=== PATIENT | male | born 1970 | race Two or more races ===

== ENCOUNTER 2020-09-12 21:21 | Inpatient (IN) | payer MEDICAID, SELFPAY ==
[2020-09-12 21:34] VITALS: BP 151/80; PULSE 82; RESP 16; TEMP 37.2; O2SAT 99; BMI 27.4
[2020-09-12 23:37] VITALS: BP 153/93; PULSE 81; RESP 15; O2SAT 98
[2020-09-12 23:39] LABS: MANUAL DIFF FLAG NO
[2020-09-12 23:40] LABS: Basophils Percent Auto 0.2 % (0-2); Eosinophils Absolute Auto 0.1 X10*3/uL (0.0-0.4); Eosinophils Percent Auto 0.6 % (0-4); Hematocrit 37.8 % (42-52); Hemoglobin 11.7 g/dl (14.0-18.0); Imm Gran Abs Auto 0.03 X10*3/uL (0.00-0.03); Imm Gran Pct Auto 0.3 % (0.0-0.4); Lymphocytes Absolute Auto 1.7 X10*3/uL (1.2-4.9); Mean Corpuscular Hemoglobin 23.6 pg (27.0-33.0); Mean Corpuscular Volume 76.4 fL (80-98); Mean Platelet Volume 9.2 fL (9.4-12.4); Monocytes Percent Auto 8.3 % (2-11); Neutrophils Absolute Auto 9.1 X10*3/uL (2.0-8.3); Neutrophils Percent Auto 76.6 % (45-73); Platelet Count 415 X10*3/uL (160-400); Red Blood Count 4.95 X10*6/uL (4.60-5.80); Red Cell Distribution Width 16.3 % (11.0-16.0); White Blood Count 11.8 X10*3/uL (4.8-10.8)
--- NOTE | 2020-09-12 23:48 | ED_ITS ---
HPI - Abdominal Pain General Chief Complaint: Abdominal Pain Stated Complaint: Abdominal Pain Time Seen by Provider: 09/12/20 23:08 Source: patient Mode of arrival: ambulatory Limitations: no limitations History of Present Illness HPI narrative: 50-year-old male presented with abdominal pain that progressively worsening over the past week, patient prescribed abdominal pain and distension which is constant for the past week with worsening over the week, patient fell of the ladder (more than 12 ft height) 3 weeks ago, seen by PCP no radiographic study was ordered, patient declined any aggravating factors, no relieving factors, pain is constant, described as severe 07/05, no other associated symptoms. Related Data Allergies Allergy/AdvReac Type Severity Reaction Status Date / Time No Known Allergies Allergy Verified 09/12/20 22:04 Review of Systems Review of Systems All other systems are reviewed and are negative Constitutional: Reports as per HPI and Reports no additional constitutional complaints Eyes: Reports as per HPI and Reports no additional eye complaints Reports system reviewed and no additional complaints, except as documented Cardiovascular: Reports as per HPI and Reports no additional cardiovascular complaints Respiratory: Reports as per HPI and Reports no additional respiratory complaints Gastrointestinal: Reports as per HPI and Reports no additional gastrointestinal complaints Genitourinary: Reports no additional female genitourinary complaints Musculoskeletal: Reports no additional musculoskeletal complaints Skin/Breast: Reports system reviewed and no additional complaints, except as docu Psychiatric: Reports no additional psychiatric complaints Endocrine: Reports no additional endocrine complaints Hematologic/Lymphatic: Reports no additional hematologic/lymphatic complaints Allergic/Immunologic: Reports no additional allergic/immunologic complaints Reports system reviewed and no additional complaints, except as documented and Reports Abnormal speech present Physical Exam Vital Signs: Vital Signs: Last Vital Signs Temp 99 F 09/12/20 21:34 Pulse 81 09/12/20 23:37 Resp 15 09/12/20 23:37 BP 153/93 H 09/12/20 23:37 Pulse Ox 98 09/12/20 23:37 Body Mass Index 27.4 Vital signs have been reviewed as normal and appeared to be correct. Blood pressure in the high range, Heart rate normal. Respiration rate normal. Temperature normal. Oxygen saturation normal. Appearance: Alert. Oriented X3. No acute distress. Head: Normal external exam. Normocephalic. Atraumatic. No Syed signs noted. No raccoon eyes noted Eyes: PERRLA. EOMI. Conjunctiva and sclera normal. Eyelids normal. ENT: EAC normal. TM's Normal. Pharynx normal. Uvula midline. Moist mucous membranes. No trismus noted. No drooling noted. No muffled voice noted. Neck: Normal inspection. Neck supple. FROM. No adenopathy. Thyroid Normal. No meningeal signs. No neck mass noted. CVS: Normal heart rate and rhythm. Heart sound normal. No murmurs noted. Pulses normal throughout. Respiratory: No respiratory distress. Painless inspiration. Breath sounds normal. No wheezes/rales/rhonchi noted. No accessory muscle usage noted or decreased air movement noted. Abdomen: Diffuse abdominal tenderness, no rebound, no guarding, positive abdominal distension. Bowel sounds normal in all 4 quadrants. No organomegaly noted. No visible injury noted. Back: No CVA tenderness. Full range of motion noted. Skin: Skin warm and dry. Normal skin color. Normal skin turgor. No ra shes/lesions/lacerations noted. Extremities: No lower extremity edema. Extremities exhibit normal range of motion. Extremities nontender. Neuro: Oriented X 3. No motor deficit. No sensory deficit. Reflexes normal. MDM - Abdominal Pain MDM Narrative Medical decision making narrative: Assessment and plan. 50-year-old male status post trauma 3 weeks ago falling from ladder greater than 12 ft height, patient sustained abdominal injury, patient has been worsening of abdominal pain for the past week CT of the abdomen pelvis is concerning of small-bowel obstruction versus cecal mass, the case discussed with Dr. Curiel who recommended admitting the patient to Surgical Service, insert NG tube, and further inpatient serial exam and evaluation. Lab Data Result diagrams: 09/12/20 23:32 09/12/20 23:32 Labs: Lab Results 09/12/20 09/12/20 09/12/20 Range/Units 23:32 23:32 23:32 WBC 11.8 H (4.8-10.8) X10*3/uL RBC 4.95 (4.60-5.80) X10*6/uL Hgb 11.7 L (14.0-18.0) g/dl Hct 37.8 L (42-52) % MCV 76.4 L (80-98) fL MCH 23.6 L (27.0-33.0) pg MCHC 31.0 (31.0-36.0) g/dl RDW 16.3 H (11.0-16.0) % Plt Count 415 H (160-400) X10*3/uL MPV 9.2 L (9.4-12.4) fL Immature Gran % (Auto) 0.3 (0.0-0.4) % Neut % (Auto) 76.6 H (45-73) % Lymph % (Auto) 14.0 L (20-40) % [place] % (Auto) 8.3 (2-11) % Eos % (Auto) 0.6 (0-4) % Baso % (Auto) 0.2 (0-2) % Lymph # (Auto) 1.7 (1.2-4.9) X10*3/uL [place] # (Auto) 1.0 (0.1-1.2) X10*3/uL Eos # (Auto) 0.1 (0.0-0.4) X10*3/uL Baso # (Auto) 0.0 (0.0-0.2) X10*3/uL Abs Immat Gran (auto) 0.03 (0.00-0.03) X10*3/uL Absolute Neuts (auto) 9.1 H (2.0-8.3) X10*3/uL Absolute Nucleated RBC 0.000 (0.0-0.012) X10*3/uL Nucleated RBC % (auto) 0.0 (0.0-0.2) /100WBC Hold Blue Top SEE NOTE Sodium 135 (135-145) mmol/L Potassium 4.2 (3.3-5.1) mmol/l Chloride 99 (96-108) mmol/L Carbon Dioxide 27 (22-29) mmol/L Anion Gap 13 (12-20) BUN 20 H (9-16) mg/dL Creatinine 0.92 (0.5-1.4) mg/dL Estim Creat Clear Calc 89.8 Estimated GFR > 60 Random Glucose 141 H (60-115) mg/dL Calcium 8.9 (8.4-10.2) mg/dL Total Bilirubin 0.5 (0.0-1.0) mg/dL AST 15 (5-37) U/L ALT 10 (0-40) U/L Alkaline Phosphatase 114 (39-117) U/L Total Protein 7.4 (6.5-8.0) g/dL Albumin 4.4 (3.5-5.0) g/dL Lipase (8-78) U/L Urine Color Urine Appearance Urine pH (5.0-8.0) Ur Specific [place] (1.005-1.025) Urine Protein (NEG-TRACE) MG/DL Urine Glucose (UA) (NEG) MG/DL Urine Ketones (NEG) MG/DL Urine Blood (NEG) Urine Nitrite (NEG) Ur Leukocyte Esterase (NEG) 09/12/20 09/12/20 Range/Units 23:32 23:39 WBC (4.8-10.8) X10*3/uL RBC (4.60-5.80) X10*6/uL Hgb (14.0-18.0) g/dl Hct (42-52) % MCV (80-98) fL MCH (27.0-33.0) pg MCHC (31.0-36.0) g/dl RDW (11.0-16.0) % Plt Count (160-400) X10*3/uL MPV (9.4-12.4) fL Immature Gran % (Auto) (0.0-0.4) % Neut % (Auto) (45-73) % Lymph % (Auto) (20-40) % [place] % (Auto) (2-11) % Eos % (Auto) (0-4) % Baso % (Auto) (0-2) % Lymph # (Auto) (1.2-4.9) X10*3/uL [place] # (Auto) (0.1-1.2) X10*3/uL Eos # (Auto) (0.0-0.4) X10*3/uL Baso # (Auto) (0.0-0.2) X10*3/uL Abs Immat Gran (auto) (0.00-0.03) X10*3/uL Absolute Neuts (auto) (2.0-8.3) X10*3/uL Absolute Nucleated RBC (0.0-0.012) X10*3/uL Nucleated RBC % (auto) (0.0-0.2) /100WBC Hold Blue Top Sodium (135-145) mmol/L Potassium (3.3-5.1) mmol/l Chloride (96-108) mmol/L Carbon Dioxide (22-29) mmol/L Anion Gap (12-20) BUN (9-16) mg/dL Creatinine (0.5-1.4) mg/dL Estim Creat Clear Calc Estimated GFR Random Glucose (60-115) mg/dL Calcium (8.4-10.2) mg/dL Total Bilirubin (0.0-1.0) mg/dL AST (5-37) U/L ALT (0-40) U/L Alkaline Phosphatase (39-117) U/L Total Protein (6.5-8.0) g/dL Albumin (3.5-5.0) g/dL Lipase 12 (8-78) U/L Urine Color YELLOW Urine Appearance CLEAR Urine pH 6.5 (5.0-8.0) Ur Specific [place] >= 1.030 H (1.005-1.025) Urine Protein NEG (NEG-TRACE) MG/DL Urine Glucose (UA) NEG (NEG) MG/DL Urine Ketones 5 (NEG) MG/DL Urine Blood NEG (NEG) Urine Nitrite NEG (NEG) Ur Leukocyte Esterase NEG (NEG) Imaging Data CT scan - abdomen: Radiologist's impression: This exam is abnormal. There is dilatation of small bowel to level of the ileocecal valve and at the level of the cecum there is felt to be abnormality with soft tissue in the mesentery around the cecum and likely soft tissue occupying the cecum itself with some adjacent mesenteric nodes. There is a differential here. Tumor needs to be suspected. Inflammatory process also cannot be excluded. Recommendation is direct visualization and/or repeat CT with oral and intravenous contrast Given history of trauma there is a possibility this could be trauma related and therefore differential would include aging hematoma related to mesenteric/bowel injury. No free air. Small amount of free fluid in the deep pelvis Discharge Plan Discharge Clinical Impression: Partial small bowel obstruction Abdominal pain Qualifiers: Abdominal location: generalized Qualified Code(s): R10.84 - Generalized abdominal pain Abdominal trauma Qualifiers: Encounter type: initial encounter Qualified Code(s): S39.91XA - Unspecified injury of abdomen, initial encounter Patient Disposition: Admitted As Inpatient [facility] Social History Social History Alcohol intake: never Smoking Status: Never smoker Use of substances other than those prescribed or required for medical reasons: No Advance Directives: No Advance Directives Information Provided: No Advance Directives on File: No
[2020-09-12 23:52] LABS: Glucose Urine UA NEG (NEG); Leukocyte Esterase Urine NEG (NEG); Nitrite Urine NEG (NEG); PH 6.5 (5.0-8.0); Specific Gravity - Urine >= 1.030 (1.005-1.025); Urine Blood NEG (NEG); Urine Ketones 5 MG/DL (NEG); Urine Protein NEG (NEG-TRACE)
[2020-09-12 23:58] LABS: Appearance Urine CLEAR; Color Urine YELLOW
--- NOTE | 2020-09-13 | CT_ITS ---
EXAMINATION: CT ABDOMEN AND PELVIS WITHOUT CONTRAST CLINICAL INFORMATION: Abdominal distention, status post fall COMPARISON: None TECHNIQUE: Multidetector volumetric imaging was performed from the superior aspect of the liver through the pubic symphysis. Sagittal and coronal reformatted images were obtained on the technologist's workstation. This CT examination was performed using dose optimization techniques as appropriate, variously including the following: *Automated exposure control *Adjustment of mA and/or kV according to patient size (this includes techniques or standardized protocols for targeted exams where dose is matched to indication/reason for exam; i.e. extremities or head) *Use of iterative reconstruction technique DLP: 583 mGy-cm FINDINGS: LUNG BASES: The visualized lung bases are unremarkable. LIVER, GALLBLADDER, AND BILIARY TREE: The liver is normal in size, shape, and attenuation. No focal hepatic lesion or biliary ductal dilatation is present. The gallbladder is unremarkable with no evidence of radiopaque gallstones, gallbladder wall thickening, or obvious pericholecystic inflammatory changes. PANCREAS: Unremarkable. SPLEEN: Unremarkable. ADRENAL GLANDS: Unremarkable. KIDNEYS AND URETERS: The kidneys are normal in size, shape, and attenuation. No hydronephrosis, hydroureter, or calculi seen. No perinephric stranding. BLADDER: Unremarkable. GASTROINTESTINAL TRACT: There is small bowel dilatation. This leads up to the region of the cecum. The region of the cecum is abnormal. I suspect a lesion here. There is also abnormal soft tissue in the mesentery adjacent to the cecum. This could be tumor extension. There is a history of trauma so this area could be related to trauma however no Hounsfield units measuring acute blood or detected. There is some adenopathy in the mesentery medial to the cecal region. Appendicoliths within the appendix. The appendix is mildly prominent at 8 mm. No surrounding soft tissue stranding. Small amount of free fluid is seen in the deep pelvis. ABDOMINAL WALL: No significant hernia is appreciated. LYMPH NODES: As described some mesenteric nodes in the right mesentery. VASCULAR: Unremarkable. PELVIC VISCERA: Unremarkable. OSSEOUS STRUCTURES: Grade 1 anterolisthesis with spondylolysis at L5-S1. No evidence for bony lesion. No acute compression injury is seen here. CT/CT abdomen pelvis wo con IMPRESSION: This exam is abnormal. There is dilatation of small bowel to level of the ileocecal valve and at the level of the cecum there is felt to be abnormality with soft tissue in the mesentery around the cecum and likely soft tissue occupying the cecum itself with some adjacent mesenteric nodes. There is a differential here. Tumor needs to be suspected. Inflammatory process also cannot be excluded. Recommendation is direct visualization and/or repeat CT with oral and intravenous contrast Given history of trauma there is a possibility this could be trauma related and therefore differential would include aging hematoma related to mesenteric/bowel injury. No free air. Small amount of free fluid in the deep pelvis
[2020-09-13 00:04] LABS: Alanine Aminotransferase 10 U/L (0-40); Albumin Level 4.4 g/dL (3.5-5.0); Alkaline Phosphatase 114 U/L (39-117); Anion Gap 13 (12-20); Aspartate Amino Transferase 15 U/L (5-37); Bilirubin Total 0.5 mg/dL (0.0-1.0); Blood Urea Nitrogen 20 mg/dL (9-16); Calcium 8.9 mg/dL (8.4-10.2); Carbon Dioxide 27 mmol/L (22-29); Chloride 99 mmol/L (96-108); Creatinine Clr Calc Pharmacy 89.8; Estimated Glomerular Filt Rate > 60; Glucose Random 141 mg/dL (60-115); Potassium 4.2 mmol/l (3.3-5.1); Sodium 135 mmol/L (135-145); Total Protein 7.4 g/dL (6.5-8.0)
[2020-09-13 00:06] LABS: Lipase 12 U/L (8-78)
--- NOTE | 2020-09-13 02:05 | XR_ITS ---
EXAMINATION: XR CHEST CLINICAL INFORMATION: NG tube insertion COMPARISON: None TECHNIQUE: Frontal view of the chest was obtained. FINDINGS: Enteric tube courses into the stomach with tip outside the [id number]. Lung volumes are symmetric. No focal consolidation is seen. No evidence of pneumothorax, pleural effusion, or pulmonary edema. The cardiomediastinal contour is unremarkable. No acute osseous findings are seen. XR/XR chest 1V IMPRESSION: Enteric tube courses into the stomach.
[2020-09-13 02:44] LABS: COVID-19 Test Negative (Negative)
[2020-09-13 04:00] VITALS: BP 136/84; PULSE 81; RESP 15; TEMP 37; O2SAT 98
[2020-09-13] MEDS: Morphine Sulfate 4 MG/ML CARTRIDGE IVPUSH (08:06)
[2020-09-13] MEDS: Dextrose 5 % and Lactated Ring 1,000 ML 100 ML IVCONT ×2 (08:06→18:48)
--- NOTE | 2020-09-13 09:22 | PM.HPGS ---
History of Present Illness History of Present Illness Chief complaint: Abdominal Pain Narrative: Jp Mcdonough is a 50 year old male who presented to the emergency department last night for evaluation of worsening abdominal pain. He reports that he has been healthy but states that he fell from a ladder about 3 weeks ago. He was working at roof height. He struck his abdomen on the edge of the gutter and then a landed face down. He developed central abdominal ecchymoses. He felt okay and did not initially go in for evaluation. After the injury, he developed symptoms of stabbing abdominal pain that waxed and waned. He had change in bowel habit. Stools were loose. He had an episode of rectal bleeding and went in to see his primary physician at the [facility]. By report, he had blood work done and stools were checked for blood. He has not undergone colonoscopy in the past. Consultation for this was pending. He does not report fever, chills, nausea or vomiting. He does feel somewhat bloated. He reports that his abdominal pain has been diffuse. He also has some tenderness on his right side. In the emergency department, laboratory studies revealed a slightly low hemoglobin level of 11.7. White blood count was mildly elevated at 11.8. CT scan of the abdomen and pelvis was obtained with findings as noted below: GASTROINTESTINAL TRACT: There is small bowel dilatation. This leads up to the region of the cecum. The region of the cecum is abnormal. I suspect a lesion here. There is also abnormal soft tissue in the mesentery adjacent to the cecum. This could be tumor extension. There is a history of trauma so this area could be related to trauma however no Hounsfield units measuring acute blood or detected. There is some adenopathy in the mesentery medial to the cecal region. Appendicoliths within the appendix. The appendix is mildly prominent at 8 mm. No surrounding soft tissue stranding. Small amount of free fluid is seen in the deep pelvis. ABDOMINAL WALL: No significant hernia is appreciated. LYMPH NODES: As described some mesenteric nodes in the right mesentery. VASCULAR: Unremarkable. PELVIC VISCERA: Unremarkable. OSSEOUS STRUCTURES: Grade 1 anterolisthesis with spondylolysis at L5-S1. No evidence for bony lesion. No acute compression injury is seen here. CT/CT abdomen pelvis wo con IMPRESSION: This exam is abnormal. There is dilatation of small bowel to level of the ileocecal valve and at the level of the cecum there is felt to be abnormality with soft tissue in the mesentery around the cecum and likely soft tissue occupying the cecum itself with some adjacent mesenteric nodes. There is a differential here. Tumor needs to be suspected. Inflammatory process also cannot be excluded. Recommendation is direct visualization and/or repeat CT with oral and intravenous contrast Given history of trauma there is a possibility this could be trauma related and therefore differential would include aging hematoma related to mesenteric/bowel injury. No free air. Small amount of free fluid in the deep pelvis Dictated By:DANIEL ROGERS MD Signed By:<Electronically signed by DANIEL ROGERS MD in OV>09/13/[address] images with the radiologist. Because of the evidence of partial small-bowel obstruction, an NG tube was placed. The patient reports decreased symptoms of bloating following placement of the NG tube. Output has been fairly low, about 300 cc. Review of Systems Constitutional: Constitutional: Reports no additional constitutional complaints and Denies headache(s) ENT: Denies headache(s) Cardiovascular: Cardiovascular: Denies chest pain, Denies irregular heart rhythm, Denies palpitations and Denies dyspnea on exertion Respiratory: Respiratory: Denies cough, Denies dyspnea on exertion and Denies wheezing Musculoskeletal: Musculoskeletal: Reports no additional musculoskeletal complaints Neurologic: Denies Abnormal speech present, Denies headache(s) and Denies memory loss Psychiatric: Psychiatric: Denies memory loss Endocrine: Endocrine: Denies palpitations Allergic/Immunologic: Allergic/Immunologic: Denies wheezing [facility] Social History Social History Alcohol intake: never Smoking Status: Never smoker Use of substances other than those prescribed or required for medical reasons: No Advance Directives: No Advance Directives Information Provided: No Advance Directives on File: No Meds Allergies Allergy/AdvReac Type Severity Reaction Status Date / Time No Known Allergies Allergy Verified 09/12/20 22:04 Home Medications Medication Instructions Recorded Confirmed Type No Known Home Meds 09/13/20 09/13/20 History Physical Exam Vital Signs: Vital Signs: Last Vital Signs Temp 98.6 F 09/13/20 04:00 Pulse 81 09/13/20 04:00 Resp 15 09/13/20 04:00 BP 136/84 09/13/20 04:00 Pulse Ox 98 09/13/20 04:00 Body Mass Index 27.4 Const: General: healthy appearing, no acute distress and alert Orientation/consciousness: oriented to person and oriented to place HENMT: Head: Yes normal to inspection Ears: hearing grossly normal bilaterally Face and sinus: Yes normal facial exam Eyes: Conjunctivae: conjunctivae normal Sclerae: sclerae normal EOM: EOMs intact bilaterally Neck: Neck: Yes normal visual inspection and Yes trachea midline Resp: Effort & Inspection: normal respiratory effort Auscultation: clear to auscultation bilaterally Cardio: Rate: regular rate Rhythm: regular rhythm Heart sounds: no murmurs GI: Other: Mildly distended, tender laterally on the right, right lower quadrant greater than right upper quadrant, no palpable masses, normal bowel sounds, no organomegaly Skin: Other: normal color, warm and dry Neuro: General: oriented to person and oriented to place Cognition (Neuro): normal cognition Speech: No Abnormal speech present Extrem: General: Yes normal to inspection Psych: Appearance: grossly normal Mental Status: mental status grossly normal Affect: normal affect Thought process: Normal thought process present Insight: Good insight present (Psych) Results Results Labs: Short CBC 09/12/20 Range/Units 23:32 WBC 11.8 H (4.8-10.8) X10*3/uL Hgb 11.7 L (14.0-18.0) g/dl Hct 37.8 L (42-52) % Plt Count 415 H (160-400) X10*3/uL BMP 09/12/20 23:32 Sodium 135 Potassium 4.2 Chloride 99 Carbon Dioxide 27 BUN 20 H Creatinine 0.92 Calcium 8.9 Liver Function 09/12/20 Range/Units 23:32 Total Bilirubin 0.5 (0.0-1.0) mg/dL AST 15 (5-37) U/L ALT 10 (0-40) U/L Alkaline Phosphatase 114 (39-117) U/L Albumin 4.4 (3.5-5.0) g/dL Urine 09/12/20 Range/Units 23:39 Urine Color YELLOW Urine Appearance CLEAR Urine pH 6.5 (5.0-8.0) Ur Specific [place] >= 1.030 H (1.005-1.025) Urine Protein NEG (NEG-TRACE) MG/DL Urine Glucose (UA) NEG (NEG) MG/DL Assessment and Plan (1) Partial small bowel obstruction: Status: Acute Secondary to mass of cecum, NG tube has been placed, but drainage amounts have been low so far. He reports symptoms consistent with partial small-bowel obstruction. (2) Mass of cecum: Status: Acute Workup reveals a cecal mass with evidence of partial small-bowel obstruction. The character of his abdominal pain is consistent with the partial small-bowel obstruction, but there is tenderness that appears to be related to the cecal mass. Overall findings are most consistent with a neoplastic process though the possibility of an inflammatory or traumatic etiology cannot be ruled out. It appears unlikely that he would tolerate the prep required for colonoscopy, and based upon the findings of partial obstruction, it appears unlikely that colonoscopy would alter the recommended treatment plan, surgical resection of the partially obstructing lesion. I have discussed this with him. I reviewed the technique of surgery, likely hand assisted laparoscopic right colectomy with potential need to convert to open. He remains somewhat distended which increases the likelihood that open surgery may be required and depending upon his preoperative progress, open approach may be preferable. We discussed risks including but not limited to infection, bleeding, DVT and PE, incisional hernia, anastomotic leak, injuries to adjacent structures, and potential need for blood transfusion with associated risks of transfusion reaction and infection. He agrees to proceed with surgery. This will be scheduled for tomorrow. (3) Abdominal trauma: Qualifiers: Encounter type: initial encounter Qualified Code(s): S39.91XA - Unspecified injury of abdomen, initial encounter Status: Acute (4) Abdominal pain: Qualifiers: Abdominal location: generalized Qualified Code(s): R10.84 - Generalized abdominal pain Status: Acute Procedures Abscess I/D Date of Service: 09/13/20
--- NOTE | 2020-09-13 13:16 | PC.NURSE ---
REPORT GIVEN TO GAYLA ON S3. PT TO BE TRANSFERRED TO FLOOR
[2020-09-13 14:46] VITALS: BP 133/85; PULSE 67; RESP 16; TEMP 36.9; O2SAT 98
--- NOTE | 2020-09-13 15:36 | MHC.CM.PN ---
nurse body care manager note electronic medical record reviewed along with case discussed with staff nurse . met with patient , he was awake ,alert but in some pain ,patient lives with his girlfriend he is active independent in all adls and mobility , he fell off a ladder at work about 12 ft , saw his pcp no imaging studies were done, he atarted to have abdominal pain which has progressed to a pain scae of 07/05 imaging studies showed small bowel obstruction ,cecal mass patient admitted as inpatient , npo, ng tube placed and patient started with iv fluids and iv pain medication. patient has no vna /no dme services in the home discharge plan to be further determine as time goes on body care manager to continue to follow for any changes in discharge needs. 1.home n services vs 2 home with vna (no selection chosen as yet) transportation family pcp at the [facility] case managemnt office to check for which jacquie
[2020-09-13 15:37] LABS: Hematocrit 36.5 % (42-52); Hemoglobin 11.2 g/dl (14.0-18.0); Mean Corpuscular HGB Conc 30.7 g/dl (31.0-36.0); Mean Corpuscular Hemoglobin 23.7 pg (27.0-33.0); Mean Corpuscular Volume 77.2 fL (80-98); Mean Platelet Volume 9.3 fL (9.4-12.4); Platelet Count 391 X10*3/uL (160-400); Red Blood Count 4.73 X10*6/uL (4.60-5.80); Red Cell Distribution Width 16.5 % (11.0-16.0); White Blood Count 8.9 X10*3/uL (4.8-10.8)
[2020-09-13 15:53] VITALS: BP 139/86; PULSE 69; RESP 18; TEMP 36.5; O2SAT 99
[2020-09-13] MEDS: Acetaminophen 325 MG TABLET 650 MG PO (18:43)
[2020-09-13 19:59] VITALS: BP 121/68; PULSE 72; RESP 18; TEMP 36.6; O2SAT 98
[2020-09-13 23:38] VITALS: BP 126/67; PULSE 64; RESP 14; TEMP 36.9; O2SAT 98
[2020-09-14] VITALS (12 sets, daily range): BP systolic 113–134; BP diastolic 59–79; PULSE 65–90; RESP 14–20; TEMP 36.2–37.2; O2SAT 94–100; BMI 27.4
[2020-09-14] MEDS: Dextrose 5 % and Lactated Ring 1,000 ML 100 ML IVCONT (04:34)
--- NOTE | 2020-09-14 08:31 | P.PNGS_ITS ---
Subjective Subjective Interval history: He feels better this morning. No nausea or vomiting. Still has some mild right lower quadrant discomfort. Passed a couple of loose stools. No rectal bleeding. He says that he has been having some pain in the right lower abdomen for for at least several months prior to the onset of the more diffuse stabbing pain and abdominal distension. The symptoms are right lower quadrant pain pre date the time of his injury. Physical Exam Vital Signs: Vital Signs: Last Vital Signs Temp 98.0 F 09/14/20 08:00 Pulse 74 09/14/20 08:00 Resp 20 09/14/20 08:00 BP 113/71 09/14/20 08:00 Pulse Ox 100 09/14/20 08:00 Body Mass Index 27.4 Const: Other: Alert, appears comfortable and in no distress GI: Other: Nondistended Progress Note: A&P Assessment and plan (1) Mass of cecum: Status: Acute Assessment and Plan: He is symptomatically improved, but has been NPO. We reviewed plans for right colectomy, hand assisted laparoscopic with potential need to convert to open. We discussed risks of procedure yesterday, including but not limited to infection, bleeding, DVT and PE, anastomotic leak, incisional hernia, and injuries to adjacent structures. We also had discussed the option of deferring surgery and attempting colonoscopy. We discussed that again today. He does not feel that he would be able to tolerate the prep because recently, taking anything by mouth has caused abdominal distension and pain. He agrees with the recommendation to proceed with surgery, which is scheduled for early this afternoon. We reviewed the anticipated course of recovery. Fall Risk Details Current Medications: Current Medications Generic Name Dose Route Start Last Admin Trade Name Freq PRN Reason Stop Dose Admin Acetaminophen 650 mg 09/13/20 13:34 Acetaminophen Supp 650 Mg Supp.Rect UT Q6H PRN Pain, Mild (Pain Scale 1-3) Acetaminophen 650 mg 09/13/20 15:30 09/13/20 18:43 Acetaminophen 325 Mg Tablet PO 650 mg Q6H PRN Administration Pain and Fever Dextrose/Lactated Ringer's 1,000 mls @ 100 mls/hr 09/13/20 07:27 09/14/20 04:34 D5lr IVCONT 100 mls/hr .Q10H NAHOMY Administration Morphine Sulfate 4 mg 09/13/20 07:27 Morphine Sulfate 4 Mg/Ml Cartridge IVPUSH Q3H PRN Pain, Severe (Pain Scale 7-10) Ondansetron HCl 4 mg 09/13/20 07:27 Ondansetron Hcl 4 Mg/2 Ml Vial IVPUSH Q8H PRN Nausea and Vomiting Pharmacy Consult 1 each 09/13/20 02:05 Consult Rx Perform Med Rec MISCELLANE ONCE PRN Consult order Sodium Chloride 3 ml 09/13/20 13:34 09/14/20 07:04 0.9 % Sodium Chloride Flush 3 Ml Syringe IVFLUSH Not Given QSHIFT NAHOMY Time Spent With Patient Time: Total time spent is greater than 50% in coordination of care (as d ocumented) at patient's floor/unit and/or counseling patient: Time with patient: 15 - 24 minutes Procedures Abscess I/D Date of Service: 09/14/20
--- NOTE | 2020-09-14 09:44 | MHC.CM.PN ---
nurse care coordination manager note electronic medical record reviewed , plan is for laproscopuic hand assist vs open colectomy. patient reamins with ng-tube,npo and iv fluids and iv pain medications case management to continue to follow for p[ossible changes in discharge needs transportation ninoska pcp at the [facility] patient instructed to call for follow up post hospitla discharge
--- NOTE | 2020-09-14 12:34 | PC.NURSE ---
lungs clear throughout
--- NOTE | 2020-09-14 13:21 | P.CONAN_ITS ---
[facility] Social History Social History Household Members: Significant Other Housing: Apartment Do you presently have visiting nurse or other home services: Yes Alcohol intake: never Smoking Status: Never smoker Use of substances other than those prescribed or required for medical reasons: No Currently Displaying Signs/Symptoms of Drug Intoxication Withdrawal: No Have you been hit, kicked, punched, or otherwise hurt by someone within the past year? If so, by whom?: No Do you feel safe in your current relationship?: Yes Is there a partner from a previous relationship who is making you feel unsafe now?: No Are you made to feel afraid or neglected: No Advance Directives: No Advance Directives Information Provided: No Advance Directives on File: No Do you have thoughts of harming others: None Do you have a plan to hurt others: No Plan service: No Current occupational status: employed Meds Allergies Allergy/AdvReac Type Severity Reaction Status Date / Time No Known Allergies Allergy Verified 09/12/20 22:04 Home Medications Medication Instructions Recorded Confirmed Type No Known Home Meds 09/13/20 09/13/20 History Exam Exam Date and Time: September 14, 2020 1321 Height,Weight and Vital Signs: Height 5 ft 5 in Weight 74.843 kg Last Vital Signs Temp 98.4 F 09/14/20 11:52 Pulse 73 09/14/20 11:52 Resp 16 09/14/20 11:52 BP 118/73 09/14/20 11:52 Pulse Ox 98 09/14/20 11:52 Pertinent Lab Results Pertinent Lab Results: Laboratory Tests 09/12/20 09/12/20 09/12/20 23:32 23:32 23:32 WBC 11.8 H RBC 4.95 Hgb 11.7 L Hct 37.8 L MCV 76.4 L MCH 23.6 L MCHC 31.0 RDW 16.3 H Plt Count 415 H MPV 9.2 L Immature Gran % (Auto) 0.3 Neut % (Auto) 76.6 H Lymph % (Auto) 14.0 L [place] % (Auto) 8.3 Eos % (Auto) 0.6 Baso % (Auto) 0.2 Lymph # (Auto) 1.7 [place] # (Auto) 1.0 Eos # (Auto) 0.1 Baso # (Auto) 0.0 Abs Immat Gran (auto) 0.03 Absolute Neuts (auto) 9.1 H Absolute Nucleated RBC 0.000 Nucleated RBC % (auto) 0.0 Hold Blue Top SEE NOTE Sodium 135 Potassium 4.2 Chloride 99 Carbon Dioxide 27 Anion Gap 13 BUN 20 H Creatinine 0.92 Estim Creat Clear Calc 89.8 Estimated GFR > 60 Random Glucose 141 H Calcium 8.9 Total Bilirubin 0.5 AST 15 ALT 10 Alkaline Phosphatase 114 Total Protein 7.4 Albumin 4.4 Lipase Carcinoembryonic Ag Urine Color Urine Appearance Urine pH Ur Specific [place] Urine Protein Urine Glucose (UA) Urine Ketones Urine Blood Urine Nitrite Ur Leukocyte Esterase COVID-19 ([facility]OFFI) [employer] Com Blood Type Antibody Screen 09/12/20 09/12/20 09/13/20 23:32 23:39 02:22 WBC RBC Hgb Hct MCV MCH MCHC RDW Plt Count MPV Immature Gran % (Auto) Neut % (Auto) Lymph % (Auto) [place] % (Auto) Eos % (Auto) Baso % (Auto) Lymph # (Auto) [place] # (Auto) Eos # (Auto) Baso # (Auto) Abs Immat Gran (auto) Absolute Neuts (auto) Absolute Nucleated RBC Nucleated RBC % (auto) Hold Blue Top Sodium Potassium Chloride Carbon Dioxide Anion Gap BUN Creatinine Estim Creat Clear Calc Estimated GFR Random Glucose Calcium Total Bilirubin AST ALT Alkaline Phosphatase Total Protein Albumin Lipase 12 Carcinoembryonic Ag Urine Color YELLOW Urine Appearance CLEAR Urine pH 6.5 Ur Specific [place] >= 1.030 H Urine Protein NEG Urine Glucose (UA) NEG Urine Ketones 5 Urine Blood NEG Urine Nitrite NEG Ur Leukocyte Esterase NEG COVID-19 ([facility]OFFI) Negative [employer] Com See Note Blood Type Antibody Screen 09/13/20 09/13/20 09/13/20 15:24 15:24 15:24 WBC 8.9 RBC 4.73 Hgb 11.2 L Hct 36.5 L MCV 77.2 L MCH 23.7 L MCHC 30.7 L RDW 16.5 H Plt Count 391 MPV 9.3 L Immature Gran % (Auto) Neut % (Auto) Lymph % (Auto) [place] % (Auto) Eos % (Auto) Baso % (Auto) Lymph # (Auto) [place] # (Auto) Eos # (Auto) Baso # (Auto) Abs Immat Gran (auto) Absolute Neuts (auto) Absolute Nucleated RBC 0.000 Nucleated RBC % (auto) 0.0 Hold Blue Top Sodium Potassium Chloride Carbon Dioxide Anion Gap BUN Creatinine Estim Creat Clear Calc Estimated GFR Random Glucose Calcium Total Bilirubin AST ALT Alkaline Phosphatase Total Protein Albumin Lipase Carcinoembryonic Ag 0.80 Urine Color Urine Appearance Urine pH Ur Specific [place] Urine Protein Urine Glucose (UA) Urine Ketones Urine Blood Urine Nitrite Ur Leukocyte Esterase COVID-19 ([facility]OFFI) COVID-19 Clin Com Blood Type O Positive Antibody Screen NEGATIVE Narrative Narrative: snores, negative IRIS Airway Mallampati Class: I TM Dist: >3cm Neck ROM: Full Loose/Missing/Broken Teeth: No Heart: rrr Lungs: ctab Assessment and Plan Assessment Anesthesia Assessment: Anesthesia Plan Discussed and Chart Reviewed Final Anesthetic Review NPO: Yes ASA Class: II Final Preanesthetic Review: No Changes in Pt Med Stat, Meds/Allgs Chart Reviewed, Consent Obtained/Reviewed and Anes Risks/Benef Reviewed Patient Risk: Low Procedure Risk: Low Anesthetic Plan Anesthetic Plan: GA Disposition: Standard PACU
--- NOTE | 2020-09-14 13:23 | MHC.SHP ---
Pre-Procedural Eval Section A The patient is an INPATIENT: Yes Section B Chief Complaint: Cecal lesion, small bowel obstruction Allergies: Allergies Allergy/AdvReac Type Severity Reaction Status Date / Time No Known Allergies Allergy Verified 09/12/20 22:04 Plan Diagnosis/Plan: Unchanged Patient has been examined and remains a candidate for the planned procedure
--- NOTE | 2020-09-14 13:29 | P.CONAN_ITS ---
HPI - Anesthesia Eval Consult details Narrative: 50yo male patient here for hand-assisted laparoscopic colectomy PMFSH Family History Family history of problems with anesthesia: No Surgical History History of Problems with Anesthesia: No ( Never had anesthesia) Social History Social History Household Members: Significant Other Housing: Apartment Do you presently have visiting nurse or other home services: Yes Alcohol intake: never Smoking Status: Never smoker Use of substances other than those prescribed or required for medical reasons: No Currently Displaying Signs/Symptoms of Drug Intoxication Withdrawal: No Have you been hit, kicked, punched, or otherwise hurt by someone within the past year? If so, by whom?: No Do you feel safe in your current relationship?: Yes Is there a partner from a previous relationship who is making you feel unsafe now?: No Are you made to feel afraid or neglected: No Advance Directives: No Advance Directives Information Provided: No Advance Directives on File: No Do you have thoughts of harming others: None Do you have a plan to hurt others: No Plan service: No Current occupational status: employed Meds Allergies Allergy/AdvReac Type Severity Reaction Status Date / Time No Known Allergies Allergy Verified 09/12/20 22:04 Home Medications Medication Instructions Recorded Confirmed Type No Known Home Meds 09/13/20 09/13/20 History Exam Exam Date and Time: September 14, 2020 1329 Height,Weight and Vital Signs: Height 5 ft 5 in Weight 74.843 kg Last Vital Signs Temp 98.4 F 09/14/20 11:52 Pulse 73 09/14/20 11:52 Resp 16 09/14/20 11:52 BP 118/73 09/14/20 11:52 Pulse Ox 98 09/14/20 11:52 Pertinent Lab Results Pertinent Lab Results: Laboratory Tests 09/12/20 09/12/20 09/12/20 23:32 23:32 23:32 WBC 11.8 H RBC 4.95 Hgb 11.7 L Hct 37.8 L MCV 76.4 L MCH 23.6 L MCHC 31.0 RDW 16.3 H Plt Count 415 H MPV 9.2 L Immature Gran % (Auto) 0.3 Neut % (Auto) 76.6 H Lymph % (Auto) 14.0 L [place] % (Auto) 8.3 Eos % (Auto) 0.6 Baso % (Auto) 0.2 Lymph # (Auto) 1.7 [place] # (Auto) 1.0 Eos # (Auto) 0.1 Baso # (Auto) 0.0 Abs Immat Gran (auto) 0.03 Absolute Neuts (auto) 9.1 H Absolute Nucleated RBC 0.000 Nucleated RBC % (auto) 0.0 Hold Blue Top SEE NOTE Sodium 135 Potassium 4.2 Chloride 99 Carbon Dioxide 27 Anion Gap 13 BUN 20 H Creatinine 0.92 Estim Creat Clear Calc 89.8 Estimated GFR > 60 Random Glucose 141 H Calcium 8.9 Total Bilirubin 0.5 AST 15 ALT 10 Alkaline Phosphatase 114 Total Protein 7.4 Albumin 4.4 Lipase Carcinoembryonic Ag Urine Color Urine Appearance Urine pH Ur Specific [place] Urine Protein Urine Glucose (UA) Urine Ketones Urine Blood Urine Nitrite Ur Leukocyte Esterase COVID-19 ([facility]I) COVID-[employer] Blood Type Antibody Screen 09/12/20 09/12/20 09/13/20 23:32 23:39 02:22 WBC RBC Hgb Hct MCV MCH MCHC RDW Plt Count MPV Immature Gran % (Auto) Neut % (Auto) Lymph % (Auto) [place] % (Auto) Eos % (Auto) Baso % (Auto) Lymph # (Auto) [place] # (Auto) Eos # (Auto) Baso # (Auto) Abs Immat Gran (auto) Absolute Neuts (auto) Absolute Nucleated RBC Nucleated RBC % (auto) Hold Blue Top Sodium Potassium Chloride Carbon Dioxide Anion Gap BUN Creatinine Estim Creat Clear Calc Estimated GFR Random Glucose Calcium Total Bilirubin AST ALT Alkaline Phosphatase Total Protein Albumin Lipase 12 Carcinoembryonic Ag Urine Color YELLOW Urine Appearance CLEAR Urine pH 6.5 Ur Specific [place] >= 1.030 H Urine Protein NEG Urine Glucose (UA) NEG Urine Ketones 5 Urine Blood NEG Urine Nitrite NEG Ur Leukocyte Esterase NEG COVID-19 ([facility]OFFI) Negative COVID-[employer] See Note Blood Type Antibody Screen 09/13/20 09/13/20 09/13/20 15:24 15:24 15:24 WBC 8.9 RBC 4.73 Hgb 11.2 L Hct 36.5 L MCV 77.2 L MCH 23.7 L MCHC 30.7 L RDW 16.5 H Plt Count 391 MPV 9.3 L Immature Gran % (Auto) Neut % (Auto) Lymph % (Auto) [place] % (Auto) Eos % (Auto) Baso % (Auto) Lymph # (Auto) [place] # (Auto) Eos # (Auto) Baso # (Auto) Abs Immat Gran (auto) Absolute Neuts (auto) Absolute Nucleated RBC 0.000 Nucleated RBC % (auto) 0.0 Hold Blue Top Sodium Potassium Chloride Carbon Dioxide Anion Gap BUN Creatinine Estim Creat Clear Calc Estimated GFR Random Glucose Calcium Total Bilirubin AST ALT Alkaline Phosphatase Total Protein Albumin Lipase Carcinoembryonic Ag 0.80 Urine Color Urine Appearance Urine pH Ur Specific [place] Urine Protein Urine Glucose (UA) Urine Ketones Urine Blood Urine Nitrite Ur Leukocyte Esterase COVID-19 ([facility]I) COVID-19 Clin Com Blood Type O Positive Antibody Screen NEGATIVE Airway Mallampati Class: II TM Dist: >3cm Neck ROM: Full Heart: RRR Lungs: CTAB Assessment and Plan Assessment Anesthesia Assessment: Anesthesia Plan Discussed and Chart Reviewed Final Anesthetic Review NPO: Yes ASA Class: I Final Preanesthetic Review: No Changes in Pt Med Stat, Meds/Allgs Chart Reviewed, Consent Obtained/Reviewed and Anes Risks/Benef Reviewed Patient Risk: Low Procedure Risk: Intermediate Anesthetic Plan Anesthetic Plan: GA Disposition: Standard PACU
--- NOTE | 2020-09-14 17:21 | P.OP_ITS ---
Operative Note Operative Note Date of Service: 09/14/20 Narrative: Preoperative diagnosis: Cecal lesion with partial small-bowel obstruction Postoperative diagnosis: Same Procedure: Hand assisted laparoscopic right hemicolectomy converted to open Assistants: Leonid Garcia MD, [facility] Anesthesia: General endotracheal Specimen: Right colon and tissue from frozen section radial margin at level of cecum Estimated blood loss: 200 cc Immediate complications: none Findings: There was an indurated mass within the cecum that was adherent to the right lateral that retroperitoneal area. Mesenteric lymphadenopathy was noted. Indications: This is a 50-year-old with a several month history of right lower quadrant discomfort and a 3 week history of sharp diffuse intermittent abdominal pain and bloating. CT scan demonstrates a lesion of the cecum with evidence of partial small-bowel obstruction. Procedure detail: With the patient in the supine position following induction of adequate general anesthesia, time-out procedure was performed. The abdomen was prepped with ChloraPrep and was draped sterilely. Initially, skin and subcutaneous tissues in the upper midline just above the umbilicus were infiltrated with local anesthetic and and approximately 7.5 cm incision was made in the midline and was carried down to the level of fascia. The fascia was infiltrated with local anesthetic and was incised. The peritoneal cavity was entered. Small bowel was noted to be somewhat dilated. The cecal mass was identified. The cecum was positioned at and just above the level of the umbilicus. The hand port sleeve was inserted and the GelPort was attached. A 5 mm trocar was placed through it. The abdomen was insufflated with carbon dioxide to pressure 15 mm of mercury and the 30 degree 5 mm laparoscopic was inserted. The peritoneal cavity was visualized. The cecal lesion was identified. 5 mm trocars were placed in the right upper quadrant, left upper quadrant and left mid abdomen. The laparoscopic was placed through the left upper quadrant port and the laparoscopic 5 mm LigaSure was introduced through the left lateral port. The gastrocolic omentum was taken down beginning along the proximal transverse colon and moving toward the hepatic flexure. The right colon was noted to be short. It was reflected medially. The area of the mass lesion the cecum was inspected and the adjacent retroperitoneal tissues were palpated. There was a large indurated area. It appeared that on block resection would likely be needed. Decision was made to convert to open to facilitate this. Trocars and the GelPort were removed. The abdominal incision was extended caudad to just below the umbilicus and cephalad for an additional approximately 4 cm. The Bookwalter retractor was positioned. The small bowel was reflected toward the left. The right colon was further mobilized along the right lateral gutter. The duodenum was identified and was swept posteriorly. Next, point for division of the transverse colon was chosen including the right branch of the middle colic artery. A window was created in the mesentery at the margin of the colon. The greater omentum was dissected free from the yet anti mesenteric margin of the colon and the ALBA 60, 3.8 stapler was employed to divide the colon at that point. The mesocolon was then divided moving distal to proximal using a combination of electrosurgical pencil and LigaSure dissection. Once the level of the induration associated with the cecal mass was reached, the peritoneum overlying the soft tissues of the lateral abdominal wall and retroperitoneum in the area of the indurated tissues was incised with electrosurgical pencil and mobilization was initiated. The indurated tissue extended cephalad to the area of the C-loop of the duodenum. It did not appear likely that full resection would be possible. A portion of the tissue was excised at the level of the cecum and was sent for frozen section. Frozen section did not demonstrate any atypia or obvious malignant cells. The distal ileum was divided about 8 cm from the ileocecal valve using the ALBA 60, 3.8 stapler. A window was created in the mesentery at the bowel margin to facilitate this. The small bowel mesentery was then divided moving distally to the level of the cecum. Dissection was continued to excise it the indurated retroperitoneal tissue associated with the cecal process to the extent possible. The right colon was removed and was sent for immediate gross examination. This revealed a mass lesion at the level of the cecum and ileocecal valve suspicious for malignancy. The distal ileum was tethered in the pelvis. Peritoneum was incised moving from distal to proximal to provide additional length and a short portion of the mesentery was divided with the electrosurgical pencil and to when improve mobility as well. Following this, a functional end-to-end anastomosis was created between the distal ileum and the transverse colon using a ALBA 60, 3.8 stapler and a TA 60, 3.5 stapler. No significant bleeding was noted from staple lines. The opening in the mesentery was reapproximated using a running suture of 2 0 Polysorb. Following this, gloves and instruments were changed. The abdomen was copiously irrigated with saline solution and was inspected for bleeding. None was seen. The omentum was placed over the bowel beneath the midline incision. The incision was closed in a running fashion using 2 sutures of 1. Maxon. Subcutaneous tissues were irrigated with saline solution and were inspected for bleeding. None was seen. Skin was approximated at the midline incision and the trocar sites using kavya. Wound ryan of quarter-inch plain packing were placed between every 2nd to 3rd staple along the midline incision. Dry sterile dressings were applied. Sponge instrument counts were correct x2. He tolerated the procedure well and was transported to the recovery room in stable condition. There were no immediate complications. Colon Resection Tumor location: Right colon (Cecum), Hepatic flexure and Transverse colon (to right branch middle colic) Extent of lymphovascular resection Right colon (cecum and ascending colon): yes Hepatic flexure: yes Transverse colon: to right branch middle colic General Surg. - Synoptic Notes Colon Resection Tumor location: Right colon (Cecum), Hepatic flexure and Transverse colon (to right branch middle colic) Extent of Lymphovascular Resection: Right colon (cecum and ascending colon): yes Hepatic flexure: yes Transverse colon: to right branch middle colic
[2020-09-14] MEDS: Morphine Sulfate 4 MG/ML CARTRIDGE IVPUSH (19:52)
[2020-09-14] MEDS: Dextrose 5 % and Lactated Ring 1,000 ML 80 ML IVCONT (19:54)
[2020-09-15] VITALS (7 sets, daily range): BP systolic 116–142; BP diastolic 65–77; PULSE 58–70; RESP 15–18; TEMP 36.2–37; O2SAT 94–99
[2020-09-15] MEDS: Dextrose 5 % and Lactated Ring 1,000 ML 80 ML IVCONT ×2 (06:19→20:13)
[2020-09-15] MEDS: Morphine Sulfate 4 MG/ML CARTRIDGE IVPUSH ×3 (06:22→20:15)
[2020-09-15 08:58] LABS: Hematocrit 32.9 % (42-52); Hemoglobin 10.3 g/dl (14.0-18.0); Mean Corpuscular HGB Conc 31.3 g/dl (31.0-36.0); Mean Corpuscular Volume 76.5 fL (80-98); Mean Platelet Volume 9.9 fL (9.4-12.4); Platelet Count 416 X10*3/uL (160-400); Red Cell Distribution Width 16.7 % (11.0-16.0)
[2020-09-15 09:34] LABS: Anion Gap 10 (12-20); Blood Urea Nitrogen 11 mg/dL (9-16); Carbon Dioxide 28 mmol/L (22-29); Chloride 101 mmol/L (96-108); Creatinine Clr Calc Pharmacy 111.6; Estimated Glomerular Filt Rate > 60; Glucose Fasting 118 mg/dL (60-99); Potassium 4.2 mmol/l (3.3-5.1); Sodium 135 mmol/L (135-145)
--- NOTE | 2020-09-15 13:23 | PM.PNGS ---
Subjective Subjective Interval history: Alert, he reports good pain control. Tolerating clear fluids. No nausea. No flatus yet. Physical Exam Vital Signs: Vital Signs: Last Vital Signs Temp 98.6 F 09/15/20 12:52 Pulse 70 09/15/20 12:52 Resp 16 09/15/20 12:52 BP 132/77 09/15/20 12:52 Pulse Ox 98 09/15/20 12:52 Body Mass Index 27.4 Const: Other: Alert, appears comfortable Resp: Effort & Inspection: normal respiratory effort Auscultation: clear to auscultation bilaterally Cardio: Rate: regular rate Rhythm: regular rhythm GI: Other: Mildly distended, appropriately tender over incisions, bowel sounds active, dressings dry and intact Skin: Other: Normal color, warm and dry Progress Note: A&P Assessment and plan (1) Mass of cecum: Status: Acute (2) S/P right hemicolectomy: Status: Acute Assessment and Plan: He is doing well postoperative day 1 following attempted hand assisted laparoscopic right hemicolectomy converted to open. Booker catheter to be removed. Continue clear liquid diet. Ambulate as tolerated. Fall Risk Details Current Medications: Current Medications Generic Name Dose Route Start Last Admin Trade Name Freq PRN Reason Stop Dose Admin Dextrose/Lactated Ringer's 1,000 mls @ 80 mls/hr 09/14/20 18:46 09/15/20 06:37 D5lr IVCONT 80 mls/hr .[id number] NAHOMY Infusion Acetaminophen 1,000 mg in 100 mls @ 400 mls/hr 09/14/20 19:00 09/15/20 13:12 Ofirmev IV Infused Q6H NAHOMY Infusion Morphine Sulfate 4 mg 09/14/20 18:46 09/15/20 06:22 Morphine Sulfate 4 Mg/Ml Cartridge IVPUSH 4 mg Q3H PRN Administration Pain, Severe (Pain Scale 7-10) Ondansetron HCl 4 mg 09/14/20 18:46 Ondansetron Hcl 4 Mg/2 Ml Vial IVPUSH Q8H PRN Nausea and Vomiting Time Spent With Patient Time: Total time spent is greater than 50% in coordination of care (as documented) at patient's floor/unit and/or counseling patient: Time with patient: 15 - 24 minutes Procedures Abscess I/D Date of Service: 09/15/20
--- NOTE | 2020-09-15 15:12 | PC.NURSE ---
Pt rogers catheter discontinued per physician order @ 1150. Pt tolerated removal well.
--- NOTE | 2020-09-15 16:29 | HO.POSTANES ---
Post Anesthesia Evaluation Post Anesthesia Evaluation Vital Signs: Vital Signs Temp Pulse Resp BP Pulse Ox 09/15/20 15:51 98.4 F 61 16 135/74 99 09/15/20 12:52 98.6 F 70 16 132/77 98 09/15/20 07:40 97.3 F 58 16 116/65 98 Anesthesia: General Mental Status: Awake Pain Control: Satisfactory Nausea/Vomiting: None Hydration: Adequate Anesthesia-Related Issues: No Anes. Related Issues
--- NOTE | 2020-09-15 19:16 | PC.NURSE ---
Following rogers removal, pt completed 3 due to voids. Pt voided 175mL @ 1330, 250 @ 1620, and 200@ 1830.
[2020-09-16] VITALS (8 sets, daily range): BP systolic 140–169; BP diastolic 71–94; PULSE 68–79; RESP 16–20; TEMP 36.4–36.8; O2SAT 96–98
[2020-09-16] MEDS: Dextrose 5 % and Lactated Ring 1,000 ML 80 ML IVCONT ×2 (09:37→22:40)
[2020-09-16] MEDS: HYDROmorphone HCl 0.5 MG/0.5 ML SYRINGE IVPUSH ×3 (09:40→23:42)
--- NOTE | 2020-09-16 09:51 | PM.PNGS ---
Subjective Subjective Interval history: Feels more uncomfortable this morning, primarily due to incisional pain. Feels ready to advance diet. No bowel movement or flatus yet. He reports mild nausea associated with administration of IV morphine but no other nausea or vomiting. Physical Exam Vital Signs: Vital Signs: Last Vital Signs Temp 97.7 F 09/16/20 08:00 Pulse 68 09/16/20 08:00 Resp 16 09/16/20 09:40 BP 146/72 H 09/16/20 08:00 Pulse Ox 96 09/16/20 08:00 Body Mass Index 27.4 Const: Other: Alert, appears somewhat uncomfortable, but is in no acute distress Resp: Other: Clear to auscultation bilaterally Cardio: Other: Regular rate and rhythm, no audible murmurs GI: Other: Slightly round, soft, incisions are clean. Bowel sounds present, somewhat hypoactive Skin: Other: Normal color, warm and dry Progress Note: A&P Assessment and plan (1) S/P right hemicolectomy: Problem details: He is now day 2 post right hemicolectomy. He is experiencing the expected incisional pain. Morphine is helping with his pain but also is causing some nausea. Will try hydromorphone. Advance diet to low residue as tolerated. Continue out of bed, ambulation. Status: Acute (2) Mass of cecum: Status: Acute Fall Risk Details Current Medications: Current Medications Generic Name Dose Route Start Last Admin Trade Name Freq PRN Reason Stop Dose Admin Hydromorphone HCl 0.5 mg 09/16/20 08:50 09/16/20 09:40 Hydromorphone Hcl 0.5 Mg/0.5 Ml Syringe IVPUSH 0.5 mg Q3H PRN Administration Pain, Severe (Pain Scale 7-10) Dextrose/Lactated Ringer's 1,000 mls @ 80 mls/hr 09/14/20 18:46 09/16/20 09:37 D5lr IVCONT 80 mls/hr .[id number] NAHOMY Administration Acetaminophen 1,000 mg in 100 mls @ 400 mls/hr 09/14/20 19:00 09/16/20 08:48 Ofirmev IV Infused Q6H NAHOMY Infusion Ondansetron HCl 4 mg 09/14/20 18:46 Ondansetron Hcl 4 Mg/2 Ml Vial IVPUSH Q8H PRN Nausea and Vomiting Time Spent With Patient Time: Total time spent is greater than 50% in coordination of care (as documented) at patient's floor/unit and/or counseling patient: Time with patient: 15 - 24 minutes Procedures Abscess I/D Date of Service: 09/16/20
[2020-09-16] MEDS: ondansetron HCL 4 MG/2 ML VIAL IVPUSH (21:42)
--- NOTE | 2020-09-17 | XR_ITS ---
EXAMINATION: XR CHEST CLINICAL INFORMATION: Check NG tube placement. COMPARISON: Previous chest x-ray 09/13/2020 TECHNIQUE: Frontal view of the chest was obtained. FINDINGS: There is a nasogastric tube that projects over the stomach. The stomach appears distended. There are distended loops of bowel. There are new abdominal skin kavya. The cardiac and mediastinal contours are stable. There is subsegmental atelectasis at the right lung base. The lungs are otherwise clear. There is no pleural effusion or pneumothorax. Bony structures are unremarkable. XR/XR chest 1V IMPRESSION: Nasogastric tube projects over the stomach.
[2020-09-17 03:35] VITALS: BP 140/91; PULSE 71; RESP 20; TEMP 36.4; O2SAT 97
[2020-09-17] MEDS: HYDROmorphone HCl 0.5 MG/0.5 ML SYRINGE IVPUSH ×5 (03:40→22:04)
[2020-09-17 06:53] LABS: Hematocrit 34.3 % (42-52); Hemoglobin 10.8 g/dl (14.0-18.0); Mean Corpuscular HGB Conc 31.5 g/dl (31.0-36.0); Mean Corpuscular Hemoglobin 23.9 pg (27.0-33.0); Mean Corpuscular Volume 75.9 fL (80-98); Mean Platelet Volume 11.1 fL (9.4-12.4); Platelet Count 384 X10*3/uL (160-400); Red Blood Count 4.52 X10*6/uL (4.60-5.80); Red Cell Distribution Width 16.3 % (11.0-16.0)
[2020-09-17 07:18] LABS: Anion Gap 15 (12-20); Blood Urea Nitrogen 11 mg/dL (9-16); Calcium 8.7 mg/dL (8.4-10.2); Carbon Dioxide 27 mmol/L (22-29); Chloride 98 mmol/L (96-108); Creatinine Clr Calc Pharmacy 123.3; Estimated Glomerular Filt Rate > 60; Glucose Fasting 126 mg/dL (60-99); Potassium 5.3 mmol/l (3.3-5.1); Sodium 135 mmol/L (135-145)
[2020-09-17 07:50] VITALS: BP 140/91; PULSE 96; RESP 18; TEMP 36.1; O2SAT 98
[2020-09-17] MEDS: Dextrose 5 % and Lactated Ring 1,000 ML 80 ML IVCONT ×2 (09:30→22:01)
--- NOTE | 2020-09-17 09:41 | MHC.CM.PN ---
NURSE MAINFRAME SYSTEMS ADMINISTRATOR NOTE ELECTRONIC MEEICAL RECORD REVIEWED . PAYIENT IS NOW POST P DAY 3 ATTEMPTERD LAPAROSCOPIC -CONVERTED TO OPEN HEMICOLECTOMY , IV FLUIDS, IV ANALGEICS , (MEDICATION CHANGE SECONDARY TO NAUSEA ) INCREASE AMBULATION, ADVANCE DIET SLOWLY, NO FLATUS , NO JESSICA MOVEMENT ,. MAINFRAME SYSTEMS ADMINISTRATOR TO CONTINUE TO FOLOW FOR DISCHARGE NEEDS. DISCHARGE PLAN - HOME WITH ANTICIPATED NO SERVICES PCP PATIENT TO CALL FOR POST HOSPITAL DISCHARGE FOLLOW UP SURGICAL FOLLOW UP PER DISCHARGE INSTRUCTIONS. TRANSPORTATION FAMILY
[2020-09-17 11:29] VITALS: BP 140/93; PULSE 83; RESP 18; TEMP 36.6; O2SAT 97
--- NOTE | 2020-09-17 11:54 | PC.NURSE ---
NGT INSERTED TO RIGHT NARE. IMMEDIATELY DRAINED FOR 1400ML GREEN/BROWN SECRETIONS. CONNECTED TO LOW INTERMITTENT SUCTION.
--- NOTE | 2020-09-17 14:24 | PM.PNGS ---
Subjective Subjective Interval history: Was very distended and uncomfortable through the night. Had an episode of emesis. Reported heartburn. Physical Exam Vital Signs: Vital Signs: Last Vital Signs Temp 97.8 F 09/17/20 11:29 Pulse 83 09/17/20 11:29 Resp 18 09/17/20 11:29 BP 140/93 H 09/17/20 11:29 Pulse Ox 97 09/17/20 11:29 Body Mass Index 27.4 Const: Other: Alert, appears uncomfortable Resp: Other: Clear to auscultation bilaterally Cardio: Rate: regular rate Rhythm: regular rhythm Skin: Other: Normal color, warm and dry Progress Note: A&P Assessment and plan (1) S/P right hemicolectomy: Status: Acute Assessment and Plan: Postoperative day 3. He has developed abdominal distension and vomiting, findings consistent with postoperative ileus. NG tube will be inserted. I discussed events with him and explained that it is difficult to predict timing of resolution. I do not think that the current symptoms are due to small-bowel obstruction, but treatment at this point would be the same. NPO, IV fluids, NG decompression. (2) Mass of cecum: Status: Acute Assessment and Plan: Awaiting pathology results. Fall Risk Details Current Medications: Current Medications Generic Name Dose Route Start Last Admin Trade Name Freq PRN Reason Stop Dose Admin Hydromorphone HCl 0.5 mg 09/16/20 08:50 09/17/20 11:48 Hydromorphone Hcl 0.5 Mg/0.5 Ml Syringe IVPUSH 0.5 mg Q3H PRN Administration Pain, Severe (Pain Scale 7-10) Dextrose/Lactated Ringer's 1,000 mls @ 80 mls/hr 09/14/20 18:46 09/17/20 09:30 D5lr IVCONT 80 mls/hr .[id number] NAHOMY Administration Acetaminophen 1,000 mg in 100 mls @ 400 mls/hr 09/14/20 19:00 09/17/20 14:10 Ofirmev IV Infused Q6H NAHOMY Infusion Lorazepam 1 mg 09/17/20 07:20 Lorazepam 2 Mg/Ml Vial IVPUSH ONCE PRN anxiety with NGT insertion Multi-Ingred Medicated Throat [place] 1 spray 09/17/20 13:14 Throat [place], Medicated 20 Ml Bottle MUCOUS MEM Q2H PRN Sore Throat Ondansetron HCl 4 mg 09/14/20 18:46 09/16/20 21:42 Ondansetron Hcl 4 Mg/2 Ml Vial IVPUSH 4 mg Q8H PRN Administration Nausea and Vomiting Time Spent With Patient Time: Total time spent is greater than 50% in coordination of care (as documented) at patient's floor/unit and/or counseling patient: Time with patient: 15 - 24 minutes Procedures Abscess I/D Date of Service: 09/17/20
[2020-09-17 15:45] VITALS: BP 138/78; PULSE 62; RESP 18; TEMP 36.5; O2SAT 97
[2020-09-17 20:00] VITALS: BP 159/86; PULSE 74; RESP 18; TEMP 36.2; O2SAT 95
[2020-09-17 23:01] VITALS: BP 127/75; PULSE 78; RESP 19; TEMP 36.5; O2SAT 96
[2020-09-18] VITALS (10 sets, daily range): BP systolic 138–150; BP diastolic 80–97; PULSE 66–70; RESP 15–20; TEMP 36.3–36.6; O2SAT 97–98
--- NOTE | 2020-09-18 | XR_ITS ---
EXAMINATION: XR ABDOMEN WITH DECUBITUS VIEWS CLINICAL INDICATION: Postoperative ileus versus small bowel obstruction COMPARISON: Previous CT of the abdomen and pelvis 09/13/2020 TECHNIQUE: Supine and decubitus views of the abdomen and pelvis FINDINGS: There is a nasogastric tube in the stomach. There are postsurgical changes with surgical clips in the right abdomen and midline skin kavya. There are distended loops of small and large bowel with air-fluid levels. No free air is seen. There are no calcifications. Bony structures are unremarkable. XR/XR abdomen w decubitus IMPRESSION: Nasogastric tube in the stomach. Distended loops of small and large bowel with air-fluid levels. Appearance is more suggestive of a postoperative ileus than obstruction.
[2020-09-18] MEDS: HYDROmorphone HCl 0.5 MG/0.5 ML SYRINGE IVPUSH ×5 (03:20→20:26)
[2020-09-18 07:44] LABS: Anion Gap 12 (12-20); Blood Urea Nitrogen 10 mg/dL (9-16); Calcium 8.6 mg/dL (8.4-10.2); Carbon Dioxide 30 mmol/L (22-29); Chloride 101 mmol/L (96-108); Creatinine Clr Calc Pharmacy 121.4; Estimated Glomerular Filt Rate > 60; Glucose Fasting 100 mg/dL (60-99); Potassium 4.2 mmol/l (3.3-5.1); Sodium 139 mmol/L (135-145)
--- NOTE | 2020-09-18 07:56 | PM.PNGS ---
Subjective Subjective Interval history: NGT placed yesterday. Feels better in regards to nausea, bloating and abdominal pain. C/o pain and discomfort from NGT. Denies flatus. Has been getting OOB once per day. Physical Exam Vital Signs: Vital Signs: Last Vital Signs Temp 97.7 F 09/18/20 03:18 Pulse 68 09/18/20 03:18 Resp 20 09/18/20 03:18 BP 146/84 H 09/18/20 03:18 Pulse Ox 97 09/18/20 03:18 Body Mass Index 27.4 Const: General: alert and other (uncomfortable appearing) Orientation/consciousness: patient oriented x3 Eyes: Sclerae: sclerae normal Resp: Effort & Inspection: normal respiratory effort Cardio: Rate: regular rate GI: Inspection: Yes distended (softly) and Yes other (incisions clean) Palpation (GI): Soft to palpation, Tenderness to palpation present (GI) (mild incisional, right flank) and No Rebound tenderness present Percussion: Yes normal to percussion Auscultation: Hypoactive bowel sounds present Skin: General skin exam: no rashes or lesions noted Neuro: General: patient oriented x3 Extrem: General: Yes no clubbing, cyanosis or edema Progress Note: A&P Assessment and plan (1) S/P right hemicolectomy: Status: Acute Assessment and Plan: POD #4. NGT placed yesterday for likely ileus with large amount of output. Overall feels better since placement. VSS. Abd exam- softly distended, appropriate post op tenderness, incisions clean. Will keep NGT in place for decompression, monitor output. Strongly encouraged OOB and ambulation of halls today. Cont NPO, IVF. Await return of GI fxn. (2) Mass of cecum: Status: Acute Assessment and Plan: Pathology pending. (3) Partial small bowel obstruction: Status: Acute (4) Abdominal trauma: Status: Acute Fall Risk Details Current Medications: Current Medications Generic Name Dose Route Start Last Admin Trade Name Freq PRN Reason Stop Dose Admin Hydromorphone HCl 0.5 mg 09/16/20 08:50 09/18/20 03:20 Hydromorphone Hcl 0.5 Mg/0.5 Ml Syringe IVPUSH 0.5 mg Q3H PRN Administration Pain, Severe (Pain Scale 7-10) Dextrose/Lactated Ringer's 1,000 mls @ 80 mls/hr 09/14/20 18:46 09/17/20 22:01 D5lr IVCONT 80 mls/hr .[id number] NAHOMY Administration Acetaminophen 1,000 mg in 100 mls @ 400 mls/hr 09/14/20 19:00 09/18/20 02:10 Ofirmev IV Infused Q6H NAHOMY Infusion Lorazepam 1 mg 09/17/20 07:20 Lorazepam 2 Mg/Ml Vial IVPUSH ONCE PRN anxiety with NGT insertion Multi-Ingred Medicated Throat [place] 1 spray 09/17/20 13:14 09/18/20 03:23 Throat [place], Medicated 20 Ml Bottle MUCOUS MEM 1 spray Q2H PRN Administration Sore Throat Ondansetron HCl 4 mg 09/14/20 18:46 09/16/20 21:42 Ondansetron Hcl 4 Mg/2 Ml Vial IVPUSH 4 mg Q8H PRN Administration Nausea and Vomiting Time Spent With Patient Time: Total time spent is greater than 50% in coordination of care (as documented) at patient's floor/unit and/or counseling patient: Time with patient: 15 - 24 minutes Procedures Abscess I/D Date of Service: 09/18/20
--- NOTE | 2020-09-18 07:58 | PM.PNGS ---
Subjective Subjective Interval history: Reports significant discomfort associated with the NG tube. No complaints of abdominal pain. Physical Exam Vital Signs: Vital Signs: Last Vital Signs Temp 97.5 F 09/18/20 07:54 Pulse 66 09/18/20 07:54 Resp 18 09/18/20 07:54 BP 138/90 H 09/18/20 07:54 Pulse Ox 97 09/18/20 07:54 Body Mass Index 27.4 Const: Other: Alert, appears uncomfortable but not in acute distress Resp: Other: Clear to auscultation Cardio: Other: Regular rate and rhythm GI: Other: Distended but not firm, no significant tenderness, midline abdominal dressing dry and intact, hypoactive bowel sounds Progress Note: A&P Assessment and plan (1) S/P right hemicolectomy: Status: Acute Assessment and Plan: Exam and imaging findings are consistent with postoperative ileus. Continue NG decompression, ambulation, IV fluids. (2) Mass of cecum: Status: Acute Assessment and Plan: Awaiting pathology results. Fall Risk Details Current Medications: Current Medications Generic Name Dose Route Start Last Admin Trade Name Freq PRN Reason Stop Dose Admin Hydromorphone HCl 0.5 mg 09/16/20 08:50 09/18/20 03:20 Hydromorphone Hcl 0.5 Mg/0.5 Ml Syringe IVPUSH 0.5 mg Q3H PRN Administration Pain, Severe (Pain Scale 7-10) Dextrose/Lactated Ringer's 1,000 mls @ 80 mls/hr 09/14/20 18:46 09/17/20 22:01 D5lr IVCONT 80 mls/hr .[id number] NAHOMY Administration Acetaminophen 1,000 mg in 100 mls @ 400 mls/hr 09/14/20 19:00 09/18/20 02:10 Ofirmev IV Infused Q6H NAHOMY Infusion Lorazepam 1 mg 09/17/20 07:20 Lorazepam 2 Mg/Ml Vial IVPUSH ONCE PRN anxiety with NGT insertion Multi-Ingred Medicated Throat [place] 1 spray 09/17/20 13:14 09/18/20 03:23 Throat [place], Medicated 20 Ml Bottle MUCOUS MEM 1 spray Q2H PRN Administration Sore Throat Ondansetron HCl 4 mg 09/14/20 18:46 09/16/20 21:42 Ondansetron Hcl 4 Mg/2 Ml Vial IVPUSH 4 mg Q8H PRN Administration Nausea and Vomiting Time Spent With Patient Time: Total time spent is greater than 50% in coordination of care (as documented) at patient's floor/unit and/or counseling patient: Time with patient: 15 - 24 minutes Procedures Abscess I/D Date of Service: 09/18/20
[2020-09-18] MEDS: Dextrose 5 % and Lactated Ring 1,000 ML 80 ML IVCONT ×2 (10:39→23:08)
--- NOTE | 2020-09-18 14:45 | MHC.CM.PN ---
NURSE DIRECTOR OF INSTRUCTION NOTE EECTRONIC MEDICAL RECORD REVIEWED ALNG WITH CASE DISCUSED WITH STAFF NURSE AND MEETING WITH PATIENT HE STILL HAS THE NASO GASTRIC TUBE DRAING CNTINUE CURRENT PLAN WITH MONITORING LABS , PAIN ASSESSMENT , DIRECTOR OF INSTRUCTION TO CONTINUE TO FOLLOW
[2020-09-18] MEDS: LORazepam 2 MG/ML VIAL 1 MG IVPUSH (23:15)
--- NOTE | 2020-09-18 23:22 | MHC.PIE ---
p; nursing notificaton to remove ngt if residual less than 100 ml after clamping for 4hrs with no n/v was cncelled in computer? i; dr santos notified; please remove ngt if residual less than 100 ml with no n/v e; residual less than 20 m;. pt denies n/v. ngt removed, pt tolerated well, will cont to monitor
[2020-09-19] VITALS (7 sets, daily range): BP systolic 120–145; BP diastolic 76–88; PULSE 70–89; RESP 18–20; TEMP 36.4–37; O2SAT 97–99
--- NOTE | 2020-09-19 08:14 | PM.PNGS ---
Subjective Subjective Date of Service: 09/19/20 Interval history: NGT clamped and removed following low residual last night. Pathology discussed with patient this morning by Dr. Curiel. He is teary. Feels a little better without NGT in place. Denies nausea and flatus. Physical Exam Vital Signs: Vital Signs: Last Vital Signs Temp 97.7 F 09/19/20 07:42 Pulse 78 09/19/20 07:42 Resp 19 09/19/20 07:42 BP 145/81 H 09/19/20 07:42 Pulse Ox 98 09/19/20 07:42 Body Mass Index 27.4 Const: General: no acute distress and alert Orientation/consciousness: patient oriented x3 Eyes: Sclerae: sclerae normal Resp: Effort & Inspection: normal respiratory effort GI: Other: incision clean Inspection: Yes distended (mild ) Palpation (GI): Soft to palpation and Tenderness to palpation present (GI) (mild ) with no rebound tenderness Skin: General skin exam: no rashes or lesions noted Neuro: General: patient oriented x3 Extrem: General: Yes no clubbing, cyanosis or edema Progress Note: A&P Assessment and plan (1) S/P right hemicolectomy: Status: Acute Assessment and Plan: POD #5. NGT placed for post op ileus and removed yesterday after low residuals. VSS. Abd exam- softly distended, appropriate post op tenderness, incisions clean. Strongly encouraged OOB and ambulation of halls today. Cont NPO, IVF. Await return of GI fxn. (2) Adenocarcinoma of cecum: Problem details: Invasive adenoCA Status: Acute Assessment and Plan: Pathology discussed with patient by Dr. Curiel. (3) Mass of cecum: Status: Acute (4) Partial small bowel obstruction: Status: Acute Fall Risk Details Current Medications: Current Medications Generic Name Dose Route Start Last Admin Trade Name Freq PRN Reason Stop Dose Admin Hydromorphone HCl 0.5 mg 09/16/20 08:50 09/18/20 20:26 Hydromorphone Hcl 0.5 Mg/0.5 Ml Syringe IVPUSH 0.5 mg Q3H PRN Administration Pain, Severe (Pain Scale 7-10) Dextrose/Lactated Ringer's 1,000 mls @ 80 mls/hr 09/14/20 18:46 09/18/20 23:08 D5lr IVCONT 80 mls/hr .[id number] NAHOMY Administration Acetaminophen 1,000 mg in 100 mls @ 400 mls/hr 09/14/20 19:00 09/19/20 01:53 Ofirmev IV Infused Q6H NAHOMY Infusion Lorazepam 1 mg 09/17/20 07:20 Lorazepam 2 Mg/Ml Vial IVPUSH ONCE PRN anxiety with NGT insertion Lorazepam 1 mg 09/18/20 19:02 09/18/20 23:15 Lorazepam 2 Mg/Ml Vial IVPUSH 1 mg BEDTIME PRN Administration Sleep Multi-Ingred Medicated Throat [place] 1 spray 09/17/20 13:14 09/18/20 14:04 Throat [place], Medicated 20 Ml Bottle MUCOUS MEM 1 spray Q2H PRN Administration Sore Throat Ondansetron HCl 4 mg 09/14/20 18:46 09/16/20 21:42 Ondansetron Hcl 4 Mg/2 Ml Vial IVPUSH 4 mg Q8H PRN Administration Nausea and Vomiting Time Spent With Patient Time: Total time spent is greater than 50% in coordination of care (as documented) at patient's floor/unit and/or counseling patient: Time with patient: 15 - 24 minutes
[2020-09-19] MEDS: HYDROmorphone HCl 0.5 MG/0.5 ML SYRINGE IVPUSH ×3 (09:21→21:21)
[2020-09-19] MEDS: Dextrose 5 % and Lactated Ring 1,000 ML 80 ML IVCONT (12:32)
[2020-09-20] VITALS (7 sets, daily range): BP systolic 116–146; BP diastolic 72–86; PULSE 60–77; RESP 16–20; TEMP 35.9–36.7; O2SAT 96–100
[2020-09-20] MEDS: Dextrose 5 % and Lactated Ring 1,000 ML 80 ML IVCONT ×2 (00:31→13:42)
[2020-09-20] MEDS: HYDROmorphone HCl 0.5 MG/0.5 ML SYRINGE IVPUSH ×2 (05:08→17:51)
--- NOTE | 2020-09-20 09:56 | P.PNGS_ITS ---
Subjective Subjective Date of Service: 09/20/20 Interval history: had good BM, flatus this morning pain level ok feels well has been ambulating Physical Exam Vital Signs: Vital Signs: Last Vital Signs Temp 96.7 F L 09/20/20 07:46 Pulse 61 09/20/20 07:46 Resp 16 09/20/20 07:46 BP 125/80 09/20/20 07:46 Pulse Ox 98 09/20/20 07:46 Body Mass Index 27.4 Const: General: comfortable, no acute distress and alert Cardio: Rhythm: regular rhythm GI: Other: abd soft, incision clean, kavya intact, no wound infection Progress Note: A&P Assessment and plan (1) S/P right hemicolectomy: Status: Acute Assessment and Plan: S/P right colon resection pt aware of path - adenoca started to have BM, flatus this morning pt says he has been NPO -will start on clears, advance as tolerated ambulating looks well Fall Risk Details Current Medications: Current Medications Generic Name Dose Route Start Last Admin Trade Name Freq PRN Reason Stop Dose Admin Hydromorphone HCl 0.5 mg 09/16/20 08:50 09/20/20 05:08 Hydromorphone Hcl 0.5 Mg/0.5 Ml Syringe IVPUSH 0.5 mg Q3H PRN Administration Pain, Severe (Pain Scale 7-10) Dextrose/Lactated Ringer's 1,000 mls @ 80 mls/hr 09/14/20 18:46 09/20/20 00:31 D5lr IVCONT 80 mls/hr .[id number] NAHOMY Administration Acetaminophen 1,000 mg in 100 mls @ 400 mls/hr 09/14/20 19:00 09/20/20 06:43 Ofirmev IV Infused Q6H NAHOMY Infusion Lorazepam 1 mg 09/17/20 07:20 Lorazepam 2 Mg/Ml Vial IVPUSH ONCE PRN anxiety with NGT insertion Lorazepam 1 mg 09/18/20 19:02 09/18/20 23:15 Lorazepam 2 Mg/Ml Vial IVPUSH 1 mg BEDTIME PRN Administration Sleep Multi-Ingred Medicated Throat [place] 1 spray 09/17/20 13:14 09/18/20 14:04 Throat [place], Medicated 20 Ml Bottle MUCOUS MEM 1 spray Q2H PRN Administration Sore Throat Ondansetron HCl 4 mg 09/14/20 18:46 09/16/20 21:42 Ondansetron Hcl 4 Mg/2 Ml Vial IVPUSH 4 mg Q8H PRN Administration Nausea and Vomiting Oxycodone HCl 5 mg 09/19/20 19:03 Oxycodone Hcl Immed Release 5 Mg Tablet PO Q4H PRN Pain, Moderate (Pain Scale 4-6 Time Spent With Patient Time: Total time spent is greater than 50% in coordination of care (as documented) at patient's floor/unit and/or counseling patient: Time with patient: 15 - 24 minutes
[2020-09-20 10:50] LABS: Hematocrit 33.9 % (42-52); Hemoglobin 10.5 g/dl (14.0-18.0); Mean Corpuscular Hemoglobin 23.8 pg (27.0-33.0); Mean Corpuscular Volume 76.7 fL (80-98); Mean Platelet Volume 8.8 fL (9.4-12.4); Platelet Count 574 X10*3/uL (160-400); Red Blood Count 4.42 X10*6/uL (4.60-5.80); Red Cell Distribution Width 16.3 % (11.0-16.0); White Blood Count 7.5 X10*3/uL (4.8-10.8)
[2020-09-20 11:19] LABS: Alanine Aminotransferase 52 U/L (0-40); Albumin Level 3.5 g/dL (3.5-5.0); Alkaline Phosphatase 120 U/L (39-117); Anion Gap 10 (12-20); Aspartate Amino Transferase 51 U/L (5-37); Bilirubin Direct 0.2 mg/dL (0.0-0.5); Bilirubin Total 0.3 mg/dL (0.0-1.0); Blood Urea Nitrogen 13 mg/dL (9-16); Calcium 8.7 mg/dL (8.4-10.2); Carbon Dioxide 30 mmol/L (22-29); Chloride 101 mmol/L (96-108); Creatinine Clr Calc Pharmacy 110.1; Estimated Glomerular Filt Rate > 60; Glucose Fasting 107 mg/dL (60-99); Potassium 4.4 mmol/l (3.3-5.1); Sodium 137 mmol/L (135-145); Total Protein 6.3 g/dL (6.5-8.0)
[2020-09-20] MEDS: oxyCODONE HCl Immed Release 5 MG TABLET PO (20:07)
[2020-09-21] MEDS: Dextrose 5 % and Lactated Ring 1,000 ML 80 ML IVCONT ×2 (02:26→05:08)
[2020-09-21 04:00] VITALS: BP 154/78; PULSE 68; RESP 18; TEMP 36.3; O2SAT 98
[2020-09-21] MEDS: oxyCODONE HCl Immed Release 5 MG TABLET PO (05:07)
--- NOTE | 2020-09-21 07:55 | PM.PNGS ---
Subjective Subjective Date of Service: 09/21/20 Interval history: continues to feel well says he is looking forward to going home tolerating liquids has BMs. flatus Physical Exam Vital Signs: Vital Signs: Last Vital Signs Temp 97.4 F 09/21/20 04:00 Pulse 68 09/21/20 04:00 Resp 18 09/21/20 04:00 BP 154/78 H 09/21/20 04:00 Pulse Ox 98 09/21/20 04:00 Body Mass Index 27.4 Const: General: comfortable and no acute distress Cardio: Rate: regular rate Rhythm: regular rhythm GI: Other: incisions clean and dry, kavya intact Inspection: No distended Palpation (GI): Soft to palpation and no guarding Progress Note: A&P Assessment and plan (1) Adenocarcinoma of cecum: Problem details: Invasive adenoCA Status: Acute Assessment and Plan: s/p right colectomy continues to do well good GI function advance diet looks well once tolerating diet, ok to dc home - likely in AM dc instructions explained to pt Fall Risk Details Current Medications: Current Medications Generic Name Dose Route Start Last Admin Trade Name Freq PRN Reason Stop Dose Admin Hydromorphone HCl 0.5 mg 09/16/20 08:50 09/20/20 17:51 Hydromorphone Hcl 0.5 Mg/0.5 Ml Syringe IVPUSH 0.5 mg Q3H PRN Administration Pain, Severe (Pain Scale 7-10) Dextrose/Lactated Ringer's 1,000 mls @ 80 mls/hr 09/14/20 18:46 09/21/20 05:08 D5lr IVCONT 80 mls/hr .[id number] NAHOMY Administration Acetaminophen 1,000 mg in 100 mls @ 400 mls/hr 09/14/20 19:00 09/21/20 07:46 Ofirmev IV Infused Q6H NAHOMY Infusion Lorazepam 1 mg 09/17/20 07:20 Lorazepam 2 Mg/Ml Vial IVPUSH ONCE PRN anxiety with NGT insertion Lorazepam 1 mg 09/18/20 19:02 09/18/20 23:15 Lorazepam 2 Mg/Ml Vial IVPUSH 1 mg BEDTIME PRN Administration Sleep Multi-Ingred Medicated Throat [place] 1 spray 09/17/20 13:14 09/18/20 14:04 Throat [place], Medicated 20 Ml Bottle MUCOUS MEM 1 spray Q2H PRN Administration Sore Throat Ondansetron HCl 4 mg 09/14/20 18:46 09/16/20 21:42 Ondansetron Hcl 4 Mg/2 Ml Vial IVPUSH 4 mg Q8H PRN Administration Nausea and Vomiting Oxycodone HCl 5 mg 09/19/20 19:03 09/21/20 05:07 Oxycodone Hcl Immed Release 5 Mg Tablet PO 5 mg Q4H PRN Administration Pain, Moderate (Pain Scale 4-6 Time Spent With Patient Time: Total time spent is greater than 50% in coordination of care (as documented) at patient's floor/unit and/or counseling patient: Time with patient: 15 - 24 minutes
[2020-09-21 08:00] VITALS: BP 135/81; PULSE 63; RESP 18; TEMP 36.4; O2SAT 99
--- NOTE | 2020-09-21 11:00 | MHC.CM.PN ---
nurse care,jonah note electrnic medical record reviewed along with case discussed with staff nurse IF TOLERATING DIET WEEL AND PAIN IS MANAGEABLE HE MAY BE DISCHARGED HOME TODAY DISCHARGE PLAN HOME NO SERVICES PCP FOLLOW UP FOR POST HOSPITLA DISCHARGE TRANSPORTYATION PATIENT TO SELF ARRANGE
[2020-09-21 12:07] VITALS: BP 119/78; PULSE 63; RESP 18; TEMP 36.2; O2SAT 98
[2020-09-21 16:00] VITALS: BP 128/80; PULSE 65; RESP 18; TEMP 36.5; O2SAT 99
--- NOTE | 2020-11-16 19:34 | PM.DS ---
DS: Providers Provider Date of Service: 11/16/20 Date of admission: 09/13/20 02:04 Primary care physician: Unknown Physician DS: Diagnosis Discharge Diagnosis (1) Adenocarcinoma of cecum: Status: Acute DS: Medications Discharge Medications Home Medications: Previous Rx's Medication Instructions Recorded ferrous sulfate [iron] 325 mg PO BID #60 tab 10/12/20 dexamethasone 4 mg PO BID #30 tab 11/13/20 ondansetron HCl [Zofran] 4 mg PO Q6H PRN #30 tab 11/13/20 amoxicillin 500 mg PO Q12H #14 cap 11/14/20 DS: Summary Hospital Course Hospital Course: This is a 50 year old male who presented to the ED with complaints of worsening abdominal distention and pain. He reported that he had fallen from a ladder about three weeks previously. The symptoms seemed to start around that time, but he did not have any significant pain initially and did not seek medical attention at first. He then developed waxing and waning abdominal pain and his stools became loose.He had an episode of rectal bleeding and went in to see his primary physician at the [facility]. By report, he had blood work done and stools were checked for blood. He has not undergone colonoscopy in the past. Consultation for this was pending. He does not report fever, chills, nausea or vomiting. He does feel somewhat bloated. He reports that his abdominal pain has been diffuse. He also has some tenderness on his right side. He had an episode of rectal bleeding and went in to see his primary physician at the [facility]. He had blood work done and stools were checked for blood. He had not undergone colonoscopy in the past. Consultation for this was pending. He did not report fever, chills, nausea or vomiting. He felt somewhat bloated. He reported that his abdominal pain has been diffuse. He also had some tenderness on his right side. CT scan of the abdomen and pelvis done in the ED revealed evidence of small bowel obstruction at the level of the ileocecal valve with a question of a mass lesion within the cecum. Laboratory studies revealed a slightly low hemoglobin level of 11.7. White blood count was mildly elevated at 11.8. Physical Exam Vital Signs: Vital Signs: Last Vital Signs Temp 98.6 F 09/13/20 04:00 Pulse 81 09/13/20 04:00 Resp 15 09/13/20 04:00 BP 136/84 09/13/20 04:00 Pulse Ox 98 09/13/20 04:00 Body Mass Index 27.4 Const: General: healthy appearing, no acute distress and alert Orientation/consciousness: oriented to person and oriented to place HENMT: Head: Yes normal to inspection Ears: hearing grossly normal bilaterally Face and sinus: Yes normal facial exam Eyes: Conjunctivae: conjunctivae normal Sclerae: sclerae normal EOM: EOMs intact bilaterally Neck: Neck: Yes normal visual inspection and Yes trachea midline Resp: Effort & Inspection: normal respiratory effort Auscultation: clear to auscultation bilaterally Cardio: Rate: regular rate Rhythm: regular rhythm Heart sounds: no murmurs GI: Other: Mildly distended, tender laterally on the right, right lower quadrant greater than right upper quadrant, no palpable masses, normal bowel sounds, no organomegaly Skin: Other: normal color, warm and dry Neuro: General: oriented to person and oriented to place Cognition (Neuro): normal cognition Speech: No Abnormal speech present Extrem: General: Yes normal to inspection Psych: Appearance: grossly normal Mental Status: mental status grossly normal Affect: normal affect Thought process: Normal thought process present Insight: Good insight present (Psych) He was admitted and was kept NPO and on IV fluids. An NG tube was inserted. Treatment options were discussed and surgical exploration with probably right colectomy was recommended. He agreed and was taken to the OR on 09/14/20. Hand assisted laparoscopic right hemicolectomy converted to open was performed. Findings were consistent with carcinoma of the cecum with involvement of the soft tissues of the right paracolic gutter. Pathology: Diagnosis A. Soft tissue, retroperitoneal, excision: -Fibroconnective/fibroadipose tissue with acute and chronic inflammation, necrosis, fibrosis, and granulation tissue formation; negative for malignancy. B. Colon, right, hemicolectomy: -Invasive adenocarcinoma, moderately differentiated, (5.5 cm in greatest dimension), with mucinous features. -Adenocarcinoma penetrates through the visceral peritoneum/serosa and is contiguous with the serosal surface through areas of inflammation/granulation tissue. -Lymphovascular invasion is present. -Perineural invasion is present. -Metastatic adenocarcinoma is present in two out of fifteen (2/15) lymph nodes. -One (1) tumor deposit is present (less than 0.1 cm to the radial margin). -The proximal and distal margins are negative for dysplasia and adenocarcinoma. -Appendix with acute serositis, but otherwise unremarkable -AJCC (8th edition): [id number] He did well initially postoperatively, and was advanced to a solid diet over the first two postoperative days, but then developed worsening distention and heartburn. Findings were consistent with postoperative ileus. NG tube was reinserted and he was kept NPO and on IV fluids. NG tube was removed on postoperative day 5 and clear liquid diet was the following day. He readily advanced to a solid diet and was ready for discharge on postoperative day 7. Time Spent with Patient Time attestation: Total time spent providing and/or coordinating discharge services: Discharge coordination time: Less than 30 minutes Physical Exam Vital Signs: Vital Signs: Last Vital Signs Temp 97.7 F 09/21/20 16:00 Pulse 65 09/21/20 16:00 Resp 18 09/21/20 16:00 BP 128/80 09/21/20 16:00 Pulse Ox 99 09/21/20 16:00 Body Mass Index 27.4 Const: Other: Const: General: comfortable and no acute distress Cardio: Rate: regular rate Rhythm: regular rhythm GI: Other: incisions clean and dry, kavya intact Inspection: No distended Palpation (GI): Soft to palpation and no guarding DS: Data Data Completed and Pending Completed studies during hospitalization [Text1]: Pending at discharge 09/14/20 15:24 Surgical [PTH] Stat Procedures Resection of Right Large Intestine, Open Approach (09/13/20) Labs on day of discharge: Laboratory Tests 09/12/20 09/12/20 09/12/20 23:32 23:32 23:32 WBC 11.8 H RBC 4.95 Hgb 11.7 L Hct 37.8 L MCV 76.4 L MCH 23.6 L MCHC 31.0 RDW 16.3 H Plt Count 415 H MPV 9.2 L Immature Gran % (Auto) 0.3 Neut % (Auto) 76.6 H Lymph % (Auto) 14.0 L [place] % (Auto) 8.3 Eos % (Auto) 0.6 Baso % (Auto) 0.2 Lymph # (Auto) 1.7 [place] # (Auto) 1.0 Eos # (Auto) 0.1 Baso # (Auto) 0.0 Abs Immat Gran (auto) 0.03 Absolute Neuts (auto) 9.1 H Absolute Nucleated RBC 0.000 Nucleated RBC % (auto) 0.0 Hold Blue Top SEE NOTE Sodium 135 Potassium 4.2 Chloride 99 Carbon Dioxide 27 Anion Gap 13 BUN 20 H Creatinine 0.92 Estim Creat Clear Calc 89.8 Estimated GFR > 60 Random Glucose 141 H Fasting Glucose Calcium 8.9 Total Bilirubin 0.5 Direct Bilirubin AST 15 ALT 10 Alkaline Phosphatase 114 Total Protein 7.4 Albumin 4.4 Lipase Carcinoembryonic Ag Urine Color Urine Appearance Urine pH Ur Specific [place] Urine Protein Urine Glucose (UA) Urine Ketones Urine Blood Urine Nitrite Ur Leukocyte Esterase COVID-19 ([facility]I) COVID-19 [employer] Blood Type Antibody Screen 09/12/20 09/12/20 09/13/20 23:32 23:39 02:22 WBC RBC Hgb Hct MCV MCH MCHC RDW Plt Count MPV Immature Gran % (Auto) Neut % (Auto) Lymph % (Auto) [place] % (Auto) Eos % (Auto) Baso % (Auto) Lymph # (Auto) [place] # (Auto) Eos # (Auto) Baso # (Auto) Abs Immat Gran (auto) Absolute Neuts (auto) Absolute Nucleated RBC Nucleated RBC % (auto) Hold Blue Top Sodium Potassium Chloride Carbon Dioxide Anion Gap BUN Creatinine Estim Creat Clear Calc Estimated GFR Random Glucose Fasting Glucose Calcium Total Bilirubin Direct Bilirubin AST ALT Alkaline Phosphatase Total Protein Albumin Lipase 12 Carcinoembryonic Ag Urine Color YELLOW Urine Appearance CLEAR Urine pH 6.5 Ur Specific [place] >= 1.030 H Urine Protein NEG Urine Glucose (UA) NEG Urine Ketones 5 Urine Blood NEG Urine Nitrite NEG Ur Leukocyte Esterase NEG COVID-19 ([facility]) Negative COVID-19 [employer] See Note Blood Type Antibody Screen 09/13/20 09/13/20 09/13/20 15:24 15:24 15:24 WBC 8.9 RBC 4.73 Hgb 11.2 L Hct 36.5 L MCV 77.2 L MCH 23.7 L MCHC 30.7 L RDW 16.5 H Plt Count 391 MPV 9.3 L Immature Gran % (Auto) Neut % (Auto) Lymph % (Auto) [place] % (Auto) Eos % (Auto) Baso % (Auto) Lymph # (Auto) [place] # (Auto) Eos # (Auto) Baso # (Auto) Abs Immat Gran (auto) Absolute Neuts (auto) Absolute Nucleated RBC 0.000 Nucleated RBC % (auto) 0.0 Hold Blue Top Sodium Potassium Chloride Carbon Dioxide Anion Gap BUN Creatinine Estim Creat Clear Calc Estimated GFR Random Glucose Fasting Glucose Calcium Total Bilirubin Direct Bilirubin AST ALT Alkaline Phosphatase Total Protein Albumin Lipase Carcinoembryonic Ag 0.80 Urine Color Urine Appearance Urine pH Ur Specific [place] Urine Protein Urine Glucose (UA) Urine Ketones Urine Blood Urine Nitrite Ur Leukocyte Esterase COVID-19 ([facility]) COVID-19 [facility] Blood Type O Positive Antibody Screen NEGATIVE 09/15/20 09/15/20 09/17/20 07:45 07:45 06:06 WBC 9.0 9.0 RBC 4.30 L 4.52 L Hgb 10.3 L 10.8 L Hct 32.9 L 34.3 L MCV 76.5 L 75.9 L MCH 24.0 L 23.9 L MCHC 31.3 31.5 RDW 16.7 H 16.3 H Plt Count 416 H 384 MPV 9.9 11.1 Immature Gran % (Auto) Neut % (Auto) Lymph % (Auto) [place] % (Auto) Eos % (Auto) Baso % (Auto) Lymph # (Auto) [place] # (Auto) Eos # (Auto) Baso # (Auto) Abs Immat Gran (auto) Absolute Neuts (auto) Absolute Nucleated RBC 0.000 0.000 Nucleated RBC % (auto) 0.0 0.0 Hold Blue Top Sodium 135 Potassium 4.2 Chloride 101 Carbon Dioxide 28 Anion Gap 10 L BUN 11 Creatinine 0.74 Estim Creat Clear Calc 111.6 Estimated GFR > 60 Random Glucose Fasting Glucose 118 H Calcium 8.0 L D Total Bilirubin Direct Bilirubin AST ALT Alkaline Phosphatase Total Protein Albumin Lipase Carcinoembryonic Ag Urine Color Urine Appearance Urine pH Ur Specific [place] Urine Protein Urine Glucose (UA) Urine Ketones Urine Blood Urine Nitrite Ur Leukocyte Esterase COVID-19 ([facility]) COVID-19 [facility] Blood Type Antibody Screen 09/17/20 09/18/20 09/20/20 06:06 06:45 10:05 WBC 7.5 RBC 4.42 L Hgb 10.5 L Hct 33.9 L MCV 76.7 L MCH 23.8 L MCHC 31.0 RDW 16.3 H Plt Count 574 H D MPV 8.8 L Immature Gran % (Auto) Neut % (Auto) Lymph % (Auto) [place] % (Auto) Eos % (Auto) Baso % (Auto) Lymph # (Auto) [place] # (Auto) Eos # (Auto) Baso # (Auto) Abs Immat Gran (auto) Absolute Neuts (auto) Absolute Nucleated RBC 0.000 Nucleated RBC % (auto) 0.0 Hold Blue Top Sodium 135 139 Potassium 5.3 H D 4.2 D Chloride 98 101 Carbon Dioxide 27 30 H Anion Gap 15 12 BUN 11 10 Creatinine 0.67 0.68 Estim Creat Clear Calc 123.3 121.4 Estimated GFR > 60 > 60 Random Glucose Fasting Glucose 126 H 100 H Calcium 8.7 D 8.6 Total Bilirubin Direct Bilirubin AST ALT Alkaline Phosphatase Total Protein Albumin Lipase Carcinoembryonic Ag Urine Color Urine Appearance Urine pH Ur Specific [place] Urine Protein Urine Glucose (UA) Urine Ketones Urine Blood Urine Nitrite Ur Leukocyte Esterase COVID-19 ([facility]OFFI) [facility] Blood Type Antibody Screen 09/20/20 10:05 WBC RBC Hgb Hct MCV MCH MCHC RDW Plt Count MPV Immature Gran % (Auto) Neut % (Auto) Lymph % (Auto) [place] % (Auto) Eos % (Auto) Baso % (Auto) Lymph # (Auto) [place] # (Auto) Eos # (Auto) Baso # (Auto) Abs Immat Gran (auto) Absolute Neuts (auto) Absolute Nucleated RBC Nucleated RBC % (auto) Hold Blue Top Sodium 137 Potassium 4.4 Chloride 101 Carbon Dioxide 30 H Anion Gap 10 L BUN 13 Creatinine 0.75 Estim Creat Clear Calc 110.1 Estimated GFR > 60 Random Glucose Fasting Glucose 107 H Calcium 8.7 Total Bilirubin 0.3 Direct Bilirubin 0.2 AST 51 H ALT 52 H Alkaline Phosphatase 120 H Total Protein 6.3 L Albumin 3.5 D Lipase Carcinoembryonic Ag Urine Color Urine Appearance Urine pH Ur Specific [place] Urine Protein Urine Glucose (UA) Urine Ketones Urine Blood Urine Nitrite Ur Leukocyte Esterase COVID-19 ([facility]OFFI) COVID-19 [facility] Blood Type Antibody Screen Discharge Plan Discharge Patient Disposition: Home, Self-Care Referrals: Darryl Maxwell MD [Physician] - (ffup with Dr. Curiel for postop check in 1 weekk) Physician,Unknown [Primary Care Provider] - Discharge Medications: No Action ferrous sulfate [iron] 325 mg (65 mg iron) Tablet 325 mg PO BID Qty: 60 RF: 3 ondansetron HCl [Zofran] 4 mg Tablet 4 mg PO Q6H PRN (Reason: Nausea) Qty: 30 RF: 3 dexamethasone 4 mg Tablet 4 mg PO BID Qty: 30 RF: 3 amoxicillin 500 mg Capsule 500 mg PO Q12H Qty: 14 RF: 0 Discharge Orders: Discharge Order (Routine); Ordered 09/21/20 Ordered By: Leonid Garcia Diet: regular diet Activity on Discharge: No heavy lifting Discharge Date/Time: 09/21/20 17:06 Activity Restrictions/Additional Instructions: no lifting more than 20 lbs ok to shower ffup with Dr. Curiel in 1 week [id number] Visit Report Forms: Patient Portal Discharge page Care Plan Goals: pain management Health Concerns: treatment of colon cancer Plan of Treatment: will need Oncology ffup ffup with Dr. Curiel for removal of kavya
== END 2020-09-21 17:06 | disposition home or self-care (01) | DRG 231 ==
LOC: HO.ED 09-13 11:57 → HO.S3 09-13 13:31
PROVIDERS: Student in an Organized Health Care Education/Training Program; Admitting Provider Surgery; Emergency Provider Emergency Medicine; Visit Provider Surgery
PROC: (CPT 44140; principal; 2020-09-14 13:40)
DX: C18.0 Malignant neoplasm of cecum (principal); K56.7 Ileus, unspecified; Z20.828 Contact with and (suspected) exposure to other viral communicable diseases
CPT/HCPCS: 36415; 71045; 74021; 74176; 80048; 80053; 80076; 81003; 82378; 83690; 85025; 85027; 86850; 86900; 86901; 87635; 88305; 88307; 88309; 88331; 88333; 88341; 88342; 99024; 99285; C1758; J0131; J1100; J1170; J2060; J2250; J2270; J2405; J3010

== ENCOUNTER → 2020-09-25 11:11 | Outpatient (BNVA) | payer MEDICAID, SELFPAY | PROVIDERS: PCP Internal Medicine; Visit Provider Surgery | DX: C18.0 Malignant neoplasm of cecum (principal); Z90.49 Acquired absence of other specified parts of digestive tract | CPT/HCPCS: 99212 ==

== ENCOUNTER → 2020-10-10 15:40 | Outpatient (BNVA) | payer MEDICAID, SELFPAY | PROVIDERS: PCP Internal Medicine; Referring Provider Internal Medicine; Visit Provider Surgery | DX: C18.0 Malignant neoplasm of cecum (principal); Z90.49 Acquired absence of other specified parts of digestive tract | CPT/HCPCS: 99212 ==

== ENCOUNTER → 2020-10-12 09:58 | Outpatient (BNV) | payer MEDICAID, SELFPAY | PROVIDERS: PCP Internal Medicine; Referring Provider Surgery; Visit Provider Internal Medicine | DX: C18.0 Malignant neoplasm of cecum (principal); Z90.49 Acquired absence of other specified parts of digestive tract; Z92.21 Personal history of antineoplastic chemotherapy | CPT/HCPCS: 99203; 99212; 99213; 99214; 99215; G2211 ==

== ENCOUNTER 2020-10-16 07:02 | Day surgery (SDC) | payer MEDICAID, SELFPAY ==
--- NOTE | 2020-10-16 | IR_ITS ---
PROCEDURE: IR INSERTION OF TUNNEL CATHETER CLINICAL INFORMATION: Colon cancer. Chemotherapy. COMPARISON: None TECHNIQUE: Procedure and risks and benefits including bleeding, infection and pneumothorax were discussed with the patient and informed consent was obtained. All elements of maximal sterile barrier technique followed including use of cap, mask, sterile gown, sterile gloves, a sterile full body drape and hand hygiene. Also followed skin preparation with 2% chlorhexidine for cutaneous antisepsis, and sterile ultrasound preparation with sterile gel and probe cover when applicable. The right neck and chest were prepped and draped in usual sterile fashion. The skin and soft tissues of the right lower neck were anesthetized with 1% lidocaine with epinephrine. Using ultrasound guidance and a 5 [place] micropuncture system, right internal jugular vein access was obtained. Over an 018 wire, a 5 [place] dilator was positioned in the SVC. The skin and soft tissues at the upper interior chest were anesthetized with 1% lidocaine with epinephrine. A small incision was made. Using blunt dissection, a subcutaneous pocket was created. A subcutaneous tunnel from the chest to the neck incision was anesthetized with 1% lidocaine with epinephrine. Using a tunneler, a 6.6 [place] single-lumen catheter was tunneled from the chest to the neck incision. Catheter was attached to the port. The port and catheter were flushed. The port was positioned in the subcutaneous pocket and secured using two 3-0 nonabsorbable sutures. An 035 guidewire was advanced through the 5 [place] dilator into the IVC. A 5 [place] dilator was exchanged for a 7 [place] peel-away sheath. Using bent wire technique, catheter length was estimated and the catheter was cut. Catheter length is 20.0 cm. The catheter was fed through the peel-away sheath. The neck incision was closed using a 4-0 absorbable subcuticular suture. The chest incision was closed using three 3-0 interrupted sutures followed by a running subcuticular 4-0 absorbable suture. The port was accessed. The port had good blood return, flushed easily and was instilled with heparin 5 mL of 100 unit per mL solution. Real-time ultrasound guidance was used to document vein patency and for needle entry. A formal ultrasound picture was recorded. Patient received Versed 1.5 mg, fentanyl 75 mcg and Kefzol 2 g IV during the procedure. Total sedation time was 40 minutes. Fluoroscopy time 0.6 minutes. Total dose: 2 mGy. DAP: 38 cGy-cm2. FINDINGS: There is a right internal jugular port with tip projecting over the cavoatrial junction. IR/IR cvc insert tunnel w prt/explosive expert IMPRESSION: Right internal jugular 6.6 [place] single-lumen dignity Port-A-Cath placement.
--- NOTE | 2020-10-16 | IR_ITS ---
PROCEDURE: IR INSERTION OF TUNNEL CATHETER CLINICAL INFORMATION: Colon cancer. Chemotherapy. COMPARISON: None TECHNIQUE: Procedure and risks and benefits including bleeding, infection and pneumothorax were discussed with the patient and informed consent was obtained. All elements of maximal sterile barrier technique followed including use of cap, mask, sterile gown, sterile gloves, a sterile full body drape and hand hygiene. Also followed skin preparation with 2% chlorhexidine for cutaneous antisepsis, and sterile ultrasound preparation with sterile gel and probe cover when applicable. The right neck and chest were prepped and draped in usual sterile fashion. The skin and soft tissues of the right lower neck were anesthetized with 1% lidocaine with epinephrine. Using ultrasound guidance and a 5 [place] micropuncture system, right internal jugular vein access was obtained. Over an 018 wire, a 5 [place] dilator was positioned in the SVC. The skin and soft tissues at the upper interior chest were anesthetized with 1% lidocaine with epinephrine. A small incision was made. Using blunt dissection, a subcutaneous pocket was created. A subcutaneous tunnel from the chest to the neck incision was anesthetized with 1% lidocaine with epinephrine. Using a tunneler, a 6.6 [place] single-lumen catheter was tunneled from the chest to the neck incision. Catheter was attached to the port. The port and catheter were flushed. The port was positioned in the subcutaneous pocket and secured using two 3-0 nonabsorbable sutures. An 035 guidewire was advanced through the 5 [place] dilator into the IVC. A 5 [place] dilator was exchanged for a 7 [place] peel-away sheath. Using bent wire technique, catheter length was estimated and the catheter was cut. Catheter length is 20.0 cm. The catheter was fed through the peel-away sheath. The neck incision was closed using a 4-0 absorbable subcuticular suture. The chest incision was closed using three 3-0 interrupted sutures followed by a running subcuticular 4-0 absorbable suture. The port was accessed. The port had good blood return, flushed easily and was instilled with heparin 5 mL of 100 unit per mL solution. Real-time ultrasound guidance was used to document vein patency and for needle entry. A formal ultrasound picture was recorded. Patient received Versed 1.5 mg, fentanyl 75 mcg and Kefzol 2 g IV during the procedure. Total sedation time was 40 minutes. Fluoroscopy time 0.6 minutes. Total dose: 2 mGy. DAP: 38 cGy-cm2. FINDINGS: There is a right internal jugular port with tip projecting over the cavoatrial junction. IR/IR us guide venous access IMPRESSION: Right internal jugular 6.6 [place] single-lumen dignity Port-A-Cath placement.
[2020-10-16 07:20] VITALS: BMI 26.6
--- NOTE | 2020-10-16 10:17 | HO.RADPN ---
RADIOLOGY Narrative Narrative: Right IJ 6.6 fr Dignity portacath placed. Tip in SVC.
[2020-10-16 10:30] VITALS: BP 113/73; PULSE 63; RESP 16; TEMP 36.9; O2SAT 99
[2020-10-16 10:45] VITALS: BP 116/72; PULSE 70; RESP 16; O2SAT 100
[2020-10-16 11:00] VITALS: BP 115/70; PULSE 65; RESP 16; O2SAT 100
[2020-10-16 11:15] VITALS: BP 114/70; PULSE 62; RESP 16; O2SAT 100
[2020-10-16 11:29] VITALS: BP 114/67; PULSE 63; RESP 16; TEMP 36.7; O2SAT 100
--- NOTE | 2020-10-17 10:57 | MHC.HEMONCSW ---
PET SCAN AT [facility] 10/30/19...THEY WILL CALL PATIENT WITH EXACT TIME. [facility] DOESN'T REVIEW FOR [facility], C# [id number] REFERRAL # [id number].
== END 2020-10-16 11:47 | disposition home or self-care (01) ==
PROVIDERS: PCP Internal Medicine; Visit Provider Radiology Diagnostic Radiology
DX: C18.0 Malignant neoplasm of cecum (principal); C77.2 Secondary and unspecified malignant neoplasm of intra-abdominal lymph nodes; Z90.49 Acquired absence of other specified parts of digestive tract
CPT/HCPCS: 36561; 76937; 99152; 99153; C1769; C1788; J0690; J1642; J2250; J3010

== ENCOUNTER 2020-11-06 10:00 | Outpatient (REF) | payer MEDICAID, SELFPAY ==
--- NOTE | 2020-11-06 07:49 | PE_ITS ---
EXAMINATION: Fluorine-18 FDG PET/CT Scan CLINICAL INDICATION: Initial treatment management. Cecal cancer, status post colon surgery, staging. PROCEDURE: 73 minutes following the intravenous administration of 16.2 mCi of fluorine 18 FDG, images from the base of the skull to the mid thighs were obtained using a combined PET/CT scanner with CT scan based attenuation correction. No intravenous contrast was administered. No oral contrast was administered. Transverse, coronal, sagittal, and volume reconstruction projections were obtained. The patient's blood glucose as determined by a finger stick, was 84 mg/dl immediately prior to injection. Total CT exam dose-length product 435.98 mGy-cm * These CT images were obtained using dose optimization techniques as appropriate, variously including the following: Automated exposure control * Adjustment of mA and/or kV according to patient size (this includes techniques or standardized protocols for targeted exams where dose is matched to indication/reason for exam; i.e. extremities or head) * Use of iterative reconstruction technique COMPARISON: No previous PET/CT scan is available for comparison. The diagnostic CT scan of the abdomen and pelvis, dated 09/13/2020, is available for comparison. FINDINGS: (Slice numbers described in this report are numbered superiorly to inferiorly with slice #1 in the head) NECK AND VISUALIZED HEAD: No foci of abnormal FDG activity are noted. The distribution of FDG activity is physiological. There is no cervical lymphadenopathy. THORAX: There are no foci of abnormal FDG activity. No pulmonary nodules are visualized. There is no pleural or pericardial fluid or pneumothorax. There is no mediastinal, supraclavicular, or axillary lymphadenopathy. A right-sided chest port with internal jugular catheter terminating in the superior vena cava is noted. There is mildly increased FDG activity immediately adjacent to the port, likely due to some mild inflammatory changes at this site. ABDOMEN AND PELVIS: No foci of abnormal FDG activity are present in the abdomen or pelvis. The liver, gallbladder, spleen, kidneys, adrenal glands and pancreas appear unremarkable. There is mild FDG activity throughout the gastrointestinal tract without a suspicious focal component. There is diverticulosis without evidence of diverticulitis. There there is an anastomotic suture line in the hepatic flexure region of the large bowel, presumably from a right colectomy. There is no abnormal FDG activity associated with the sutures. The pelvic organs are unremarkable. There is no retroperitoneal, mesenteric, pelvic or inguinal lymphadenopathy. MUSCULOSKELETAL: There is mildly increased FDG activity in the acromioclavicular joints bilaterally, likely arthritic. No other foci of abnormal FDG activity are present in the osseous structures. There is a grade 1 anterolisthesis of L5 on S1 and mild degenerative changes in the spine but no suspicious sclerotic or lytic lesions are visualized. VASCULAR: Scattered vascular calcifications are present. PET/PET CT fusion skull to thigh IMPRESSION: No foci of abnormal FDG activity are present. There are no abnormalities suspicious for metastatic or other malignant lesions. Postoperative changes from a right hemicolectomy are noted.
== END 2020-11-06 10:01 | disposition home or self-care (01) ==
LOC: HO.PET 10:00
PROVIDERS: Visit Provider Internal Medicine
DX: Z13.89 Encounter for screening for other disorder (principal)

== ENCOUNTER → 2021-01-07 12:49 | Outpatient (BNVA) | payer MEDICAID, SELFPAY | PROVIDERS: PCP Internal Medicine; Visit Provider Surgery | DX: C18.0 Malignant neoplasm of cecum (principal) | CPT/HCPCS: 99212 ==

== ENCOUNTER → 2021-04-01 14:57 | Outpatient (BNVA) | payer MEDICAID, SELFPAY | PROVIDERS: PCP Internal Medicine; Referring Provider Internal Medicine; Visit Provider Surgery | DX: C18.0 Malignant neoplasm of cecum (principal) | CPT/HCPCS: 99212 ==

== ENCOUNTER 2021-04-26 07:03 | Day surgery (SDC) | payer MEDICAID, SELFPAY ==
[2021-04-22 11:41] VITALS: BMI 28.3
--- NOTE | 2021-04-25 09:42 | HO.ANESPROP2 ---
Documented by User: Jovita Corcoran 04/25/21 09:43 HPI - Anesthesia Eval Consult details Narrative: 50yo M for Colonoscopy, Poss Polypectomy Colon CA s/p open colectomy 08/2020, tx with chemo ? port a cath in situ PMFSH Active Problems Active Problems: All Active Problems (Updated 04/22/21 @ 11:25 by Adriana Valle) Adenocarcinoma of cecum (Chronic) Past Medical History Medical History Abdominal trauma Adenocarcinoma of cecum History of chemotherapy Family History Family History Father AIDS Brother Accidental heroin overdose Family history of problems with anesthesia: No Surgical History Surgical History H/O right hemicolectomy History of surgery History of Problems with Anesthesia: No ( Never had anesthesia) Social History Social History Household Members: Significant Other Housing: Apartment Are you a primary neurocritical care physician to a significant other at home: No Do you presently have visiting nurse or other home services: Yes Alcohol intake: former Patient Tobacco Use Status: Former Tobacco user Quit Date: 2004 Tobacco use type: Cigarette Use of substances other than those prescribed or required for medical reasons: No Have you been hit, kicked, punched, or otherwise hurt by someone within the past year? If so, by whom?: No Are you DNR?: No Advance Directives: No Advance Directives Information Provided: No Advance Directives on File: No service: No Current occupational status: employed Meds Allergies Allergy/AdvReac Type Severity Reaction Status Date / Time No Known Allergies Allergy Verified 04/26/21 07:47 Exam Exam Date and Time: April 25, 2021 0942 Height,Weight and Vital Signs: Height 5 ft 5 in Weight 77.111 kg Pertinent Lab Results Pertinent Lab Results: Laboratory Tests 04/16/21 04/16/21 16:15 16:15 WBC 4.0 L Hgb 12.2 L Hct 38.8 L Plt Count 111 L Sodium 140 Potassium 4.2 Chloride 106 Carbon Dioxide 28 BUN 11 Creatinine 0.86 Assessment and Plan Assessment Anesthesia Assessment: Chart Reviewed Documented by User: Liliana Augustin 04/26/21 08:01 PMFSH Past Medical History Medical History Abdominal trauma Adenocarcinoma of cecum History of chemotherapy Family History Family History Father AIDS Brother Accidental heroin overdose Surgical History Surgical History H/O right hemicolectomy History of surgery Social History Social History Household Members: Significant Other Housing: Apartment Are you a primary neurocritical care physician to a significant other at home: No Do you presently have visiting nurse or other home services: Yes Alcohol intake: former Patient Tobacco Use Status: Former Tobacco user Quit Date: 2004 Tobacco use type: Cigarette Use of substances other than those prescribed or required for medical reasons: No Have you been hit, kicked, punched, or otherwise hurt by someone within the past year? If so, by whom?: No Are you DNR?: No Advance Directives: No Advance Directives Information Provided: No Advance Directives on File: No service: No Current occupational status: employed Meds Allergies Allergy/AdvReac Type Severity Reaction Status Date / Time No Known Allergies Allergy Verified 04/26/21 07:47 Exam Airway Mallampati Class: I TM Dist: >3cm Neck ROM: Full Loose/Missing/Broken Teeth: No Heart: RRR Lungs: CTA Assessment and Plan Assessment Anesthesia Assessment: Anesthesia Plan Discussed and Chart Reviewed Final Anesthetic Review NPO: Yes ASA Class: II Final Preanesthetic Review: Meds/Allgs Chart Reviewed, Consent Obtained/Reviewed and Anes Risks/Benef Reviewed Patient Risk: Low Procedure Risk: Low Anesthetic Plan Anesthetic Plan: MAC: Disposition: Standard PACU
[2021-04-26 07:41] VITALS: BP 123/79; PULSE 75; RESP 18; TEMP 36.4; O2SAT 98
--- NOTE | 2021-04-26 07:58 | MHC.SHP ---
Pre-Procedural Eval Section A Date of Service: 04/26/21 Section B Chief Complaint: Adenocarcinoma of cecum Allergies: Allergies Allergy/AdvReac Type Severity Reaction Status Date / Time No Known Allergies Allergy Verified 04/26/21 07:47 Plan I have reviewed the history and physical and performed a pertinent physical examination on my patient. No changes have occurred unless specified.
[2021-04-26] MEDS: Lactated Ringers 1,000 ML 100 ML IVCONT (07:59)
--- NOTE | 2021-04-26 08:36 | W.PM.OPN ---
Operative Note Operative Note Date of Service: 04/26/21 Narrative: Preop diagnosis: History of right colon cancer Postop diagnosis: 1.History of right colon cancer 2. 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 I had recommended to him to undergo colonoscopy in view of his history. He understood the technique of this procedure. He was aware of the risks, benefits, and alternatives . He was brought to the operating room and placed in left lateral decubitus position under monitored anesthesia care. A surgical time-out was done.A full digital rectal exam was done And there were no palpable anal lesions. The tip of the Olympus colonoscope was gently introduced through the anal orifice and advanced with insufflation all the way ileocolic anastomosis. The staple lines were identified. Small bowel mucosa was seen and I proceeded to gently withdraw the scope with careful examination of the entire remaining colonic mucosa being done with scope withdrawal. The patient had adequate bowel prep although we did have to do periodic irrigation because of residual thin water stools and small stool particles. It was unlikely that any lesion may have been missed. The rectum was reached. There were no lesions seen. There was note of prominent internal hemorrhoids in the anal canal. The scope was then withdrawn completely with desufflation. The patient tolerated procedure well. There were no complications noted. I would recommend another colonoscopy within 5 years because of his history of colon cancer.
[2021-04-26 08:37] VITALS: BP 108/67; PULSE 72; RESP 18; TEMP 36.7; O2SAT 99
--- NOTE | 2021-04-26 08:41 | P.BOP_ITS ---
Brief Operative Note Date of Service: 04/26/21 Pre-op diagnosis: History of colon cancer Post-op diagnosis: same ( with hemorrhoids) Procedure: colonoscopy Surgeon: Darryl Maxwell MD Anesthesia: MAC Was an Police Shift [employer] used for this Procedure?: No Estimated blood loss (mL): 0 Pathology: none sent Condition: stable Disposition: PACU
[2021-04-26 08:52] VITALS: BP 108/67; PULSE 58; RESP 17; O2SAT 97
== END 2021-04-26 09:13 | disposition home or self-care (01) ==
PROVIDERS: PCP Internal Medicine; Visit Provider Surgery
PROC: 0DJD8ZZ Inspection of Lower Intestinal Tract, Via Natural or Artificial Opening Endoscopic (ICD-10-PCS; CPT 45378; principal; 2021-04-26 08:20)
DX: Z12.11 Encounter for screening for malignant neoplasm of colon (principal); Z85.038 Personal history of other malignant neoplasm of large intestine; K64.8 Other hemorrhoids; Z92.21 Personal history of antineoplastic chemotherapy; Z90.49 Acquired absence of other specified parts of digestive tract; Z87.891 Personal history of nicotine dependence
CPT/HCPCS: 45378

== ENCOUNTER → 2021-05-08 11:25 | Outpatient (BNVA) | payer MEDICAID, SELFPAY | PROVIDERS: PCP Internal Medicine; Visit Provider Surgery ==

== ENCOUNTER 2021-08-19 15:59 | Outpatient (REF) | payer MEDICAID, SELFPAY ==
[2021-08-19 16:39] LABS: Blood Urea Nitrogen 15 mg/dL (9-16); Estimated Glomerular Filt Rate > 60
== END 2021-08-19 16:00 | disposition home or self-care (01) ==
LOC: HO.LAB 15:59
PROVIDERS: PCP Internal Medicine; Visit Provider Internal Medicine
DX: C18.0 Malignant neoplasm of cecum (principal)
CPT/HCPCS: 36415; 82565; 84520

== ENCOUNTER 2021-08-21 15:03 | Outpatient (REF) | payer MEDICAID, SELFPAY ==
--- NOTE | ~2021-08-21 | CT_ITS ---
EXAMINATION: CT ABDOMEN AND PELVIS WITH CONTRAST CLINICAL INFORMATION: Surveillance COMPARISON: 09/13/2020 TECHNIQUE: Multidetector volumetric images were obtained from the superior aspect of the liver through the pubic symphysis following administration 85 mL of Omnipaque 350 intravenous contrast. Sagittal and coronal reformatted images were obtained on the technologist's workstation. Oral contrast: Yes This CT examination was performed using dose optimization techniques as appropriate, variously including the following: *Automated exposure control *Adjustment of mA and/or kV according to patient size (this includes techniques or standardized protocols for targeted exams where dose is matched to indication/reason for exam; i.e. extremities or head) *Use of iterative reconstruction technique DLP: 402 mGy-cm FINDINGS: LUNG BASES: The visualized lung bases are unremarkable. LIVER, GALLBLADDER, AND BILIARY TREE: The liver is normal in size, shape, and attenuation. No focal hepatic lesion or biliary ductal dilatation is present. The gallbladder is unremarkable with no evidence of radiopaque gallstones, gallbladder wall thickening, or obvious pericholecystic inflammatory changes. PANCREAS: Unremarkable. SPLEEN: Unremarkable. ADRENAL GLANDS: Unremarkable. KIDNEYS AND URETERS: The kidneys are normal in size, shape, and attenuation. No hydronephrosis, hydroureter, or calculi seen. No perinephric stranding. BLADDER: Unremarkable. GASTROINTESTINAL TRACT: The stomach is unremarkable. Normal caliber small bowel. No obstruction. No colonic wall thickening or inflammatory change. No free air or free fluid. ABDOMINAL WALL: No significant hernia is appreciated. LYMPH NODES: Normal. VASCULAR: Normal caliber aorta with minimal atherosclerotic calcification. PELVIC VISCERA: The prostate and seminal vesicles are unremarkable. OSSEOUS STRUCTURES: No acute or suspicious osseous abnormality. Bilateral L5 pars defects. Grade 2 anterolisthesis of L5 on S1. Narrowing at this level with vacuum disc phenomenon. Endplate sclerosis. CT/CT abdomen pelvis w con IMPRESSION: No acute findings in the abdomen or pelvis. Normal appearance of the bowel.
[2021-08-21] MEDS: iohexoL 350 MG/ML 100 ML INFUS..BTL IV (18:02)
== END 2021-08-21 15:04 | disposition home or self-care (01) ==
LOC: HO.CT 15:03
PROVIDERS: Visit Provider Internal Medicine
DX: C18.0 Malignant neoplasm of cecum (principal)
CPT/HCPCS: 74177; Q9967

== ENCOUNTER 2022-02-04 08:55 | Outpatient (REF) | payer MEDICAID, SELFPAY ==
--- NOTE | ~2022-02-04 | CT_ITS ---
EXAMINATION: CT ABDOMEN AND PELVIS WITHOUT CONTRAST CLINICAL INFORMATION: Malignant neoplasm of cecum, surveillance. COMPARISON: CT abdomen pelvis 08/21/2021. TECHNIQUE: Multidetector volumetric imaging was performed from the superior aspect of the liver through the pubic symphysis with oral contrast. Sagittal and coronal reformatted images were obtained on the technologist's workstation. This CT examination was performed using dose optimization techniques as appropriate, variously including the following: *Automated exposure control *Adjustment of mA and/or kV according to patient size (this includes techniques or standardized protocols for targeted exams where dose is matched to indication/reason for exam; i.e. extremities or head) *Use of iterative reconstruction technique DLP: 455 mGy-cm. FINDINGS: LUNG BASES: The lung bases are clear. The heart size is normal. LIVER, GALLBLADDER, AND BILIARY TREE: The liver is normal in size, shape, and attenuation. No focal hepatic lesion or biliary ductal dilatation is present. The gallbladder is unremarkable with no evidence of radiopaque gallstones, gallbladder wall thickening, or obvious pericholecystic inflammatory changes. PANCREAS: Unremarkable. SPLEEN: Unremarkable. ADRENAL GLANDS: Unremarkable. KIDNEYS AND URETERS: The kidneys are normal in size, shape, and attenuation. No hydronephrosis, hydroureter, or calculi seen. No perinephric stranding. BLADDER: Unremarkable. GASTROINTESTINAL TRACT: Oral contrast opacified small bowel loops and colon appears unremarkable. Postsurgical changes following removal of cecum is noted. Appendix is not visualized and may be removed. There is a 7 mm lymph node, stable adjacent to the ileal loops on axial image 39/3. There is a second nodule or lymph node slightly inferiorly in the right lower quadrant measuring 1.4 x 1.2 cm on axial image 15 1/3. Previously measured 0.6 x 0.7 cm. There is a soft tissue density measuring 2.4 x 1.6 cm with central staple in the right lower quadrant adjacent to the site of surgery on axial image 43/3. Previously, there was staple without any surrounding soft tissue. Whether this represents a scar or recurrence is questioned. ABDOMINAL WALL: No significant hernia is appreciated. LYMPH NODES: Normal. VASCULAR: Unremarkable. PELVIC VISCERA: The prostate gland is normal. No free fluid. No abnormal pelvic or inguinal lymph nodes. No evidence of inguinal hernia. OSSEOUS STRUCTURES: There is grade 2 anterolisthesis L5 over S1 with bilateral L5 pars defect. Moderate endplate sclerosis seen at the L5-S1 disc level. No change from the last exam. No aggressive lytic lesion seen. CT/CT abdomen pelvis wo con IMPRESSION: Postsurgical changes following resection of cecum. There is a soft tissue density with central staple new since 08/21/2021. There is may represent a recurrent lesion or a large scar. There is a small lymph node in the ileocecal mesentery and a second slightly larger lymph node or nodule in the right lower quadrant. These above findings are suspicious for recurrence. Staple . Clinical correlation is recommended. A follow-up PET/CT scan can be performed. Fleischner guidelines were followed.
[2022-02-04] MEDS: Barium Sulfate Oral (Berry) 450 ML ORAL.SUSP 900 ML PO (11:17)
== END 2022-02-04 08:56 | disposition home or self-care (01) ==
LOC: HO.CT 08:55
PROVIDERS: Visit Provider Internal Medicine
DX: C18.0 Malignant neoplasm of cecum (principal)
CPT/HCPCS: 74176

== ENCOUNTER 2022-02-18 10:08 | Outpatient (REF) | payer MEDICAID, SELFPAY ==
--- NOTE | ~2022-02-18 | PE_ITS ---
EXAMINATION: PET CT fusion skull to thigh Subsequent treatment management - PS CLINICAL INFORMATION: Adenocarcinoma of the cecum. Restaging evaluation. COMPARISON: CT abdomen pelvis 02/04/2022. Prior PET CT 11/06/2020. TECHNIQUE: Fingerstick blood sugar prior to exam was 84 mg/dL. 16.3 mCi fluorine-18 FDG administered IV. Following approximately 45 minutes of uptake, multibed PET acquisition was performed preceded by a non-contrast CT scan for the purposes of localization and attenuation correction. Total exam dose-length product 477 mGy-cm FINDINGS: Head and neck: Physiologic FDG distribution. Mass effect or midline shift of the visualized brain. No acute sinusitis. No cervical lymphadenopathy or mass. Chest: Physiologic FDG distribution. Right-sided chest port. Atelectasis. No focal consolidation or mass. No enlarged or hypermetabolic hilar or mediastinal lymphadenopathy. Mild cardiomegaly. Abdomen/pelvis: There is abnormal FDG uptake there is abnormal FDG uptake associated with the 2 previous bleed described soft tissue masses in the right lower quadrant of the abdomen. The 3.0 x 2.3 cm soft tissue mass surrounding the surgical clips in the right lower quadrant in image 101/267 of series 2 has abnormal FDG uptake to maximum SUV 6.6. The abnormal FDG uptake extends laterally to be inseparable with the right abdominal wall musculature suggesting possible abdominal wall involvement. Notably, on the CT at presentation 09/13/2020, there was fluid and soft tissue nodularity extending to abut the abdominal wall in a similar location. Slightly more inferiorly in image 90/267 of series 2, the 1.6 cm low density soft tissue nodule has abnormal FDG uptake to maximum SUV 5.7. There is a 1.5 cm soft tissue nodule inferior to the liver, adjacent the duodenum and pancreatic head in image 134/267 but there is no associated abnormal FDG uptake. There is focal FDG uptake along the posterior margin of the bowel mucosa in the region of the surgical anastomosis, for example image 123/267. This area did not distend with contrast on the prior CT scan, for example image 34/92 and could represent an additional site of disease involvement. There is patchy heterogeneous FDG uptake within the liver. It is difficult to exclude subtle hepatic metastatic disease given the degree of heterogeneity. The most recent prior CT scan was performed without IV contrast. No adrenal mass. Spleen, pancreas, bilateral kidneys and adrenal glands are normal. Stomach and small bowel are nondilated. As described above there are postoperative changes in the right abdomen consistent with prior right partial colectomy and an ileocolic anastomosis. Extremities: Physiologic FDG distribution. PET/PET CT fusion skull to thigh IMPRESSION: The focal soft tissue abnormalities in the right lower quadrant seen on recent CT scan are both hypermetabolic consistent with residual/recurrent disease, as described above. In addition, there is a suspected third site of disease along the right lateral abdomen along the posterior margin of the bowel mucosa in the region of the right surgical anastomosis. This is actually best seen on the prior CT abdomen pelvis images 22/01 and 23/02/1992 as it remains soft tissue density and does not distend with contrast.
== END 2022-02-18 10:09 | disposition home or self-care (01) ==
LOC: HO.PET 10:08
PROVIDERS: Visit Provider Internal Medicine
DX: Z13.89 Encounter for screening for other disorder (principal)

== ENCOUNTER 2022-02-25 12:33 | Outpatient (REF) | payer MEDICAID, SELFPAY ==
--- NOTE | ~2022-02-25 | US_ITS ---
EXAMINATION: US ABDOMEN LIMITED CLINICAL INFORMATION: Question liver metastasis. COMPARISON: CT abdomen and pelvis 02/04/2022. X-ray abdomen 09/18/2020. PET CT January 2022 TECHNIQUE: Real-time imaging of the right upper quadrant abdominal viscera. FINDINGS: PANCREAS: The head and body the pancreas are normal. The tail is not well visualized due to bowel gas. LIVER: Normal. The liver is normal in size. The liver contour is normal. Parenchymal echogenicity is normal. No focal hepatic lesion. There is no intrahepatic biliary duct dilatation seen. GALLBLADDER: Normal. The gallbladder is physiologically distended without evidence of stones, sludge, polyps, wall thickening or pericholecystic fluid. COMMON BILE DUCT: Normal in caliber measuring 0.3 cm in diameter. RIGHT KIDNEY: Normal. No hydronephrosis. No renal calculi or focal parenchymal lesions. The kidney measures 10.0 cm in maximum dimension. FREE FLUID: None. US/US abdomen limited IMPRESSION: No liver lesion is seen.
== END 2022-02-25 12:34 | disposition home or self-care (01) ==
LOC: HO.US 12:33
PROVIDERS: Visit Provider Internal Medicine
DX: C18.0 Malignant neoplasm of cecum (principal)
CPT/HCPCS: 76705

== ENCOUNTER 2022-03-04 11:38 | Day surgery (SDC) | payer MEDICAID, SELFPAY ==
--- NOTE | ~2022-03-04 | CT_ITS ---
PROCEDURE: CT GUIDED BIOPSY, ABDOMINAL MASS CLINICAL INFORMATION: Malignant neoplasm cecum. Recurrent soft tissue mass versus large scar right lower quadrant adjacent to the surgical site in the cecal region. This was visualized and questioned on a recent PET/CT exam 02/18/2022. COMPARISON: PET/CT exam 02/18/[address] abdomen and pelvis 02/04/2022. TECHNIQUE: Following explaining CT fluoroscopy-guided biopsy procedure, benefits and risks, a written consent was obtained. Patient was placed supine on CT table and preliminary CT imaging was obtained. An optimal site was selected along the right anterior abdominal wall and marked. The marked site was cleaned and draped in usual sterile manner. 1% lidocaine was injected at puncture site. Through a small skin incision a 20-gauge guide needle was advanced from the right anterior skin incision to the right lower quadrant scar with centrally located staple. Coaxially a 20-gauge gun was advanced and a 5 pass core biopsy was performed through the lesion. Conscious sedation was utilized during the exam and patient monitored by the IR nurse and the radiologist. This CT examination was performed using dose optimization techniques as appropriate, variously including the following: *Automated exposure control *Adjustment of mA and/or kV according to patient size (this includes techniques or standardized protocols for targeted exams where dose is matched to indication/reason for exam; i.e. extremities or head) *Use of iterative reconstruction technique DLP: 194 mGy-cm FINDINGS: There is a soft tissue mass in the right lower quadrant adjacent to the surgical site or the previous cecal area. Coaxial 20-gauge core biopsy was performed x5. No immediate complication seen. Patient tolerated procedure extremely well. CT/CT biopsy abdomen percutaneous IMPRESSION: Successful ultrasound-guided right lower quadrant mass biopsy performed without immediate complications.
[2022-03-04 12:10] VITALS: BMI 29.7
[2022-03-04 12:34] LABS: MANUAL DIFF FLAG NO
[2022-03-04 12:38] LABS: Basophils Percent Auto 0.5 % (0-2); Eosinophils Absolute Auto 0.1 X10*3/uL (0.0-0.4); Eosinophils Percent Auto 1.3 % (0-4); Hematocrit 42.6 % (42.0-52.0); Hemoglobin 13.9 g/dl (14.0-18.0); Imm Gran Abs Auto 0.01 X10*3/uL (0.00-0.03); Imm Gran Pct Auto 0.2 % (0.0-0.4); Lymphocytes Percent Auto 31.5 % (20-40); Mean Corpuscular HGB Conc 32.6 g/dl (31.0-36.0); Mean Corpuscular Hemoglobin 26.3 pg (27.0-33.0); Mean Corpuscular Volume 80.5 fL (80.0-98.0); Mean Platelet Volume 10.2 fL (9.4-12.4); Monocytes Absolute Auto 0.5 X10*3/uL (0.1-1.2); Monocytes Percent Auto 8.6 % (2-11); Neutrophils Absolute Auto 3.6 x10*3/uL (2.0-8.3); Neutrophils Percent Auto 57.9 % (45-73); Platelet Count 224 X10*3/uL (160-400); Red Blood Count 5.29 X10*6/uL (4.60-5.80); White Blood Count 6.3 X10*3/uL (4.8-10.8)
[2022-03-04 12:45] LABS: Prothrombin Time 11.9 SEC (9.9-13.0)
[2022-03-04 12:47] LABS: Partial Thromboplastin Time 36.8 SEC (24.1-38.0)
[2022-03-04] MEDS: Lidocaine HCl 1 % MPF 5 ML VIAL SUBCUT (14:47)
[2022-03-04 14:48] VITALS: BP 136/81; PULSE 58; RESP 15; TEMP 36.6; O2SAT 99
[2022-03-04 15:03] VITALS: BP 120/86; PULSE 57; RESP 16; O2SAT 97
[2022-03-04 15:34] VITALS: BP 125/87; PULSE 68; RESP 16; O2SAT 97
[2022-03-04 16:00] VITALS: BP 119/73; PULSE 85; RESP 16; O2SAT 97
[2022-03-04 16:13] LABS: Alanine Aminotransferase 16 U/L (0-40); Albumin Level 4.4 g/dL (3.5-5.0); Alkaline Phosphatase 105 U/L (39-117); Anion Gap 11 (12-20); Aspartate Amino Transferase 20 U/L (5-37); Bilirubin Total 0.6 mg/dL (0.0-1.0); Blood Urea Nitrogen 12 mg/dL (9-16); Calcium 9.8 mg/dL (8.4-10.2); Carbon Dioxide 26 mmol/L (22-29); Chloride 105 mmol/L (96-108); Creatinine Clr Calc Pharmacy 100.9; Estimated Glomerular Filt Rate > 60; Glucose Random 116 mg/dL (60-115); Magnesium 1.9 mg/dL (1.6-2.6); Potassium 4.1 mmol/L (3.3-5.1); Sodium 138 mmol/L (135-145); Total Protein 7.4 g/dL (6.5-8.0)
== END 2022-03-04 16:24 | disposition home or self-care (01) ==
PROVIDERS: PCP Internal Medicine; Visit Provider Radiology Diagnostic Radiology
DX: C18.0 Malignant neoplasm of cecum (principal); Z85.038 Personal history of other malignant neoplasm of large intestine; Z92.21 Personal history of antineoplastic chemotherapy; Z87.891 Personal history of nicotine dependence; Z90.49 Acquired absence of other specified parts of digestive tract
CPT/HCPCS: 36415; 49180; 77012; 80053; 83735; 85025; 85610; 85730; 88305; 88341; 88342; 99152; J2250; J3010

== ENCOUNTER 2022-03-22 21:49 | Emergency (ER) | payer MEDICAID, SELFPAY ==
--- NOTE | 2022-03-22 22:17 | ED_ITS ---
HPI - Weakness General Chief complaint: Weakness Stated complaint: dr called ahead of time to give an IV of fluid Time Seen by Provider: 03/22/22 22:15 Source: patient Mode of arrival: ambulatory Limitations: no limitations History of Present Illness HPI Narrative: This is a 51-year-old female past medical history significant for metastatic adenocarcinoma of the cecum presents to the emergency department with weakness, decreased p.o. intake, fatigue and diarrhea x3 days progressively worsening. Patient tells me that he is recently diagnosed with cancer, he has received 2 rounds of chemotherapy, last time he received was a few days ago and ever since then he has had diarrhea. Patient has tried Imodium at home with little to no relief. He tells me that the diarrhea is completely liquid, non foul smelling, ?normal color ?. He denies fevers, chills, chest pain, shortness of breath, nausea, vomiting, abdominal pain, headache, dizziness. MD Complaint: generalized weakness Onset (ago): day(s) (3) Duration: constant Location: generalized Migration: none Severity: severe Relieving factors: none Exacerbating factors: none Context: other (Chemotherapy) Associated symptoms: denies other symptoms Related Data Previous Rx's Medication Instructions Recorded vitamin B complex 1 tab PO DAILY #90 tab 09/25/21 oxycodone 5 mg capsule 5 mg PO Q8H PRN #60 cap 02/25/22 dexamethasone 4 mg tablet 4 mg PO BID #30 tab 02/28/22 ondansetron 8 mg disintegrating 8 mg PO Q8H PRN #60 tab 02/28/22 tablet diphenoxylate-atropine 2.5 2 tab PO TID PRN #8 tab 03/23/22 mg-0.025 mg tablet (Lomotil) Allergies Allergy/AdvReac Type Severity Reaction Status Date / Time Iodinated Contrast Media Allergy Swelling Verified 03/04/22 12:10 [Contrast Dye] Review of Systems Review of Systems: Constitutional : No Weight loss, No Fever, No Chills, + Fatigue, + Malaise ENT/Mouth : No sore throat, No Rhinorrhea Eyes: No Eye Pain, No Swelling, No Redness Cardiovascular : No Chest Pain, No SOB, No Dyspnea on Exertion, No Orthopnea, No Edema, No Palpitations Respiratory : No Cough, No Sputum, No Wheezing Gastrointestinal : No Nausea, No Vomiting, + Diarrhea, No Constipation, No abdo nasima Pain, No Hematochezia, No Melena Genitourinary : No Dysuria, No Urinary Frequency, No Hematuria, Musculoskeletal : No joint pain, No Myalgias, No Joint Swelling Skin : No Skin Lesions, No rash Neuro : + Weakness, No Numbness, No Dizziness, No Headache Psych : No Anxiety/Panic, No Depression All other systems reviewed and are negative Yes all other systems are reviewed and are negative [facility] Past Medical History Attestation statement: The following information was validated with the patient. Source: old records reviewed and nursing notes reviewed Medical History Abdominal trauma Adenocarcinoma of cecum History of chemotherapy Surgical History H/O right hemicolectomy History of colonoscopy History of surgery Family History Family History Father AIDS Brother Accidental heroin overdose Social History Social History Household Members: Spouse Housing: House Are you a primary child care supervisor to a significant other at home: No Do you presently have visiting nurse or other home services: No Alcohol intake: former Patient Tobacco Use Status: Former Tobacco user Quit Date: 2004 Tobacco use type: Cigarette Advance Directives: No Advance Directives Information Provided: No service: No Current occupational status: employed Physical Exam Vital Signs: Vital Signs: Last Vital Signs Temp 98.1 F 03/23/22 03:03 Pulse 60 03/23/22 03:03 Resp 16 03/23/22 03:03 BP 126/84 03/23/22 03:03 Pulse Ox 97 03/23/22 03:03 BMI result Body Mass Index 26.4 Vital signs stable Appearance: Alert.? Oriented X3.? No acute distress.? Head: Normocephalic, atraumatic, no step-offs or deformities Eyes: Pupils equal, round and reactive to light.? ENT: Pharynx normal.? Neck: Normal inspection.? Neck supple.? CVS: Normal heart rate and rhythm.? Pulses normal.? Respiratory: No respiratory distress.? Breath sounds normal.? Abdomen: Soft and nontender.? Skin: Skin warm and dry.? Normal skin color.? Normal skin turgor.? Extremities: No lower extremity edema.? No calf ttp. 5/5 strength to bilateral upper and lower extremities Back: No midline tenderness, no C-spine tenderness, full range of motion, no CVA tenderness bilaterally Neuro: Oriented X 3.? No motor deficit.? No sensory deficit. CN 2-12 intact Course Reevaluation(s) Reevaluation #1: Patient's CBC and CMP initially concerning for dehydration. Repeat CBC with improvement. Chemistry now showing a hypocalcemia however he is asymptomatic, will obtain ekg however low suspicion for EKG changes no cp, palpitations, ríos, dizziness, involuntary muscle spasms, patient continues to have multiple episodes of diarrhea while in the emergency department, however, he tells me he is feeling better and he is going less often than he was before. He was given was given loperamide/Imodium here. He will be given Tums for the hypocalcemia. I will advise him to follow-up as soon as possible with his PCP to repeat this lab value, educated him on worrisome signs and symptoms of hypocalcemia and to return if any of these arise. Time: 03:10 Reevaluation #2: EKG with no acute findings. Patient remains asymptomatic. He was given Tums. CMP recheck. Time: 04:17 Reevaluation #3: Patient's calcium still remains low however calcium correction for hypoalbuminemia 8.1 discussed this with my attending who tells me to encourage patient to take tums at home. Patient feels well, no tetany, no QT prolongation, no changes in EKG, no new symptoms, negative trousseaus sign and chvostek sign, patient denies muscle spasms, palpitations. He tells me he is feeling much better. Has been having less diarrhea than he was at home. I will advise him to take p.o.Tums at home. In get his calcium level recheck to in 1 day. Will be sent home with medication for diarrhea and tums. Advised him to return with new or worsening symptoms and to follow up with Hematology-Oncology. At this time I feel comfortable with discharge home with PCP and Hematology On cology follow-up. Comfortable discharge home Time: 05:20 MDM - Weakness MDM Narrative Medical decision making narrative: 2219 51-year-old male with metastatic adenocarcinoma of the cecum currently receiving chemotherapy presenting to the emergency department with poor p.o. intake, fatigue, weakness, diarrhea x4 days worsening. I did receive a call from Dr. Nazario who tells me that patient has had 2 rounds of chemo in reports diarrhea over the past 2-3 days he has been taking Imodium without relief. She suggest IV fluids and laboratory studies. She would also like the patient discharged home on Lomotil PE benign Based off patient history and physical examination likely diarrhea secondary to chemotherapy, unlikely that this is Clostridium difficile, will obtain stool studies however. Plan- labs, urine, fluids Medical Records Attestation: I reviewed the patient's medical records. Lab Data Attestation: I reviewed the patient's lab results. Result diagrams: 03/23/22 03:00 03/23/22 04:17 Labs: Lab Results 03/22/22 03/22/22 03/22/22 Range/Units 22:20 22:20 22:20 WBC 7.2 (4.8-10.8) X10*3/uL RBC 6.58 H (4.60-5.80) X10*6/uL Hgb 16.9 (14.0-18.0) g/dl Hct 54.1 H D (42.0-52.0) % MCV 82.2 (80.0-98.0) fL MCH 25.7 L (27.0-33.0) pg MCHC 31.2 (31.0-36.0) g/dl RDW 16.5 H (11.0-16.0) % Plt Count 245 (160-400) X10*3/uL MPV 9.0 L (9.4-12.4) fL Immature Gran % (Auto) 0.3 (0.0-0.4) % Neut % (Auto) 47.0 (45-73) % Lymph % (Auto) 48.5 H (20-40) % [place] % (Auto) 3.5 (2-11) % Eos % (Auto) 0.7 (0-4) % Baso % (Auto) 0.0 (0-2) % Lymph # (Auto) 3.5 (1.2-4.9) X10*3/uL [place] # (Auto) 0.3 (0.1-1.2) X10*3/uL Eos # (Auto) 0.1 (0.0-0.4) X10*3/uL Baso # (Auto) 0.0 (0.0-0.2) X10*3/uL Abs Immat Gran (auto) 0.02 (0.00-0.03) X10*3/uL Absolute Neuts (auto) 3.4 (2.0-8.3) x10*3/uL Absolute Nucleated RBC 0.000 (0.0-0.012) X10*3/uL Nucleated RBC % (auto) 0.0 (0.0-0.2) /100WBC Sodium 136 (135-145) mmol/L Potassium 4.2 (3.3-5.1) mmol/L Chloride 110 H (96-108) mmol/L Carbon Dioxide 19 L (22-29) mmol/L Anion Gap 11 L (12-20) BUN 29 H D (9-16) mg/dL Creatinine 1.23 (0.5-1.4) mg/dL Estim Creat Clear Calc 61.1 Estimated GFR > 60 Random Glucose 117 H (60-115) mg/dL Calcium 9.4 (8.4-10.2) mg/dL Magnesium 2.4 (1.6-2.6) mg/dL Total Bilirubin 0.9 (0.0-1.0) mg/dL AST 22 (5-37) U/L ALT 38 (0-40) U/L Alkaline Phosphatase 121 H (39-117) U/L Total Protein 7.8 (6.5-8.0) g/dL Albumin 4.5 (3.5-5.0) g/dL Urine Color Urine Appearance Urine pH (5.0-8.0) Ur Specific [place] (1.005-1.025) Urine Protein (NEG-TRACE) MG/DL Urine Glucose (UA) (NEG) MG/DL Urine Ketones (NEG) MG/DL Urine Blood (NEG) Urine Nitrite (NEG) Ur Leukocyte Esterase (NEG) Urine RBC (0) /HPF Urine WBC (0-4) /HPF Ur Squamous Epith Cells /LPF Calcium Oxalate Crystal /LPF Urine Bacteria /LPF Epithelial Casts /LPF Hyaline Casts /LPF Granular Casts /LPF Urine Mucus /LPF C. difficile Tox B Gene (Negative) COVID-19 ([facility]) Negative (Negative) COVID-19 Clin Com See Note 03/22/22 03/22/22 03/23/22 Range/Units 23:03 23:03 03:00 WBC (4.8-10.8) X10*3/uL RBC (4.60-5.80) X10*6/uL Hgb (14.0-18.0) g/dl Hct (42.0-52.0) % MCV (80.0-98.0) fL MCH (27.0-33.0) pg MCHC (31.0-36.0) g/dl RDW (11.0-16.0) % Plt Count (160-400) X10*3/uL MPV (9.4-12.4) fL Immature Gran % (Auto) (0.0-0.4) % Neut % (Auto) (45-73) % Lymph % (Auto) (20-40) % [place] % (Auto) (2-11) % Eos % (Auto) (0-4) % Baso % (Auto) (0-2) % Lymph # (Auto) (1.2-4.9) X10*3/uL [place] # (Auto) (0.1-1.2) X10*3/uL Eos # (Auto) (0.0-0.4) X10*3/uL Baso # (Auto) (0.0-0.2) X10*3/uL Abs Immat Gran (auto) (0.00-0.03) X10*3/uL Absolute Neuts (auto) (2.0-8.3) x10*3/uL Absolute Nucleated RBC (0.0-0.012) X10*3/uL Nucleated RBC % (auto) (0.0-0.2) /100WBC Sodium 138 (135-145) mmol/L Potassium 4.6 (3.3-5.1) mmol/L Chloride 116 H (96-108) mmol/L Carbon Dioxide 19 L (22-29) mmol/L Anion Gap 8 L (12-20) BUN 23 H (9-16) mg/dL Creatinine 0.90 (0.5-1.4) mg/dL Estim Creat Clear Calc 83.5 Estimated GFR > 60 Random Glucose 93 (60-115) mg/dL Calcium 7.7 L D (8.4-10.2) mg/dL Magnesium (1.6-2.6) mg/dL Total Bilirubin (0.0-1.0) mg/dL AST (5-37) U/L ALT (0-40) U/L Alkaline Phosphatase (39-117) U/L Total Protein (6.5-8.0) g/dL Albumin 3.6 (3.5-5.0) g/dL Urine Color DK YELLOW Urine Appearance HAZY Urine pH 5.5 (5.0-8.0) Ur Specific [place] >= 1.030 H (1.005-1.025) Urine Protein 1+ H (NEG-TRACE) MG/DL Urine Glucose (UA) NEG (NEG) MG/DL Urine Ketones 5 (NEG) MG/DL Urine Blood NEG (NEG) Urine Nitrite NEG (NEG) Ur Leukocyte Esterase NEG (NEG) Urine RBC 0-2 (0) /HPF Urine WBC 1-4 (0-4) /HPF Ur Squamous Epith Cells TRACE /LPF Calcium Oxalate Crystal 1+ /LPF Urine Bacteria TRACE /LPF Epithelial Casts 0-2 /LPF Hyaline Casts 1-4 /LPF Granular Casts 0-2 /LPF Urine Mucus 2+ /LPF C. difficile Tox B Gene NEGATIVE (Negative) COVID-19 ([facility]) (Negative) COVID-19 Clin Com 03/23/22 03/23/22 Range/Units 03:00 04:17 WBC 4.9 (4.8-10.8) X10*3/uL RBC 5.67 (4.60-5.80) X10*6/uL Hgb 14.7 (14.0-18.0) g/dl Hct 47.0 (42.0-52.0) % MCV 82.9 (80.0-98.0) fL MCH 25.9 L (27.0-33.0) pg MCHC 31.3 (31.0-36.0) g/dl RDW 15.5 (11.0-16.0) % Plt Count 193 (160-400) X10*3/uL MPV 9.3 L (9.4-12.4) fL Immature Gran % (Auto) 0.2 (0.0-0.4) % Neut % (Auto) 49.3 (45-73) % Lymph % (Auto) 45.6 H (20-40) % [place] % (Auto) 3.5 (2-11) % Eos % (Auto) 1.4 (0-4) % Baso % (Auto) 0.0 (0-2) % Lymph # (Auto) 2.2 (1.2-4.9) X10*3/uL [place] # (Auto) 0.2 (0.1-1.2) X10*3/uL Eos # (Auto) 0.1 (0.0-0.4) X10*3/uL Baso # (Auto) 0.0 (0.0-0.2) X10*3/uL Abs Immat Gran (auto) 0.01 (0.00-0.03) X10*3/uL Absolute Neuts (auto) 2.4 (2.0-8.3) x10*3/uL Absolute Nucleated RBC 0.000 (0.0-0.012) X10*3/uL Nucleated RBC % (auto) 0.0 (0.0-0.2) /100WBC Sodium 137 (135-145) mmol/L Potassium 3.8 (3.3-5.1) mmol/L Chloride 116 H (96-108) mmol/L Carbon Dioxide 17 L (22-29) mmol/L Anion Gap 8 L (12-20) BUN 21 H (9-16) mg/dL Creatinine 0.86 (0.5-1.4) mg/dL Estim Creat Clear Calc 87.4 Estimated GFR > 60 Random Glucose 91 (60-115) mg/dL Calcium 7.5 L (8.4-10.2) mg/dL Magnesium 1.8 (1.6-2.6) mg/dL Total Bilirubin 0.5 (0.0-1.0) mg/dL AST 17 (5-37) U/L ALT 29 (0-40) U/L Alkaline Phosphatase 91 D (39-117) U/L Total Protein 5.4 L D (6.5-8.0) g/dL Albumin 3.3 L (3.5-5.0) g/dL Urine Color Urine Appearance Urine pH (5.0-8.0) Ur Specific [place] (1.005-1.025) Urine Protein (NEG-TRACE) MG/DL Urine Glucose (UA) (NEG) MG/DL Urine Ketones (NEG) MG/DL Urine Blood (NEG) Urine Nitrite (NEG) Ur Leukocyte Esterase (NEG) Urine RBC (0) /HPF Urine WBC (0-4) /HPF Ur Squamous Epith Cells /LPF Calcium Oxalate Crystal /LPF Urine Bacteria /LPF Epithelial Casts /LPF Hyaline Casts /LPF Granular Casts /LPF Urine Mucus /LPF C. difficile Tox B Gene (Negative) COVID-19 ([facility]) (Negative) COVID-19 Clin Com Critical Care Time Critical Care Time Critical Care Time: No Discharge Plan Discharge Clinical Impression: Weakness, Dehydration, Diarrhea, Hypocalcemia Patient Disposition: Home, Self-Care Instructions: Dehydration (ED) Additional Instructions: Take your medications as prescribed. If you were prescribed antibiotics today, it is important that you take your medication to their entirety, do not skip any doses, do not finish them early. Follow-up with your primary care provider this week. Follow-up with hematology/oncology. Return to the emergency department with new or worsening symptoms. Such as fevers, chills, chest pain, shortness of breath, nausea, vomiting, dizziness, headache, vision changes, lethargy, involuntary muscle spasms, facial twitching, palpitations. In case of emergency call 911 Your labs initially were concerning for dehydration however after hydration they improved. Medication for diarrhea has been sent to her pharmacy, please take this only as needed. Your noted to have low calcium level after hydration, it is important that you follow-up with your primary care provider or Hematology-Oncology within the next few days (1-3days) to get repeat labs. Please drink plenty of fluids and try to eat!. Please take TUMS over the counter, take as indicated on the bottle. Prescriptions: New diphenoxylate-atropine [Lomotil] 2.5-0.025 mg tablet 2 tab PO TID PRN (Reason: diarrhea) Qty: 8 0RF Rx Instructions: Patient can partially filled prescription upon request No Action vitamin B complex Tablet 1 tab PO DAILY Qty: 90 3RF oxycodone 5 mg Capsule 5 mg PO Q8H PRN (Reason: Pain) Qty: 60 0RF ondansetron 8 mg Tablet,Disintegrating 8 mg PO Q8H PRN (Reason: Nausea) Qty: 60 3RF dexamethasone 4 mg Tablet 4 mg PO BID Qty: 30 3RF Rx Instructions: For 2 days after chemotherapy Referrals: Elli Nazario MD [Physician] - 2 days [place],[facility] [Primary Care Provider] - 2 days Stand Alone Forms: Work/School Release
[2022-03-22 22:25] VITALS: BP 118/89; PULSE 58; RESP 16; TEMP 36.5; O2SAT 99; BMI 26.4
[2022-03-22 22:25] LABS: MANUAL DIFF FLAG NO
[2022-03-22 22:29] LABS: Eosinophils Absolute Auto 0.1 X10*3/uL (0.0-0.4); Eosinophils Percent Auto 0.7 % (0-4); Hematocrit 54.1 % (42.0-52.0); Hemoglobin 16.9 g/dl (14.0-18.0); Imm Gran Abs Auto 0.02 X10*3/uL (0.00-0.03); Imm Gran Pct Auto 0.3 % (0.0-0.4); Lymphocytes Absolute Auto 3.5 X10*3/uL (1.2-4.9); Lymphocytes Percent Auto 48.5 % (20-40); Mean Corpuscular HGB Conc 31.2 g/dl (31.0-36.0); Mean Corpuscular Hemoglobin 25.7 pg (27.0-33.0); Mean Corpuscular Volume 82.2 fL (80.0-98.0); Monocytes Absolute Auto 0.3 X10*3/uL (0.1-1.2); Monocytes Percent Auto 3.5 % (2-11); Neutrophils Absolute Auto 3.4 x10*3/uL (2.0-8.3); Platelet Count 245 X10*3/uL (160-400); Red Blood Count 6.58 X10*6/uL (4.60-5.80); Red Cell Distribution Width 16.5 % (11.0-16.0); White Blood Count 7.2 X10*3/uL (4.8-10.8)
[2022-03-22 22:42] LABS: COVID-19 Test Negative (Negative)
[2022-03-22 22:45] LABS: Alanine Aminotransferase 38 U/L (0-40); Albumin Level 4.5 g/dL (3.5-5.0); Alkaline Phosphatase 121 U/L (39-117); Anion Gap 11 (12-20); Aspartate Amino Transferase 22 U/L (5-37); Bilirubin Total 0.9 mg/dL (0.0-1.0); Blood Urea Nitrogen 29 mg/dL (9-16); Calcium 9.4 mg/dL (8.4-10.2); Carbon Dioxide 19 mmol/L (22-29); Chloride 110 mmol/L (96-108); Creatinine Clr Calc Pharmacy 61.1; Estimated Glomerular Filt Rate > 60; Glucose Random 117 mg/dL (60-115); Magnesium 2.4 mg/dL (1.6-2.6); Potassium 4.2 mmol/L (3.3-5.1); Sodium 136 mmol/L (135-145); Total Protein 7.8 g/dL (6.5-8.0)
[2022-03-22] MEDS: Loperamide HCl 2 MG CAPSULE 4 MG PO (23:08)
[2022-03-22] MEDS: 0.9 % Sodium Chloride 1,000 ML 999 ML IV (23:09)
[2022-03-22 23:38] LABS: Appearance Urine HAZY; Color Urine DK YELLOW; Glucose Urine UA NEG (NEG); Leukocyte Esterase Urine NEG (NEG); Nitrite Urine NEG (NEG); PH 5.5 (5.0-8.0); Specific Gravity - Urine >= 1.030 (1.005-1.025); UACC Culture Trigger NO; Urine Blood NEG (NEG); Urine Ketones 5 MG/DL (NEG); Urine Protein 1+ MG/DL (NEG-TRACE)
[2022-03-22 23:45] LABS: Bacteria Urine TRACE /LPF; Epith (RTE) Cast 0-2 /LPF; Granular Casts Urine 0-2 /LPF; Mucus Urine 2+ /LPF; RBC Urine 0-2 /HPF (0); Squamous Epithelial Cell Urine TRACE /LPF
[2022-03-22 23:46] LABS: Calcium Oxalate Crystals Urine 1+ /LPF
[2022-03-23] MEDS: 0.9 % Sodium Chloride 1,000 ML 999 ML IV ×2 (00:04→01:30)
[2022-03-23 00:16] LABS: CDiff Gene PCR NEGATIVE (Negative)
[2022-03-23 01:19] VITALS: BP 112/74; PULSE 68; RESP 16; TEMP 36.7; O2SAT 98
[2022-03-23 03:03] VITALS: BP 126/84; PULSE 60; RESP 16; TEMP 36.7; O2SAT 97
[2022-03-23 03:04] LABS: MANUAL DIFF FLAG NO
[2022-03-23 03:07] LABS: Eosinophils Absolute Auto 0.1 X10*3/uL (0.0-0.4); Eosinophils Percent Auto 1.4 % (0-4); Hemoglobin 14.7 g/dl (14.0-18.0); Imm Gran Abs Auto 0.01 X10*3/uL (0.00-0.03); Imm Gran Pct Auto 0.2 % (0.0-0.4); Lymphocytes Absolute Auto 2.2 X10*3/uL (1.2-4.9); Lymphocytes Percent Auto 45.6 % (20-40); Mean Corpuscular HGB Conc 31.3 g/dl (31.0-36.0); Mean Corpuscular Hemoglobin 25.9 pg (27.0-33.0); Mean Corpuscular Volume 82.9 fL (80.0-98.0); Mean Platelet Volume 9.3 fL (9.4-12.4); Monocytes Absolute Auto 0.2 X10*3/uL (0.1-1.2); Monocytes Percent Auto 3.5 % (2-11); Neutrophils Absolute Auto 2.4 x10*3/uL (2.0-8.3); Neutrophils Percent Auto 49.3 % (45-73); Platelet Count 193 X10*3/uL (160-400); Red Blood Count 5.67 X10*6/uL (4.60-5.80); Red Cell Distribution Width 15.5 % (11.0-16.0); White Blood Count 4.9 X10*3/uL (4.8-10.8)
[2022-03-23 03:20] LABS: Anion Gap 8 (12-20); Blood Urea Nitrogen 23 mg/dL (9-16); Calcium 7.7 mg/dL (8.4-10.2); Carbon Dioxide 19 mmol/L (22-29); Chloride 116 mmol/L (96-108); Creatinine Clr Calc Pharmacy 83.5; Estimated Glomerular Filt Rate > 60; Glucose Random 93 mg/dL (60-115); Potassium 4.6 mmol/L (3.3-5.1); Sodium 138 mmol/L (135-145)
--- NOTE | 2022-03-23 03:34 | ECG_ITS ---
Test Reason : ABD PAIN Blood Pressure : / mmHG Vent. Rate : 061 BPM Atrial Rate : 061 BPM P-R Int : 150 ms QRS Dur : 096 ms QT Int : 420 ms P-R-T Axes : 027 019 034 degrees QTc Int : 422 ms Normal sinus rhythm Normal ECG No previous ECGs available Referred By: Adryan Novak Electronically Signed By:Peña Barnard
[2022-03-23 03:38] LABS: Albumin Level 3.6 g/dL (3.5-5.0)
[2022-03-23] MEDS: Calcium Carbonate 750 MG TAB.CHEW PO (03:49)
[2022-03-23 04:46] LABS: Alanine Aminotransferase 29 U/L (0-40); Albumin Level 3.3 g/dL (3.5-5.0); Alkaline Phosphatase 91 U/L (39-117); Anion Gap 8 (12-20); Aspartate Amino Transferase 17 U/L (5-37); Bilirubin Total 0.5 mg/dL (0.0-1.0); Blood Urea Nitrogen 21 mg/dL (9-16); Calcium 7.5 mg/dL (8.4-10.2); Carbon Dioxide 17 mmol/L (22-29); Chloride 116 mmol/L (96-108); Creatinine Clr Calc Pharmacy 87.4; Estimated Glomerular Filt Rate > 60; Glucose Random 91 mg/dL (60-115); Potassium 3.8 mmol/L (3.3-5.1); Sodium 137 mmol/L (135-145); Total Protein 5.4 g/dL (6.5-8.0)
[2022-03-23 05:33] LABS: Magnesium 1.8 mg/dL (1.6-2.6)
[2022-03-23 05:57] VITALS: BP 108/76; PULSE 66; RESP 14; O2SAT 98
== END 2022-03-23 06:03 | disposition home or self-care (01) ==
LOC: HO.ED 22:39
PROVIDERS: Physician Assistant; Emergency Provider Emergency Medicine Emergency Medical Services
DX: E86.0 Dehydration (principal); E83.51 Hypocalcemia; R19.7 Diarrhea, unspecified; Z20.822 Contact with and (suspected) exposure to COVID-19; Z79.899 Other long term (current) drug therapy
CPT/HCPCS: 36415; 80048; 80053; 81001; 82040; 83735; 85025; 87045; 87046; 87493; 87635; 93005; 99284

== ENCOUNTER 2022-06-10 11:36 | Outpatient (REF) | payer MEDICAID, SELFPAY ==
--- NOTE | ~2022-06-10 | PE_ITS ---
EXAMINATION: Fluorine-18 FDG PET/CT Scan CLINICAL INDICATION: Subsequent treatment management. Adenocarcinoma of the colon. Restaging. PROCEDURE: 62 minutes following the intravenous administration of 16.6 mCi of fluorine 18 FDG, images from the base of the skull to the mid thighs were obtained using a combined PET/CT scanner with CT scan based attenuation correction. No oral contrast was administered. No intravenous contrast was administered. Transverse, coronal, sagittal, and volume reconstruction projections were obtained. The patient's blood glucose as determined by a finger stick, was 105 mg/dl immediately prior to injection. Total CT exam dose-length product 481.52 mGy-cm * These CT images were obtained using dose optimization techniques as appropriate, variously including the following: Automated exposure control * Adjustment of mA and/or kV according to patient size (this includes techniques or standardized protocols for targeted exams where dose is matched to indication/reason for exam; i.e. extremities or head) * Use of iterative reconstruction technique COMPARISON: Prior PET/CT scans dated 02/18/2022 and 11/06/2020 are available for comparison. CT-guided biopsy dated 03/04/2022 is also available for comparison. FINDINGS: (Slice numbers described in this report are numbered superiorly to inferiorly with slice #1 in the head) NECK AND VISUALIZED HEAD: No foci of abnormal FDG activity are noted. The distribution of FDG activity is physiological. There is no cervical lymphadenopathy. THORAX: There are no foci of abnormal FDG activity. No pulmonary nodules are visualized. There is no pleural or pericardial fluid or pneumothorax. There is no mediastinal, supraclavicular, or axillary lymphadenopathy. A right-sided chest port with internal jugular catheter terminating in the superior vena cava. ABDOMEN AND PELVIS: At the site of the previously described FDG avid soft tissue densities in the right lower quadrant, there is now only very mild FDG activity present in the more superior of the 2 foci, now showing SUVmax 2.6. This activity is in the lateral aspect of the mass and may be in the adjacent muscular abdominal wall in a region penetrated by the biopsy needle visualized on the 03/04/2022 CT guided biopsy. The soft tissue mass within the peritoneum which was previously markedly FDG avid (SUVmax 6.8) now shows only weak equivocal FDG activity. The more inferior and more medial previously visualized FDG avid soft tissue density now shows only weak FDG activity, SUVmax 1.7, slice 172/267, much less intense than on 02/18/2022 when this showed SUVmax 5.7. The soft tissue density on the CT images is also slightly smaller than on 02/18/2022, now measuring 1.3 x 1.1 cm in largest transverse dimensions versus 1.6 x 1.2 cm on the 02/18/2022 study. A 1.5 cm soft tissue density adjacent to the duodenum shows no abnormal FDG activity and is unchanged from 02/18/2022, slice 129/267. There are no additional foci of abnormal FDG activity in the abdomen or pelvis. There is diffuse FDG activity throughout the gastrointestinal tract, likely physiological. The patient is status post right hemicolectomy with metallic suture line visible in the hepatic flexure of the large bowel, the latter in region showing FDG activity similar to the remainder of the large bowel and weak intensity. There is diverticulosis without evidence of diverticulitis. The hollow viscera are otherwise unremarkable. The liver in the gallbladder, and spleen are unremarkable. The kidneys, adrenal glands and pancreas are unremarkable. There is no retroperitoneal, mesenteric, pelvic or inguinal lymphadenopathy. MUSCULOSKELETAL: There are no foci of abnormal FDG activity. There are mild degenerative changes in the spine. There is a 1 anterolisthesis of L5 on S1. There are no suspicious sclerotic or lytic lesions visualized. VASCULAR: Scattered vascular calcifications are noted. PET/PET CT fusion skull to thigh IMPRESSION: 1. Mild FDG activity is associated with the more superior of two right lower quadrant soft tissue densities which were previously much more intensely FDG avid on the prior 02/18/2022 PET/CT. This visualized FDG activity appears to be lateral to this soft tissue density and may be related to postbiopsy inflammatory changes in the adjacent abdominal wall musculature. The smaller and more inferior of these soft tissue lesions now shows no abnormal FDG activity and is slightly smaller in size than previously. The findings suggest complete or near complete metabolic response to therapy of both of these lesions. 2. No additional abnormalities suspicious for other metastatic or malignant lesions are noted. 3. Postsurgical changes from a right hemicolectomy are noted.
== END 2022-06-10 11:37 | disposition home or self-care (01) ==
LOC: HO.PET 11:36
PROVIDERS: Visit Provider Internal Medicine
DX: Z13.89 Encounter for screening for other disorder (principal)

== ENCOUNTER 2022-09-09 07:58 | Outpatient (REF) | payer MEDICAID, SELFPAY ==
--- NOTE | ~2022-09-09 | PE_ITS ---
EXAMINATION: Fluorine-18 FDG PET/CT Scan CLINICAL INDICATION: Subsequent treatment management. Adenocarcinoma of cecum, restaging. PROCEDURE: 58 minutes following the intravenous administration of 16.9 mCi of fluorine 18 FDG, images from the base of the skull to the mid thighs were obtained using a combined PET/CT scanner with CT scan based attenuation correction. No oral contrast was administered. No intravenous contrast was administered. Transverse, coronal, sagittal, and volume reconstruction projections were obtained. The patient's blood glucose as determined by a finger stick, was 101 mg/dl immediately prior to injection. Total CT exam dose-length product 617.49 mGy-cm * These CT images were obtained using dose optimization techniques as appropriate, variously including the following: Automated exposure control * Adjustment of mA and/or kV according to patient size (this includes techniques or standardized protocols for targeted exams where dose is matched to indication/reason for exam; i.e. extremities or head) * Use of iterative reconstruction technique COMPARISON: Several prior PET/CT scans are available for comparison, the most recent dated 06/10/2022 and the least recent dated 11/06/2020. FINDINGS: (Slice numbers described in this report are numbered superiorly to inferiorly with slice #1 in the head) NECK AND VISUALIZED HEAD: No foci of abnormal FDG activity are noted. The distribution of FDG activity is physiological. There is no cervical lymphadenopathy. THORAX: There are no foci of abnormal FDG activity. No pulmonary nodules are visualized. There is no pleural or pericardial fluid or pneumothorax. There is no mediastinal, supraclavicular, or axillary lymphadenopathy. A right-sided chest port with internal jugular catheter terminating in the superior vena cava. ABDOMEN AND PELVIS: There continues to be mild FDG activity in the region of the more superior of 2 previously described right lower quadrant soft tissue masses and this is similar in appearance to the previous study with the activity peripheral and possibly in the adjacent muscular abdominal wall rather than the mass itself, showing SUVmax 3.0, slice 163/267. Definite abnormal FDG activity in this soft tissue density with central metallic surgical clips present measures 3.0 x 1.9 cm in largest transverse dimensions and does not appear significantly changed on the CT images compared with the prior 06/10/[address] scan. The more inferior of the 2 foci which were FDG avid on the less recent prior PET CT scan dated 02/18/2022 now also shows only weak FDG activity, SUVmax 2.2, slice 173/247. This is similar to its appearance on the more recent 06/10/[address] scan when this showed SUVmax 1.7. It is similar in size on the CT images measuring 1.4 x 1.2 cm in largest transverse dimensions. This focus abuts the lateral aspect of the right psoas muscle at the L5 level. There is now an additional focus of mildly increased FDG activity in the right upper quadrant associated with a suture line in the hepatic flexure region of the colon showing SUVmax 3.8, slice 140/267. This is slightly more intense than mild diffuse FDG activity present throughout the remainder the colon and the gastrointestinal tract in general no other foci of abnormal FDG activity are present in the gastrointestinal tract. Diverticulosis is noted but the hollow viscera are otherwise unremarkable. There are no other suspicious foci of abnormal FDG activity in the abdomen or pelvis. The liver, gallbladder, spleen, kidneys, adrenal glands and pancreas appear unremarkable. There is no retroperitoneal, mesenteric, pelvic or inguinal lymphadenopathy. MUSCULOSKELETAL: There are no foci of abnormal FDG activity in the osseous structures. There is a stable grade 1 anterolisthesis of L4-L5 on S1. There are no suspicious sclerotic or lytic lesions visualized. VASCULAR: Vascular calcifications are noted. PET/PET CT fusion skull to thigh IMPRESSION: 1. There is a new focus of mild FDG activity associated with a suture line in the hepatic flexure region of the colon. This is suspicious for recurrent malignancy. 2. Weak FDG activity associated with 2 previously intensely FDG avid soft tissue foci in the right lower quadrant of the abdomen appears stable compared to the most recent 06/10/[address] scan, and some of this activity adjacent to the more superior soft tissue focus may be in the adjacent muscular abdominal wall bilaterally. The mild intensity at these sites is not strongly suspicious for recurrent malignancy but continued monitoring is recommended. 3. No additional abnormalities suspicious for other metastatic or malignant lesions are noted.
== END 2022-09-09 07:59 | disposition home or self-care (01) ==
LOC: HO.PET 07:58
PROVIDERS: PCP Internal Medicine; Visit Provider Internal Medicine
DX: Z13.89 Encounter for screening for other disorder (principal)

== ENCOUNTER 2023-01-13 12:44 | Outpatient (REF) | payer MEDICAID, SELFPAY ==
--- NOTE | ~2023-01-13 | PE_ITS ---
EXAMINATION: Fluorine-18 FDG PET/CT Scan CLINICAL INDICATION: Subsequent treatment management. History of adenocarcinoma of the cecum. Restaging. PROCEDURE: 68 minutes following the intravenous administration of 17.5 mCi of fluorine 18 FDG, images from the base of the skull to the mid thighs were obtained using a combined PET/CT scanner with CT scan based attenuation correction. No intravenous contrast was administered. Transverse, coronal, sagittal, and volume reconstruction projections were obtained. The patient's blood glucose as determined by a finger stick, was 83 mg/dl immediately prior to injection. The radiotracer was injected intravenously through left antecubital superficial vein, without any complications. Total CT exam dose-length product 473.41 mGy-cm * These CT images were obtained using dose optimization techniques as appropriate, variously including the following: Automated exposure control * Adjustment of mA and/or kV according to patient size (this includes techniques or standardized protocols for targeted exams where dose is matched to indication/reason for exam; i.e. extremities or head) * Use of iterative reconstruction technique COMPARISON: Most recent prior PET CT study done on 09/09/2022 and the baseline study done on 11/06/2020. FINDINGS: NECK AND VISUALIZED HEAD: No FDG avid focal disease, unchanged. THORAX: Right-sided Port-A-Cath is present with its tip seen at the cavoatrial junction. No FDG avid focal disease, unchanged. ABDOMEN AND PELVIS: No FDG avid liver or adrenal or splenic disease. The gallbladder, pancreas appear unremarkable. Minimal FDG avidity is noted at the surgical anastomotic site at the level of the hepatic flexure touching the tip of the liver with SUV max of 2.4 (133/267), previously 3.3, likely represent postsurgical change and less likely to be disease recurrence. Previously documented bilobed circumscribed peritoneal-based hypodense non-FDG avid mass associated with with surgical clips/sutures at right mid abdomen, abutting the serosal surface of the adjacent bowel loops, inseparable from the peritoneal surface/adjacent internal oblique is muscle without any FDG avidity currently measures approximately 4.8 x 3.2 cm, previously measured 4.2 x 2.6 cm on the study dated 02/04/2022 (first detected study). Continued follow-up surveillance is recommended to ensure stability. There are no FDG avid mesenteric or retroperitoneal or pelvic or inguinal lymphadenopathy. The bowel loops are relatively decompressed. MUSCULOSKELETAL: No suspicious FDG avid disease. Grade 1 anterolisthesis of L5 over S1 and severe degenerative spondylosis at L5-S1 appear stable. VASCULAR: Mild calcific atherosclerotic disease of the infrarenal abdominal aorta, otherwise unremarkable, unchanged. SUV max OF MEDIASTINAL BLOOD POOL: 2.4 SUV max OF LIVER: 3.1 PET/PET CT fusion skull to thigh IMPRESSION: 1. The site of the surgical anastomosis in the region of the hepatic flexure of the large bowel shows minimal FDG avidity with SUV max of 2.4, previously 3.3, likely represent postsurgical changes and less likely to be disease recurrence. 2. The site of the previously documented peritoneal based hypodense lobulated circumscribed non-FDG avid mass associated with surgical clips/sutures at the right mid abdomen abutting the serosal surface of the adjacent bowel loops currently measures 4.8 x 3.2 cm, previously 4.2 x 2.6 cm (on the CT of the abdomen and pelvis-first detected study-dated 02/04/2022) remain indeterminate. Image guided biopsy may be considered if local disease recurrence is clinically suspected. 3. No evidence of new abnormality.
== END 2023-01-13 12:45 | disposition home or self-care (01) ==
LOC: HO.PET 12:44
PROVIDERS: PCP Internal Medicine; Visit Provider Internal Medicine
DX: Z13.89 Encounter for screening for other disorder (principal)

== ENCOUNTER 2023-04-14 08:15 | Outpatient (REF) | payer MEDICAID, SELFPAY ==
--- NOTE | ~2023-04-14 | CT_ITS ---
EXAMINATION: CT ABDOMEN AND PELVIS WITHOUT CONTRAST CLINICAL INFORMATION: Colon cancer. Patient on chemotherapy. Surveillance. COMPARISON: Previous CT of the abdomen and pelvis January 2022 CT scan most recent December 2022 TECHNIQUE: Multidetector volumetric imaging was performed from the superior aspect of the liver through the pubic symphysis. Sagittal and coronal reformatted images were obtained on the technologist's workstation. This CT examination was performed using dose optimization techniques as appropriate, variously including the following: *Automated exposure control *Adjustment of mA and/or kV according to patient size (this includes techniques or standardized protocols for targeted exams where dose is matched to indication/reason for exam; i.e. extremities or head) *Use of iterative reconstruction technique DLP: 466 mGy-cm FINDINGS: LUNG BASES: The visualized lung bases are unremarkable. LIVER, GALLBLADDER, AND BILIARY TREE: The liver is normal in size, shape, and attenuation. No focal hepatic lesion or biliary ductal dilatation is present. The gallbladder is unremarkable with no evidence of radiopaque gallstones, gallbladder wall thickening, or obvious pericholecystic inflammatory changes. PANCREAS: Unremarkable. SPLEEN: Unremarkable. ADRENAL GLANDS: Unremarkable. KIDNEYS AND URETERS: The kidneys are normal in size, shape, and attenuation. No hydronephrosis, hydroureter, or calculi seen. No perinephric stranding. BLADDER: Unremarkable. GASTROINTESTINAL TRACT: There is a soft tissue mass in the right lower quadrant adjacent to surgical clips area this measures 2.7 x 3.2 cm axial image. This is slightly increased in size from previous PET/CT scan when this measured 2 x 3 cm. There is question of more inferior abnormal soft tissue in the right lower quadrant adjacent to the psoas muscle measuring 1.4 cm axial series 3. This measured 1.1 cm on previous PET/CT scan. There are postsurgical changes following partial right colectomy. Small and large bowel is otherwise normal. ABDOMINAL WALL: No significant hernia is appreciated. There are postsurgical changes to the anterior abdominal wall. There is abnormal soft tissue seen behind deep to the abdominal wall slightly to the right of midline measuring 1 x 1.8 cm axial image 43 series 3 worrisome for metastatic disease. This measured 0.9 x 1.5 cm on previous PET/CT and may be increased as well. LYMPH NODES: Normal. VASCULAR: Unremarkable. PELVIC VISCERA: Unremarkable. OSSEOUS STRUCTURES: Spondylolysis spondylolisthesis and degenerative disc disease at L5-S1. CT/CT abdomen pelvis wo IV con IMPRESSION: Slight interval increase in abnormal soft tissue in the right lower quadrant adjacent to the surgical clips site previously biopsied. There are also more inferior soft tissue nodule adjacent to the right psoas muscle and just deep to the abdominal wall worrisome for metastatic disease. There are slightly increased from previous PET/CT scan as well. Fleischner guidelines were followed.
== END 2023-04-14 08:16 | disposition home or self-care (01) ==
LOC: HO.CT 08:15
PROVIDERS: PCP Internal Medicine; Visit Provider Internal Medicine
DX: C18.0 Malignant neoplasm of cecum (principal)
CPT/HCPCS: 74176

== ENCOUNTER 2023-06-24 13:29 | Outpatient (REF) | payer MEDICAID, SELFPAY ==
--- NOTE | ~2023-06-24 | PE_ITS ---
EXAMINATION: Fluorine-18 FDG PET/CT Scan CLINICAL INDICATION: Subsequent treatment management. History of adenocarcinoma of the cecum. Restaging. PROCEDURE: 60 minutes following the intravenous administration of 18.1 mCi of fluorine 18 FDG, images from the base of the skull to the mid thighs were obtained using a combined PET/CT scanner with CT scan based attenuation correction. No intravenous contrast was administered. Transverse, coronal, sagittal, and volume reconstruction projections were obtained. The patient's blood glucose as determined by a finger stick, was 96 mg/dl immediately prior to injection. The radiotracer was injected intravenously through the left antecubital superficial vein, without any complications. Total CT exam dose-length product 675.71 mGy-cm * These CT images were obtained using dose optimization techniques as appropriate, variously including the following: Automated exposure control * Adjustment of mA and/or kV according to patient size (this includes techniques or standardized protocols for targeted exams where dose is matched to indication/reason for exam; i.e. extremities or head) * Use of iterative reconstruction technique COMPARISON: Most recent prior PET CT study done on 01/13/2023 and available baseline PET/CT study done on 11/06/2020 and most recent prior CT of the abdomen and pelvis done on 04/14/2023. FINDINGS: NECK AND VISUALIZED HEAD: No suspicious focal abnormality, unchanged. THORAX: Right-sided Port-A-Cath is present with its tip seen at the cavoatrial junction. No FDG avid focal disease, unchanged. ABDOMEN AND PELVIS: Moderately intense tracer avidity is noted at the surgical anastomotic site of the large bowel in the subhepatic region with SUV max of 6.3 (123/267), previously measured SUV max of 2.4. Given the interval increase in FDG avidity, the finding is suspicious for local disease recurrence. The second relatively well-circumscribed hypodense mass associated with surgical clips within the peritoneal surface abutting the adjacent right lateral musculature at mid abdomen currently measures 3.2 x 2.3 cm, previously 4.8 x 3.2 cm and remain non-FDG avid. However, the interface between the lateral aspect of the hypodense mass in the internal oblique musculature of the lateral abdominal wall remain mildly tracer avid with SUV max of 3.2 (102/267), previously 2.5. Interval development of tracer avidity is seen at the splenic flexure and the sigmoid colon with SUV max of 7.0 and 5.1 respectively (147 and 65/267 respectively). Interval development of mild FDG avidity within the distal part of the body/pylorus of the stomach with SUV max of 6.4 (142/267). There are no FDG avid focal liver or splenic or adrenal or pancreatic disease. The gallbladder, biliary tree appear unremarkable. Both kidneys appear unremarkable. There are no tracer avid retroperitoneal, mesenteric, pelvic and/or groin lymphadenopathy, unchanged. The prostate is enlarged, appears heterogeneous without evidence of any focal tracer avid disease. MUSCULOSKELETAL: Persistent stable grade 1 anterolisthesis of L5 over S1 and severe degenerative spondylosis at L5-S1. No suspicious focal FDG avid osseous disease. VASCULAR: No significant calcific atherosclerotic disease of the aorta and is branches. SUV max OF MEDIASTINAL BLOOD POOL: 3.7 SUV max OF LIVER: 4.2 THE SITE(S) OF MOST INTENSE FDG AVIDITY AND SUV MAX: Multifocal tracer avidity at the splenic flexure (SUV max of 7.0), hepatic flexure (SUV max of 6.3-the site of possible disease recurrence), and the sigmoid colon with SUV max of 5.1. Pylorus of the stomach with SUV max of 6.4. PET/PET CT fusion skull to thigh IMPRESSION: 1. Abnormal study. Multifocal FDG avidity involving the large bowel including the anastomotic site in the region of the hepatic flexure with SUV max of 8.3 and the region of the splenic flexure and the sigmoid colon. The findings are suspicious for possible disease recurrence. Direct visualization/colonoscopy is recommended. 2. Relatively stable non-FDG avid hypodense circumscribed peritoneal mass at right mid abdomen, unlikely to be local disease recurrence. 3. No evidence of any focal liver disease or features of extra-abdominal metastatic disease.
== END 2023-06-24 13:30 | disposition home or self-care (01) ==
LOC: HO.PET 13:29
PROVIDERS: PCP Internal Medicine; Visit Provider Internal Medicine
DX: Z13.89 Encounter for screening for other disorder (principal)

== ENCOUNTER 2023-07-28 16:39 | Outpatient (REF) | payer MEDICAID, SELFPAY ==
[2023-07-28 16:56] LABS: MANUAL DIFF FLAG NO
[2023-07-28 17:30] LABS: Basophils Absolute Auto 0.1 X10*3/uL (0.0-0.2); Basophils Percent Auto 0.8 % (0-2); Eosinophils Absolute Auto 0.2 X10*3/uL (0.0-0.4); Eosinophils Percent Auto 2.3 % (0-4); Hematocrit 47.8 % (42.0-52.0); Imm Gran Abs Auto 0.06 X10*3/uL (0.00-0.03); Imm Gran Pct Auto 0.6 % (0.0-0.4); Lymphocytes Absolute Auto 2.3 X10*3/uL (1.2-4.9); Lymphocytes Percent Auto 21.9 % (20-40); Mean Corpuscular HGB Conc 31.4 g/dl (31.0-36.0); Mean Corpuscular Hemoglobin 27.3 pg (27.0-33.0); Mean Corpuscular Volume 87.1 fL (80.0-98.0); Mean Platelet Volume 9.6 fL (9.4-12.4); Monocytes Absolute Auto 0.9 X10*3/uL (0.1-1.2); Monocytes Percent Auto 8.7 % (2-11); Neutrophils Absolute Auto 6.8 x10*3/uL (2.0-8.3); Neutrophils Percent Auto 65.7 % (45-73); Platelet Count 295 X10*3/uL (160-400); Red Blood Count 5.49 X10*6/uL (4.60-5.80); Red Cell Distribution Width 16.4 % (11.0-16.0); White Blood Count 10.4 X10*3/uL (4.8-10.8)
[2023-07-28 18:11] LABS: Alanine Aminotransferase 47 U/L (0-40); Albumin Level 4.4 g/dL (3.5-5.0); Alkaline Phosphatase 169 U/L (39-117); Anion Gap 14 (12-20); Aspartate Amino Transferase 37 U/L (5-37); Bilirubin Total 0.5 mg/dL (0.0-1.0); Blood Urea Nitrogen 9 mg/dL (9-16); Calcium 10.4 mg/dL (8.4-10.2); Carbon Dioxide 28 mmol/L (22-29); Chloride 102 mmol/L (96-108); Estimated Glomerular Filt Rate > 60; Glucose Random 103 mg/dL (60-115); Magnesium 2.2 mg/dL (1.6-2.6); Potassium 4.4 mmol/L (3.3-5.1); Sodium 140 mmol/L (135-145); Total Protein 7.8 g/dL (6.5-8.0)
== END 2023-07-28 16:40 | disposition home or self-care (01) ==
LOC: HO.LAB 16:39
PROVIDERS: PCP Internal Medicine; Visit Provider Internal Medicine
DX: C18.0 Malignant neoplasm of cecum (principal)
CPT/HCPCS: 36415; 80053; 83735; 85025

== ENCOUNTER 2023-08-04 12:44 | Outpatient (REF) | payer MEDICAID, SELFPAY ==
[2023-08-04 14:16] LABS: Alanine Aminotransferase 30 U/L (0-40); Albumin Level 4.3 g/dL (3.5-5.0); Alkaline Phosphatase 147 U/L (39-117); Anion Gap 13 (12-20); Aspartate Amino Transferase 31 U/L (5-37); Bilirubin Total 0.5 mg/dL (0.0-1.0); Blood Urea Nitrogen 10 mg/dL (9-16); Carbon Dioxide 26 mmol/L (22-29); Chloride 104 mmol/L (96-108); Estimated Glomerular Filt Rate > 60; Glucose Random 99 mg/dL (60-115); Sodium 139 mmol/L (135-145); Total Protein 7.8 g/dL (6.5-8.0)
== END 2023-08-04 12:45 | disposition home or self-care (01) ==
LOC: HO.LAB 12:44
PROVIDERS: PCP Internal Medicine; Visit Provider Internal Medicine
DX: C18.0 Malignant neoplasm of cecum (principal)
CPT/HCPCS: 36415; 80053; 85025

== ENCOUNTER 2023-08-11 07:57 | Outpatient (REF) | payer MEDICAID, SELFPAY ==
[2023-08-11 08:10] LABS: MANUAL DIFF FLAG NO
[2023-08-11 08:41] LABS: Basophils Percent Auto 0.4 % (0-2); Eosinophils Absolute Auto 0.4 X10*3/uL (0.0-0.4); Eosinophils Percent Auto 4.6 % (0-4); Hematocrit 47.4 % (42.0-52.0); Hemoglobin 14.7 g/dl (14.0-18.0); Imm Gran Abs Auto 0.02 X10*3/uL (0.00-0.03); Imm Gran Pct Auto 0.2 % (0.0-0.4); Lymphocytes Absolute Auto 2.1 X10*3/uL (1.2-4.9); Lymphocytes Percent Auto 22.3 % (20-40); Mean Corpuscular Hemoglobin 26.7 pg (27.0-33.0); Mean Corpuscular Volume 86.2 fL (80.0-98.0); Mean Platelet Volume 9.9 fL (9.4-12.4); Monocytes Absolute Auto 0.9 X10*3/uL (0.1-1.2); Monocytes Percent Auto 9.1 % (2-11); Neutrophils Percent Auto 63.4 % (45-73); Platelet Count 263 X10*3/uL (160-400); Red Cell Distribution Width 16.1 % (11.0-16.0); White Blood Count 9.4 X10*3/uL (4.8-10.8)
[2023-08-11 08:52] LABS: Alanine Aminotransferase 22 U/L (0-40); Albumin Level 4.2 g/dL (3.5-5.0); Alkaline Phosphatase 133 U/L (39-117); Anion Gap 15 (12-20); Aspartate Amino Transferase 29 U/L (5-37); Bilirubin Total 0.8 mg/dL (0.0-1.0); Blood Urea Nitrogen 7 mg/dL (9-16); Calcium 9.7 mg/dL (8.4-10.2); Carbon Dioxide 23 mmol/L (22-29); Chloride 106 mmol/L (96-108); Estimated Glomerular Filt Rate > 60; Glucose Random 117 mg/dL (60-115); Potassium 4.4 mmol/L (3.3-5.1); Sodium 140 mmol/L (135-145); Total Protein 7.5 g/dL (6.5-8.0)
== END 2023-08-11 07:58 | disposition home or self-care (01) ==
LOC: HO.LAB 07:57
PROVIDERS: PCP Internal Medicine; Visit Provider Internal Medicine
DX: C18.0 Malignant neoplasm of cecum (principal)
CPT/HCPCS: 36415; 80053; 85025

== ENCOUNTER 2023-08-18 13:54 | Outpatient (REF) | payer MEDICAID, SELFPAY ==
[2023-08-18 14:05] LABS: MANUAL DIFF FLAG NO
[2023-08-18 14:29] LABS: Basophils Absolute Auto 0.1 X10*3/uL (0.0-0.2); Basophils Percent Auto 0.6 % (0-2); Eosinophils Absolute Auto 0.2 X10*3/uL (0.0-0.4); Eosinophils Percent Auto 2.1 % (0-4); Hematocrit 47.7 % (42.0-52.0); Imm Gran Abs Auto 0.03 X10*3/uL (0.00-0.03); Imm Gran Pct Auto 0.4 % (0.0-0.4); Lymphocytes Absolute Auto 2.3 X10*3/uL (1.2-4.9); Lymphocytes Percent Auto 28.9 % (20-40); Mean Corpuscular HGB Conc 31.4 g/dl (31.0-36.0); Mean Corpuscular Hemoglobin 26.5 pg (27.0-33.0); Mean Corpuscular Volume 84.3 fL (80.0-98.0); Monocytes Absolute Auto 1.1 X10*3/uL (0.1-1.2); Monocytes Percent Auto 13.1 % (2-11); Neutrophils Absolute Auto 4.4 x10*3/uL (2.0-8.3); Neutrophils Percent Auto 54.9 % (45-73); Platelet Count 306 X10*3/uL (160-400); Red Blood Count 5.66 X10*6/uL (4.60-5.80); Red Cell Distribution Width 15.6 % (11.0-16.0)
[2023-08-18 15:04] LABS: Alanine Aminotransferase 24 U/L (0-40); Albumin Level 4.5 g/dL (3.5-5.0); Alkaline Phosphatase 138 U/L (39-117); Anion Gap 14 (12-20); Aspartate Amino Transferase 32 U/L (5-37); Bilirubin Total 0.7 mg/dL (0.0-1.0); Blood Urea Nitrogen 11 mg/dL (9-16); Calcium 10.2 mg/dL (8.4-10.2); Carbon Dioxide 26 mmol/L (22-29); Chloride 105 mmol/L (96-108); Estimated Glomerular Filt Rate > 60; Glucose Random 77 mg/dL (60-115); Potassium 4.3 mmol/L (3.3-5.1); Sodium 141 mmol/L (135-145)
== END 2023-08-18 13:55 | disposition home or self-care (01) ==
LOC: HO.LAB 13:54
PROVIDERS: Visit Provider Internal Medicine
DX: C18.0 Malignant neoplasm of cecum (principal)
CPT/HCPCS: 36415; 80053; 85025

== ENCOUNTER 2023-08-25 15:19 | Outpatient (REF) | payer MEDICAID, SELFPAY ==
[2023-08-25 15:40] LABS: MANUAL DIFF FLAG NO
[2023-08-25 15:46] LABS: Basophils Percent Auto 0.5 % (0-2); Eosinophils Absolute Auto 0.1 X10*3/uL (0.0-0.4); Eosinophils Percent Auto 1.7 % (0-4); Hemoglobin 14.5 g/dl (14.0-18.0); Imm Gran Abs Auto 0.03 X10*3/uL (0.00-0.03); Imm Gran Pct Auto 0.4 % (0.0-0.4); Lymphocytes Percent Auto 25.6 % (20-40); Mean Corpuscular HGB Conc 31.5 g/dl (31.0-36.0); Mean Corpuscular Hemoglobin 26.6 pg (27.0-33.0); Mean Corpuscular Volume 84.4 fL (80.0-98.0); Mean Platelet Volume 10.1 fL (9.4-12.4); Monocytes Absolute Auto 0.6 X10*3/uL (0.1-1.2); Monocytes Percent Auto 7.8 % (2-11); Neutrophils Absolute Auto 4.9 x10*3/uL (2.0-8.3); Platelet Count 259 X10*3/uL (160-400); Red Blood Count 5.45 X10*6/uL (4.60-5.80); Red Cell Distribution Width 15.4 % (11.0-16.0); White Blood Count 7.7 X10*3/uL (4.8-10.8)
[2023-08-25 15:56] LABS: Alanine Aminotransferase 22 U/L (0-40); Albumin Level 4.1 g/dL (3.5-5.0); Alkaline Phosphatase 137 U/L (39-117); Anion Gap 15 (12-20); Aspartate Amino Transferase 29 U/L (5-37); Bilirubin Total 0.5 mg/dL (0.0-1.0); Blood Urea Nitrogen 11 mg/dL (9-16); Calcium 9.9 mg/dL (8.4-10.2); Carbon Dioxide 25 mmol/L (22-29); Chloride 108 mmol/L (96-108); Estimated Glomerular Filt Rate > 60; Glucose Random 109 mg/dL (60-115); Potassium 4.6 mmol/L (3.3-5.1); Sodium 143 mmol/L (135-145); Total Protein 7.4 g/dL (6.5-8.0)
== END 2023-08-25 15:20 | disposition home or self-care (01) ==
LOC: HO.LAB 15:19
PROVIDERS: PCP Internal Medicine; Visit Provider Internal Medicine
DX: C18.0 Malignant neoplasm of cecum (principal)
CPT/HCPCS: 36415; 80053; 85025

== ENCOUNTER 2023-09-01 07:58 | Outpatient (REF) | payer MEDICAID, SELFPAY ==
[2023-09-01 08:05] LABS: MANUAL DIFF FLAG NO
[2023-09-01 08:09] LABS: Basophils Absolute Auto 0.1 X10*3/uL (0.0-0.2); Basophils Percent Auto 0.8 % (0-2); Eosinophils Absolute Auto 0.2 X10*3/uL (0.0-0.4); Eosinophils Percent Auto 2.3 % (0-4); Hemoglobin 15.2 g/dl (14.0-18.0); Imm Gran Abs Auto 0.02 X10*3/uL (0.00-0.03); Imm Gran Pct Auto 0.3 % (0.0-0.4); Lymphocytes Absolute Auto 2.3 X10*3/uL (1.2-4.9); Lymphocytes Percent Auto 28.7 % (20-40); Mean Corpuscular Volume 83.9 fL (80.0-98.0); Monocytes Absolute Auto 0.9 X10*3/uL (0.1-1.2); Monocytes Percent Auto 10.7 % (2-11); Neutrophils Absolute Auto 4.6 x10*3/uL (2.0-8.3); Neutrophils Percent Auto 57.2 % (45-73); Platelet Count 250 X10*3/uL (160-400); Red Blood Count 5.84 X10*6/uL (4.60-5.80); Red Cell Distribution Width 15.6 % (11.0-16.0)
[2023-09-01 08:23] LABS: Alanine Aminotransferase 26 U/L (0-40); Albumin Level 4.2 g/dL (3.5-5.0); Alkaline Phosphatase 156 U/L (39-117); Anion Gap 12 (12-20); Aspartate Amino Transferase 33 U/L (5-37); Bilirubin Total 0.7 mg/dL (0.0-1.0); Blood Urea Nitrogen 14 mg/dL (9-16); Calcium 9.9 mg/dL (8.4-10.2); Carbon Dioxide 27 mmol/L (22-29); Chloride 107 mmol/L (96-108); Estimated Glomerular Filt Rate > 60; Glucose Random 92 mg/dL (60-115); Potassium 4.7 mmol/L (3.3-5.1); Sodium 141 mmol/L (135-145); Total Protein 7.6 g/dL (6.5-8.0)
== END 2023-09-01 07:59 | disposition home or self-care (01) ==
LOC: HO.LAB 07:58
PROVIDERS: Visit Provider Internal Medicine
DX: C18.0 Malignant neoplasm of cecum (principal)
CPT/HCPCS: 36415; 80053; 85025

== ENCOUNTER 2023-09-08 13:01 | Outpatient (REF) | payer MEDICAID, SELFPAY ==
[2023-09-08 13:14] LABS: MANUAL DIFF FLAG NO
[2023-09-08 13:37] LABS: Basophils Percent Auto 0.5 % (0-2); Eosinophils Absolute Auto 0.2 X10*3/uL (0.0-0.4); Eosinophils Percent Auto 1.8 % (0-4); Hematocrit 47.8 % (42.0-52.0); Hemoglobin 15.2 g/dl (14.0-18.0); Imm Gran Abs Auto 0.02 X10*3/uL (0.00-0.03); Imm Gran Pct Auto 0.2 % (0.0-0.4); Lymphocytes Absolute Auto 2.1 X10*3/uL (1.2-4.9); Lymphocytes Percent Auto 23.6 % (20-40); Mean Corpuscular HGB Conc 31.8 g/dl (31.0-36.0); Mean Corpuscular Hemoglobin 26.1 pg (27.0-33.0); Mean Corpuscular Volume 82.1 fL (80.0-98.0); Mean Platelet Volume 9.8 fL (9.4-12.4); Monocytes Absolute Auto 0.7 X10*3/uL (0.1-1.2); Monocytes Percent Auto 7.9 % (2-11); Neutrophils Absolute Auto 5.7 x10*3/uL (2.0-8.3); Platelet Count 256 X10*3/uL (160-400); Red Blood Count 5.82 X10*6/uL (4.60-5.80); Red Cell Distribution Width 15.5 % (11.0-16.0); White Blood Count 8.7 X10*3/uL (4.8-10.8)
[2023-09-08 14:44] LABS: Alanine Aminotransferase 20 U/L (0-40); Albumin Level 4.2 g/dL (3.5-5.0); Alkaline Phosphatase 155 U/L (39-117); Anion Gap 12 (12-20); Aspartate Amino Transferase 28 U/L (5-37); Bilirubin Total 0.6 mg/dL (0.0-1.0); Blood Urea Nitrogen 9 mg/dL (9-16); Calcium 9.6 mg/dL (8.4-10.2); Carbon Dioxide 29 mmol/L (22-29); Chloride 103 mmol/L (96-108); Estimated Glomerular Filt Rate > 60; Glucose Random 99 mg/dL (60-115); Potassium 4.5 mmol/L (3.3-5.1); Sodium 139 mmol/L (135-145); Total Protein 7.6 g/dL (6.5-8.0)
== END 2023-09-08 13:02 | disposition home or self-care (01) ==
LOC: HO.LAB 13:01
PROVIDERS: PCP Internal Medicine; Visit Provider Internal Medicine
DX: C18.0 Malignant neoplasm of cecum (principal)
CPT/HCPCS: 36415; 80053; 85025

== ENCOUNTER 2023-09-15 08:08 | Outpatient (REF) | payer MEDICAID, SELFPAY ==
[2023-09-15 08:38] LABS: MANUAL DIFF FLAG NO
[2023-09-15 08:41] LABS: Basophils Absolute Auto 0.1 X10*3/uL (0.0-0.2); Basophils Percent Auto 0.6 % (0-2); Eosinophils Absolute Auto 0.2 X10*3/uL (0.0-0.4); Hematocrit 50.1 % (42.0-52.0); Hemoglobin 15.7 g/dl (14.0-18.0); Imm Gran Abs Auto 0.02 X10*3/uL (0.00-0.03); Imm Gran Pct Auto 0.3 % (0.0-0.4); Lymphocytes Absolute Auto 2.5 X10*3/uL (1.2-4.9); Lymphocytes Percent Auto 32.8 % (20-40); Mean Corpuscular HGB Conc 31.3 g/dl (31.0-36.0); Mean Corpuscular Hemoglobin 25.6 pg (27.0-33.0); Mean Corpuscular Volume 81.7 fL (80.0-98.0); Mean Platelet Volume 9.7 fL (9.4-12.4); Monocytes Absolute Auto 0.8 X10*3/uL (0.1-1.2); Monocytes Percent Auto 10.2 % (2-11); Neutrophils Absolute Auto 4.1 x10*3/uL (2.0-8.3); Neutrophils Percent Auto 53.1 % (45-73); Platelet Count 259 X10*3/uL (160-400); Red Blood Count 6.13 X10*6/uL (4.60-5.80); Red Cell Distribution Width 15.7 % (11.0-16.0); White Blood Count 7.7 X10*3/uL (4.8-10.8)
[2023-09-15 08:57] LABS: Alanine Aminotransferase 28 U/L (0-40); Albumin Level 4.4 g/dL (3.5-5.0); Alkaline Phosphatase 169 U/L (39-117); Anion Gap 9 (12-20); Aspartate Amino Transferase 34 U/L (5-37); Bilirubin Total 0.5 mg/dL (0.0-1.0); Blood Urea Nitrogen 11 mg/dL (9-16); Calcium 9.9 mg/dL (8.4-10.2); Carbon Dioxide 28 mmol/L (22-29); Chloride 107 mmol/L (96-108); Estimated Glomerular Filt Rate > 60; Glucose Random 96 mg/dL (60-115); Magnesium 1.7 mg/dL (1.6-2.6); Potassium 4.4 mmol/L (3.3-5.1); Sodium 140 mmol/L (135-145); Total Protein 7.8 g/dL (6.5-8.0)
== END 2023-09-15 08:09 | disposition home or self-care (01) ==
LOC: HO.LAB 08:08
PROVIDERS: PCP Internal Medicine; Visit Provider Internal Medicine
DX: C18.0 Malignant neoplasm of cecum (principal)
CPT/HCPCS: 36415; 80053; 83735; 85025

== ENCOUNTER 2023-09-22 10:55 | Outpatient (REF) | payer MEDICAID, SELFPAY ==
[2023-09-22 11:17] LABS: MANUAL DIFF FLAG NO
[2023-09-22 11:33] LABS: Basophils Percent Auto 0.5 % (0-2); Eosinophils Absolute Auto 0.1 X10*3/uL (0.0-0.4); Eosinophils Percent Auto 1.5 % (0-4); Hematocrit 48.9 % (42.0-52.0); Hemoglobin 15.4 g/dl (14.0-18.0); Imm Gran Abs Auto 0.03 X10*3/uL (0.00-0.03); Imm Gran Pct Auto 0.3 % (0.0-0.4); Lymphocytes Absolute Auto 2.2 X10*3/uL (1.2-4.9); Lymphocytes Percent Auto 24.2 % (20-40); Mean Corpuscular HGB Conc 31.5 g/dl (31.0-36.0); Mean Corpuscular Hemoglobin 25.8 pg (27.0-33.0); Mean Corpuscular Volume 81.9 fL (80.0-98.0); Mean Platelet Volume 9.9 fL (9.4-12.4); Monocytes Absolute Auto 0.7 X10*3/uL (0.1-1.2); Monocytes Percent Auto 7.9 % (2-11); Neutrophils Absolute Auto 5.8 x10*3/uL (2.0-8.3); Neutrophils Percent Auto 65.6 % (45-73); Platelet Count 246 X10*3/uL (160-400); Red Blood Count 5.97 X10*6/uL (4.60-5.80); Red Cell Distribution Width 16.7 % (11.0-16.0); White Blood Count 8.9 X10*3/uL (4.8-10.8)
[2023-09-22 11:40] LABS: Alanine Aminotransferase 24 U/L (0-40); Albumin Level 4.3 g/dL (3.5-5.0); Alkaline Phosphatase 150 U/L (39-117); Anion Gap 10 (12-20); Aspartate Amino Transferase 30 U/L (5-37); Bilirubin Total 0.7 mg/dL (0.0-1.0); Blood Urea Nitrogen 12 mg/dL (9-16); Calcium 9.6 mg/dL (8.4-10.2); Carbon Dioxide 29 mmol/L (22-29); Chloride 106 mmol/L (96-108); Estimated Glomerular Filt Rate > 60; Glucose Random 78 mg/dL (60-115); Magnesium 1.8 mg/dL (1.6-2.6); Potassium 4.9 mmol/L (3.3-5.1); Sodium 140 mmol/L (135-145); Total Protein 7.5 g/dL (6.5-8.0)
== END 2023-09-22 10:56 | disposition home or self-care (01) ==
LOC: HO.LAB 10:55
PROVIDERS: PCP Internal Medicine; Visit Provider Internal Medicine
DX: C18.0 Malignant neoplasm of cecum (principal)
CPT/HCPCS: 36415; 80053; 83735; 85025

== ENCOUNTER 2023-09-29 07:37 | Outpatient (REF) | payer MEDICAID, SELFPAY ==
[2023-09-29 07:57] LABS: MANUAL DIFF FLAG NO
[2023-09-29 08:06] LABS: Basophils Percent Auto 0.4 % (0-2); Eosinophils Absolute Auto 0.2 X10*3/uL (0.0-0.4); Eosinophils Percent Auto 2.3 % (0-4); Hematocrit 49.4 % (42.0-52.0); Hemoglobin 15.9 g/dl (14.0-18.0); Imm Gran Abs Auto 0.02 X10*3/uL (0.00-0.03); Imm Gran Pct Auto 0.2 % (0.0-0.4); Lymphocytes Absolute Auto 2.7 X10*3/uL (1.2-4.9); Lymphocytes Percent Auto 28.8 % (20-40); Mean Corpuscular HGB Conc 32.2 g/dl (31.0-36.0); Mean Corpuscular Hemoglobin 26.1 pg (27.0-33.0); Mean Corpuscular Volume 81.1 fL (80.0-98.0); Mean Platelet Volume 9.9 fL (9.4-12.4); Monocytes Absolute Auto 0.9 X10*3/uL (0.1-1.2); Monocytes Percent Auto 9.2 % (2-11); Neutrophils Absolute Auto 5.5 x10*3/uL (2.0-8.3); Neutrophils Percent Auto 59.1 % (45-73); Platelet Count 250 X10*3/uL (160-400); Red Blood Count 6.09 X10*6/uL (4.60-5.80); Red Cell Distribution Width 16.7 % (11.0-16.0); White Blood Count 9.3 X10*3/uL (4.8-10.8)
[2023-09-29 08:24] LABS: Alanine Aminotransferase 26 U/L (0-40); Albumin Level 4.4 g/dL (3.5-5.0); Alkaline Phosphatase 166 U/L (39-117); Anion Gap 11 (12-20); Aspartate Amino Transferase 31 U/L (5-37); Bilirubin Total 0.7 mg/dL (0.0-1.0); Blood Urea Nitrogen 8 mg/dL (9-16); Carbon Dioxide 26 mmol/L (22-29); Chloride 108 mmol/L (96-108); Estimated Glomerular Filt Rate > 60; Glucose Random 119 mg/dL (60-115); Magnesium 1.6 mg/dL (1.6-2.6); Potassium 4.9 mmol/L (3.3-5.1); Sodium 140 mmol/L (135-145); Total Protein 7.6 g/dL (6.5-8.0)
== END 2023-09-29 07:38 | disposition home or self-care (01) ==
LOC: HO.LAB 07:37
PROVIDERS: PCP Internal Medicine; Visit Provider Internal Medicine
DX: C18.0 Malignant neoplasm of cecum (principal)
CPT/HCPCS: 36415; 80053; 83735; 85025

== ENCOUNTER 2023-10-06 15:22 | Outpatient (REF) | payer MEDICAID, SELFPAY ==
[2023-10-06 15:34] LABS: MANUAL DIFF FLAG NO
[2023-10-06 15:46] LABS: Basophils Percent Auto 0.3 % (0-2); Eosinophils Absolute Auto 0.2 X10*3/uL (0.0-0.4); Eosinophils Percent Auto 2.1 % (0-4); Hematocrit 48.9 % (42.0-52.0); Hemoglobin 15.1 g/dl (14.0-18.0); Imm Gran Abs Auto 0.03 X10*3/uL (0.00-0.03); Imm Gran Pct Auto 0.3 % (0.0-0.4); Lymphocytes Absolute Auto 2.7 X10*3/uL (1.2-4.9); Lymphocytes Percent Auto 29.4 % (20-40); Mean Corpuscular HGB Conc 30.9 g/dl (31.0-36.0); Mean Corpuscular Hemoglobin 24.9 pg (27.0-33.0); Mean Corpuscular Volume 80.6 fL (80.0-98.0); Mean Platelet Volume 9.2 fL (9.4-12.4); Monocytes Absolute Auto 0.8 X10*3/uL (0.1-1.2); Monocytes Percent Auto 8.9 % (2-11); Neutrophils Absolute Auto 5.4 x10*3/uL (2.0-8.3); Platelet Count 234 X10*3/uL (160-400); Red Blood Count 6.07 X10*6/uL (4.60-5.80); White Blood Count 9.1 X10*3/uL (4.8-10.8)
[2023-10-06 15:55] LABS: Alanine Aminotransferase 25 U/L (0-40); Albumin Level 4.2 g/dL (3.5-5.0); Alkaline Phosphatase 156 U/L (39-117); Anion Gap 9 (12-20); Aspartate Amino Transferase 29 U/L (5-37); Bilirubin Total 0.5 mg/dL (0.0-1.0); Blood Urea Nitrogen 11 mg/dL (9-16); Calcium 9.3 mg/dL (8.4-10.2); Carbon Dioxide 27 mmol/L (22-29); Chloride 109 mmol/L (96-108); Estimated Glomerular Filt Rate > 60; Glucose Random 115 mg/dL (60-115); Potassium 3.9 mmol/L (3.3-5.1); Sodium 141 mmol/L (135-145); Total Protein 7.3 g/dL (6.5-8.0)
== END 2023-10-06 15:23 | disposition home or self-care (01) ==
LOC: HO.LAB 15:22
PROVIDERS: PCP Internal Medicine; Visit Provider Internal Medicine
DX: C18.0 Malignant neoplasm of cecum (principal)
CPT/HCPCS: 36415; 80053; 85025

== ENCOUNTER 2023-10-13 14:55 | Outpatient (REF) | payer MEDICAID, SELFPAY ==
[2023-10-13 15:05] LABS: MANUAL DIFF FLAG NO
[2023-10-13 15:07] LABS: Basophils Absolute Auto 0.1 X10*3/uL (0.0-0.2); Basophils Percent Auto 0.6 % (0-2); Eosinophils Absolute Auto 0.1 X10*3/uL (0.0-0.4); Eosinophils Percent Auto 1.5 % (0-4); Hematocrit 49.6 % (42.0-52.0); Hemoglobin 15.5 g/dl (14.0-18.0); Imm Gran Abs Auto 0.02 X10*3/uL (0.00-0.03); Imm Gran Pct Auto 0.2 % (0.0-0.4); Lymphocytes Absolute Auto 2.1 X10*3/uL (1.2-4.9); Mean Corpuscular HGB Conc 31.3 g/dl (31.0-36.0); Mean Corpuscular Hemoglobin 24.9 pg (27.0-33.0); Mean Corpuscular Volume 79.7 fL (80.0-98.0); Mean Platelet Volume 9.2 fL (9.4-12.4); Monocytes Absolute Auto 0.9 X10*3/uL (0.1-1.2); Neutrophils Absolute Auto 5.5 x10*3/uL (2.0-8.3); Neutrophils Percent Auto 63.7 % (45-73); Platelet Count 249 X10*3/uL (160-400); Red Blood Count 6.22 X10*6/uL (4.60-5.80); Red Cell Distribution Width 16.9 % (11.0-16.0); White Blood Count 8.6 X10*3/uL (4.8-10.8)
[2023-10-13 15:26] LABS: Alanine Aminotransferase 28 U/L (0-40); Albumin Level 4.4 g/dL (3.5-5.0); Alkaline Phosphatase 169 U/L (39-117); Anion Gap 13 (12-20); Aspartate Amino Transferase 35 U/L (5-37); Bilirubin Total 0.5 mg/dL (0.0-1.0); Blood Urea Nitrogen 12 mg/dL (9-16); Calcium 9.9 mg/dL (8.4-10.2); Carbon Dioxide 27 mmol/L (22-29); Chloride 107 mmol/L (96-108); Estimated Glomerular Filt Rate > 60; Glucose Random 94 mg/dL (60-115); Magnesium 1.7 mg/dL (1.6-2.6); Potassium 4.8 mmol/L (3.3-5.1); Sodium 142 mmol/L (135-145); Total Protein 7.9 g/dL (6.5-8.0)
== END 2023-10-13 14:56 | disposition home or self-care (01) ==
LOC: HO.LAB 14:55
PROVIDERS: Visit Provider Internal Medicine
DX: C18.0 Malignant neoplasm of cecum (principal)
CPT/HCPCS: 36415; 80053; 83735; 85025

== ENCOUNTER 2023-10-20 11:40 | Outpatient (REF) | payer MEDICAID, SELFPAY ==
[2023-10-20 11:49] LABS: MANUAL DIFF FLAG NO
[2023-10-20 12:19] LABS: Basophils Percent Auto 0.4 % (0-2); Eosinophils Absolute Auto 0.1 X10*3/uL (0.0-0.4); Eosinophils Percent Auto 1.6 % (0-4); Hematocrit 49.9 % (42.0-52.0); Hemoglobin 15.5 g/dl (14.0-18.0); Imm Gran Abs Auto 0.02 X10*3/uL (0.00-0.03); Imm Gran Pct Auto 0.3 % (0.0-0.4); Lymphocytes Absolute Auto 2.3 X10*3/uL (1.2-4.9); Lymphocytes Percent Auto 28.7 % (20-40); Mean Corpuscular HGB Conc 31.1 g/dl (31.0-36.0); Mean Corpuscular Hemoglobin 24.7 pg (27.0-33.0); Mean Corpuscular Volume 79.5 fL (80.0-98.0); Mean Platelet Volume 9.6 fL (9.4-12.4); Monocytes Absolute Auto 0.7 X10*3/uL (0.1-1.2); Monocytes Percent Auto 8.7 % (2-11); Neutrophils Absolute Auto 4.8 x10*3/uL (2.0-8.3); Neutrophils Percent Auto 60.3 % (45-73); Platelet Count 237 X10*3/uL (160-400); Red Blood Count 6.28 X10*6/uL (4.60-5.80); Red Cell Distribution Width 17.2 % (11.0-16.0); White Blood Count 7.9 X10*3/uL (4.8-10.8)
[2023-10-20 12:34] LABS: Alanine Aminotransferase 29 U/L (0-40); Albumin Level 4.3 g/dL (3.5-5.0); Alkaline Phosphatase 154 U/L (39-117); Anion Gap 9 (12-20); Aspartate Amino Transferase 30 U/L (5-37); Bilirubin Total 0.5 mg/dL (0.0-1.0); Blood Urea Nitrogen 10 mg/dL (9-16); Calcium 9.3 mg/dL (8.4-10.2); Carbon Dioxide 29 mmol/L (22-29); Chloride 106 mmol/L (96-108); Estimated Glomerular Filt Rate > 60; Glucose Random 97 mg/dL (60-115); Magnesium 1.6 mg/dL (1.6-2.6); Potassium 3.4 mmol/L (3.3-5.1); Sodium 141 mmol/L (135-145); Total Protein 7.3 g/dL (6.5-8.0)
== END 2023-10-20 11:41 | disposition home or self-care (01) ==
LOC: HO.LAB 11:40
PROVIDERS: Visit Provider Internal Medicine
DX: C18.0 Malignant neoplasm of cecum (principal)
CPT/HCPCS: 36415; 80053; 83735; 85025

== ENCOUNTER 2023-10-27 11:43 | Outpatient (REF) | payer MEDICAID, SELFPAY ==
[2023-10-27 11:54] LABS: MANUAL DIFF FLAG NO
[2023-10-27 12:14] LABS: Basophils Percent Auto 0.4 % (0-2); Eosinophils Absolute Auto 0.1 X10*3/uL (0.0-0.4); Eosinophils Percent Auto 1.2 % (0-4); Hematocrit 50.5 % (42.0-52.0); Imm Gran Abs Auto 0.04 X10*3/uL (0.00-0.03); Imm Gran Pct Auto 0.4 % (0.0-0.4); Lymphocytes Absolute Auto 2.5 X10*3/uL (1.2-4.9); Lymphocytes Percent Auto 25.3 % (20-40); Mean Corpuscular HGB Conc 31.7 g/dl (31.0-36.0); Mean Corpuscular Hemoglobin 24.7 pg (27.0-33.0); Mean Corpuscular Volume 77.9 fL (80.0-98.0); Mean Platelet Volume 9.2 fL (9.4-12.4); Monocytes Absolute Auto 0.8 X10*3/uL (0.1-1.2); Monocytes Percent Auto 8.2 % (2-11); Neutrophils Absolute Auto 6.2 x10*3/uL (2.0-8.3); Neutrophils Percent Auto 64.5 % (45-73); Platelet Count 232 X10*3/uL (160-400); Red Blood Count 6.48 X10*6/uL (4.60-5.80); Red Cell Distribution Width 17.6 % (11.0-16.0); White Blood Count 9.7 X10*3/uL (4.8-10.8)
[2023-10-27 12:59] LABS: Alanine Aminotransferase 25 U/L (0-40); Albumin Level 4.5 g/dL (3.5-5.0); Alkaline Phosphatase 166 U/L (39-117); Anion Gap 10 (12-20); Aspartate Amino Transferase 31 U/L (5-37); Bilirubin Total 0.5 mg/dL (0.0-1.0); Blood Urea Nitrogen 12 mg/dL (9-16); Calcium 9.6 mg/dL (8.4-10.2); Carbon Dioxide 30 mmol/L (22-29); Chloride 104 mmol/L (96-108); Estimated Glomerular Filt Rate > 60; Glucose Random 97 mg/dL (60-115); Magnesium 1.6 mg/dL (1.6-2.6); Potassium 3.8 mmol/L (3.3-5.1); Sodium 140 mmol/L (135-145); Total Protein 7.8 g/dL (6.5-8.0)
== END 2023-10-27 11:44 | disposition home or self-care (01) ==
LOC: HO.LAB 11:43
PROVIDERS: Visit Provider Internal Medicine
DX: C18.0 Malignant neoplasm of cecum (principal)
CPT/HCPCS: 36415; 80053; 83735; 85025

== ENCOUNTER 2023-11-02 11:14 | Outpatient (REF) | payer MEDICAID, SELFPAY ==
[2023-11-02 11:50] LABS: Alanine Aminotransferase 27 U/L (0-40); Albumin Level 4.5 g/dL (3.5-5.0); Alkaline Phosphatase 156 U/L (39-117); Anion Gap 11 (12-20); Aspartate Amino Transferase 32 U/L (5-37); Bilirubin Total 0.8 mg/dL (0.0-1.0); Blood Urea Nitrogen 8 mg/dL (9-16); Carbon Dioxide 28 mmol/L (22-29); Chloride 105 mmol/L (96-108); Estimated Glomerular Filt Rate > 60; Glucose Random 103 mg/dL (60-115); Sodium 140 mmol/L (135-145); Total Protein 7.7 g/dL (6.5-8.0)
== END 2023-11-02 11:15 | disposition home or self-care (01) ==
LOC: HO.LAB 11:14
PROVIDERS: Visit Provider Internal Medicine
DX: C18.0 Malignant neoplasm of cecum (principal)
CPT/HCPCS: 36415; 80053; 85025

== ENCOUNTER 2023-11-10 11:45 | Outpatient (REF) | payer MEDICAID, SELFPAY ==
[2023-11-10 11:53] LABS: MANUAL DIFF FLAG NO
[2023-11-10 12:27] LABS: Basophils Percent Auto 0.5 % (0-2); Eosinophils Absolute Auto 0.1 X10*3/uL (0.0-0.4); Eosinophils Percent Auto 1.7 % (0-4); Hemoglobin 15.7 g/dl (14.0-18.0); Imm Gran Abs Auto 0.03 X10*3/uL (0.00-0.03); Imm Gran Pct Auto 0.4 % (0.0-0.4); Lymphocytes Absolute Auto 2.3 X10*3/uL (1.2-4.9); Lymphocytes Percent Auto 26.8 % (20-40); Mean Corpuscular Hemoglobin 24.8 pg (27.0-33.0); Mean Corpuscular Volume 77.4 fL (80.0-98.0); Mean Platelet Volume 10.3 fL (9.4-12.4); Monocytes Absolute Auto 0.7 X10*3/uL (0.1-1.2); Monocytes Percent Auto 8.8 % (2-11); Neutrophils Absolute Auto 5.2 x10*3/uL (2.0-8.3); Neutrophils Percent Auto 61.8 % (45-73); Platelet Count 243 X10*3/uL (160-400); Red Blood Count 6.33 X10*6/uL (4.60-5.80); Red Cell Distribution Width 17.6 % (11.0-16.0); White Blood Count 8.4 X10*3/uL (4.8-10.8)
[2023-11-10 13:04] LABS: Alanine Aminotransferase 25 U/L (0-40); Albumin Level 4.3 g/dL (3.5-5.0); Alkaline Phosphatase 159 U/L (39-117); Anion Gap 11 (12-20); Aspartate Amino Transferase 31 U/L (5-37); Bilirubin Total 0.5 mg/dL (0.0-1.0); Blood Urea Nitrogen 10 mg/dL (9-16); Calcium 9.6 mg/dL (8.4-10.2); Carbon Dioxide 29 mmol/L (22-29); Chloride 104 mmol/L (96-108); Estimated Glomerular Filt Rate > 60; Glucose Random 93 mg/dL (60-115); Magnesium 1.8 mg/dL (1.6-2.6); Potassium 3.8 mmol/L (3.3-5.1); Sodium 140 mmol/L (135-145); Total Protein 7.3 g/dL (6.5-8.0)
== END 2023-11-10 11:46 | disposition home or self-care (01) ==
LOC: HO.LAB 11:45
PROVIDERS: PCP Internal Medicine; Visit Provider Internal Medicine
DX: C18.0 Malignant neoplasm of cecum (principal); R00.2 Palpitations
CPT/HCPCS: 36415; 80053; 83735; 85025

== ENCOUNTER 2023-11-17 11:36 | Outpatient (REF) | payer MEDICAID, SELFPAY ==
[2023-11-17 12:11] LABS: MANUAL DIFF FLAG NO
[2023-11-17 12:12] LABS: Basophils Percent Auto 0.3 % (0-2); Eosinophils Absolute Auto 0.1 X10*3/uL (0.0-0.4); Eosinophils Percent Auto 1.4 % (0-4); Hematocrit 49.6 % (42.0-52.0); Hemoglobin 15.7 g/dl (14.0-18.0); Imm Gran Abs Auto 0.03 X10*3/uL (0.00-0.03); Imm Gran Pct Auto 0.3 % (0.0-0.4); Lymphocytes Absolute Auto 2.4 X10*3/uL (1.2-4.9); Lymphocytes Percent Auto 25.7 % (20-40); Mean Corpuscular HGB Conc 31.7 g/dl (31.0-36.0); Mean Corpuscular Hemoglobin 24.5 pg (27.0-33.0); Mean Corpuscular Volume 77.3 fL (80.0-98.0); Monocytes Absolute Auto 0.9 X10*3/uL (0.1-1.2); Monocytes Percent Auto 9.4 % (2-11); Neutrophils Absolute Auto 5.8 x10*3/uL (2.0-8.3); Neutrophils Percent Auto 62.9 % (45-73); Platelet Count 210 X10*3/uL (160-400); Red Blood Count 6.42 X10*6/uL (4.60-5.80); Red Cell Distribution Width 18.1 % (11.0-16.0); White Blood Count 9.2 X10*3/uL (4.8-10.8)
[2023-11-17 12:20] LABS: Appearance Urine Clear; Color Urine Yellow; Glucose Urine UA Negative (Negative); Leukocyte Esterase Urine Negative (Negative); Nitrite Urine Negative (Negative); UMIC TRIGGER UACC YES; Urine Blood Small (1+) (Negative); Urine Ketones Negative (Negative); Urine Protein Negative (Neg-Trace)
[2023-11-17 12:27] LABS: Alanine Aminotransferase 25 U/L (0-40); Albumin Level 4.3 g/dL (3.5-5.0); Alkaline Phosphatase 180 U/L (39-117); Anion Gap 13 (12-20); Aspartate Amino Transferase 31 U/L (5-37); Bilirubin Total 0.5 mg/dL (0.0-1.0); Blood Urea Nitrogen 11 mg/dL (9-16); Calcium 9.5 mg/dL (8.4-10.2); Carbon Dioxide 28 mmol/L (22-29); Chloride 104 mmol/L (96-108); Estimated Glomerular Filt Rate > 60; Glucose Random 97 mg/dL (60-115); Potassium 4.2 mmol/L (3.3-5.1); Sodium 141 mmol/L (135-145); Total Protein 7.4 g/dL (6.5-8.0)
[2023-11-17 12:28] LABS: Bacteria Urine None Seen (None Seen); Hyaline Casts Urine 0-2 /LPF (0-2); Squamous Epithelial Cell Urine 0-2 /HPF (0-2); WBC Urine 0-5 /HPF (0-5)
== END 2023-11-17 11:37 | disposition home or self-care (01) ==
LOC: HO.LAB 11:36
PROVIDERS: Visit Provider Internal Medicine
DX: C18.0 Malignant neoplasm of cecum (principal)
CPT/HCPCS: 36415; 80053; 81001; 85025

== ENCOUNTER 2023-11-24 15:37 | Outpatient (REF) | payer MEDICAID, SELFPAY ==
[2023-11-24 15:51] LABS: MANUAL DIFF FLAG NO
[2023-11-24 16:09] LABS: Basophils Absolute Auto 0.1 X10*3/uL (0.0-0.2); Basophils Percent Auto 0.5 % (0-2); Eosinophils Absolute Auto 0.1 X10*3/uL (0.0-0.4); Eosinophils Percent Auto 1.2 % (0-4); Hematocrit 51.6 % (42.0-52.0); Hemoglobin 16.1 g/dl (14.0-18.0); Imm Gran Abs Auto 0.03 X10*3/uL (0.00-0.03); Imm Gran Pct Auto 0.3 % (0.0-0.4); Lymphocytes Absolute Auto 2.6 X10*3/uL (1.2-4.9); Lymphocytes Percent Auto 26.7 % (20-40); Mean Corpuscular HGB Conc 31.2 g/dl (31.0-36.0); Mean Corpuscular Hemoglobin 24.3 pg (27.0-33.0); Mean Corpuscular Volume 77.8 fL (80.0-98.0); Mean Platelet Volume 9.4 fL (9.4-12.4); Monocytes Absolute Auto 0.8 X10*3/uL (0.1-1.2); Monocytes Percent Auto 7.8 % (2-11); Neutrophils Absolute Auto 6.1 x10*3/uL (2.0-8.3); Neutrophils Percent Auto 63.5 % (45-73); Platelet Count 239 X10*3/uL (160-400); Red Blood Count 6.63 X10*6/uL (4.60-5.80); Red Cell Distribution Width 18.6 % (11.0-16.0); White Blood Count 9.6 X10*3/uL (4.8-10.8)
[2023-11-24 16:27] LABS: Alanine Aminotransferase 29 U/L (0-40); Albumin Level 4.6 g/dL (3.5-5.0); Alkaline Phosphatase 223 U/L (39-117); Anion Gap 13 (12-20); Aspartate Amino Transferase 33 U/L (5-37); Bilirubin Total 0.7 mg/dL (0.0-1.0); Blood Urea Nitrogen 12 mg/dL (9-16); Calcium 10.6 mg/dL (8.4-10.2); Carbon Dioxide 27 mmol/L (22-29); Chloride 106 mmol/L (96-108); Estimated Glomerular Filt Rate > 60; Glucose Random 96 mg/dL (60-115); Potassium 4.8 mmol/L (3.3-5.1); Sodium 141 mmol/L (135-145); Total Protein 7.8 g/dL (6.5-8.0)
[2023-11-24 17:54] LABS: Appearance Urine Cloudy; Color Urine Dark Yellow; Glucose Urine UA Negative (Negative); Leukocyte Esterase Urine Negative (Negative); Nitrite Urine Negative (Negative); Specific Gravity - Urine 1.025 (1.005-1.025); UMIC TRIGGER UACC YES; Urine Blood Trace (Negative); Urine Ketones Negative (Negative); Urine Protein 30 (1+) mg/dL (Neg-Trace)
[2023-11-24 18:43] LABS: Bacteria Urine None Seen (None Seen); Hyaline Casts Urine 0-2 /LPF (0-2); RBC Urine >20 /HPF (0-2); Squamous Epithelial Cell Urine 0-2 /HPF (0-2); WBC Urine 0-5 /HPF (0-5)
== END 2023-11-24 15:38 | disposition home or self-care (01) ==
LOC: HO.LAB 15:37
PROVIDERS: PCP Internal Medicine; Visit Provider Internal Medicine
DX: C18.0 Malignant neoplasm of cecum (principal)
CPT/HCPCS: 36415; 80053; 81001; 85025

== ENCOUNTER 2023-11-30 11:22 | Outpatient (REF) | payer MEDICAID, SELFPAY ==
[2023-11-30 11:45] LABS: MANUAL DIFF FLAG NO
[2023-11-30 11:49] LABS: Basophils Percent Auto 0.4 % (0-2); Eosinophils Absolute Auto 0.1 X10*3/uL (0.0-0.4); Eosinophils Percent Auto 1.2 % (0-4); Hematocrit 49.6 % (42.0-52.0); Hemoglobin 15.7 g/dl (14.0-18.0); Imm Gran Abs Auto 0.02 X10*3/uL (0.00-0.03); Imm Gran Pct Auto 0.2 % (0.0-0.4); Lymphocytes Absolute Auto 2.4 X10*3/uL (1.2-4.9); Lymphocytes Percent Auto 25.5 % (20-40); Mean Corpuscular HGB Conc 31.7 g/dl (31.0-36.0); Mean Corpuscular Hemoglobin 24.5 pg (27.0-33.0); Mean Corpuscular Volume 77.3 fL (80.0-98.0); Mean Platelet Volume 9.6 fL (9.4-12.4); Monocytes Absolute Auto 0.8 X10*3/uL (0.1-1.2); Monocytes Percent Auto 9.1 % (2-11); Neutrophils Absolute Auto 5.9 x10*3/uL (2.0-8.3); Neutrophils Percent Auto 63.6 % (45-73); Platelet Count 234 X10*3/uL (160-400); Red Blood Count 6.42 X10*6/uL (4.60-5.80); Red Cell Distribution Width 18.5 % (11.0-16.0); White Blood Count 9.2 X10*3/uL (4.8-10.8)
[2023-11-30 12:02] LABS: Alanine Aminotransferase 27 U/L (0-40); Albumin Level 4.4 g/dL (3.5-5.0); Alkaline Phosphatase 218 U/L (39-117); Anion Gap 11 (12-20); Aspartate Amino Transferase 31 U/L (5-37); Bilirubin Total 0.6 mg/dL (0.0-1.0); Blood Urea Nitrogen 8 mg/dL (9-16); Calcium 9.7 mg/dL (8.4-10.2); Carbon Dioxide 28 mmol/L (22-29); Chloride 106 mmol/L (96-108); Estimated Glomerular Filt Rate > 60; Glucose Random 91 mg/dL (60-115); Potassium 4.2 mmol/L (3.3-5.1); Sodium 141 mmol/L (135-145); Total Protein 7.5 g/dL (6.5-8.0)
== END 2023-11-30 11:23 | disposition home or self-care (01) ==
LOC: HO.LAB 11:22
PROVIDERS: Visit Provider Internal Medicine
DX: C18.0 Malignant neoplasm of cecum (principal)
CPT/HCPCS: 36415; 80053; 85025

== ENCOUNTER 2023-12-07 10:08 | Outpatient (REF) | payer MEDICAID, SELFPAY ==
[2023-12-07 10:34] LABS: MANUAL DIFF FLAG NO
[2023-12-07 10:43] LABS: Basophils Absolute Auto 0.1 X10*3/uL (0.0-0.2); Basophils Percent Auto 0.6 % (0-2); Eosinophils Absolute Auto 0.1 X10*3/uL (0.0-0.4); Eosinophils Percent Auto 1.6 % (0-4); Hematocrit 48.3 % (42.0-52.0); Hemoglobin 15.4 g/dl (14.0-18.0); Imm Gran Abs Auto 0.03 X10*3/uL (0.00-0.03); Imm Gran Pct Auto 0.3 % (0.0-0.4); Lymphocytes Absolute Auto 2.3 X10*3/uL (1.2-4.9); Mean Corpuscular HGB Conc 31.9 g/dl (31.0-36.0); Mean Corpuscular Hemoglobin 24.6 pg (27.0-33.0); Mean Platelet Volume 9.4 fL (9.4-12.4); Monocytes Absolute Auto 0.8 X10*3/uL (0.1-1.2); Monocytes Percent Auto 9.4 % (2-11); Neutrophils Absolute Auto 5.4 x10*3/uL (2.0-8.3); Neutrophils Percent Auto 62.1 % (45-73); Platelet Count 206 X10*3/uL (160-400); Red Blood Count 6.27 X10*6/uL (4.60-5.80); Red Cell Distribution Width 18.5 % (11.0-16.0); White Blood Count 8.7 X10*3/uL (4.8-10.8)
[2023-12-07 10:58] LABS: Alanine Aminotransferase 29 U/L (0-40); Albumin Level 4.1 g/dL (3.5-5.0); Alkaline Phosphatase 205 U/L (39-117); Anion Gap 12 (12-20); Aspartate Amino Transferase 33 U/L (5-37); Bilirubin Total 0.6 mg/dL (0.0-1.0); Blood Urea Nitrogen 15 mg/dL (9-16); Calcium 9.3 mg/dL (8.4-10.2); Carbon Dioxide 26 mmol/L (22-29); Chloride 108 mmol/L (96-108); Estimated Glomerular Filt Rate > 60; Glucose Random 116 mg/dL (60-115); Potassium 4.3 mmol/L (3.3-5.1); Sodium 142 mmol/L (135-145); Total Protein 7.2 g/dL (6.5-8.0)
== END 2023-12-07 10:09 | disposition home or self-care (01) ==
LOC: HO.LAB 10:08
PROVIDERS: PCP Internal Medicine; Visit Provider Internal Medicine
DX: C18.0 Malignant neoplasm of cecum (principal)
CPT/HCPCS: 36415; 80053; 85025

== ENCOUNTER 2023-12-14 12:35 | Outpatient (REF) | payer MEDICAID, SELFPAY ==
[2023-12-14 12:44] LABS: MANUAL DIFF FLAG NO
[2023-12-14 12:46] LABS: Basophils Percent Auto 0.4 % (0-2); Eosinophils Absolute Auto 0.2 X10*3/uL (0.0-0.4); Eosinophils Percent Auto 1.7 % (0-4); Hematocrit 51.8 % (42.0-52.0); Hemoglobin 16.4 g/dl (14.0-18.0); Imm Gran Abs Auto 0.03 X10*3/uL (0.00-0.03); Imm Gran Pct Auto 0.3 % (0.0-0.4); Lymphocytes Absolute Auto 2.7 X10*3/uL (1.2-4.9); Lymphocytes Percent Auto 29.1 % (20-40); Mean Corpuscular HGB Conc 31.7 g/dl (31.0-36.0); Mean Corpuscular Hemoglobin 24.4 pg (27.0-33.0); Mean Corpuscular Volume 77.1 fL (80.0-98.0); Mean Platelet Volume 9.4 fL (9.4-12.4); Monocytes Absolute Auto 0.9 X10*3/uL (0.1-1.2); Monocytes Percent Auto 9.5 % (2-11); Neutrophils Absolute Auto 5.4 x10*3/uL (2.0-8.3); Platelet Count 232 X10*3/uL (160-400); Red Blood Count 6.72 X10*6/uL (4.60-5.80); Red Cell Distribution Width 19.2 % (11.0-16.0); White Blood Count 9.2 X10*3/uL (4.8-10.8)
[2023-12-14 13:01] LABS: Alanine Aminotransferase 43 U/L (0-40); Albumin Level 4.5 g/dL (3.5-5.0); Alkaline Phosphatase 206 U/L (39-117); Anion Gap 10 (12-20); Aspartate Amino Transferase 36 U/L (5-37); Bilirubin Total 0.7 mg/dL (0.0-1.0); Blood Urea Nitrogen 13 mg/dL (9-16); Calcium 9.7 mg/dL (8.4-10.2); Carbon Dioxide 25 mmol/L (22-29); Chloride 108 mmol/L (96-108); Estimated Glomerular Filt Rate > 60; Glucose Random 103 mg/dL (60-115); Potassium 3.7 mmol/L (3.3-5.1); Sodium 139 mmol/L (135-145); Total Protein 7.8 g/dL (6.5-8.0)
[2023-12-16 14:03] LABS: Magnesium 1.6 mg/dL (1.6-2.6)
== END 2023-12-14 12:36 | disposition home or self-care (01) ==
LOC: HO.LAB 12:35
PROVIDERS: Visit Provider Internal Medicine
DX: C18.0 Malignant neoplasm of cecum (principal)
CPT/HCPCS: 36415; 80053; 83735; 85025

== ENCOUNTER 2023-12-21 14:30 | Outpatient (REF) | payer MEDICAID, SELFPAY ==
[2023-12-21 14:37] LABS: MANUAL DIFF FLAG NO
[2023-12-21 15:01] LABS: Basophils Percent Auto 0.4 % (0-2); Eosinophils Absolute Auto 0.1 X10*3/uL (0.0-0.4); Hemoglobin 15.1 g/dl (14.0-18.0); Imm Gran Abs Auto 0.03 X10*3/uL (0.00-0.03); Imm Gran Pct Auto 0.3 % (0.0-0.4); Lymphocytes Absolute Auto 2.5 X10*3/uL (1.2-4.9); Lymphocytes Percent Auto 25.6 % (20-40); Mean Corpuscular HGB Conc 32.1 g/dl (31.0-36.0); Mean Corpuscular Hemoglobin 24.2 pg (27.0-33.0); Mean Corpuscular Volume 75.3 fL (80.0-98.0); Mean Platelet Volume 9.3 fL (9.4-12.4); Monocytes Absolute Auto 0.8 X10*3/uL (0.1-1.2); Monocytes Percent Auto 8.2 % (2-11); Neutrophils Absolute Auto 6.3 x10*3/uL (2.0-8.3); Neutrophils Percent Auto 64.5 % (45-73); Platelet Count 278 X10*3/uL (160-400); Red Blood Count 6.24 X10*6/uL (4.60-5.80); Red Cell Distribution Width 18.4 % (11.0-16.0); White Blood Count 9.8 X10*3/uL (4.8-10.8)
[2023-12-21 15:14] LABS: Alanine Aminotransferase 23 U/L (0-40); Albumin Level 4.2 g/dL (3.5-5.0); Alkaline Phosphatase 173 U/L (39-117); Anion Gap 10 (12-20); Aspartate Amino Transferase 29 U/L (5-37); Bilirubin Total 0.6 mg/dL (0.0-1.0); Blood Urea Nitrogen 9 mg/dL (9-16); Calcium 9.3 mg/dL (8.4-10.2); Carbon Dioxide 29 mmol/L (22-29); Chloride 104 mmol/L (96-108); Estimated Glomerular Filt Rate > 60; Glucose Random 90 mg/dL (60-115); Magnesium 1.4 mg/dL (1.6-2.6); Potassium 3.9 mmol/L (3.3-5.1); Sodium 139 mmol/L (135-145); Total Protein 7.2 g/dL (6.5-8.0)
== END 2023-12-21 14:31 | disposition home or self-care (01) ==
LOC: HO.LAB 14:30
PROVIDERS: Visit Provider Internal Medicine
DX: C18.0 Malignant neoplasm of cecum (principal)
CPT/HCPCS: 36415; 80053; 83735; 85025

== ENCOUNTER 2023-12-28 08:32 | Outpatient (REF) | payer MEDICAID, SELFPAY ==
[2023-12-28 08:46] LABS: MANUAL DIFF FLAG NO
[2023-12-28 09:21] LABS: Basophils Percent Auto 0.5 % (0-2); Eosinophils Absolute Auto 0.2 X10*3/uL (0.0-0.4); Eosinophils Percent Auto 2.1 % (0-4); Hematocrit 49.7 % (42.0-52.0); Hemoglobin 15.4 g/dl (14.0-18.0); Imm Gran Abs Auto 0.04 X10*3/uL (0.00-0.03); Imm Gran Pct Auto 0.5 % (0.0-0.4); Lymphocytes Absolute Auto 2.4 X10*3/uL (1.2-4.9); Lymphocytes Percent Auto 26.8 % (20-40); Mean Corpuscular Volume 77.3 fL (80.0-98.0); Mean Platelet Volume 9.3 fL (9.4-12.4); Monocytes Absolute Auto 0.8 X10*3/uL (0.1-1.2); Monocytes Percent Auto 9.4 % (2-11); Neutrophils Absolute Auto 5.3 x10*3/uL (2.0-8.3); Neutrophils Percent Auto 60.7 % (45-73); Platelet Count 256 X10*3/uL (160-400); Red Blood Count 6.43 X10*6/uL (4.60-5.80); Red Cell Distribution Width 18.5 % (11.0-16.0); White Blood Count 8.8 X10*3/uL (4.8-10.8)
[2023-12-28 09:38] LABS: Alanine Aminotransferase 25 U/L (0-40); Albumin Level 4.3 g/dL (3.5-5.0); Alkaline Phosphatase 179 U/L (39-117); Anion Gap 11 (12-20); Aspartate Amino Transferase 28 U/L (5-37); Bilirubin Total 0.8 mg/dL (0.0-1.0); Blood Urea Nitrogen 11 mg/dL (9-16); Calcium 9.8 mg/dL (8.4-10.2); Carbon Dioxide 28 mmol/L (22-29); Chloride 106 mmol/L (96-108); Estimated Glomerular Filt Rate > 60; Glucose Random 88 mg/dL (60-115); Potassium 4.6 mmol/L (3.3-5.1); Sodium 140 mmol/L (135-145); Total Protein 7.5 g/dL (6.5-8.0)
[2023-12-28 14:38] LABS: Magnesium 1.8 mg/dL (1.6-2.6)
== END 2023-12-28 08:33 | disposition home or self-care (01) ==
LOC: HO.LAB 08:32
PROVIDERS: PCP Internal Medicine; Visit Provider Internal Medicine
DX: C18.0 Malignant neoplasm of cecum (principal)
CPT/HCPCS: 36415; 80053; 83735; 85025

== ENCOUNTER 2024-01-04 11:55 | Outpatient (REF) | payer MEDICAID, SELFPAY ==
[2024-01-04 12:14] LABS: MANUAL DIFF FLAG NO
[2024-01-04 12:22] LABS: Basophils Percent Auto 0.3 % (0-2); Eosinophils Absolute Auto 0.1 X10*3/uL (0.0-0.4); Eosinophils Percent Auto 0.7 % (0-4); Hematocrit 49.7 % (42.0-52.0); Hemoglobin 15.7 g/dl (14.0-18.0); Imm Gran Abs Auto 0.07 X10*3/uL (0.00-0.03); Imm Gran Pct Auto 0.6 % (0.0-0.4); Lymphocytes Absolute Auto 2.2 X10*3/uL (1.2-4.9); Lymphocytes Percent Auto 19.8 % (20-40); Mean Corpuscular HGB Conc 31.6 g/dl (31.0-36.0); Mean Corpuscular Hemoglobin 24.6 pg (27.0-33.0); Mean Corpuscular Volume 77.9 fL (80.0-98.0); Mean Platelet Volume 8.9 fL (9.4-12.4); Monocytes Absolute Auto 0.9 X10*3/uL (0.1-1.2); Monocytes Percent Auto 7.7 % (2-11); Neutrophils Percent Auto 70.9 % (45-73); Platelet Count 306 X10*3/uL (160-400); Red Blood Count 6.38 X10*6/uL (4.60-5.80); Red Cell Distribution Width 18.8 % (11.0-16.0); White Blood Count 11.2 X10*3/uL (4.8-10.8)
[2024-01-04 12:34] LABS: Alanine Aminotransferase 25 U/L (0-40); Albumin Level 4.3 g/dL (3.5-5.0); Alkaline Phosphatase 189 U/L (39-117); Anion Gap 12 (12-20); Aspartate Amino Transferase 29 U/L (5-37); Bilirubin Total 0.4 mg/dL (0.0-1.0); Blood Urea Nitrogen 9 mg/dL (9-16); Calcium 9.6 mg/dL (8.4-10.2); Carbon Dioxide 28 mmol/L (22-29); Chloride 107 mmol/L (96-108); Estimated Glomerular Filt Rate > 60; Glucose Random 95 mg/dL (60-115); Potassium 4.8 mmol/L (3.3-5.1); Sodium 142 mmol/L (135-145); Total Protein 7.8 g/dL (6.5-8.0)
[2024-01-06 13:52] LABS: Magnesium 1.7 mg/dL (1.6-2.6)
== END 2024-01-04 11:56 | disposition home or self-care (01) ==
LOC: HO.LAB 11:55
PROVIDERS: Visit Provider Internal Medicine
DX: C18.0 Malignant neoplasm of cecum (principal)
CPT/HCPCS: 36415; 80053; 83735; 85025

== ENCOUNTER 2024-01-12 13:37 | Outpatient (REF) | payer MEDICAID, SELFPAY ==
[2024-01-12 13:47] LABS: MANUAL DIFF FLAG NO
[2024-01-12 13:52] LABS: Basophils Percent Auto 0.4 % (0-2); Eosinophils Absolute Auto 0.1 X10*3/uL (0.0-0.4); Eosinophils Percent Auto 1.1 % (0-4); Hematocrit 48.6 % (42.0-52.0); Hemoglobin 15.7 g/dl (14.0-18.0); Imm Gran Abs Auto 0.05 X10*3/uL (0.00-0.03); Imm Gran Pct Auto 0.5 % (0.0-0.4); Lymphocytes Absolute Auto 2.7 X10*3/uL (1.2-4.9); Lymphocytes Percent Auto 25.4 % (20-40); Mean Corpuscular HGB Conc 32.3 g/dl (31.0-36.0); Mean Corpuscular Hemoglobin 24.7 pg (27.0-33.0); Mean Corpuscular Volume 76.5 fL (80.0-98.0); Mean Platelet Volume 9.3 fL (9.4-12.4); Monocytes Absolute Auto 0.9 X10*3/uL (0.1-1.2); Neutrophils Absolute Auto 6.7 x10*3/uL (2.0-8.3); Neutrophils Percent Auto 63.6 % (45-73); Platelet Count 264 X10*3/uL (160-400); Red Blood Count 6.35 X10*6/uL (4.60-5.80); Red Cell Distribution Width 19.1 % (11.0-16.0); White Blood Count 10.5 X10*3/uL (4.8-10.8)
[2024-01-12 14:03] LABS: Alanine Aminotransferase 26 U/L (0-40); Albumin Level 4.4 g/dL (3.5-5.0); Alkaline Phosphatase 184 U/L (39-117); Anion Gap 12 (12-20); Aspartate Amino Transferase 31 U/L (5-37); Bilirubin Total 0.9 mg/dL (0.0-1.0); Blood Urea Nitrogen 9 mg/dL (9-16); Calcium 9.5 mg/dL (8.4-10.2); Carbon Dioxide 28 mmol/L (22-29); Chloride 104 mmol/L (96-108); Estimated Glomerular Filt Rate > 60; Glucose Random 91 mg/dL (60-115); Magnesium 1.6 mg/dL (1.6-2.6); Potassium 4.5 mmol/L (3.3-5.1); Sodium 139 mmol/L (135-145); Total Protein 7.7 g/dL (6.5-8.0)
== END 2024-01-12 13:38 | disposition home or self-care (01) ==
LOC: HO.LAB 13:37
PROVIDERS: Visit Provider Internal Medicine
DX: C18.0 Malignant neoplasm of cecum (principal)
CPT/HCPCS: 36415; 80053; 83735; 85025

== ENCOUNTER 2024-01-18 13:40 | Outpatient (REF) | payer MEDICAID, SELFPAY ==
[2024-01-18 13:49] LABS: MANUAL DIFF FLAG NO
[2024-01-18 13:53] LABS: Basophils Percent Auto 0.4 % (0-2); Eosinophils Absolute Auto 0.1 X10*3/uL (0.0-0.4); Eosinophils Percent Auto 0.8 % (0-4); Hematocrit 45.1 % (42.0-52.0); Hemoglobin 14.5 g/dl (14.0-18.0); Imm Gran Abs Auto 0.05 X10*3/uL (0.00-0.03); Imm Gran Pct Auto 0.5 % (0.0-0.4); Lymphocytes Absolute Auto 2.2 X10*3/uL (1.2-4.9); Lymphocytes Percent Auto 20.4 % (20-40); Mean Corpuscular HGB Conc 32.2 g/dl (31.0-36.0); Mean Corpuscular Hemoglobin 24.6 pg (27.0-33.0); Mean Corpuscular Volume 76.4 fL (80.0-98.0); Mean Platelet Volume 9.1 fL (9.4-12.4); Monocytes Absolute Auto 0.9 X10*3/uL (0.1-1.2); Monocytes Percent Auto 8.6 % (2-11); Neutrophils Absolute Auto 7.4 x10*3/uL (2.0-8.3); Neutrophils Percent Auto 69.3 % (45-73); Platelet Count 215 X10*3/uL (160-400); Red Cell Distribution Width 18.5 % (11.0-16.0); White Blood Count 10.6 X10*3/uL (4.8-10.8)
[2024-01-18 14:11] LABS: Alanine Aminotransferase 25 U/L (0-40); Albumin Level 4.2 g/dL (3.5-5.0); Alkaline Phosphatase 164 U/L (39-117); Anion Gap 12 (12-20); Aspartate Amino Transferase 32 U/L (5-37); Bilirubin Total 0.8 mg/dL (0.0-1.0); Blood Urea Nitrogen 12 mg/dL (9-16); Calcium 8.9 mg/dL (8.4-10.2); Carbon Dioxide 27 mmol/L (22-29); Chloride 105 mmol/L (96-108); Estimated Glomerular Filt Rate > 60; Glucose Random 75 mg/dL (60-115); Potassium 3.6 mmol/L (3.3-5.1); Sodium 140 mmol/L (135-145)
== END 2024-01-18 13:41 | disposition home or self-care (01) ==
LOC: HO.LABR 13:40
PROVIDERS: Visit Provider Internal Medicine
DX: C18.0 Malignant neoplasm of cecum (principal)
CPT/HCPCS: 36415; 80053; 85025

== ENCOUNTER 2024-01-22 14:29 | Outpatient (REF) | payer MEDICAID, SELFPAY ==
[2024-01-22 18:54] LABS: Urine Cytology See Pathology rpt
== END 2024-01-22 14:30 | disposition home or self-care (01) ==
LOC: HO.LAB 14:29
PROVIDERS: PCP Internal Medicine; Visit Provider Urology
DX: R31.29 Other microscopic hematuria (principal); R39.15 Urgency of urination; R35.0 Frequency of micturition; R33.9 Retention of urine, unspecified; C18.0 Malignant neoplasm of cecum; Z92.21 Personal history of antineoplastic chemotherapy
CPT/HCPCS: 81003; 88112; 99202

== ENCOUNTER 2024-01-22 14:29 | Outpatient (AMB) | payer MEDICAID, SELFPAY ==
--- NOTE | 2024-01-22 15:38 | A.OFFVIS_ITS ---
Intake Intake Visit Reasons: frequency urgency, incomplete bladder Intake Note: NEW Patient presents today to established treatment for Frequency Urgency & Incomplete Bladder: Meds- Tamsulosin Allergies to Antibiotic- No Known Allergies Blood Thinner- None Post Void Residual: 49 mL Global Creative Chairman Required: No Accompanied by: Self / Same As Patient Allergies Iodinated Contrast Media [Contrast Dye] Allergy (Verified 01/22/24 16:05) Swelling Medication List - Last Reconciled 01/22/24 by Tushar Gallagher MD adagrasib (Krazati) 600 mg (3 x 200 mg) PO BID amlodipine (Norvasc) 5 mg PO DAILY dexamethasone 4 mg PO BID diphenoxylate-atropine 2.5-0.025 mg 1 tab PO Q4-8H PRN escitalopram oxalate (Lexapro) 10 mg PO DAILY gabapentin 600 mg (2 x 300 mg) PO BEDTIME loperamide 2 mg PO Q4H PRN magnesium 500 mg PO DAILY minocycline 50 mg PO DAILY ondansetron 8 mg PO Q8H PRN potassium chloride ER 20 mEq PO DAILY sodium chloride 0.65% (Nasal [place] (sodium chloride)) 1 spray intranasal BID tamsulosin (Flomax) 0.4 mg PO BEDTIME vitamin B complex 1 tab PO DAILY HPI HPI Comments History of Present Illness Details Jp is a 53 year old male who is here as a new patient for evaluvation for Microscopic hematuria, followed by Oncology for colon cancer. Manuel krishnamurthy has complaints of slowing of urinary stream. Discussed trial of flomax. Discussed reasons for blood in the urine may include but are not limited to kidney stones, cancer in the urinary tract, BPH, kidney stone disease or inflammatory conditions of the urinary tract. I have discussed workup to include cystoscopy evaluation. Plan--Tamsulosin 0.4 mg daily. Follow-up office cystoscopy, urine cytology PFSH Medical History History of chemotherapy Adenocarcinoma of cecum Abdominal trauma Surgical History History of colonoscopy History of surgery H/O right hemicolectomy Family History Father AIDS Brother Accidental heroin overdose Social History Household Members: Spouse Housing: House Are you a primary care consultant to a significant other at home: No Do you presently have visiting nurse or other home services: No Alcohol intake: former Comment: sleeping Patient Tobacco Use Status: Former Tobacco user Quit Date: 2004 Tobacco use type: Cigarette service: No Current occupational status: employed Review of Systems Const All systems reviewed & are unremarkable except as noted in HPI and below Reports no additional complaints Eyes Reports no additional complaints ENT Reports no additional complaints Card Reports no additional complaints Resp Reports no additional complaints GI Reports no additional complaints Reports as per HPI Musc Reports no additional complaints Skin/Breast Reports system reviewed and no additional complaints, except as documented Neuro Reports no additional complaints Psych Reports no additional complaints Endo Reports no additional complaints Quentin/Lymph Reports no additional complaints Aller/Immun Reports no additional complaints Physical Exam Const General: healthy appearing, no acute distress and well developed Orientation/consciousness: patient oriented x3 HEENT Head: Yes normocephalic and Yes atraumatic Eyes Conjunctivae: conjunctivae normal Neck Neck: Yes normal visual inspection Chest Chest palpation & inspection: normal inspection of the chest Resp Effort & Inspection: normal respiratory effort Cardio Rate: regular rate GI Inspection: Yes normal to inspection Skin General skin exam: no rashes or lesions noted Neuro General: patient oriented x3 Extrem General: No pedal edema Psych Appearance: grossly normal Affect: normal affect Results AMB Urinalysis, Automated UA Leukoctes 0 Damian/uL Last Edit by KIRTI Anguiano on 01/22/24 15:51 UA Nitrite Negative Last Edit by KIRTI Anguiano on 01/22/24 15:51 UA Urobilinogen 3.5 mg/dL Last Edit by KIRTI Anguiano on 01/22/24 15:5 1 UA Protein 15 mg/dL Last Edit by KIRTI Anguiano on 01/22/24 15:51 UA pH 6.0 Last Edit by KIRTI Anguiano on 01/22/24 15:51 UA Blood 0 Kane/uL Last Edit by KIRTI Anguiano on 01/22/24 15:51 UA Specific [place] 1.020 Last Edit by KIRTI Anguiano on 01/22/24 15: 51 UA Ketone Negative Last Edit by KIRTI Anguiano on 01/22/24 15:51 UA Bilirubin 0 mg/dL Last Edit by Katia Freeman A on 01/22/24 15:51 UA Glucose 0 mg/dL Last Edit by KIRTI Anguiano on 01/22/24 15:51 Results Reviewed Results Reviewed: Laboratory Last Values Urine pH (Auto) 6.0 01/22/24 15:50 Specific [place] (Auto) 1.020 01/22/24 15:50 Urine Protein (Auto) 15 mg/dL 01/22/24 15:50 Glucose (UA)(Auto) 0 mg/dL 01/22/24 15:50 Urine Ketones (Auto) Negative 01/22/24 15:50 Urine Blood (Auto) 0 Kane/uL 01/22/24 15:50 Urine Nitrite (Auto) Negative 01/22/24 15:50 Urine Bilirubin (Auto) 0 mg/dL 01/22/24 15:50 Urine Urobilinogen (Auto) 3.5 mg/dL 01/22/24 15:50 Leukocyte Esterase (Auto) 0 Damina/uL 01/22/24 15:50 Assessment & Plan Assessment & Plan (1) Screening PSA (prostate specific antigen): Code(s): Z12.5 - Encounter for screening for malignant neoplasm of prostate (2) Hematuria: Code(s): R31.9 - Hematuria, unspecified (3) BPH loc w urin obs/LUTS: Code(s): N40.1 - Benign prostatic hyperplasia with lower urinary tract symptoms Plan tamsulosin, office cystoscopy, urine cytology PSA screening Orders: Orders AMB Urinalysis Automated 01/22/24 Z13.9 - Encounter for screening, unspecified AMB Post Void Residual by ultrasound 01/22/24 N39.8 - Other specified disorders of urinary system PSA,Total (Free>4and<10) 01/25/24 Z12.5 - Encounter for screening for malignant neoplasm of prostate Urine Cytology 01/22/24 Z13.9 - Encounter for screening, unspecified Medications: New tamsulosin (Flomax) 0.4 mg PO BEDTIME 30 caps 5RF Patient Instructions: The patient had an opportunity to ask questions regarding treatment plan. All questions were answered. The patient expressed understanding and agreement with the above treatment plan. The patient is aware they should contact our office by phone for worsening of their current condition or the appearance of new symptoms. Compliance is encouraged with any medications and followup testing that is ordered. It is a privilege to be allowed the opportunity to participate in the urologic care of your patient. If you have any questions or concerns regarding treatment for the above conditions please do not hesitate to contact me. The office telephone contact is [phone]. This note is constructed in part using voice recognition software. While every effort has been made to ensure accuracy boiler assistant operator errors may have been included. Yours sincerely, Tushar Gallagher MD Coding Level of Care Code New Pt Level 4 (22995) Diagnoses Screening PSA (prostate specific antigen) Z12.5 Hematuria R31.9 BPH loc w urin obs/LUTS N40.1
== END 2024-01-22 15:53 | disposition home or self-care (01) ==
PROVIDERS: PCP Internal Medicine; Visit Provider Urology
DX: Z12.5 Encounter for screening for malignant neoplasm of prostate (principal); R31.9 Hematuria, unspecified; N40.1 Benign prostatic hyperplasia with lower urinary tract symptoms
CPT/HCPCS: 99204

== ENCOUNTER 2024-01-25 13:34 | Outpatient (REF) | payer MEDICAID, SELFPAY ==
[2024-01-25 13:52] LABS: MANUAL DIFF FLAG NO
[2024-01-25 13:54] LABS: Basophils Percent Auto 0.3 % (0-2); Eosinophils Absolute Auto 0.2 X10*3/uL (0.0-0.4); Eosinophils Percent Auto 1.7 % (0-4); Hematocrit 46.9 % (42.0-52.0); Hemoglobin 15.2 g/dl (14.0-18.0); Imm Gran Abs Auto 0.04 X10*3/uL (0.00-0.03); Imm Gran Pct Auto 0.5 % (0.0-0.4); Lymphocytes Absolute Auto 1.8 X10*3/uL (1.2-4.9); Lymphocytes Percent Auto 20.8 % (20-40); Mean Corpuscular HGB Conc 32.4 g/dl (31.0-36.0); Mean Corpuscular Hemoglobin 24.9 pg (27.0-33.0); Mean Corpuscular Volume 76.8 fL (80.0-98.0); Mean Platelet Volume 9.1 fL (9.4-12.4); Monocytes Absolute Auto 0.8 X10*3/uL (0.1-1.2); Monocytes Percent Auto 8.8 % (2-11); Neutrophils Percent Auto 67.9 % (45-73); Platelet Count 224 X10*3/uL (160-400); Red Blood Count 6.11 X10*6/uL (4.60-5.80); Red Cell Distribution Width 18.8 % (11.0-16.0); White Blood Count 8.8 X10*3/uL (4.8-10.8)
[2024-01-25 14:09] LABS: Alanine Aminotransferase 24 U/L (0-40); Albumin Level 4.1 g/dL (3.5-5.0); Alkaline Phosphatase 179 U/L (39-117); Anion Gap 11 (12-20); Aspartate Amino Transferase 30 U/L (5-37); Bilirubin Total 0.6 mg/dL (0.0-1.0); Blood Urea Nitrogen 9 mg/dL (9-16); Calcium 9.4 mg/dL (8.4-10.2); Carbon Dioxide 26 mmol/L (22-29); Chloride 109 mmol/L (96-108); Estimated Glomerular Filt Rate > 60; Glucose Random 92 mg/dL (60-115); Potassium 3.8 mmol/L (3.3-5.1); Sodium 142 mmol/L (135-145); Total Protein 7.6 g/dL (6.5-8.0)
[2024-01-25 15:49] LABS: PSA,Total (Free>4and<10) 0.37 ng/mL (0.00-4.00)
[2024-01-26 08:38] LABS: Magnesium 1.7 mg/dL (1.6-2.6)
== END 2024-01-25 13:35 | disposition home or self-care (01) ==
LOC: HO.LAB 13:34
PROVIDERS: Urology; PCP Internal Medicine; Visit Provider Internal Medicine
DX: C18.0 Malignant neoplasm of cecum (principal); Z12.5 Encounter for screening for malignant neoplasm of prostate
CPT/HCPCS: 36415; 80053; 83735; 84153; 85025

== ENCOUNTER 2024-02-01 15:04 | Outpatient (REF) | payer MEDICAID, SELFPAY ==
[2024-02-01 15:12] LABS: MANUAL DIFF FLAG NO
[2024-02-01 15:14] LABS: Basophils Absolute Auto 0.1 X10*3/uL (0.0-0.2); Basophils Percent Auto 0.5 % (0-2); Eosinophils Absolute Auto 0.1 X10*3/uL (0.0-0.4); Eosinophils Percent Auto 1.3 % (0-4); Hematocrit 49.3 % (42.0-52.0); Hemoglobin 15.8 g/dl (14.0-18.0); Imm Gran Abs Auto 0.03 X10*3/uL (0.00-0.03); Imm Gran Pct Auto 0.3 % (0.0-0.4); Lymphocytes Absolute Auto 2.7 X10*3/uL (1.2-4.9); Lymphocytes Percent Auto 25.4 % (20-40); Mean Corpuscular Hemoglobin 24.9 pg (27.0-33.0); Mean Corpuscular Volume 77.6 fL (80.0-98.0); Mean Platelet Volume 8.9 fL (9.4-12.4); Monocytes Absolute Auto 0.8 X10*3/uL (0.1-1.2); Monocytes Percent Auto 7.6 % (2-11); Neutrophils Absolute Auto 6.9 x10*3/uL (2.0-8.3); Neutrophils Percent Auto 64.9 % (45-73); Platelet Count 265 X10*3/uL (160-400); Red Blood Count 6.35 X10*6/uL (4.60-5.80); Red Cell Distribution Width 19.2 % (11.0-16.0); White Blood Count 10.6 X10*3/uL (4.8-10.8)
[2024-02-01 15:38] LABS: Alanine Aminotransferase 23 U/L (0-40); Albumin Level 4.4 g/dL (3.5-5.0); Alkaline Phosphatase 205 U/L (39-117); Anion Gap 11 (12-20); Aspartate Amino Transferase 31 U/L (5-37); Bilirubin Total 0.6 mg/dL (0.0-1.0); Blood Urea Nitrogen 9 mg/dL (9-16); Calcium 9.8 mg/dL (8.4-10.2); Carbon Dioxide 28 mmol/L (22-29); Chloride 107 mmol/L (96-108); Estimated Glomerular Filt Rate > 60; Glucose Random 95 mg/dL (60-115); Potassium 4.5 mmol/L (3.3-5.1); Sodium 141 mmol/L (135-145); Total Protein 7.9 g/dL (6.5-8.0)
[2024-02-02 08:32] LABS: Magnesium 1.7 mg/dL (1.6-2.6)
== END 2024-02-01 15:05 | disposition home or self-care (01) ==
LOC: HO.LAB 15:04
PROVIDERS: Visit Provider Internal Medicine
DX: C18.0 Malignant neoplasm of cecum (principal)
CPT/HCPCS: 36415; 80053; 83735; 85025

== ENCOUNTER 2024-02-08 15:31 | Outpatient (REF) | payer MEDICAID, SELFPAY ==
[2024-02-08 15:39] LABS: MANUAL DIFF FLAG NO
[2024-02-08 15:42] LABS: Basophils Percent Auto 0.4 % (0-2); Eosinophils Absolute Auto 0.2 X10*3/uL (0.0-0.4); Eosinophils Percent Auto 1.6 % (0-4); Hematocrit 48.8 % (42.0-52.0); Hemoglobin 15.3 g/dl (14.0-18.0); Imm Gran Abs Auto 0.03 X10*3/uL (0.00-0.03); Imm Gran Pct Auto 0.3 % (0.0-0.4); Lymphocytes Absolute Auto 2.3 X10*3/uL (1.2-4.9); Lymphocytes Percent Auto 24.5 % (20-40); Mean Corpuscular HGB Conc 31.4 g/dl (31.0-36.0); Mean Corpuscular Hemoglobin 24.6 pg (27.0-33.0); Mean Corpuscular Volume 78.6 fL (80.0-98.0); Mean Platelet Volume 9.6 fL (9.4-12.4); Monocytes Absolute Auto 0.9 X10*3/uL (0.1-1.2); Neutrophils Absolute Auto 5.9 x10*3/uL (2.0-8.3); Neutrophils Percent Auto 63.2 % (45-73); Platelet Count 263 X10*3/uL (160-400); Red Blood Count 6.21 X10*6/uL (4.60-5.80); Red Cell Distribution Width 18.8 % (11.0-16.0); White Blood Count 9.4 X10*3/uL (4.8-10.8)
[2024-02-08 16:03] LABS: Alanine Aminotransferase 26 U/L (0-40); Albumin Level 4.3 g/dL (3.5-5.0); Alkaline Phosphatase 179 U/L (39-117); Anion Gap 11 (12-20); Aspartate Amino Transferase 34 U/L (5-37); Bilirubin Total 0.6 mg/dL (0.0-1.0); Blood Urea Nitrogen 12 mg/dL (9-16); Calcium 9.6 mg/dL (8.4-10.2); Carbon Dioxide 27 mmol/L (22-29); Chloride 108 mmol/L (96-108); Estimated Glomerular Filt Rate > 60; Glucose Random 99 mg/dL (60-115); Magnesium 1.9 mg/dL (1.6-2.6); Sodium 141 mmol/L (135-145); Total Protein 7.5 g/dL (6.5-8.0)
== END 2024-02-08 15:32 | disposition home or self-care (01) ==
LOC: HO.LAB 15:31
PROVIDERS: Visit Provider Internal Medicine
DX: C18.0 Malignant neoplasm of cecum (principal)
CPT/HCPCS: 36415; 80053; 83735; 85025

== ENCOUNTER 2024-02-15 14:51 | Outpatient (REF) | payer MEDICAID, SELFPAY ==
[2024-02-15 15:17] LABS: MANUAL DIFF FLAG NO
[2024-02-15 15:32] LABS: Basophils Percent Auto 0.4 % (0-2); Eosinophils Absolute Auto 0.1 X10*3/uL (0.0-0.4); Eosinophils Percent Auto 1.2 % (0-4); Hematocrit 48.1 % (42.0-52.0); Hemoglobin 15.3 g/dl (14.0-18.0); Imm Gran Abs Auto 0.04 X10*3/uL (0.00-0.03); Imm Gran Pct Auto 0.4 % (0.0-0.4); Lymphocytes Absolute Auto 2.2 X10*3/uL (1.2-4.9); Lymphocytes Percent Auto 19.7 % (20-40); Mean Corpuscular HGB Conc 31.8 g/dl (31.0-36.0); Mean Corpuscular Hemoglobin 24.9 pg (27.0-33.0); Mean Corpuscular Volume 78.3 fL (80.0-98.0); Mean Platelet Volume 9.5 fL (9.4-12.4); Monocytes Absolute Auto 0.9 X10*3/uL (0.1-1.2); Monocytes Percent Auto 8.1 % (2-11); Neutrophils Absolute Auto 7.9 x10*3/uL (2.0-8.3); Neutrophils Percent Auto 70.2 % (45-73); Platelet Count 250 X10*3/uL (160-400); Red Blood Count 6.14 X10*6/uL (4.60-5.80); Red Cell Distribution Width 18.8 % (11.0-16.0); White Blood Count 11.3 X10*3/uL (4.8-10.8)
[2024-02-15 15:55] LABS: Alanine Aminotransferase 24 U/L (0-40); Albumin Level 4.4 g/dL (3.5-5.0); Alkaline Phosphatase 177 U/L (39-117); Anion Gap 12 (12-20); Aspartate Amino Transferase 32 U/L (5-37); Bilirubin Total 0.6 mg/dL (0.0-1.0); Blood Urea Nitrogen 11 mg/dL (9-16); Calcium 9.7 mg/dL (8.4-10.2); Carbon Dioxide 27 mmol/L (22-29); Chloride 108 mmol/L (96-108); Estimated Glomerular Filt Rate > 60; Glucose Random 91 mg/dL (60-115); Magnesium 1.8 mg/dL (1.6-2.6); Potassium 4.8 mmol/L (3.3-5.1); Sodium 142 mmol/L (135-145); Total Protein 7.6 g/dL (6.5-8.0)
== END 2024-02-15 14:52 | disposition home or self-care (01) ==
LOC: HO.LAB 14:51
PROVIDERS: PCP Internal Medicine; Visit Provider Internal Medicine
DX: C18.0 Malignant neoplasm of cecum (principal)
CPT/HCPCS: 36415; 80053; 83735; 85025

== ENCOUNTER 2024-02-22 14:20 | Outpatient (REF) | payer MEDICAID, SELFPAY ==
[2024-02-22 14:31] LABS: MANUAL DIFF FLAG NO
[2024-02-22 14:35] LABS: Basophils Absolute Auto 0.1 X10*3/uL (0.0-0.2); Basophils Percent Auto 0.6 % (0-2); Eosinophils Absolute Auto 0.1 X10*3/uL (0.0-0.4); Eosinophils Percent Auto 1.6 % (0-4); Hematocrit 47.6 % (42.0-52.0); Hemoglobin 14.9 g/dl (14.0-18.0); Imm Gran Abs Auto 0.03 X10*3/uL (0.00-0.03); Imm Gran Pct Auto 0.3 % (0.0-0.4); Lymphocytes Absolute Auto 2.3 X10*3/uL (1.2-4.9); Lymphocytes Percent Auto 26.6 % (20-40); Mean Corpuscular HGB Conc 31.3 g/dl (31.0-36.0); Mean Corpuscular Volume 79.7 fL (80.0-98.0); Mean Platelet Volume 9.2 fL (9.4-12.4); Monocytes Absolute Auto 0.7 X10*3/uL (0.1-1.2); Monocytes Percent Auto 8.4 % (2-11); Neutrophils Absolute Auto 5.4 x10*3/uL (2.0-8.3); Neutrophils Percent Auto 62.5 % (45-73); Platelet Count 230 X10*3/uL (160-400); Red Blood Count 5.97 X10*6/uL (4.60-5.80); Red Cell Distribution Width 18.7 % (11.0-16.0); White Blood Count 8.7 X10*3/uL (4.8-10.8)
[2024-02-22 16:25] LABS: Alanine Aminotransferase 27 U/L (0-40); Albumin Level 4.4 g/dL (3.5-5.0); Alkaline Phosphatase 174 U/L (39-117); Anion Gap 13 (12-20); Aspartate Amino Transferase 34 U/L (5-37); Bilirubin Total 0.8 mg/dL (0.0-1.0); Blood Urea Nitrogen 10 mg/dL (9-16); Calcium 9.3 mg/dL (8.4-10.2); Carbon Dioxide 26 mmol/L (22-29); Chloride 106 mmol/L (96-108); Estimated Glomerular Filt Rate > 60; Glucose Random 111 mg/dL (60-115); Magnesium 1.6 mg/dL (1.6-2.6); Potassium 3.9 mmol/L (3.3-5.1); Sodium 141 mmol/L (135-145); Total Protein 7.5 g/dL (6.5-8.0)
== END 2024-02-22 14:21 | disposition home or self-care (01) ==
LOC: HO.LAB 14:20
PROVIDERS: PCP Internal Medicine; Visit Provider Internal Medicine
DX: C18.0 Malignant neoplasm of cecum (principal)
CPT/HCPCS: 36415; 80053; 83735; 85025

== ENCOUNTER 2024-02-24 06:58 | Outpatient (REF) | payer MEDICAID, SELFPAY ==
--- NOTE | ~2024-02-24 | CT_ITS ---
EXAMINATION: CT ABDOMEN AND PELVIS WITHOUT CONTRAST CLINICAL INFORMATION: Response to treatment. Colon cancer. COMPARISON: PET/CT 06/24/2023. CT abdomen and pelvis 04/24/2023, 02/04/2022. TECHNIQUE: Multidetector volumetric imaging was performed from the superior aspect of the liver through the pubic symphysis. Sagittal and coronal reformatted images were obtained on the technologist's workstation. This CT examination was performed using dose optimization techniques as appropriate, variously including the following: *Automated exposure control *Adjustment of mA and/or kV according to patient size (this includes techniques or standardized protocols for targeted exams where dose is matched to indication/reason for exam; i.e. extremities or head) *Use of iterative reconstruction technique DLP: 420 mGy-cm FINDINGS: LUNG BASES: No evidence of metastatic disease. LIVER, GALLBLADDER, AND BILIARY TREE: Noncontrast evaluation limits assessment but no visible metastatic disease is seen. No biliary ductal dilatation. The gallbladder is unremarkable with no evidence of radiopaque gallstones, gallbladder wall thickening, or obvious pericholecystic inflammatory changes. PANCREAS: No discrete pancreatic mass or pancreatic ductal dilatation. SPLEEN: The spleen appears normal. ADRENAL GLANDS: No adrenal mass. KIDNEYS AND URETERS: The kidneys are normal in size, shape, and attenuation. No hydronephrosis, hydroureter, or calculi seen. No perinephric stranding. BLADDER: Unremarkable. GASTROINTESTINAL TRACT: Cecectomy with ileocolonic anastomosis in the right midabdomen. There is no evidence for bowel obstruction. Mass around the surgical clips in the right mid abdomen measures 3.5 x 2.4 x 4.6 cm, previously 3.2 x 2.7 x 4.0 cm. There is a soft tissue tract inferomedial from this lesion to a nodule that measures 1.8 x 1.3 x 1.9 cm, previously 1.4 x 1.4 x 1.4 cm. There is a mass along the peritoneum just above and to the right of the umbilical ring that measures 1.9 x 1.6 x 2.2 cm, previously 1.8 x 1.0 x 1.9 cm. These findings are consistent with peritoneal metastatic disease. ABDOMINAL WALL: No significant hernia is appreciated. LYMPH NODES: No bulky adenopathy. VASCULAR: No aortic aneurysm. PELVIC VISCERA: Unremarkable. OSSEOUS STRUCTURES: Bilateral pars defects at L5 with grade 2 anterolisthesis of L5 on S1 measuring 1.3 cm. No osseous metastatic disease seen. CT/CT abdomen pelvis wo IV con IMPRESSION: Mild progression of peritoneal metastatic disease. Fleischner guidelines were followed.
== END 2024-02-24 06:59 | disposition home or self-care (01) ==
LOC: HO.CT 06:58
PROVIDERS: PCP Internal Medicine; Visit Provider Internal Medicine
DX: C18.0 Malignant neoplasm of cecum (principal)
CPT/HCPCS: 74176

== ENCOUNTER 2024-03-01 11:44 | Outpatient (REF) | payer MEDICAID, SELFPAY ==
[2024-03-01 12:00] LABS: MANUAL DIFF FLAG NO
[2024-03-01 12:16] LABS: Alanine Aminotransferase 25 U/L (0-40); Albumin Level 4.3 g/dL (3.5-5.0); Alkaline Phosphatase 180 U/L (39-117); Anion Gap 12 (12-20); Aspartate Amino Transferase 33 U/L (5-37); Bilirubin Total 0.7 mg/dL (0.0-1.0); Blood Urea Nitrogen 8 mg/dL (9-16); Calcium 9.9 mg/dL (8.4-10.2); Carbon Dioxide 27 mmol/L (22-29); Chloride 106 mmol/L (96-108); Estimated Glomerular Filt Rate > 60; Glucose Random 114 mg/dL (60-115); Potassium 3.9 mmol/L (3.3-5.1); Sodium 141 mmol/L (135-145); Total Protein 7.5 g/dL (6.5-8.0)
[2024-03-01 12:18] LABS: Basophils Percent Auto 0.5 % (0-2); Eosinophils Absolute Auto 0.1 X10*3/uL (0.0-0.4); Eosinophils Percent Auto 0.9 % (0-4); Hematocrit 48.3 % (42.0-52.0); Hemoglobin 15.5 g/dl (14.0-18.0); Imm Gran Abs Auto 0.02 X10*3/uL (0.00-0.03); Imm Gran Pct Auto 0.2 % (0.0-0.4); Lymphocytes Absolute Auto 2.3 X10*3/uL (1.2-4.9); Lymphocytes Percent Auto 26.5 % (20-40); Mean Corpuscular HGB Conc 32.1 g/dl (31.0-36.0); Mean Corpuscular Hemoglobin 25.1 pg (27.0-33.0); Mean Corpuscular Volume 78.3 fL (80.0-98.0); Mean Platelet Volume 9.5 fL (9.4-12.4); Monocytes Absolute Auto 0.6 X10*3/uL (0.1-1.2); Neutrophils Absolute Auto 5.7 x10*3/uL (2.0-8.3); Neutrophils Percent Auto 64.9 % (45-73); Platelet Count 254 X10*3/uL (160-400); Red Blood Count 6.17 X10*6/uL (4.60-5.80); Red Cell Distribution Width 18.6 % (11.0-16.0); White Blood Count 8.7 X10*3/uL (4.8-10.8)
== END 2024-03-01 11:45 | disposition home or self-care (01) ==
LOC: HO.LAB 11:44
PROVIDERS: PCP Internal Medicine; Visit Provider Internal Medicine
DX: C18.0 Malignant neoplasm of cecum (principal)
CPT/HCPCS: 36415; 80053; 85025

== ENCOUNTER 2024-03-07 15:44 | Outpatient (REF) | payer MEDICAID, SELFPAY ==
[2024-03-07 15:56] LABS: MANUAL DIFF FLAG NO
[2024-03-07 16:11] LABS: Alanine Aminotransferase 22 U/L (0-40); Albumin Level 4.2 g/dL (3.5-5.0); Alkaline Phosphatase 180 U/L (39-117); Anion Gap 10 (12-20); Aspartate Amino Transferase 33 U/L (5-37); Bilirubin Total 0.6 mg/dL (0.0-1.0); Blood Urea Nitrogen 9 mg/dL (9-16); Calcium 9.5 mg/dL (8.4-10.2); Carbon Dioxide 26 mmol/L (22-29); Chloride 109 mmol/L (96-108); Estimated Glomerular Filt Rate > 60; Glucose Random 91 mg/dL (60-115); Magnesium 1.7 mg/dL (1.6-2.6); Sodium 141 mmol/L (135-145); Total Protein 7.4 g/dL (6.5-8.0)
[2024-03-07 16:14] LABS: Basophils Absolute Auto 0.1 X10*3/uL (0.0-0.2); Basophils Percent Auto 0.6 % (0-2); Eosinophils Absolute Auto 0.2 X10*3/uL (0.0-0.4); Eosinophils Percent Auto 1.6 % (0-4); Hematocrit 46.6 % (42.0-52.0); Hemoglobin 14.7 g/dl (14.0-18.0); Imm Gran Abs Auto 0.04 X10*3/uL (0.00-0.03); Imm Gran Pct Auto 0.4 % (0.0-0.4); Lymphocytes Absolute Auto 2.4 X10*3/uL (1.2-4.9); Lymphocytes Percent Auto 24.5 % (20-40); Mean Corpuscular HGB Conc 31.5 g/dl (31.0-36.0); Mean Corpuscular Hemoglobin 24.8 pg (27.0-33.0); Mean Corpuscular Volume 78.7 fL (80.0-98.0); Mean Platelet Volume 9.6 fL (9.4-12.4); Monocytes Absolute Auto 0.9 X10*3/uL (0.1-1.2); Neutrophils Absolute Auto 6.2 x10*3/uL (2.0-8.3); Neutrophils Percent Auto 63.9 % (45-73); Platelet Count 258 X10*3/uL (160-400); Red Blood Count 5.92 X10*6/uL (4.60-5.80); Red Cell Distribution Width 18.1 % (11.0-16.0); White Blood Count 9.7 X10*3/uL (4.8-10.8)
== END 2024-03-07 15:45 | disposition home or self-care (01) ==
LOC: HO.LAB 15:44
PROVIDERS: Visit Provider Internal Medicine
DX: C18.0 Malignant neoplasm of cecum (principal)
CPT/HCPCS: 36415; 80053; 83735; 85025

== ENCOUNTER 2024-03-09 13:35 | Outpatient (AMB) | payer MEDICAID, SELFPAY ==
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
== END 2024-03-09 14:49 | disposition home or self-care (01) ==
PROVIDERS: PCP Internal Medicine; Visit Provider Urology
DX: N40.1 Benign prostatic hyperplasia with lower urinary tract symptoms (principal); R31.9 Hematuria, unspecified; Z13.9 Encounter for screening, unspecified
CPT/HCPCS: 52000; 99213

== ENCOUNTER → 2024-03-09 13:35 | Outpatient (BNVA) | payer MEDICAID, SELFPAY | PROVIDERS: PCP Internal Medicine; Visit Provider Urology | DX: R31.9 Hematuria, unspecified (principal); N40.1 Benign prostatic hyperplasia with lower urinary tract symptoms; N13.8 Other obstructive and reflux uropathy | CPT/HCPCS: 52000; 81003; 99212 ==

== ENCOUNTER 2024-03-15 15:12 | Outpatient (REF) | payer MEDICAID, SELFPAY ==
[2024-03-15 15:37] LABS: Appearance Urine Clear; Color Urine Yellow; Glucose Urine UA Negative (Negative); Leukocyte Esterase Urine Negative (Negative); Nitrite Urine Negative (Negative); PH 5.5 (5.0-9.0); Urine Blood Negative (Negative); Urine Ketones Negative (Negative); Urine Protein Trace mg/dL (Neg-Trace)
[2024-03-15 17:17] LABS: Alanine Aminotransferase 24 U/L (0-40); Albumin Level 4.5 g/dL (3.5-5.0); Alkaline Phosphatase 201 U/L (39-117); Anion Gap 14 (12-20); Aspartate Amino Transferase 32 U/L (5-37); Bilirubin Total 0.6 mg/dL (0.0-1.0); Blood Urea Nitrogen 10 mg/dL (9-16); Carbon Dioxide 27 mmol/L (22-29); Chloride 105 mmol/L (96-108); Estimated Glomerular Filt Rate > 60; Glucose Random 104 mg/dL (60-115); Potassium 4.4 mmol/L (3.3-5.1); Sodium 142 mmol/L (135-145); Total Protein 7.7 g/dL (6.5-8.0)
== END 2024-03-15 15:13 | disposition home or self-care (01) ==
LOC: HO.LAB 15:12
PROVIDERS: Visit Provider Internal Medicine
DX: C18.0 Malignant neoplasm of cecum (principal)
CPT/HCPCS: 36415; 80053; 81003

== ENCOUNTER 2024-03-22 14:11 | Outpatient (REF) | payer MEDICAID, SELFPAY ==
[2024-03-22 14:22] LABS: MANUAL DIFF FLAG NO
[2024-03-22 14:26] LABS: Basophils Percent Auto 0.4 % (0-2); Eosinophils Absolute Auto 0.1 X10*3/uL (0.0-0.4); Eosinophils Percent Auto 1.2 % (0-4); Hematocrit 45.8 % (42.0-52.0); Hemoglobin 14.8 g/dl (14.0-18.0); Imm Gran Abs Auto 0.03 X10*3/uL (0.00-0.03); Imm Gran Pct Auto 0.4 % (0.0-0.4); Lymphocytes Absolute Auto 2.3 X10*3/uL (1.2-4.9); Lymphocytes Percent Auto 30.5 % (20-40); Mean Corpuscular HGB Conc 32.3 g/dl (31.0-36.0); Mean Corpuscular Hemoglobin 25.6 pg (27.0-33.0); Mean Corpuscular Volume 79.1 fL (80.0-98.0); Mean Platelet Volume 9.4 fL (9.4-12.4); Monocytes Absolute Auto 0.6 X10*3/uL (0.1-1.2); Monocytes Percent Auto 7.2 % (2-11); Neutrophils Absolute Auto 4.6 x10*3/uL (2.0-8.3); Neutrophils Percent Auto 60.3 % (45-73); Platelet Count 223 X10*3/uL (160-400); Red Blood Count 5.79 X10*6/uL (4.60-5.80); Red Cell Distribution Width 17.7 % (11.0-16.0); White Blood Count 7.6 X10*3/uL (4.8-10.8)
[2024-03-22 14:32] LABS: Appearance Urine Clear; Color Urine Yellow; Glucose Urine UA Negative (Negative); Leukocyte Esterase Urine Negative (Negative); Nitrite Urine Negative (Negative); PH 6.5 (5.0-9.0); Specific Gravity - Urine 1.015 (1.005-1.025); Urine Blood Negative (Negative); Urine Ketones Negative (Negative); Urine Protein Negative (Neg-Trace)
== END 2024-03-22 14:12 | disposition home or self-care (01) ==
LOC: HO.LAB 14:11
PROVIDERS: Internal Medicine; Visit Provider Internal Medicine Medical Oncology
DX: C18.0 Malignant neoplasm of cecum (principal)
CPT/HCPCS: 36415; 81003; 85025

== ENCOUNTER 2024-03-28 13:55 | Outpatient (REF) | payer MEDICAID, SELFPAY ==
[2024-03-28 14:11] LABS: MANUAL DIFF FLAG NO
[2024-03-28 14:16] LABS: Basophils Percent Auto 0.3 % (0-2); Eosinophils Absolute Auto 0.1 X10*3/uL (0.0-0.4); Hematocrit 46.1 % (42.0-52.0); Hemoglobin 14.9 g/dl (14.0-18.0); Imm Gran Abs Auto 0.02 X10*3/uL (0.00-0.03); Imm Gran Pct Auto 0.3 % (0.0-0.4); Lymphocytes Absolute Auto 2.1 X10*3/uL (1.2-4.9); Lymphocytes Percent Auto 29.4 % (20-40); Mean Corpuscular HGB Conc 32.3 g/dl (31.0-36.0); Mean Corpuscular Hemoglobin 25.6 pg (27.0-33.0); Mean Corpuscular Volume 79.3 fL (80.0-98.0); Monocytes Absolute Auto 0.5 X10*3/uL (0.1-1.2); Monocytes Percent Auto 6.3 % (2-11); Neutrophils Absolute Auto 4.6 x10*3/uL (2.0-8.3); Neutrophils Percent Auto 62.7 % (45-73); Platelet Count 240 X10*3/uL (160-400); Red Blood Count 5.81 X10*6/uL (4.60-5.80); Red Cell Distribution Width 17.9 % (11.0-16.0); White Blood Count 7.3 X10*3/uL (4.8-10.8)
[2024-03-28 14:20] LABS: Appearance Urine Clear; Color Urine Dark Yellow; Glucose Urine UA Negative (Negative); Leukocyte Esterase Urine Negative (Negative); Nitrite Urine Negative (Negative); PH 5.5 (5.0-9.0); Specific Gravity - Urine >= 1.030 (1.005-1.025); Urine Blood Negative (Negative); Urine Ketones Trace mg/dL (Negative); Urine Protein Trace mg/dL (Neg-Trace)
[2024-03-28 14:30] LABS: Alanine Aminotransferase 18 U/L (0-40); Albumin Level 4.2 g/dL (3.5-5.0); Alkaline Phosphatase 167 U/L (39-117); Anion Gap 10 (12-20); Aspartate Amino Transferase 25 U/L (5-37); Bilirubin Total 0.6 mg/dL (0.0-1.0); Blood Urea Nitrogen 13 mg/dL (9-16); Calcium 9.3 mg/dL (8.4-10.2); Carbon Dioxide 28 mmol/L (22-29); Chloride 107 mmol/L (96-108); Estimated Glomerular Filt Rate > 60; Glucose Random 87 mg/dL (60-115); Potassium 4.1 mmol/L (3.3-5.1); Sodium 141 mmol/L (135-145); Total Protein 7.2 g/dL (6.5-8.0)
== END 2024-03-28 13:56 | disposition home or self-care (01) ==
LOC: HO.LAB 13:55
PROVIDERS: Visit Provider Internal Medicine
DX: C18.0 Malignant neoplasm of cecum (principal)
CPT/HCPCS: 36415; 80053; 81003; 85025

== ENCOUNTER 2024-04-04 08:22 | Outpatient (REF) | payer MEDICAID, SELFPAY ==
[2024-04-04 08:41] LABS: MANUAL DIFF FLAG NO
[2024-04-04 08:46] LABS: Basophils Percent Auto 0.4 % (0-2); Eosinophils Absolute Auto 0.1 X10*3/uL (0.0-0.4); Eosinophils Percent Auto 1.3 % (0-4); Hematocrit 46.7 % (42.0-52.0); Imm Gran Abs Auto 0.02 X10*3/uL (0.00-0.03); Imm Gran Pct Auto 0.4 % (0.0-0.4); Lymphocytes Percent Auto 37.1 % (20-40); Mean Corpuscular HGB Conc 32.1 g/dl (31.0-36.0); Mean Corpuscular Hemoglobin 25.9 pg (27.0-33.0); Mean Corpuscular Volume 80.7 fL (80.0-98.0); Mean Platelet Volume 8.9 fL (9.4-12.4); Monocytes Absolute Auto 0.4 X10*3/uL (0.1-1.2); Monocytes Percent Auto 6.8 % (2-11); Platelet Count 227 X10*3/uL (160-400); Red Blood Count 5.79 X10*6/uL (4.60-5.80); Red Cell Distribution Width 18.9 % (11.0-16.0); White Blood Count 5.5 X10*3/uL (4.8-10.8)
[2024-04-04 08:57] LABS: Alanine Aminotransferase 19 U/L (0-40); Albumin Level 4.3 g/dL (3.5-5.0); Alkaline Phosphatase 149 U/L (39-117); Anion Gap 16 (12-20); Aspartate Amino Transferase 27 U/L (5-37); Bilirubin Total 0.7 mg/dL (0.0-1.0); Blood Urea Nitrogen 16 mg/dL (9-16); Calcium 9.5 mg/dL (8.4-10.2); Carbon Dioxide 23 mmol/L (22-29); Chloride 112 mmol/L (96-108); Estimated Glomerular Filt Rate > 60; Glucose Random 80 mg/dL (60-115); Potassium 4.7 mmol/L (3.3-5.1); Sodium 146 mmol/L (135-145); Total Protein 7.4 g/dL (6.5-8.0)
== END 2024-04-04 08:23 | disposition home or self-care (01) ==
LOC: HO.LAB 08:22
PROVIDERS: Visit Provider Internal Medicine
DX: C18.0 Malignant neoplasm of cecum (principal)
CPT/HCPCS: 36415; 80053; 85025

== ENCOUNTER 2024-04-11 12:54 | Outpatient (REF) | payer MEDICAID, SELFPAY ==
[2024-04-11 13:05] LABS: MANUAL DIFF FLAG NO
[2024-04-11 13:44] LABS: Basophils Percent Auto 0.4 % (0-2); Eosinophils Absolute Auto 0.1 X10*3/uL (0.0-0.4); Eosinophils Percent Auto 1.1 % (0-4); Hematocrit 47.1 % (42.0-52.0); Hemoglobin 14.9 g/dl (14.0-18.0); Imm Gran Abs Auto 0.01 X10*3/uL (0.00-0.03); Imm Gran Pct Auto 0.2 % (0.0-0.4); Lymphocytes Absolute Auto 2.1 X10*3/uL (1.2-4.9); Lymphocytes Percent Auto 46.2 % (20-40); Mean Corpuscular HGB Conc 31.6 g/dl (31.0-36.0); Mean Corpuscular Volume 82.1 fL (80.0-98.0); Mean Platelet Volume 9.8 fL (9.4-12.4); Monocytes Absolute Auto 0.4 X10*3/uL (0.1-1.2); Monocytes Percent Auto 9.3 % (2-11); Neutrophils Percent Auto 42.8 % (45-73); Platelet Count 267 X10*3/uL (160-400); Red Blood Count 5.74 X10*6/uL (4.60-5.80); Red Cell Distribution Width 19.6 % (11.0-16.0); White Blood Count 4.6 X10*3/uL (4.8-10.8)
[2024-04-11 14:16] LABS: Alanine Aminotransferase 17 U/L (0-40); Albumin Level 4.4 g/dL (3.5-5.0); Alkaline Phosphatase 144 U/L (39-117); Anion Gap 10 (12-20); Aspartate Amino Transferase 24 U/L (5-37); Bilirubin Total 0.6 mg/dL (0.0-1.0); Blood Urea Nitrogen 11 mg/dL (9-16); Calcium 9.5 mg/dL (8.4-10.2); Carbon Dioxide 29 mmol/L (22-29); Chloride 110 mmol/L (96-108); Estimated Glomerular Filt Rate > 60; Glucose Random 90 mg/dL (60-115); Potassium 4.9 mmol/L (3.3-5.1); Sodium 144 mmol/L (135-145); Total Protein 7.4 g/dL (6.5-8.0)
== END 2024-04-11 12:55 | disposition home or self-care (01) ==
LOC: HO.LAB 12:54
PROVIDERS: Visit Provider Internal Medicine
DX: C18.0 Malignant neoplasm of cecum (principal)
CPT/HCPCS: 36415; 80053; 85025

== ENCOUNTER 2024-04-18 16:19 | Outpatient (REF) | payer MEDICAID, SELFPAY ==
[2024-04-18 16:32] LABS: MANUAL DIFF FLAG NO
[2024-04-18 17:48] LABS: Basophils Percent Auto 0.4 % (0-2); Eosinophils Percent Auto 0.6 % (0-4); Hematocrit 47.8 % (42.0-52.0); Hemoglobin 15.4 g/dl (14.0-18.0); Imm Gran Abs Auto 0.01 X10*3/uL (0.00-0.03); Imm Gran Pct Auto 0.2 % (0.0-0.4); Lymphocytes Absolute Auto 2.1 X10*3/uL (1.2-4.9); Lymphocytes Percent Auto 45.6 % (20-40); Mean Corpuscular HGB Conc 32.2 g/dl (31.0-36.0); Mean Corpuscular Hemoglobin 26.3 pg (27.0-33.0); Mean Corpuscular Volume 81.6 fL (80.0-98.0); Mean Platelet Volume 9.7 fL (9.4-12.4); Monocytes Absolute Auto 0.5 X10*3/uL (0.1-1.2); Monocytes Percent Auto 9.9 % (2-11); Neutrophils Percent Auto 43.3 % (45-73); Platelet Count 262 X10*3/uL (160-400); Red Blood Count 5.86 X10*6/uL (4.60-5.80); Red Cell Distribution Width 19.8 % (11.0-16.0); White Blood Count 4.6 X10*3/uL (4.8-10.8)
[2024-04-18 17:53] LABS: Appearance Urine Clear; Color Urine Yellow; Glucose Urine UA Negative (Negative); Leukocyte Esterase Urine Negative (Negative); Nitrite Urine Negative (Negative); Specific Gravity - Urine 1.025 (1.005-1.025); Urine Blood Negative (Negative); Urine Ketones Negative (Negative); Urine Protein Negative (Neg-Trace)
[2024-04-18 18:04] LABS: Alanine Aminotransferase 18 U/L (0-40); Albumin Level 4.3 g/dL (3.5-5.0); Alkaline Phosphatase 156 U/L (39-117); Anion Gap 12 (12-20); Aspartate Amino Transferase 27 U/L (5-37); Bilirubin Total 0.5 mg/dL (0.0-1.0); Blood Urea Nitrogen 12 mg/dL (9-16); Calcium 9.5 mg/dL (8.4-10.2); Carbon Dioxide 28 mmol/L (22-29); Chloride 108 mmol/L (96-108); Estimated Glomerular Filt Rate > 60; Glucose Random 110 mg/dL (60-115); Potassium 4.6 mmol/L (3.3-5.1); Sodium 143 mmol/L (135-145); Total Protein 7.5 g/dL (6.5-8.0)
== END 2024-04-18 16:20 | disposition home or self-care (01) ==
LOC: HO.LAB 16:19
PROVIDERS: PCP Internal Medicine; Visit Provider Internal Medicine
DX: C18.0 Malignant neoplasm of cecum (principal)
CPT/HCPCS: 36415; 80053; 81003; 85025

== ENCOUNTER 2024-04-25 14:54 | Outpatient (REF) | payer MEDICAID, SELFPAY ==
[2024-04-25 15:14] LABS: MANUAL DIFF FLAG NO
[2024-04-25 15:19] LABS: Basophils Percent Auto 0.4 % (0-2); Eosinophils Percent Auto 0.6 % (0-4); Hematocrit 46.7 % (42.0-52.0); Hemoglobin 14.8 g/dl (14.0-18.0); Imm Gran Abs Auto 0.02 X10*3/uL (0.00-0.03); Imm Gran Pct Auto 0.4 % (0.0-0.4); Lymphocytes Absolute Auto 2.3 X10*3/uL (1.2-4.9); Lymphocytes Percent Auto 43.6 % (20-40); Mean Corpuscular HGB Conc 31.7 g/dl (31.0-36.0); Mean Corpuscular Hemoglobin 25.6 pg (27.0-33.0); Mean Corpuscular Volume 80.9 fL (80.0-98.0); Mean Platelet Volume 9.3 fL (9.4-12.4); Monocytes Absolute Auto 0.3 X10*3/uL (0.1-1.2); Monocytes Percent Auto 6.4 % (2-11); Neutrophils Absolute Auto 2.6 x10*3/uL (2.0-8.3); Neutrophils Percent Auto 48.6 % (45-73); Platelet Count 213 X10*3/uL (160-400); Red Blood Count 5.77 X10*6/uL (4.60-5.80); Red Cell Distribution Width 19.1 % (11.0-16.0); White Blood Count 5.3 X10*3/uL (4.8-10.8)
[2024-04-25 15:34] LABS: Alanine Aminotransferase 17 U/L (0-40); Albumin Level 4.5 g/dL (3.5-5.0); Alkaline Phosphatase 140 U/L (39-117); Anion Gap 12 (12-20); Aspartate Amino Transferase 24 U/L (5-37); Bilirubin Total 0.7 mg/dL (0.0-1.0); Blood Urea Nitrogen 12 mg/dL (9-16); Calcium 9.3 mg/dL (8.4-10.2); Carbon Dioxide 25 mmol/L (22-29); Chloride 107 mmol/L (96-108); Estimated Glomerular Filt Rate > 60; Glucose Random 94 mg/dL (60-115); Potassium 4.4 mmol/L (3.3-5.1); Sodium 140 mmol/L (135-145); Total Protein 7.4 g/dL (6.5-8.0)
[2024-04-25 15:36] LABS: Appearance Urine Clear; Color Urine Yellow; Glucose Urine UA Negative (Negative); Leukocyte Esterase Urine Negative (Negative); Nitrite Urine Negative (Negative); PH 5.5 (5.0-9.0); Urine Blood Negative (Negative); Urine Ketones Negative (Negative); Urine Protein Negative (Neg-Trace)
== END 2024-04-25 14:55 | disposition home or self-care (01) ==
LOC: HO.LAB 14:54
PROVIDERS: Visit Provider Internal Medicine
DX: Z12.5 Encounter for screening for malignant neoplasm of prostate (principal); C18.0 Malignant neoplasm of cecum
CPT/HCPCS: 36415; 80053; 81003; 85025

== ENCOUNTER 2024-05-09 14:14 | Outpatient (REF) | payer MEDICAID, SELFPAY ==
[2024-05-09 14:32] LABS: MANUAL DIFF FLAG NO
[2024-05-09 14:36] LABS: Eosinophils Percent Auto 0.7 % (0-4); Hematocrit 48.1 % (42.0-52.0); Hemoglobin 15.3 g/dl (14.0-18.0); Lymphocytes Absolute Auto 2.2 X10*3/uL (1.2-4.9); Lymphocytes Percent Auto 53.4 % (20-40); Mean Corpuscular HGB Conc 31.8 g/dl (31.0-36.0); Mean Corpuscular Hemoglobin 25.9 pg (27.0-33.0); Mean Corpuscular Volume 81.5 fL (80.0-98.0); Monocytes Absolute Auto 0.5 X10*3/uL (0.1-1.2); Monocytes Percent Auto 11.3 % (2-11); Neutrophils Absolute Auto 1.4 x10*3/uL (2.0-8.3); Neutrophils Percent Auto 34.6 % (45-73); Platelet Count 258 X10*3/uL (160-400); Red Cell Distribution Width 20.3 % (11.0-16.0); White Blood Count 4.1 X10*3/uL (4.8-10.8)
[2024-05-09 14:49] LABS: Alanine Aminotransferase 20 U/L (0-40); Albumin Level 4.8 g/dL (3.5-5.0); Alkaline Phosphatase 137 U/L (39-117); Anion Gap 14 (12-20); Aspartate Amino Transferase 29 U/L (5-37); Bilirubin Total 0.9 mg/dL (0.0-1.0); Blood Urea Nitrogen 10 mg/dL (9-16); Calcium 9.8 mg/dL (8.4-10.2); Carbon Dioxide 24 mmol/L (22-29); Chloride 108 mmol/L (96-108); Estimated Glomerular Filt Rate > 60; Glucose Random 98 mg/dL (60-115); Potassium 4.8 mmol/L (3.3-5.1); Sodium 141 mmol/L (135-145); Total Protein 7.8 g/dL (6.5-8.0)
[2024-05-09 15:49] LABS: Appearance Urine Clear; Color Urine Yellow; Glucose Urine UA Negative (Negative); Leukocyte Esterase Urine Negative (Negative); Nitrite Urine Negative (Negative); PH 5.5 (5.0-9.0); Urine Blood Negative (Negative); Urine Ketones Negative (Negative); Urine Protein Negative (Neg-Trace)
== END 2024-05-09 14:15 | disposition home or self-care (01) ==
LOC: HO.LAB 14:14
PROVIDERS: Visit Provider Internal Medicine
DX: C18.0 Malignant neoplasm of cecum (principal)
CPT/HCPCS: 36415; 80053; 81003; 85025

== ENCOUNTER 2024-05-23 15:58 | Outpatient (REF) | payer MEDICAID, SELFPAY ==
[2024-05-23 16:10] LABS: MANUAL DIFF FLAG NO
[2024-05-23 16:26] LABS: Basophils Percent Auto 0.2 % (0-2); Eosinophils Percent Auto 0.2 % (0-4); Hematocrit 47.2 % (42.0-52.0); Hemoglobin 15.2 g/dl (14.0-18.0); Imm Gran Abs Auto 0.01 X10*3/uL (0.00-0.03); Imm Gran Pct Auto 0.2 % (0.0-0.4); Lymphocytes Absolute Auto 2.3 X10*3/uL (1.2-4.9); Lymphocytes Percent Auto 49.6 % (20-40); Mean Corpuscular HGB Conc 32.2 g/dl (31.0-36.0); Mean Corpuscular Hemoglobin 26.3 pg (27.0-33.0); Mean Corpuscular Volume 81.5 fL (80.0-98.0); Mean Platelet Volume 9.2 fL (9.4-12.4); Monocytes Absolute Auto 0.3 X10*3/uL (0.1-1.2); Monocytes Percent Auto 6.1 % (2-11); Neutrophils Percent Auto 43.7 % (45-73); Platelet Count 177 X10*3/uL (160-400); Red Blood Count 5.79 X10*6/uL (4.60-5.80); Red Cell Distribution Width 19.7 % (11.0-16.0); White Blood Count 4.6 X10*3/uL (4.8-10.8)
[2024-05-23 17:27] LABS: Appearance Urine Clear; Color Urine Yellow; Glucose Urine UA Negative (Negative); Leukocyte Esterase Urine Negative (Negative); Nitrite Urine Negative (Negative); PH 5.5 (5.0-9.0); Specific Gravity - Urine 1.015 (1.005-1.025); Urine Blood Negative (Negative); Urine Ketones Negative (Negative); Urine Protein Negative (Neg-Trace)
[2024-05-23 17:30] LABS: Alanine Aminotransferase 19 U/L (0-40); Albumin Level 4.8 g/dL (3.5-5.0); Alkaline Phosphatase 154 U/L (39-117); Anion Gap 11 (12-20); Aspartate Amino Transferase 21 U/L (5-37); Bilirubin Total 0.8 mg/dL (0.0-1.0); Blood Urea Nitrogen 11 mg/dL (9-16); Calcium 9.6 mg/dL (8.4-10.2); Carbon Dioxide 27 mmol/L (22-29); Chloride 107 mmol/L (96-108); Estimated Glomerular Filt Rate > 60; Glucose Random 101 mg/dL (60-115); Potassium 4.8 mmol/L (3.3-5.1); Sodium 140 mmol/L (135-145)
== END 2024-05-23 15:59 | disposition home or self-care (01) ==
LOC: HO.LAB 15:58
PROVIDERS: PCP Internal Medicine; Visit Provider Internal Medicine
DX: C18.0 Malignant neoplasm of cecum (principal)
CPT/HCPCS: 36415; 80053; 81003; 85025

== ENCOUNTER 2024-06-06 14:39 | Outpatient (REF) | payer MEDICAID, SELFPAY ==
[2024-06-06 14:54] LABS: Eosinophils Percent Auto 0.8 % (0-4); Hematocrit 41.5 % (42.0-52.0); Hemoglobin 13.6 g/dl (14.0-18.0); Lymphocytes Absolute Auto 1.9 X10*3/uL (1.2-4.9); Lymphocytes Percent Auto 74.4 % (20-40); MANUAL DIFF FLAG SCAN; Mean Corpuscular HGB Conc 32.8 g/dl (31.0-36.0); Mean Corpuscular Hemoglobin 27.3 pg (27.0-33.0); Mean Corpuscular Volume 83.2 fL (80.0-98.0); Mean Platelet Volume 9.5 fL (9.4-12.4); Monocytes Absolute Auto 0.3 X10*3/uL (0.1-1.2); Monocytes Percent Auto 10.4 % (2-11); Neutrophils Absolute Auto 0.4 x10*3/uL (2.0-8.3); Neutrophils Percent Auto 14.4 % (45-73); Platelet Count 254 X10*3/uL (160-400); Red Blood Count 4.99 X10*6/uL (4.60-5.80); Red Cell Distribution Width 20.2 % (11.0-16.0); SCAN SMEAR FLAG 1
[2024-06-06 14:55] LABS: White Blood Count 2.5 X10*3/uL (4.8-10.8)
[2024-06-06 15:09] LABS: Alanine Aminotransferase 15 U/L (0-40); Albumin Level 4.5 g/dL (3.5-5.0); Alkaline Phosphatase 134 U/L (39-117); Anion Gap 11 (12-20); Aspartate Amino Transferase 19 U/L (5-37); Bilirubin Total 0.6 mg/dL (0.0-1.0); Blood Urea Nitrogen 11 mg/dL (9-16); Carbon Dioxide 28 mmol/L (22-29); Chloride 110 mmol/L (96-108); Estimated Glomerular Filt Rate > 60; Glucose Random 91 mg/dL (60-115); Potassium 4.8 mmol/L (3.3-5.1); Sodium 144 mmol/L (135-145); Total Protein 7.5 g/dL (6.5-8.0)
[2024-06-06 15:15] LABS: SLIDE REVIEW VERIFIED
== END 2024-06-06 14:40 | disposition home or self-care (01) ==
LOC: HO.LAB 14:39
PROVIDERS: PCP Internal Medicine; Visit Provider Internal Medicine
DX: C18.0 Malignant neoplasm of cecum (principal)
CPT/HCPCS: 36415; 80053; 83735; 85025

== ENCOUNTER 2024-06-21 09:09 | Outpatient (REF) | payer MEDICAID, SELFPAY ==
[2024-06-21 09:29] LABS: MANUAL DIFF FLAG NO
[2024-06-21 09:32] LABS: Basophils Percent Auto 0.2 % (0-2); Eosinophils Percent Auto 0.2 % (0-4); Hematocrit 41.5 % (42.0-52.0); Hemoglobin 13.6 g/dl (14.0-18.0); Imm Gran Abs Auto 0.01 X10*3/uL (0.00-0.03); Imm Gran Pct Auto 0.2 % (0.0-0.4); Lymphocytes Percent Auto 46.6 % (20-40); Mean Corpuscular HGB Conc 32.8 g/dl (31.0-36.0); Mean Corpuscular Hemoglobin 27.4 pg (27.0-33.0); Mean Corpuscular Volume 83.5 fL (80.0-98.0); Mean Platelet Volume 9.2 fL (9.4-12.4); Monocytes Absolute Auto 0.4 X10*3/uL (0.1-1.2); Monocytes Percent Auto 9.3 % (2-11); Neutrophils Absolute Auto 1.9 x10*3/uL (2.0-8.3); Neutrophils Percent Auto 43.5 % (45-73); Platelet Count 219 X10*3/uL (160-400); Red Blood Count 4.97 X10*6/uL (4.60-5.80); Red Cell Distribution Width 20.2 % (11.0-16.0); White Blood Count 4.3 X10*3/uL (4.8-10.8)
[2024-06-21 10:02] LABS: Alanine Aminotransferase 15 U/L (0-40); Albumin Level 4.5 g/dL (3.5-5.0); Alkaline Phosphatase 133 U/L (39-117); Anion Gap 11 (12-20); Aspartate Amino Transferase 20 U/L (5-37); Bilirubin Total 0.5 mg/dL (0.0-1.0); Blood Urea Nitrogen 14 mg/dL (9-16); Calcium 9.3 mg/dL (8.4-10.2); Carbon Dioxide 28 mmol/L (22-29); Chloride 107 mmol/L (96-108); Estimated Glomerular Filt Rate > 60; Glucose Random 84 mg/dL (60-115); Potassium 4.6 mmol/L (3.3-5.1); Sodium 141 mmol/L (135-145); Total Protein 7.2 g/dL (6.5-8.0)
[2024-06-21 10:39] LABS: Appearance Urine Clear; Color Urine Dark Yellow; Glucose Urine UA Negative (Negative); Leukocyte Esterase Urine Negative (Negative); Nitrite Urine Negative (Negative); Specific Gravity - Urine 1.025 (1.005-1.025); Urine Blood Negative (Negative); Urine Ketones Negative (Negative); Urine Protein Negative (Neg-Trace)
== END 2024-06-21 09:10 | disposition home or self-care (01) ==
LOC: HO.LAB 09:09
PROVIDERS: PCP Internal Medicine; Visit Provider Internal Medicine
DX: C18.0 Malignant neoplasm of cecum (principal)
CPT/HCPCS: 36415; 80053; 81003; 85025

== ENCOUNTER 2024-06-24 00:02 | Emergency (ER) | payer MEDICAID, SELFPAY ==
[2024-06-24 00:15] VITALS: BP 141/98; PULSE 81; RESP 18; TEMP 36.8; O2SAT 98; BMI 28.3
--- NOTE | 2024-06-24 02:00 | PC.NURSE ---
pt from lobby, assume care of pt at this time
[2024-06-24 02:46] VITALS: BP 136/81; PULSE 60; RESP 16; TEMP 36.6; O2SAT 98
[2024-06-24] MEDS: Acetaminophen 325 MG TABLET 975 MG PO (03:27)
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
[2024-06-24] MEDS: traMADoL HCL 50 MG TABLET PO (04:09)
[2024-06-24] MEDS: Lidocaine 4 % Cream KIT 1 APPL TOPICAL (04:10)
[2024-06-24] MEDS: Diphth,Pertus(ACell),Tet Adult 0.5 ML SYRINGE IM (04:10)
--- NOTE | 2024-06-24 04:51 | PC.NURSE ---
cleaned pt's wound and dressed with bandages, pt tolerated well
[2024-06-24 04:52] VITALS: BP 144/95; PULSE 74; RESP 18; TEMP 37.1; O2SAT 98
== END 2024-06-24 04:53 | disposition home or self-care (01) ==
PROVIDERS: Emergency Provider Emergency Medicine
DX: S40.812A Abrasion of left upper arm, initial encounter (principal); S80.812A Abrasion, left lower leg, initial encounter; V28.09XA Other motorcycle driver injured in noncollision transport accident in nontraffic accident, initial encounter; Y93.89 Activity, other specified; Y92.008 Other place in unspecified non-institutional (private) residence as the place of occurrence of the external cause; Y99.9 Unspecified external cause status; Z23 Encounter for immunization
CPT/HCPCS: 90471; 90715; 99284

== ENCOUNTER 2024-07-04 16:44 | Outpatient (REF) | payer MEDICAID, SELFPAY ==
[2024-07-04 16:54] LABS: MANUAL DIFF FLAG NO
[2024-07-04 17:21] LABS: Basophils Percent Auto 0.2 % (0-2); Eosinophils Percent Auto 0.7 % (0-4); Hematocrit 41.2 % (42.0-52.0); Hemoglobin 13.4 g/dl (14.0-18.0); Imm Gran Abs Auto 0.01 X10*3/uL (0.00-0.03); Imm Gran Pct Auto 0.2 % (0.0-0.4); Lymphocytes Absolute Auto 2.1 X10*3/uL (1.2-4.9); Lymphocytes Percent Auto 47.9 % (20-40); Mean Corpuscular HGB Conc 32.5 g/dl (31.0-36.0); Mean Corpuscular Hemoglobin 27.5 pg (27.0-33.0); Mean Corpuscular Volume 84.4 fL (80.0-98.0); Mean Platelet Volume 9.3 fL (9.4-12.4); Monocytes Absolute Auto 0.6 X10*3/uL (0.1-1.2); Monocytes Percent Auto 13.7 % (2-11); Neutrophils Absolute Auto 1.6 x10*3/uL (2.0-8.3); Neutrophils Percent Auto 37.3 % (45-73); Platelet Count 357 X10*3/uL (160-400); Red Blood Count 4.88 X10*6/uL (4.60-5.80); Red Cell Distribution Width 20.3 % (11.0-16.0); White Blood Count 4.3 X10*3/uL (4.8-10.8)
[2024-07-04 17:35] LABS: Appearance Urine Clear; Color Urine Dark Yellow; Glucose Urine UA Negative (Negative); Leukocyte Esterase Urine Negative (Negative); Nitrite Urine Negative (Negative); PH 5.5 (5.0-9.0); Specific Gravity - Urine 1.025 (1.005-1.025); Urine Blood Negative (Negative); Urine Ketones Trace mg/dL (Negative); Urine Protein Negative (Neg-Trace)
[2024-07-04 18:25] LABS: Alanine Aminotransferase 15 U/L (0-40); Albumin Level 4.4 g/dL (3.5-5.0); Alkaline Phosphatase 146 U/L (39-117); Anion Gap 12 (12-20); Aspartate Amino Transferase 19 U/L (5-37); Bilirubin Total 0.5 mg/dL (0.0-1.0); Blood Urea Nitrogen 12 mg/dL (9-16); Calcium 9.5 mg/dL (8.4-10.2); Carbon Dioxide 26 mmol/L (22-29); Chloride 109 mmol/L (96-108); Estimated Glomerular Filt Rate > 60; Glucose Random 109 mg/dL (60-115); Potassium 4.4 mmol/L (3.3-5.1); Sodium 143 mmol/L (135-145); Total Protein 7.6 g/dL (6.5-8.0)
== END 2024-07-04 16:45 | disposition home or self-care (01) ==
LOC: HO.LAB 16:44
PROVIDERS: Visit Provider Internal Medicine
DX: C18.0 Malignant neoplasm of cecum (principal)
CPT/HCPCS: 36415; 80053; 81003; 85025

== ENCOUNTER 2024-07-18 12:33 | Outpatient (REF) | payer MEDICAID, SELFPAY ==
[2024-07-18 12:54] LABS: MANUAL DIFF FLAG NO
[2024-07-18 12:58] LABS: Basophils Percent Auto 0.2 % (0-2); Eosinophils Percent Auto 0.2 % (0-4); Hematocrit 39.8 % (42.0-52.0); Hemoglobin 12.9 g/dl (14.0-18.0); Imm Gran Abs Auto 0.01 X10*3/uL (0.00-0.03); Imm Gran Pct Auto 0.2 % (0.0-0.4); Lymphocytes Absolute Auto 1.8 X10*3/uL (1.2-4.9); Lymphocytes Percent Auto 39.1 % (20-40); Mean Corpuscular HGB Conc 32.4 g/dl (31.0-36.0); Mean Corpuscular Hemoglobin 27.7 pg (27.0-33.0); Mean Corpuscular Volume 85.6 fL (80.0-98.0); Mean Platelet Volume 9.2 fL (9.4-12.4); Monocytes Absolute Auto 0.3 X10*3/uL (0.1-1.2); Monocytes Percent Auto 7.3 % (2-11); Neutrophils Absolute Auto 2.5 x10*3/uL (2.0-8.3); Platelet Count 240 X10*3/uL (160-400); Red Blood Count 4.65 X10*6/uL (4.60-5.80); Red Cell Distribution Width 19.6 % (11.0-16.0); White Blood Count 4.7 X10*3/uL (4.8-10.8)
[2024-07-18 13:09] LABS: Appearance Urine Clear; Color Urine Yellow; Glucose Urine UA Negative (Negative); Leukocyte Esterase Urine Negative (Negative); Nitrite Urine Negative (Negative); PH 5.5 (5.0-9.0); Specific Gravity - Urine 1.025 (1.005-1.025); Urine Blood Negative (Negative); Urine Ketones Negative (Negative); Urine Protein Negative (Neg-Trace)
[2024-07-18 13:14] LABS: Alanine Aminotransferase 14 U/L (0-40); Albumin Level 4.2 g/dL (3.5-5.0); Alkaline Phosphatase 124 U/L (39-117); Anion Gap 13 (12-20); Aspartate Amino Transferase 17 U/L (5-37); Bilirubin Total 0.6 mg/dL (0.0-1.0); Blood Urea Nitrogen 15 mg/dL (9-16); Carbon Dioxide 26 mmol/L (22-29); Chloride 109 mmol/L (96-108); Estimated Glomerular Filt Rate > 60; Glucose Random 97 mg/dL (60-115); Potassium 4.8 mmol/L (3.3-5.1); Sodium 143 mmol/L (135-145); Total Protein 7.2 g/dL (6.5-8.0)
== END 2024-07-18 12:34 | disposition home or self-care (01) ==
LOC: HO.LAB 12:33
PROVIDERS: PCP Internal Medicine; Visit Provider Internal Medicine
DX: C18.0 Malignant neoplasm of cecum (principal)
CPT/HCPCS: 36415; 80053; 81003; 85025

== ENCOUNTER 2024-08-01 16:27 | Outpatient (REF) | payer MEDICAID, SELFPAY ==
[2024-08-01 16:46] LABS: MANUAL DIFF FLAG NO
[2024-08-01 17:04] LABS: Basophils Percent Auto 0.2 % (0-2); Hematocrit 41.2 % (42.0-52.0); Hemoglobin 13.1 g/dl (14.0-18.0); Imm Gran Abs Auto 0.01 X10*3/uL (0.00-0.03); Imm Gran Pct Auto 0.2 % (0.0-0.4); Lymphocytes Absolute Auto 2.2 X10*3/uL (1.2-4.9); Lymphocytes Percent Auto 53.8 % (20-40); Mean Corpuscular HGB Conc 31.8 g/dl (31.0-36.0); Mean Corpuscular Hemoglobin 27.8 pg (27.0-33.0); Mean Corpuscular Volume 87.3 fL (80.0-98.0); Mean Platelet Volume 9.9 fL (9.4-12.4); Monocytes Absolute Auto 0.4 X10*3/uL (0.1-1.2); Monocytes Percent Auto 9.5 % (2-11); Neutrophils Absolute Auto 1.5 x10*3/uL (2.0-8.3); Neutrophils Percent Auto 35.3 % (45-73); Platelet Count 293 X10*3/uL (160-400); Red Blood Count 4.72 X10*6/uL (4.60-5.80); Red Cell Distribution Width 19.3 % (11.0-16.0); White Blood Count 4.1 X10*3/uL (4.8-10.8)
[2024-08-01 17:07] LABS: Alanine Aminotransferase 12 U/L (0-40); Albumin Level 4.4 g/dL (3.5-5.0); Alkaline Phosphatase 107 U/L (39-117); Anion Gap 12 (12-20); Aspartate Amino Transferase 20 U/L (5-37); Bilirubin Total 0.5 mg/dL (0.0-1.0); Blood Urea Nitrogen 11 mg/dL (9-16); Calcium 9.6 mg/dL (8.4-10.2); Carbon Dioxide 28 mmol/L (22-29); Chloride 110 mmol/L (96-108); Estimated Glomerular Filt Rate > 60; Glucose Random 99 mg/dL (60-115); Potassium 4.9 mmol/L (3.3-5.1); Sodium 145 mmol/L (135-145); Total Protein 7.5 g/dL (6.5-8.0)
[2024-08-01 17:11] LABS: Appearance Urine Clear; Color Urine Dark Yellow; Glucose Urine UA Negative (Negative); Leukocyte Esterase Urine Negative (Negative); Nitrite Urine Negative (Negative); PH 6.5 (5.0-9.0); Specific Gravity - Urine 1.025 (1.005-1.025); Urine Blood Negative (Negative); Urine Ketones Trace mg/dL (Negative); Urine Protein Negative (Neg-Trace)
== END 2024-08-01 16:28 | disposition home or self-care (01) ==
LOC: HO.LAB 16:27
PROVIDERS: PCP Internal Medicine; Visit Provider Internal Medicine
DX: C18.0 Malignant neoplasm of cecum (principal)
CPT/HCPCS: 36415; 80053; 81003; 85025

== ENCOUNTER 2024-08-16 10:12 | Outpatient (REF) | payer MEDICAID, SELFPAY ==
[2024-08-16 10:39] LABS: MANUAL DIFF FLAG NO
[2024-08-16 10:48] LABS: Basophils Percent Auto 0.3 % (0-2); Eosinophils Percent Auto 0.4 % (0-4); Hematocrit 42.7 % (42.0-52.0); Hemoglobin 13.8 g/dl (14.0-18.0); Imm Gran Abs Auto 0.03 X10*3/uL (0.00-0.03); Imm Gran Pct Auto 0.4 % (0.0-0.4); Lymphocytes Absolute Auto 2.2 X10*3/uL (1.2-4.9); Lymphocytes Percent Auto 27.6 % (20-40); Mean Corpuscular HGB Conc 32.3 g/dl (31.0-36.0); Mean Corpuscular Volume 86.8 fL (80.0-98.0); Mean Platelet Volume 8.9 fL (9.4-12.4); Monocytes Absolute Auto 0.6 X10*3/uL (0.1-1.2); Monocytes Percent Auto 7.5 % (2-11); Neutrophils Absolute Auto 5.1 x10*3/uL (2.0-8.3); Neutrophils Percent Auto 63.8 % (45-73); Platelet Count 227 X10*3/uL (160-400); Red Blood Count 4.92 X10*6/uL (4.60-5.80); Red Cell Distribution Width 16.8 % (11.0-16.0)
[2024-08-16 10:59] LABS: Appearance Urine Clear; Color Urine Dark Yellow; Glucose Urine UA Negative (Negative); Leukocyte Esterase Urine Negative (Negative); Nitrite Urine Negative (Negative); Specific Gravity - Urine 1.025 (1.005-1.025); Urine Blood Negative (Negative); Urine Ketones Trace mg/dL (Negative); Urine Protein Negative (Neg-Trace)
[2024-08-16 11:04] LABS: Alanine Aminotransferase 21 U/L (0-40); Albumin Level 4.6 g/dL (3.5-5.0); Alkaline Phosphatase 140 U/L (39-117); Anion Gap 10 (12-20); Aspartate Amino Transferase 29 U/L (5-37); Bilirubin Total 0.7 mg/dL (0.0-1.0); Blood Urea Nitrogen 14 mg/dL (9-16); Calcium 9.8 mg/dL (8.4-10.2); Carbon Dioxide 27 mmol/L (22-29); Chloride 106 mmol/L (96-108); Estimated Glomerular Filt Rate > 60; Glucose Random 96 mg/dL (60-115); Potassium 4.2 mmol/L (3.3-5.1); Sodium 139 mmol/L (135-145); Total Protein 7.7 g/dL (6.5-8.0)
== END 2024-08-16 10:13 | disposition home or self-care (01) ==
LOC: HO.LAB 10:12
PROVIDERS: Visit Provider Internal Medicine
DX: C18.0 Malignant neoplasm of cecum (principal)
CPT/HCPCS: 36415; 80053; 81003; 85025

== ENCOUNTER 2024-08-29 11:03 | Outpatient (REF) | payer MEDICAID, SELFPAY ==
[2024-08-29 11:31] LABS: MANUAL DIFF FLAG NO
[2024-08-29 12:20] LABS: Appearance Urine Clear; Color Urine Dark Yellow; Glucose Urine UA Negative (Negative); Leukocyte Esterase Urine Negative (Negative); Nitrite Urine Negative (Negative); PH 5.5 (5.0-9.0); Specific Gravity - Urine 1.025 (1.005-1.025); Urine Blood Negative (Negative); Urine Ketones Trace mg/dL (Negative); Urine Protein Negative (Neg-Trace)
[2024-08-29 12:21] LABS: Basophils Percent Auto 0.3 % (0-2); Eosinophils Percent Auto 0.8 % (0-4); Hemoglobin 13.8 g/dl (14.0-18.0); Imm Gran Abs Auto 0.01 X10*3/uL (0.00-0.03); Imm Gran Pct Auto 0.3 % (0.0-0.4); Lymphocytes Percent Auto 51.7 % (20-40); Mean Corpuscular HGB Conc 31.4 g/dl (31.0-36.0); Mean Corpuscular Hemoglobin 27.7 pg (27.0-33.0); Mean Corpuscular Volume 88.2 fL (80.0-98.0); Mean Platelet Volume 9.5 fL (9.4-12.4); Monocytes Absolute Auto 0.4 X10*3/uL (0.1-1.2); Monocytes Percent Auto 10.8 % (2-11); Neutrophils Absolute Auto 1.4 x10*3/uL (2.0-8.3); Neutrophils Percent Auto 36.1 % (45-73); Platelet Count 337 X10*3/uL (160-400); Red Blood Count 4.99 X10*6/uL (4.60-5.80); Red Cell Distribution Width 16.6 % (11.0-16.0); White Blood Count 3.8 X10*3/uL (4.8-10.8)
[2024-08-29 12:40] LABS: Alanine Aminotransferase 22 U/L (0-40); Albumin Level 4.5 g/dL (3.5-5.0); Anion Gap 12 (12-20); Aspartate Amino Transferase 26 U/L (5-37); Bilirubin Total 0.4 mg/dL (0.0-1.0); Blood Urea Nitrogen 13 mg/dL (9-16); Carbon Dioxide 26 mmol/L (22-29); Chloride 108 mmol/L (96-108); Estimated Glomerular Filt Rate > 60; Glucose Random 90 mg/dL (60-115); Potassium 4.1 mmol/L (3.3-5.1); Sodium 142 mmol/L (135-145); Total Protein 7.7 g/dL (6.5-8.0)
[2024-08-29 13:28] LABS: Alkaline Phosphatase 128 U/L (39-117)
== END 2024-08-29 11:04 | disposition home or self-care (01) ==
LOC: HO.LAB 11:03
PROVIDERS: PCP Internal Medicine; Visit Provider Internal Medicine
DX: C18.0 Malignant neoplasm of cecum (principal)
CPT/HCPCS: 36415; 80053; 81003; 85025

== ENCOUNTER 2024-09-12 13:42 | Outpatient (REF) | payer MEDICAID, SELFPAY ==
[2024-09-12 13:55] LABS: MANUAL DIFF FLAG NO
[2024-09-12 14:04] LABS: Appearance Urine Clear; Color Urine Yellow; Glucose Urine UA Negative (Negative); Leukocyte Esterase Urine Negative (Negative); Nitrite Urine Negative (Negative); Urine Blood Negative (Negative); Urine Ketones Negative (Negative); Urine Protein Negative (Neg-Trace)
[2024-09-12 14:07] LABS: Basophils Percent Auto 0.4 % (0-2); Eosinophils Percent Auto 0.4 % (0-4); Hematocrit 40.4 % (42.0-52.0); Hemoglobin 13.1 g/dl (14.0-18.0); Imm Gran Abs Auto 0.01 X10*3/uL (0.00-0.03); Imm Gran Pct Auto 0.2 % (0.0-0.4); Lymphocytes Absolute Auto 1.8 X10*3/uL (1.2-4.9); Lymphocytes Percent Auto 36.7 % (20-40); Mean Corpuscular HGB Conc 32.4 g/dl (31.0-36.0); Mean Corpuscular Hemoglobin 28.1 pg (27.0-33.0); Mean Corpuscular Volume 86.7 fL (80.0-98.0); Monocytes Absolute Auto 0.3 X10*3/uL (0.1-1.2); Monocytes Percent Auto 6.6 % (2-11); Neutrophils Absolute Auto 2.7 x10*3/uL (2.0-8.3); Neutrophils Percent Auto 55.7 % (45-73); Platelet Count 183 X10*3/uL (160-400); Red Blood Count 4.66 X10*6/uL (4.60-5.80); Red Cell Distribution Width 15.8 % (11.0-16.0); White Blood Count 4.9 X10*3/uL (4.8-10.8)
[2024-09-12 14:36] LABS: Alanine Aminotransferase 20 U/L (0-40); Albumin Level 4.3 g/dL (3.5-5.0); Alkaline Phosphatase 118 U/L (39-117); Anion Gap 10 (12-20); Aspartate Amino Transferase 23 U/L (5-37); Bilirubin Total 0.7 mg/dL (0.0-1.0); Blood Urea Nitrogen 9 mg/dL (9-16); Calcium 8.7 mg/dL (8.4-10.2); Carbon Dioxide 27 mmol/L (22-29); Chloride 106 mmol/L (96-108); Estimated Glomerular Filt Rate > 60; Glucose Random 129 mg/dL (60-115); Potassium 3.5 mmol/L (3.3-5.1); Sodium 139 mmol/L (135-145)
== END 2024-09-12 13:43 | disposition home or self-care (01) ==
LOC: HO.LAB 13:42
PROVIDERS: PCP Internal Medicine; Visit Provider Internal Medicine
DX: C18.0 Malignant neoplasm of cecum (principal)
CPT/HCPCS: 36415; 80053; 81003; 85025

== ENCOUNTER 2024-09-26 14:42 | Outpatient (REF) | payer MEDICAID, SELFPAY ==
[2024-09-26 15:16] LABS: MANUAL DIFF FLAG NO
[2024-09-26 15:19] LABS: Hematocrit 42.5 % (42.0-52.0); Hemoglobin 13.6 g/dl (14.0-18.0); Lymphocytes Absolute Auto 2.3 X10*3/uL (1.2-4.9); Lymphocytes Percent Auto 54.5 % (20-40); Mean Corpuscular Volume 87.6 fL (80.0-98.0); Mean Platelet Volume 9.6 fL (9.4-12.4); Monocytes Absolute Auto 0.5 X10*3/uL (0.1-1.2); Monocytes Percent Auto 11.7 % (2-11); Neutrophils Absolute Auto 1.4 x10*3/uL (2.0-8.3); Neutrophils Percent Auto 32.8 % (45-73); Platelet Count 290 X10*3/uL (160-400); Red Blood Count 4.85 X10*6/uL (4.60-5.80); Red Cell Distribution Width 15.9 % (11.0-16.0); White Blood Count 4.2 X10*3/uL (4.8-10.8)
[2024-09-26 15:39] LABS: Alanine Aminotransferase 21 U/L (0-40); Albumin Level 4.5 g/dL (3.5-5.0); Alkaline Phosphatase 124 U/L (39-117); Anion Gap 12 (12-20); Aspartate Amino Transferase 24 U/L (5-37); Bilirubin Total 0.5 mg/dL (0.0-1.0); Blood Urea Nitrogen 10 mg/dL (9-16); Calcium 9.2 mg/dL (8.4-10.2); Carbon Dioxide 26 mmol/L (22-29); Chloride 109 mmol/L (96-108); Estimated Glomerular Filt Rate > 60; Glucose Random 86 mg/dL (60-115); Sodium 143 mmol/L (135-145); Total Protein 7.4 g/dL (6.5-8.0)
== END 2024-09-26 14:43 | disposition home or self-care (01) ==
LOC: HO.LAB 14:42
PROVIDERS: PCP Internal Medicine; Visit Provider Internal Medicine
DX: C18.0 Malignant neoplasm of cecum (principal)
CPT/HCPCS: 36415; 80053; 85025

== ENCOUNTER 2024-10-10 15:33 | Outpatient (REF) | payer MEDICAID, SELFPAY ==
[2024-10-10 15:47] LABS: MANUAL DIFF FLAG NO
[2024-10-10 16:01] LABS: Basophils Percent Auto 0.2 % (0-2); Hematocrit 42.2 % (42.0-52.0); Hemoglobin 13.5 g/dl (14.0-18.0); Imm Gran Abs Auto 0.03 X10*3/uL (0.00-0.03); Imm Gran Pct Auto 0.5 % (0.0-0.4); Lymphocytes Absolute Auto 1.1 X10*3/uL (1.2-4.9); Lymphocytes Percent Auto 20.5 % (20-40); Mean Corpuscular Hemoglobin 27.7 pg (27.0-33.0); Mean Corpuscular Volume 86.7 fL (80.0-98.0); Mean Platelet Volume 9.7 fL (9.4-12.4); Monocytes Absolute Auto 0.4 X10*3/uL (0.1-1.2); Monocytes Percent Auto 7.6 % (2-11); Neutrophils Absolute Auto 3.9 x10*3/uL (2.0-8.3); Neutrophils Percent Auto 71.2 % (45-73); Platelet Count 177 X10*3/uL (160-400); Red Blood Count 4.87 X10*6/uL (4.60-5.80); Red Cell Distribution Width 15.6 % (11.0-16.0); White Blood Count 5.5 X10*3/uL (4.8-10.8)
[2024-10-10 17:02] LABS: Appearance Urine Clear; Color Urine Dark Yellow; Glucose Urine UA Negative (Negative); Leukocyte Esterase Urine Negative (Negative); Nitrite Urine Negative (Negative); Specific Gravity - Urine >= 1.030 (1.005-1.025); Urine Blood Negative (Negative); Urine Ketones Negative (Negative); Urine Protein Trace mg/dL (Neg-Trace)
[2024-10-10 17:03] LABS: Alanine Aminotransferase 21 U/L (0-40); Albumin Level 4.5 g/dL (3.5-5.0); Alkaline Phosphatase 133 U/L (39-117); Anion Gap 10 (12-20); Aspartate Amino Transferase 29 U/L (5-37); Bilirubin Total 0.6 mg/dL (0.0-1.0); Blood Urea Nitrogen 12 mg/dL (9-16); Carbon Dioxide 29 mmol/L (22-29); Chloride 104 mmol/L (96-108); Estimated Glomerular Filt Rate > 60; Glucose Random 83 mg/dL (60-115); Potassium 4.3 mmol/L (3.3-5.1); Sodium 139 mmol/L (135-145); Total Protein 7.8 g/dL (6.5-8.0)
== END 2024-10-10 15:34 | disposition home or self-care (01) ==
LOC: HO.LAB 15:33
PROVIDERS: PCP Internal Medicine; Visit Provider Internal Medicine
DX: C18.0 Malignant neoplasm of cecum (principal)
CPT/HCPCS: 36415; 80053; 81003; 85025

== ENCOUNTER 2024-10-20 07:52 | Outpatient (REF) | payer MEDICAID, SELFPAY ==
[2024-10-20 08:09] LABS: MANUAL DIFF FLAG NO
[2024-10-20 08:12] LABS: Basophils Percent Auto 0.2 % (0-2); Eosinophils Percent Auto 0.7 % (0-4); Hematocrit 41.4 % (42.0-52.0); Hemoglobin 13.5 g/dl (14.0-18.0); Imm Gran Abs Auto 0.01 X10*3/uL (0.00-0.03); Imm Gran Pct Auto 0.2 % (0.0-0.4); Lymphocytes Absolute Auto 2.1 X10*3/uL (1.2-4.9); Lymphocytes Percent Auto 52.2 % (20-40); Mean Corpuscular HGB Conc 32.6 g/dl (31.0-36.0); Mean Corpuscular Hemoglobin 28.1 pg (27.0-33.0); Mean Corpuscular Volume 86.3 fL (80.0-98.0); Mean Platelet Volume 9.8 fL (9.4-12.4); Monocytes Absolute Auto 0.3 X10*3/uL (0.1-1.2); Monocytes Percent Auto 8.3 % (2-11); Neutrophils Absolute Auto 1.6 x10*3/uL (2.0-8.3); Neutrophils Percent Auto 38.4 % (45-73); Platelet Count 295 X10*3/uL (160-400); Red Cell Distribution Width 15.8 % (11.0-16.0); White Blood Count 4.1 X10*3/uL (4.8-10.8)
[2024-10-20 08:34] LABS: Alanine Aminotransferase 23 U/L (0-40); Albumin Level 4.4 g/dL (3.5-5.0); Alkaline Phosphatase 138 U/L (39-117); Anion Gap 11 (12-20); Aspartate Amino Transferase 30 U/L (5-37); Bilirubin Total 0.3 mg/dL (0.0-1.0); Blood Urea Nitrogen 18 mg/dL (9-16); Calcium 9.6 mg/dL (8.4-10.2); Carbon Dioxide 27 mmol/L (22-29); Chloride 107 mmol/L (96-108); Estimated Glomerular Filt Rate > 60; Glucose Random 116 mg/dL (60-115); Potassium 4.4 mmol/L (3.3-5.1); Sodium 141 mmol/L (135-145); Total Protein 8.1 g/dL (6.5-8.0)
[2024-10-20 08:44] LABS: Appearance Urine Clear; Color Urine Dark Yellow; Glucose Urine UA Negative (Negative); Leukocyte Esterase Urine Negative (Negative); Nitrite Urine Negative (Negative); PH 5.5 (5.0-9.0); Specific Gravity - Urine >= 1.030 (1.005-1.025); Urine Blood Negative (Negative); Urine Ketones Trace mg/dL (Negative); Urine Protein Trace mg/dL (Neg-Trace)
== END 2024-10-20 07:53 | disposition home or self-care (01) ==
LOC: HO.LAB 07:52
PROVIDERS: PCP Internal Medicine; Visit Provider Internal Medicine
DX: C18.0 Malignant neoplasm of cecum (principal)
CPT/HCPCS: 36415; 80053; 81003; 85025

== ENCOUNTER 2024-10-31 08:52 | Outpatient (REF) | payer MEDICAID, SELFPAY ==
[2024-10-31 09:13] LABS: Basophils Percent Auto 0.4 % (0-2); Eosinophils Percent Auto 0.4 % (0-4); Hematocrit 43.2 % (42.0-52.0); Imm Gran Abs Auto 0.01 X10*3/uL (0.00-0.03); Imm Gran Pct Auto 0.2 % (0.0-0.4); Lymphocytes Absolute Auto 2.7 X10*3/uL (1.2-4.9); Lymphocytes Percent Auto 60.4 % (20-40); MANUAL DIFF FLAG SCAN; Mean Corpuscular HGB Conc 32.4 g/dl (31.0-36.0); Mean Corpuscular Hemoglobin 28.2 pg (27.0-33.0); Mean Corpuscular Volume 87.1 fL (80.0-98.0); Monocytes Absolute Auto 0.6 X10*3/uL (0.1-1.2); Monocytes Percent Auto 12.6 % (2-11); Neutrophils Absolute Auto 1.2 x10*3/uL (2.0-8.3); Platelet Count 230 X10*3/uL (160-400); Red Blood Count 4.96 X10*6/uL (4.60-5.80); Red Cell Distribution Width 17.2 % (11.0-16.0); SCAN SMEAR FLAG 1; White Blood Count 4.5 X10*3/uL (4.8-10.8)
[2024-10-31 09:38] LABS: Alanine Aminotransferase 16 U/L (0-40); Albumin Level 4.4 g/dL (3.5-5.0); Alkaline Phosphatase 112 U/L (39-117); Anion Gap 12 (12-20); Aspartate Amino Transferase 25 U/L (5-37); Bilirubin Total 0.5 mg/dL (0.0-1.0); Blood Urea Nitrogen 13 mg/dL (9-16); Calcium 9.6 mg/dL (8.4-10.2); Carbon Dioxide 26 mmol/L (22-29); Chloride 109 mmol/L (96-108); Estimated Glomerular Filt Rate > 60; Glucose Random 110 mg/dL (60-115); Magnesium 1.9 mg/dL (1.6-2.6); Potassium 4.6 mmol/L (3.3-5.1); Sodium 142 mmol/L (135-145); Total Protein 7.5 g/dL (6.5-8.0)
[2024-10-31 09:46] LABS: SLIDE REVIEW VERIFIED
[2024-10-31 11:06] LABS: Appearance Urine Clear; Color Urine Yellow; Glucose Urine UA Negative (Negative); Leukocyte Esterase Urine Negative (Negative); Nitrite Urine Negative (Negative); PH 5.5 (5.0-9.0); Specific Gravity - Urine 1.025 (1.005-1.025); Urine Blood Negative (Negative); Urine Ketones Negative (Negative); Urine Protein Negative (Neg-Trace)
== END 2024-10-31 08:53 | disposition home or self-care (01) ==
LOC: HO.LAB 08:52
PROVIDERS: PCP Internal Medicine; Visit Provider Internal Medicine
DX: C18.0 Malignant neoplasm of cecum (principal)
CPT/HCPCS: 36415; 80053; 81003; 83735; 85025

== ENCOUNTER 2024-11-28 11:56 | Outpatient (REF) | payer MEDICAID, SELFPAY ==
[2024-11-28 12:16] LABS: MANUAL DIFF FLAG NO
[2024-11-28 12:22] LABS: Basophils Percent Auto 0.3 % (0-2); Hematocrit 43.6 % (42.0-52.0); Hemoglobin 13.9 g/dl (14.0-18.0); Imm Gran Abs Auto 0.01 X10*3/uL (0.00-0.03); Imm Gran Pct Auto 0.3 % (0.0-0.4); Lymphocytes Absolute Auto 1.9 X10*3/uL (1.2-4.9); Lymphocytes Percent Auto 48.2 % (20-40); Mean Corpuscular HGB Conc 31.9 g/dl (31.0-36.0); Mean Corpuscular Hemoglobin 27.7 pg (27.0-33.0); Mean Corpuscular Volume 86.9 fL (80.0-98.0); Mean Platelet Volume 9.7 fL (9.4-12.4); Monocytes Absolute Auto 0.3 X10*3/uL (0.1-1.2); Monocytes Percent Auto 8.5 % (2-11); Neutrophils Absolute Auto 1.7 x10*3/uL (2.0-8.3); Neutrophils Percent Auto 41.7 % (45-73); Platelet Count 251 X10*3/uL (160-400); Red Blood Count 5.02 X10*6/uL (4.60-5.80); Red Cell Distribution Width 16.9 % (11.0-16.0)
[2024-11-28 12:28] LABS: Appearance Urine Clear; Color Urine Yellow; Glucose Urine UA Negative (Negative); Leukocyte Esterase Urine Negative (Negative); Nitrite Urine Negative (Negative); Urine Blood Negative (Negative); Urine Ketones Negative (Negative); Urine Protein Negative (Neg-Trace)
[2024-11-28 12:52] LABS: Alanine Aminotransferase 20 U/L (0-40); Albumin Level 4.5 g/dL (3.5-5.0); Alkaline Phosphatase 113 U/L (39-117); Anion Gap 9 (12-20); Aspartate Amino Transferase 24 U/L (5-37); Bilirubin Total 0.6 mg/dL (0.0-1.0); Blood Urea Nitrogen 11 mg/dL (9-16); Calcium 9.4 mg/dL (8.4-10.2); Carbon Dioxide 27 mmol/L (22-29); Chloride 107 mmol/L (96-108); Estimated Glomerular Filt Rate > 60; Potassium 4.1 mmol/L (3.3-5.1); Sodium 139 mmol/L (135-145); Total Protein 7.9 g/dL (6.5-8.0)
--- OUTSIDE RECORDS SUMMARY | 2024-11-28 13:22 | XMS_ITS | Encounter Summary ---
Author Organization [employer] Address [address] [place] [id number] Care Team Providers Care Truckload Owner Operator Name Role Phone Ricci Barkley MD Primary Care Provider [phone] Encounter Details Date Type Department Care Team (Latest Contact Info) Description 03/15/2019 Abstract [facility] CONVERSIONS Dental, Provider, DDS Social History Tobacco Use Types Packs/Day Years Used Date Smoking Tobacco: Never Assessed Sex and Gender Information Value Date Recorded Sex Assigned at Male 08/25/2022 10:35 AM EDT Legal Sex Male 10:35 AM EDT Gender Identity Male 08/25/2022 10:35 AM EDT Sexual Orientation Don't know 08/25/2022 10 :35 AM EDT documented as of this encounter Plan of Treatment Not on file documented as of this encounter Visit Diagnoses Not on filedocumented in this encounter Care Teams Truckload Owner Operator Relationship Specialty Start Date End Date Ricci Barkley MD [address] [place] [address] PCP - General Internal Medicine 01/04/19 documented as of this encounter
--- OUTSIDE RECORDS SUMMARY | 2024-11-28 13:22 | XMS_ITS | Encounter Summary ---
Author Organization [employer] Address [address] [facility] [address] [place] [address] Care Team Providers Care Punch Machine Operator Name Role Phone Ricci Barkley MD Primary Care Provider [phone]- [phone] Encounter Details Date Type Department Care Team (Late st Contact Info) Description 11/28/2024 Orders Only GENERIC EXTERNAL DATA DEPARTMENT Provider, Generic External Data Social History Tobacco Use Types Packs/Day Years Used Date Smoking Tobacco: Former Cigarettes 0.3 19 0 03/31/1986 - 03/31/2005 Depression Answer Date Recorded Patient Health Questionnaire-9 Score 0 11/11/2024 Patient Health Questionnaire-9 Score 0 11/11/2024 Last PHQ-9: Questionnaire Data Not on file 0 11/11/2024 Housing Stability Answer Date Recorded What is your housing situation today? I have brent parr 11/11/[address] you li ve. Do you have problems with any of the following? None of the above 11/11/2024 Food Insecurity Answer Date Recorded Within the past 12 months, y ou worried that your food would run out before you got money to buy more: Never True 11/11/2024 Within the past 12 months,th e food you bought just didn't last and you didn't have enough money to get more: Never True Transportation Answer Date Recorded In the past 12 months, has l ack of transportation kept you from medical appts, meetings, work or from getting things needed for daily living? No 11/11/2024 Utilities Answer Date Recorded In the past 12 months, has t he electric, gas, oil or water company threatened to shut off services in your home? No 11/11/2024 Depression Answer Date Recorded Patient Health Questionnaire-2 Score 0 11/11/2024 Internet Access Answer Date Recorded Internet Access Q1 Yes 11/11/2024 Internet Access Q2 Not on file 11/11/2024 Sex and Gender Information Value Date Recorded Sex Assigned at Male 08/25/2022 10:35 AM EDT Legal Sex Male 10:35 AM EDT Gender Identity Male 08/25/2022 10:35 AM EDT Sexual Orientation Don't know 08/25/2022 10 :35 AM EDT documented as of this encounter Plan of Treatment Pending Results Name Type Priority Associated Diagnoses Date /Time Comprehensive Metabolic Panel Lab Routine 11/28/2024 12:14 PM EST documented as of this encounter Procedures Procedure Name Priority Date/Time Associated Diagnosis Comments CBC WITH AUTO DIFFERENTIAL Routine 11/28/2024 12:14 PM EST COMPREHENSIVE METABOLIC PANEL Routine 11/28/2024 12:14 PM EST URINALYSIS WITH REFLEX TO MICROSCOPIC Routine 11/28/2024 12:10 PM EST documented in this encounter Results * (ABNORMAL) CBC auto differential (11/28/2024 12:14 PM EST) White Blood Count 4.0(L) 4.8 - 10.8 X10*3/uL [facility] Red Blood Count 5.02 4.60 - 5.80 X10*6/uL [facility] Hemoglobin 13.9(L) 14.0 - 18.0 g/dl [facility] Hematocrit 43.6 42.0 - 52.0 % [facility] Mean Corpuscular Volume 86.9 80.0 - 98.0 fL [facility] Mean Corpuscular Hemoglobin 27.7 27.0 - 33.0 pg [facility] Mean Corpuscular HGB Conc 31.9 31.0 - 36.0 g/dl [facility] Red Cell Distribution Width 16.9(H) 11.0 - 16.0 % [facility] Platelet Count 251 160 - 400 X10*3/uL [facility] Mean Platelet Volume 9.7 9.4 - 12.4 fL [facility] Neutrophils Percent Auto 41.7(L) 45 - 73 % [facility] Imm Gran Pct Auto 0.3 0.0 - 0.4 % [facility] Lymphocytes Percent Auto 48.2(H) 20 - 40 % [facility] Monocytes Percent Auto 8.5 2 - 11 % [facility] Eosinophils Percent Auto 1.0 0 - 4 % [facility] Basophils Percent Auto 0.3 0 - 2 % [facility] NRBC Pct Auto 0.0 0.0 - 0.2 /100WBC [facility] Neutrophils Absolute Auto 1.7(L) 2.0 - 8.3 x10*3/uL [facility] Imm Gran Abs Auto 0.01 0.00 - 0.03 X10*3/uL [facility] Lymphocytes Absolute Auto 1.9 1.2 - 4.9 X10*3/uL [facility] Monocytes Absolute Auto 0.3 0.1 - 1.2 X10*3/uL [facility] Eosinophils Absolute Auto 0.0 0.0 - 0.4 X10*3/uL [facility] Basophils Absolute Auto 0.0 0.0 - 0.2 X10*3/uL [facility] NRBC Abs Auto 0.000 0.0 - 0.012 X10*3/uL [facility] 11/28/2024 12:1 4 PM EST 11/28/2024 12:14 PM EST us Generic External Data Provider LAB BLOOD ORDERAB LES Final Result [facility] [address] [place] [phone] * Urinalysis with Reflex to Microscopic (11/28/2024 12:10 PM EST) Color Urine Yellow [facility] Appearance Urine Clear [facility] PH 7.0 5.0 - 9.0 [facility] Glucose Urine UA Negative Negative mg/dL [facility] Urine Blood Negative Negative [facility] Specific [place] - Urine 1.020 1.005 - 1.025 [facility] Urine Protein Negative Neg-Trace mg/dL [facility] Urine Ketones Negative Negative mg/dL [facility] Nitrite Urine Negative Negative [facility] Leukocyte Esterase Urine Negative Negative [facility] 11/28/2024 12:1 0 PM EST 11/28/2024 12:22 PM EST us Generic External Data Provider LAB URINE ORDERAB LES Final Result [facility] [address] [place] [address] [phone] documented in this encounter Visit Diagnoses Not on filedocumented in this encounter Additional Health Concerns Assessment Noted Time PHQ-9 Depression Total Score: 0 11/11/19 25 4:16 PM EST documented as of this encounter Care Teams Punch Machine Operator Relationship Specialty Start Date End Date Ricci Barkley MD [address] [place] [phone] PCP - General Internal Medicine 01/04/19 documented as of this encounter
--- OUTSIDE RECORDS SUMMARY | 2024-11-28 13:22 | XMS_ITS | Encounter Summary ---
Author Organization [employer] Address [address] [facility] [address] [place] [address] Care Team Providers Care Harvest Worker Fruit Name Role Phone Ricci Barkley MD Primary Care Provider [phone]- [phone] Reason for Visit * Reason Onset Date Comments Nurse Triage 11/11/2024 Encounter Details Date Type Department Care Team ([facility] st Contact Info) Description 11/11/2024 Telephone [facility] [address] [place] [address] Ricci Barkley MD [address] [place] [address] Nurse Triage Social History Tobacco Use Types Packs/Day Years [...] AM EDT documented as of this encounter Miscellaneous Notes * Telephone Encounter - Jasmyne Batista RN - 11/11/2024 11:33 AM EST Call to [facility] to inform that PCP had a cancellation. Agrees to sick visit today. Future Appointments Date Time Provider Department Center 11/11/2024 3:45 PM Ricci Barkley MD [facility] * Telephone Encounter - Jasmyne Batista RN - 11/11/2024 10:41 AM EST Call returned to [facility] to triage below. Reports having right ear pain x 3 days. No redness on inner ear canal. No discharge. No ST, [place], fever or congestion. No injury to area. Pt denies any [place] sx. Pt offered [facility] as no sick on site with [facility]. Pt wants only [facility]. No appts today or Thursday. Unable to book sick on site > 48 hours out. Reviewed [facility] operating hours and that wait times vary. Toreturn call next week if only wishes to seek care at [facility]. Pt ended call. Unable to review home careadvise prior to pt ending call Protocol Used: Earache (Adult) Protocol-Based Disposition: See in Office or Video Visit Today or Tomorrow Positive Triage Question: * All other earaches (Exceptions: Brief ear pain lasting < 1 hour, and earache occurring during air travel.) * All higher-acuity triage questions were negative Care Advice Discussed: * Reasons To Call Back - You become worse * Telephone Encounter - Sophia Ang - 11/11/2024 10:35 AM EST Symptom: Earache Outcome: Schedule a same-day appointment or talk to a nurse or provider today Reason: Caller denied all higher acuity questions The caller accepted this outcome. documented in this encounter Plan of Treatment Not on file documented as of this encounter Visit Diagnoses Not on filedocumented in this encounter Additional Health Concerns Assessment Noted Time PHQ-9 Depression Total Score: 0 11/11/19 25 4:16 PM EST documented as of this encounter Care Teams Harvest Worker Fruit Relationship Specialty Start Date End Date Ricci Barkley MD [address] [place] [phone] PCP - General Internal Medicine 01/04/19 documented as of this encounter
--- OUTSIDE RECORDS SUMMARY | 2024-11-28 13:22 | XMS_ITS | Encounter Summary ---
Author Organization [employer] Address [address] [place] [id number] Care Team Providers Care Seed Pelleter Name Role Phone Ricci Barkley MD Primary Care Provider +1- [phone] Encounter Details Date Type Department Care Team (Latest Contact Info) Description 10/31/2019 Abstract [facility] Dental, Provider, DDS Social [...] on filedocumented in this encounter Care Teams Seed Pelleter Relationship Specialty Start Date End Date Ricci Barkley MD [address] [place] [address] PCP - General Internal Medicine 01/04/19 documented as of this encounter
--- OUTSIDE RECORDS SUMMARY | 2024-11-28 13:22 | XMS_ITS | Encounter Summary ---
Author Organization [employer] Address [address] [facility] [address] [place] [address] Care Team Providers Care Mica Plate Layer Name Role Phone Ricci Barkley MD Primary Care Provider +1- [phone] Encounter Details Date Type Department Care Team (Late st Contact Info) Description 11/14/2024 Orders Only GENERIC EXTERNAL DATA DEPARTMENT Provider, [...] on file documented as of this encounter Procedures Procedure Name Priority Date/Time Associated Diagnosis Comments URINALYSIS WITH REFLEX TO MICROSCOPIC Routine 11/14/2024 3:48 PM EST CBC WITH AUTO DIFFERENTIAL Routine 11/14/2024 3:48 PM EST COMPREHENSIVE METABOLIC PANEL Routine 11/14/2024 3:48 PM EST documented in this encounter Results * (ABNORMAL) Comprehensive Metabolic Panel (11/14/2024 3:48 PM EST) Sodium 141 135 - 145 mmol/L [facility] Potassium 4.6 3.3 - 5.1 mmol/L [facility] Comment:Slight Hemolysis.Int erpret result with caution. Chloride 108 96 - 108 mmol/L [facility] Carbon Dioxide 25 22 - 29 mmol/L [facility] Anion Gap 13 12 - 20 [facility] Urea Nitrogen (BUN) 9 9 - 16 mg/dL [facility] Creatinine, Serum 0.82 0.5 - 1.4 mg/dL [facility] Estimated Glomerular Filt Rate >60 [facility] Comment:Chronic Kidney Disea se: Estimated GFR < 60 mL/min/[id number] Kidney Disease: Estimated GFR < 15 mL/min/1.73m2 Glucose 78 60 - 115 mg/dL [facility] Calcium 9.3 8.4 - 10.2 mg/dL [facility] Bilirubin, Total 0.6 0.0 - 1.0 mg/dL [facility] Aspartate Amino Transferase 34 5 - 37 U/L [facility] Comment:Slight Hemolysis.Int erpret result with caution. Alanine Aminotransferase 17 0 - 40 U/L [facility] Total Protein 8.2(H) 6.5 - 8.0 g/dL [facility] Albumin Level 4.5 3.5 - 5.0 g/dL [facility] Alkaline Phosphatase 116 39 - 117 U/L [facility] 11/14/2024 3:48 PM EST 11/14/2024 3:48 PM EST Narrative [facility] - 11/14/2024 5:50 PM EST ` Generic External Data Provider LAB BLOOD ORDERAB LES Final Result Performing Organization Address [facility] de Phone Number [facility] [address] [place] [phone] * Urinalysis with Reflex to Microscopic (11/14/2024 3:48 PM EST) Color Urine Dark Yellow [facility] Appearance Urine Clear [facility] PH 5.5 5.0 - 9.0 [facility] Glucose Urine UA Negative Negative mg/dL [facility] Urine Blood Negative Negative [facility] Specific [place] - Urine 1.025 1.005 - 1.025 [facility] Urine Protein Negative Neg-Trace mg/dL [facility] Urine Ketones Trace Negative mg/dL [facility] Nitrite Urine Negative Negative [facility] Leukocyte Esterase Urine Negative Negative [facility] 11/14/2024 3:48 PM EST 11/14/2024 4:10 PM EST us Generic External Data Provider LAB URINE ORDERAB LES Final Result Performing Organization Address [facility] Co de Phone Number [facility] [address] [place] [phone] * (ABNORMAL) CBC auto differential (11/14/2024 3:48 PM EST) White Blood Count 6.0 4.8 - 10.8 X10*3/uL [facility] Red Blood Count 5.04 4.60 - 5.80 X10*6/uL [facility] Hemoglobin 14.0 14.0 - 18.0 g/dl [facility] Hematocrit 43.5 42.0 - 52.0 % [facility] Mean Corpuscular Volume 86.3 80.0 - 98.0 fL [facility] Mean Corpuscular Hemoglobin 27.8 27.0 - 33.0 pg [facility] Mean Corpuscular HGB Conc 32.2 31.0 - 36.0 g/dl [facility] Red Cell Distribution Width 16.5(H) 11.0 - 16.0 % [facility] Platelet Count 224 160 - 400 X10*3/uL [facility] Mean Platelet Volume 9.3(L) 9.4 - 12.4 fL [facility] Neutrophils Percent Auto 57.2 45 - 73 % [facility] Imm Gran Pct Auto 0.5(H) 0.0 - 0.4 % [facility] Lymphocytes Percent Auto 34.7 20 - 40 % [facility] Monocytes Percent Auto 6.8 2 - 11 % [facility] Eosinophils Percent Auto 0.5 0 - 4 % [facility] Basophils Percent Auto 0.3 0 - 2 % [facility] NRBC Pct Auto 0.0 0.0 - 0.2 /100WBC [facility] Neutrophils Absolute Auto 3.4 2.0 - 8.3 x10*3/uL [facility] Imm Gran Abs Auto 0.03 0.00 - 0.03 X10*3/uL [facility] Lymphocytes Absolute Auto 2.1 1.2 - 4.9 X10*3/uL [facility] Monocytes Absolute Auto 0.4 0.1 - 1.2 X10*3/uL [facility] Eosinophils Absolute Auto 0.0 0.0 - 0.4 X10*3/uL [facility] Basophils Absolute Auto 0.0 0.0 - 0.2 X10*3/uL [facility] NRBC Abs Auto 0.000 0.0 - 0.012 X10*3/uL [facility] 11/14/2024 3:48 PM EST 11/14/2024 3:48 PM EST Narrative [facility] - 11/14/2024 4:15 PM EST ` us Generic External Data Provider LAB BLOOD ORDERAB LES Final Result [facility] [address] [place] [phone] [phone] documented in this encounter Visit Diagnoses Not on filedocumented in this encounter Additional Health Concerns Assessment Noted Time PHQ-9 Depression Total Score: 0 11/11/19 25 4:16 PM EST documented as of this encounter Care Teams Mica Plate Layer Relationship Specialty Start Date End Date Ricci Barkley MD [address] [place] [phone] PCP - General Internal Medicine 01/04/19 documented as of this encounter
--- OUTSIDE RECORDS SUMMARY | 2024-11-28 13:22 | XMS_ITS | Encounter Summary ---
Author Organization [employer] Address [address] [facility] 7 [place] [address] Care Team Providers Care Regulatory Affairs Associate Name Role Phone Ricci Barkley MD Primary Care Provider [phone] Reason for Visit * Reason Comments Jaw Pain Encounter Details Date Type Department Care Team (Latest Contact Info) Description 11/11/2024 3:45 PM EST Office Visit [facility] [address] [place], [place] [id number] Ricci Barkley MD [address] [place] [address] Dislocation of temporomandibular joint, initial encounter (Primary Dx) Social History Tobacco Use Types Packs/Day Years Used Date Smoking Tobacco: Former Cigarettes 0.3 19 0 03/31/1986 - 03/31/2005 Depression Answer Date Recorded Patient Health Questionnaire-9 Score 0 11/11/2024 Patient Health Questionnaire-9 Score 0 11/11/2024 Last PHQ-9: Questionnaire Data Not on file 0 11/11/2024 Housing Stability Answer Date Recorded What is your housing situation today? I have brent keshav 11/11/[address] you li [...] AM EDT documented as of this encounter Last Filed Vital Signs Vital Sign Reading Time Taken Comments Blood Pressure 136/94 11/11/2024 3:38 PM EST Pulse 67 11/11/2024 3:38 PM EST Temperature 36.7 ??C (98 ??F) 11/11/2024 3:38 PM EST Respiratory Rate 20 11/11/2024 3:38 PM EST Oxygen Saturation 98% 11/11/2024 3:38 PM EST Inhaled Oxygen Concentration - - Weight 77.6 kg (171 lb) 11/11/2024 3:38 PM EST Height 162.6 cm (5' 4 ) 11/11/2024 3:38 PM EST Body Mass Index 29.35 11/11/2024 3:38 PM EST documented in this encounter Progress Notes * Ricci Barkley MD - 11/11/2024 3:45 PM EST Subjective Patient ID: Jp Mcdonough is a 54 y.o. male who presents for Jaw Pain. HPI 1 week history of right-sided jaw pain associated with right ear ache exacerbated by movement of the jaw and mastication. No associated fever, ear drainage or decreased hearing. No medication tried. Patient Active Problem List Diagnosis Genital herpes simplex Malignant neoplasm of ascending colon (CMS/HCC) Microcytic anemia Current Outpatient Medications on File Prior to Visit Medication Sig Dispense Refill capecitabine (Xeloda) 500 MG chemo tablet celecoxib (CeleBREX) 200 MG capsule TAKE 1 CAPSULE BY MOUTH TWICE A DAY NEEDED 30 capsule 2 escitalopram (Lexapro) 10 MG tablet Take 10 mg by mouth in the morning. gabapentin (Neurontin) 300 MG capsule TAKE 2 CAPSULES BY MOUTH EVERY DAY AT BEDTIME No current facility-administered medications on file prior to visit. No Known Allergies Review of Systems Constitutional: Negative for appetite change, chills and diaphoresis. HENT: Jaw pain Eyes: Negative for pain, redness and itching. Respiratory: Negative for cough, choking and shortness of breath. Cardiovascular: Negative for leg swelling. Gastrointestinal: Negative for blood in stool and constipation. Objective Physical Exam Constitutional: General: He is not in acute distress. Appearance: Normal appearance. He is not ill-appearing, toxic-appearing or diaphoretic. HENT: Head: Jaw: Tenderness present. Salivary Glands: Right salivary gland is not diffusely enlarged or tender. Left salivary gland is not diffusely enlarged or tender. Comments: Mild tenderness to palpation of the mandibular condyle and of the masseter. No joint crepitus. Pulmonary: Effort: Pulmonary effort is normal. Neurological: Mental Status: He is alert. Assessment/Plan Diagnoses and all orders for this visit: Dislocation of temporomandibular joint, initial encounter Comments: Isometric jaw exercises recommended. Patient was educated on how to perform these exercises. To follow-up with the office in 1 week if no improvement. Orders: - tiZANidine (Zanaflex) 2 MG tablet; Take 1 tablet (2 mg) by mouth every 8 (eight) hours if needed for muscle spasms for up to 10 days. documented in this encounter Miscellaneous Notes * Patient Education Note - Ricci Barkley MD - 11/11/2024 9:01 PM EST Images from the original note were not included. Patient Education Table of Contents Jaw Dislocation To view videos and all your education online visit, [email or web address] or scan this QR code with your smartphone. Access to this content will in one year. Jaw Dislocation A jaw dislocation is when the joint where your jawbones meet moves out of place (gets dislocated). This can hurt a lot. You may have trouble moving your mouth and jaw. What are the causes? A hard, direct hit or injury to the jaw. Opening your mouth too widely. This can happen when: ? You eat, yawn, laugh, or vomit. ? You have dental work done. ? You get medicine by mouth to make you fall asleep (general anesthetic). ? You have a seizure. ? You have a kind of side effect of certain medicines. What increases the risk? You have displaced your jaw before. You play contact sports. Your jaw is loose or can move more than normal for most people. You have a condition that makes your jaw ligaments loose. These are tissues that connect bones to each other. What are the signs or symptoms? Symptoms may include: Very bad pain, especially when you try to move your jaw. Not being able to move your jaw all the way or at all. Not being able to close your mouth all the way or at all. Feeling that your teeth do not line up as they normally do when you bite. Drooling. Trouble speaking or swallowing. How is this treated? Having your doctor move your jaw back into place (manual reduction). You may get pain medicine before your doctor moves your jaw. Medicines. A neck brace. A bandage wrapped around your head and jaw. Follow these instructions at home: Eating and drinking Follow instructions from your doctor about what you cannot eat or drink while your jaw heals. You may be asked to: ? Eat soft foods. ? Eat liquid foods. ? Eat food that has been cut into small pieces. For the first several days, make sure to take only small, careful bites. Try not to open your jaw widely when you eat. If you have a brace or bandage: Wear the brace or bandage as told by your doctor. Take it off only as told by your doctor. Check the skin around the brace or bandage every day. Tell your doctor if you see problems. Loosen the brace or bandage if your jaw feels numb. Keep the brace or bandage clean. If the brace or bandage is not waterproof: ? Do not let it get wet. ? Cover it with a watertight covering when you take a bath or shower. Managing pain, stiffness, and swelling If told, put ice on the injured area. To do this: If you have a brace or bandage, take it off as told by your doctor. Put ice in a plastic bag. Place a towel between your skin and the bag. Leave the ice on for 20 minutes, 2?3 times a day. Take off the ice if your skin turns bright red. This is very important. If you cannot feel pain, heat, or cold, you have a greater risk of damage to the area. Activity Do not open your mouth widely until your doctor says that you can. Rest your jaw as told by your doctor. Avoid activities that are like the one that caused your injury. Try not to open your jaw widely when you laugh or yawn. When you sneeze or yawn, put a hand under your jaw. General instructions Take [id number] and prescription medicines only as told by your doctor. Do not take baths, swim, or use a hot tub. Ask your doctor about taking showers or sponge baths. Do not smoke or use any products that contain nicotine or tobacco. If you need help quitting, ask your doctor. Keep all follow-up visits. Contact a doctor if: Your pain gets worse. Medicines do not help your pain. Get help right away if: Your jaw moves out of place again. It is hard to breathe, eat, or swallow. These symptoms may be an emergency. Get help right away. Call your local emergency services (911 int [place] Do not wait to see if the symptoms will go away. Do not drive yourself to the hospital. Summary A jaw dislocation is when the joint where your jawbones meet moves out of place (gets dislocated). When your jaw moves out of place, you can have a lot of pain. You may have trouble moving your mouth and jaw. Your doctor may move your jaw back into place (manual reduction). You may get pain medicine before your jaw gets moved. This information is not intended to replace advice given to you by your health care provider. Make sure you discuss any questions you have with your health care provider. Document Released: 2012-06-23 Document Updated: 2022-02-05 Document Reviewed: 2022-02-05 [employer] Patient Education ? 2023 [employer] * Patient Education Note - Ricci Barkley MD - 11/11/2024 9:00 PM EST Images from the original note were not included. Patient Education Table of Contents Jaw Dislocation To view videos and all your education online visit, [email or web address] or scan this QR code with your smartphone. Access to this content will in one year. Jaw Dislocation A jaw dislocation is when the joint where your jawbones meet moves out of place (gets dislocated). This can hurt a lot. You may have trouble moving your mouth and jaw. What are the causes? A hard, direct hit or injury to the jaw. Opening your mouth too widely. This can happen when: ? You eat, yawn, laugh, or vomit. ? You have dental work done. ? You get medicine by mouth to make you fall asleep (general anesthetic). ? You have a seizure. ? You have a kind of side effect of certain medicines. What increases the risk? You have displaced your jaw before. You play contact sports. Your jaw is loose or can move more than normal for most people. You have a condition that makes your jaw ligaments loose. These are tissues that connect bones to each other. What are the signs or symptoms? Symptoms may include: Very bad pain, especially when you try to move your jaw. Not being able to move your jaw all the way or at all. Not being able to close your mouth all the way or at all. Feeling that your teeth do not line up as they normally do when you bite. Drooling. Trouble speaking or swallowing. How is this treated? Having your doctor move your jaw back into place (manual reduction). You may get pain medicine before your doctor moves your jaw. Medicines. A neck brace. A bandage wrapped around your head and jaw. Follow these instructions at home: Eating and drinking Follow instructions from your doctor about what you cannot eat or drink while your jaw heals. You may be asked to: ? Eat soft foods. ? Eat liquid foods. ? Eat food that has been cut into small pieces. For the first several days, make sure to take only small, careful bites. Try not to open your jaw widely when you eat. If you have a brace or bandage: Wear the brace or bandage as told by your doctor. Take it off only as told by your doctor. Check the skin around the brace or bandage every day. Tell your doctor if you see problems. Loosen the brace or bandage if your jaw feels numb. Keep the brace or bandage clean. If the brace or bandage is not waterproof: ? Do not let it get wet. ? Cover it with a watertight covering when you take a bath or shower. Managing pain, stiffness, and swelling If told, put ice on the injured area. To do this: If you have a brace or bandage, take it off as told by your doctor. Put ice in a plastic bag. Place a towel between your skin and the bag. Leave the ice on for 20 minutes, 2?3 times a day. Take off the ice if your skin turns bright red. This is very important. If you cannot feel pain, heat, or cold, you have a greater risk of damage to the area. Activity Do not open your mouth widely until your doctor says that you can. Rest your jaw as told by your doctor. Avoid activities that are like the one that caused your injury. Try not to open your jaw widely when you laugh or yawn. When you sneeze or yawn, put a hand under your jaw. General instructions Take wock-lrm-mujlwae and prescription medicines only as told by your doctor. Do not take baths, swim, or use a hot tub. Ask your doctor about taking showers or sponge baths. Do not smoke or use any products that contain nicotine or tobacco. If you need help quitting, ask your doctor. Keep all follow-up visits. Contact a doctor if: Your pain gets worse. Medicines do not help your pain. Get help right away if: Your jaw moves out of place again. It is hard to breathe, eat, or swallow. These symptoms may be an emergency. Get help right away. Call your local emergency services (911 int [place] Do not wait to see if the symptoms will go away. Do not drive yourself to the hospital. Summary A jaw dislocation is when the joint where your jawbones meet moves out of place (gets dislocated). When your jaw moves out of place, you can have a lot of pain. You may have trouble moving your mouth and jaw. Your doctor may move your jaw back into place (manual reduction). You may get pain medicine before your jaw gets moved. This information is not intended to replace advice given to you by your health care provider. Make sure you discuss any questions you have with your health care provider. Document Released: 2012-06-23 Document Updated: 2022-02-05 Document Reviewed: 2022-02-05 [employer] Patient Education ? 2023 [employer] documented in this encounter Plan of Treatment Not on file documented as of this encounter Visit Diagnoses Diagnosis Dislocation of temporomandibular joint, initial encounter- Primary documented in this encounter Additional Health Concerns Assessment Noted Time PHQ-9 Depression Total Score: 0 11/11/19 25 4:16 PM EST documented as of this encounter Care Teams Regulatory Affairs Associate Relationship Specialty Start Date End Date Ricci Barkley MD [address] [place] [id number] PCP - General Internal Medicine 01/04/19 documented as of this encounter
--- OUTSIDE RECORDS SUMMARY | 2024-11-28 13:22 | XMS_ITS | Clinical Summary ---
Author Organization [employer] Address [address] [place] [address] [address] [place] [address] Care Team Providers Care Housing Officer Name Role Phone Ricci Barkley MD Primary Care Provider Allergies No known active allergies Medications celecoxib (CeleBREX) 200 MG capsuleIndications:Mu scle spasm TAKE 1 CAPSULE BY MOUTH TWICE A DAY NEEDED 30 capsule 2 11/14/19 23 Active capecitabine (Xeloda) 500 MG chemo tablet 12/11/19 23 Active escitalopram (Lexapro) 10 MG tablet Take 10 mg by mouth in the morning. 11/10/19 23 Active gabapentin (Neurontin) 300 MG capsule TAKE 2 CAPSULES BY MOUTH EVERY DAY AT BEDTIME 11/19/19 23 Active tiZANidine (Zanaflex) 2 MG tabletIndications:Dis location of temporomandibular joint, initial encounter Take 1 tablet (2 mg) by mouth every 8 (eight) hours if needed for muscle spasms for up to 10 days. 30 tablet 11/11/19 25 Active Active Problems Problem Noted Date Diagnosed Date Genital herpes simplex 01/05/2023 Malignant neoplasm of ascending colon 09/08/2020 Microcytic anemia 08/14/2020 Encounters Date Type Department Care Team Description 11/28/2024 Orders Only GENERIC EXTERNAL DATA DEPARTMENT Provider, Generic External Data 11/14/2024 Orders Only GENERIC EXTERNAL DATA DEPARTMENT Provider, Generic External Data 11/11/2024 3:45 PM EST Office Visit [facility] [address] [place], [place] [phone] Ricci Barkley MD Dislocation of temporomandibular joint, initial encounter (Primary Dx) 11/11/2024 Travel 11/11/2024 Telephone [facility] [address] [place] [address] Ricci Barkley MD Nurse Triage 10/31/2024 Orders Only GENERIC EXTERNAL DATA DEPARTMENT Provider, Generic External Data 10/20/2024 Orders Only GENERIC EXTERNAL DATA DEPARTMENT Provider, Generic External Data 10/10/2024 Orders Only GENERIC EXTERNAL DATA DEPARTMENT Provider, Generic External Data 09/26/2024 Orders Only GENERIC EXTERNAL DATA DEPARTMENT Provider, Generic External Data 09/12/2024 Orders Only GENERIC EXTERNAL DATA DEPARTMENT Provider, Generic External Data 08/29/2024 Orders Only GENERIC EXTERNAL DATA DEPARTMENT Provider, Generic External Data from Last 3 Months Social History Tobacco Use Types Packs/Day Years Used Date Smoking Tobacco: Former Cigarettes 0.3 19 0 03/31/1986 - 03/31/2005 Tobacco Cessation:Counseling Given: No Depression Answer Date Recorded Patient Health Questionnaire-9 Score 0 11/11/2024 Patient Health Questionnaire-9 Score 0 11/11/2024 Last PHQ-9: Questionnaire Data Not on file 0 11/11/2024 Housing Stability Answer Date Recorded What is your housing situation today? I have brent sing 11/11/[address] you li [...] Don't know 08/25/2022 10 :35 AM EDT Last Filed Vital Signs Vital Sign Reading [...] Mass Index 29.35 11/11/2024 3:38 PM EST Plan of Treatment Health Maintenance Due Date Last Done Comments CT Colonography 1969 Colonoscopy 1969 Colorectal Cancer Screening 1969 FIT DNA/Cologuard 1969 FIT 1969 FOBT 1969 HIV Screening 1969 Sigmoidoscopy 1969 Hepatitis C Screening 1987 Hepatitis B Vaccines (1 of 3 - 19+ 3-dose series) 1988 Pneumococcal Vaccine: 50+ Years (1 of 1 - PCV) 2019 Zoster Vaccines (1 of 2) 2019 Dental Oral Exam 09/15/2019 03/14/2019 Dental Prophylaxis 09/16/2019 03/15/2019 Dental X-Ray: Bitewings 03/15/2020 03/14/2019 Dental X-Ray: Full Mouth 03/15/2022 03/14/2019 COVID-19 Vaccine ( season) 2024 12/13/2021, 11/15/2021 Tobacco Screening 07/04/2025 07/04/2024 Lipid Panel 08/13/2025 08/13/2020 Alcohol/Substance Use Screening 11/11/2025 11/11/2024 Depression Screening 11/11/2025 11/11/2024, 11/11/19 25 SDOH Screening 11/11/2025 11/11/2024 DTaP/Tdap/Td Vaccines (2 - Td or Tdap) 06/24/2034 06/24/2024 RSV Patients and Patients Aged 60 years or older (1 - 1-dose 75+ series) 2044 Influenza Vaccine Completed 2024, , 11/15/2021, Additional history exists HIB Vaccines Aged Out No longer eligi ble based on patient's age to complete this topic HPV Vaccines Aged Out No longer eligi ble based on patient's age to complete this topic Hepatitis A Vaccines Aged Out No long er eligible based on patient's age to complete this topic IPV Vaccines Aged Out No longer eligi ble based on patient's age to complete this topic Meningococcal Vaccine Aged Out No kandy meghann eligible based on patient's age to complete this topic Pneumococcal Vaccine: Pediatrics (0 to 5 Years) and At-Risk Patients (6 to 49) Years) Aged Out No longer eligible based on patient's age to complete this topic RSV under 20 months Aged Out No longe r eligible based on patient's age to complete this topic Rotavirus Vaccines Aged Out No longer eligible based on patient's age to complete this topic Procedures Procedure Name Priority Date/Time Associated Diagnosis Comments COMPREHENSIVE METABOLIC PANEL Routine 11/28/2024 12:14 PM EST CBC WITH AUTO DIFFERENTIAL Routine 11/28/2024 12:14 PM EST URINALYSIS WITH REFLEX TO MICROSCOPIC Routine 11/28/2024 12:10 PM EST COMPREHENSIVE METABOLIC PANEL Routine 11/14/2024 3:48 PM EST URINALYSIS WITH REFLEX TO MICROSCOPIC Routine 11/14/2024 3:48 PM EST CBC WITH AUTO DIFFERENTIAL Routine 11/14/2024 3:48 PM EST URINALYSIS WITH REFLEX TO MICROSCOPIC Routine 10/31/2024 9:05 AM EST SLIDE REVIEW Routine 10/31/2024 9:05 AM EST MAGNESIUM Routine 10/31/2024 9:05 AM EST COMPREHENSIVE METABOLIC PANEL Routine 10/31/2024 9:05 AM EST CBC WITH AUTO DIFFERENTIAL Routine 10/31/2024 9:05 AM EST URINALYSIS WITH REFLEX TO MICROSCOPIC Routine 10/20/2024 8:07 AM EST COMPREHENSIVE METABOLIC PANEL Routine 10/20/2024 8:07 AM EST CBC WITH AUTO DIFFERENTIAL Routine 10/20/2024 8:07 AM EST COMPREHENSIVE METABOLIC PANEL Routine 10/10/2024 3:45 PM EST CBC WITH AUTO DIFFERENTIAL Routine 10/10/2024 3:45 PM EST URINALYSIS WITH REFLEX TO MICROSCOPIC Routine 10/10/2024 3:42 PM EST COMPREHENSIVE METABOLIC PANEL Routine 09/26/2024 3:15 PM EST CBC WITH AUTO DIFFERENTIAL Routine 09/26/2024 3:15 PM EST COMPREHENSIVE METABOLIC PANEL Routine 09/12/2024 1:53 PM EST CBC WITH AUTO DIFFERENTIAL Routine 09/12/2024 1:53 PM EST URINALYSIS WITH REFLEX TO MICROSCOPIC Routine 09/12/2024 1:48 PM EST URINALYSIS WITH REFLEX TO MICROSCOPIC Routine 08/29/2024 11:30 AM EST COMPREHENSIVE METABOLIC PANEL Routine 08/29/2024 11:29 AM EST CBC WITH AUTO DIFFERENTIAL Routine 08/29/2024 11:29 AM EST LIPID PANEL, STANDARD Routine 08/13/2020 9:16 AM EDT PROPHYLAXIS - ADULT Routine 03/15/2019 1 2:00 AM EDT DIAGNOSTIC - DIAGNOSTIC IMAGING - INTRAORAL - COMPREHENSIVE SERIES OF RADIOGRAPHIC IMAGES Routine 03/14/2019 12:00 AM EDT COMPREHENSIVE ORAL EVALUATION - NEW OR ESTABLISHED PATIENT Routine 03/14/2019 12:00 AM EDT from Last 3 Months or Most Recently Relevant to Health Maintenance Results * (ABNORMAL) CBC auto differential (11/28/2024 12:14 PM EST) Only the most recent of8 resultswithin the time period is included. White Blood Count 4.0(L) 4.8 - 10.8 X10*3/uL [facility] Red Blood Count 5.02 4.60 - 5.80 X10*6/uL [facility] Hemoglobin 13.9(L) 14.0 - 18.0 g/dl [facility] Hematocrit 43.6 42.0 - 52.0 % [facility] Mean Corpuscular Volume 86.9 80.0 - 98.0 fL [facility] Mean Corpuscular Hemoglobin 27.7 27.0 - 33.0 pg [facility] Mean Corpuscular HGB Conc 31.9 31.0 - 36.0 g/dl [facility] Red Cell Distribution Width 16.9(H) 11.0 - 16.0 % [facility] Platelet Count 251 160 - 400 X10*3/uL [facility] Mean Platelet Volume 9.7 9.4 - 12.4 fL [facility] Neutrophils Percent Auto 41.7(L) 45 - 73 % [facility] Imm Gran Pct Auto 0.3 0.0 - 0.4 % [facility] Lymphocytes Percent Auto 48.2(H) 20 - 40 % [facility] Monocytes Percent Auto 8.5 2 - 11 % [facility] Eosinophils Percent Auto 1.0 0 - 4 % [facility] Basophils Percent Auto 0.3 0 - 2 % [facility] NRBC Pct Auto 0.0 0.0 - 0.2 /100WBC [facility] Neutrophils Absolute Auto 1.7(L) 2.0 - 8.3 x10*3/uL [facility] Imm Gran Abs Auto 0.01 0.00 - 0.03 X10*3/uL [facility] Lymphocytes Absolute Auto 1.9 1.2 - 4.9 X10*3/uL [facility] Monocytes Absolute Auto 0.3 0.1 - 1.2 X10*3/uL [facility] Eosinophils Absolute Auto 0.0 0.0 - 0.4 X10*3/uL [facility] Basophils Absolute Auto 0.0 0.0 - 0.2 X10*3/uL [facility] NRBC Abs Auto 0.000 0.0 - 0.012 X10*3/uL [facility] 11/28/2024 12:1 4 PM EST 11/28/2024 12:14 PM EST us Generic External Data Provider LAB BLOOD ORDERAB LES Final Result [facility] [address] [place] [phone] * Urinalysis with Reflex to Microscopic (11/28/2024 12:10 PM EST) Only the most recent of7 resultswithin the time period is included. Color Urine Yellow [facility] Appearance Urine Clear [facility] PH 7.0 5.0 - 9.0 [facility] Glucose Urine UA Negative Negative mg/dL [facility] Urine Blood Negative Negative [facility] Specific [place] - Urine 1.020 1.005 - 1.025 [facility] Urine Protein Negative Neg-Trace mg/dL [facility] Urine Ketones Negative Negative mg/dL [facility] Nitrite Urine Negative Negative [facility] Leukocyte Esterase Urine Negative Negative [facility] 11/28/2024 12:1 0 PM EST 11/28/2024 12:22 PM EST Generic External Data Provider LAB URINE ORDERAB LES Final Result [facility] [address] [place] [address] [phone] * (ABNORMAL) Comprehensive Metabolic Panel (11/14/2024 3:48 PM EST) Only the most recent of7 resultswithin the time period is included. Sodium 141 135 - 145 mmol/L [facility] Potassium 4.6 3.3 - 5.1 mmol/L [facility] Comment:Slight Hemolysis.Int erpret result with caution. Chloride 108 96 - 108 mmol/L [facility] Carbon Dioxide 25 22 - 29 mmol/L [facility] Anion Gap 13 12 - 20 [facility] Urea Nitrogen (BUN) 9 9 - 16 mg/dL [facility] Creatinine, Serum 0.82 0.5 - 1.4 mg/dL [facility] Estimated Glomerular Filt Rate >60 [facility] Comment:Chronic Kidney Disea se: Estimated GFR < 60 mL/min/1.25h1Fmvces Kidney Disease: Estimated GFR < 15 mL/min/1.73m2 Glucose 78 60 - 115 mg/dL [facility] Calcium 9.3 8.4 - 10.2 mg/dL [facility] Bilirubin, Total 0.6 0.0 - 1.0 mg/dL [facility] Aspartate Amino Transferase 34 5 - 37 U/L [facility] Comment:Slight Hemolysis.Int erpret result with caution. Alanine Aminotransferase 17 0 - 40 U/L [facility] Total Protein 8.2(H) 6.5 - 8.0 g/dL [facility] Albumin Level 4.5 3.5 - 5.0 g/dL [facility] Alkaline Phosphatase 116 39 - 117 U/L [facility] 11/14/2024 3:48 PM EST 11/14/2024 3:48 PM EST Narrative [facility] - 11/14/2024 5:50 PM EST ` us Generic External Data Provider LAB BLOOD ORDERAB LES Final Result Performing Organization Address City/[facility]/ZIP Co de Phone Number [facility] [address] [place] [phone] * Slide Review (10/31/2024 9:05 AM EST) Slide Review VERIFIED [facility] 10/31/2024 9:05 AM EST 10/31/2024 9:09 AM EST us Generic External Data Provider LAB BLOOD ORDERAB LES Final Result Performing Organization Address [facility]/ZIP Co de Phone Number [facility] [address] [place] [phone] * Magnesium (10/31/2024 9:05 AM EST) [facility] Magnesium 1.9 1.6 - 2.6 mg/dL [facility] 10/31/2024 9:05 AM EST 10/31/2024 9:09 AM EST Generic External Data Provider LAB BLOOD ORDERAB LES Final Result Performing Organization Address City/[facility] Co de Phone Number [facility] [address] [place] [phone] * (ABNORMAL) LIPID PANEL, STANDARD (08/13/2020 9:16 AM EDT) Cholesterol, Total 207(H) <200 mg/dL [facility] Chol/HDLC Ratio 4.2 <5.0 (calc) [facility] Non-HDL Cholesterol 158(H) <130 mg/dL (calc) [facility] Comment: For patients with diabetes plus 1 major ASCVD risk ?? factor, treating to a non-HDL-C goal of <100 mg/dL ?? (LDL-C of <70 mg/dL) is considered a therapeutic ?? option. HDL Cholesterol 49 > OR = 40 mg/dL [facility] Triglycerides 112 <150 mg/dL [facility] LDL Cholesterol 136(H) mg/dL (calc) [facility] Comment: Reference range: <100 ?? Desirable range <100 mg/dL for primary prevention; ?? <70 mg/dL for patients with CHD or diabetic patients ?? with > or = 2 CHD risk factors. ?? LDL-C is now calculated using the Que-Rodriguez ?? calculation, which is a validated novel method providing ?? better accuracy than the Friedewald equation in the ?? estimation of LDL-C. ?? Que SS et al. AMELIA. 2013;310(19): 2767-2245 ?? (http://Tobosu.com/faq/LDW728) Cholesterol, Total 207(H) <200 mg/dL [facility] HDL Cholesterol 49 > OR = 40 mg/dL [facility] Triglycerides 112 <150 mg/dL [facility] LDL Cholesterol 136(H) mg/dL (calc) [facility] Comment: Reference range: <100 ?? Desirable range <100 mg/dL for primary prevention; ?? <70 mg/dL for patients with CHD or diabetic patients ?? with > or = 2 CHD risk factors. ?? LDL-C is now calculated using the Que-Rodriguez ?? calculation, which is a validated novel method providing ?? better accuracy than the Friedewald equation in the ?? estimation of LDL-C. ?? Que SS et al. AMELIA. 2013;310(19): 9854-2495 ?? (http://Tobosu.com/faq/VUK747) Chol/HDLC Ratio 4.2 <5.0 (calc) [facility] Non-HDL Cholesterol 158(H) <130 mg/dL (calc) [facility] Comment: For patients with diabetes plus 1 major ASCVD risk ?? factor, treating to a non-HDL-C goal of <100 mg/dL ?? (LDL-C of <70 mg/dL) is considered a therapeutic ?? option. Cholesterol, Total 207(H) <200 mg/dL [facility] HDL Cholesterol 49 > OR = 40 mg/dL [facility] Triglycerides 112 <150 mg/dL [facility] LDL Cholesterol 136(H) mg/dL (calc) [facility] Comment: Reference range: <100 ?? Desirable range <100 mg/dL for primary prevention; ?? <70 mg/dL for patients with CHD or diabetic patients ?? with > or = 2 CHD risk factors. ?? LDL-C is now calculated using the Manish ?? calculation, which is a validated novel method providing ?? better accuracy than the Friedewald equation in the ?? estimation of LDL-C. ?? Que PARR et al. AMELIA. 2013;310(19): 5491-3298 ?? (http://education.PE INTERNATIONAL/faq/AKJ182) Chol/HDLC Ratio 4.2 <5.0 (calc) [facility] Non-HDL Cholesterol 158(H) <130 mg/dL (calc) [facility] Comment: For patients with diabetes plus 1 major ASCVD risk ?? factor, treating to a non-HDL-C goal of <100 mg/dL ?? (LDL-C of <70 mg/dL) is considered a therapeutic ?? option. 08/13/2020 9:16 AM EDT Ricci Barkley MD LAB BLOOD ORDERABLES Final Result [facility] [address] from Last 3 Months or Most Recently Relevant to Health Maintenance Insurance # [place] [address] [facility] C[facility] [place] STAND ADULT Care Teams Housing Officer Relationship Specialty Start Date End Date Ricci Barkley MD [address] [place] [address] [place] [phone] PCP - General Internal Medicine 01/04/19
--- OUTSIDE RECORDS SUMMARY | 2024-11-28 13:22 | XMS_ITS | Encounter Summary ---
Author Organization [employer] Address [address] [facility] [address] [place] [address] Care Team Providers Care Geometry Professor Name Role Phone Ricci Barkley MD Primary Care Provider [phone] Encounter Details Date Type Department Care Team (Late st Contact Info) Description 10/31/2024 Orders Only GENERIC EXTERNAL DATA DEPARTMENT Provider, Generic External Data Social History Tobacco Use Types Packs/Day Years Used Date Smoking Tobacco: Former Cigarettes 0.3 19 0 03/31/1986 - 03/31/2005 Depression Answer Date Recorded Patient Health Questionnaire-9 Score 0 01/05/2023 Housing Stability Answer Date Recorded What is your housing situation today? I have brent parr 08/11/[address] you li ve. Do you have problems with any of the following? None of the above 08/11/2023 Food Insecurity Answer Date Recorded Within the past 12 months, y ou worried that your food would run out before you got money to buy more: Never True 08/11/2023 Within the past 12 months,th e food you bought just didn't last and you didn't have enough money to get more: Never True Transportation Answer Date Recorded In the past 12 months, has l ack of transportation kept you from medical appts, meetings, work or from getting things needed for daily living? No 08/11/2023 Utilities Answer Date Recorded In the past 12 months, has t he electric, gas, oil or water company threatened to shut off services in your home? No 08/11/2023 Depression Answer Date Recorded Patient Health Questionnaire-2 Score 0 01/05/2023 Sex and Gender Information Value Date Recorded Sex Assigned at Male 08/25/2022 10:35 AM EDT Legal Sex Male 10:35 AM EDT Gender Identity Male 08/25/2022 10:35 AM EDT Sexual Orientation Don't know 08/25/2022 10 :35 AM EDT documented as of this encounter Plan of Treatment Not on file documented as of this encounter Procedures Procedure Name Priority Date/Time Associated Diagnosis Comments SLIDE REVIEW Routine 10/31/2024 9:05 AM EST URINALYSIS WITH REFLEX TO MICROSCOPIC Routine 10/31/2024 9:05 AM EST CBC WITH AUTO DIFFERENTIAL Routine 10/31/2024 9:05 AM EST MAGNESIUM Routine 10/31/2024 9:05 AM EST COMPREHENSIVE METABOLIC PANEL Routine 10/31/2024 9:05 AM EST documented in this encounter Results * Urinalysis with Reflex to Microscopic (10/31/2024 9:05 AM EST) Color Urine Yellow [facility] Appearance Urine Clear [facility] PH 5.5 5.0 - 9.0 [facility] Glucose Urine UA Negative Negative mg/dL [facility] Urine Blood Negative Negative [facility] Specific [place] - Urine 1.025 1.005 - 1.025 [facility] Urine Protein Negative Neg-Trace mg/dL [facility] Urine Ketones Negative Negative mg/dL [facility] Nitrite Urine Negative Negative [facility] Leukocyte Esterase Urine Negative Negative [facility] 10/31/2024 9:05 AM EST 10/31/2024 10:07 AM EST us Generic External Data Provider LAB URINE ORDERAB LES Final Result [facility] [address] [place] [phone] * Slide Review (10/31/2024 9:05 AM EST) Slide Review VERIFIED [facility] 10/31/2024 9:05 AM EST 10/31/2024 9:09 AM EST us Generic External Data Provider LAB BLOOD ORDERAB LES Final Result Performing Organization Address [facility] Co de Phone Number [facility] [address] [place] [phone] * Magnesium (10/31/2024 9:05 AM EST) Pathologist [facility] Magnesium 1.9 1.6 - 2.6 mg/dL [facility] 10/31/2024 9:05 AM EST 10/31/2024 9:09 AM EST us Generic External Data Provider LAB BLOOD ORDERAB LES Final Result Performing Organization Address [facility] de Phone Number [facility] [address] [place] [phone] * (ABNORMAL) Comprehensive Metabolic Panel (10/31/2024 9:05 AM EST) Pathologist [facility] Sodium 142 135 - 145 mmol/L [facility] Potassium 4.6 3.3 - 5.1 mmol/L [facility] Chloride 109(H) 96 - 108 mmol/L [facility] Carbon Dioxide 26 22 - 29 mmol/L [facility] Anion Gap 12 12 - 20 [facility] Urea Nitrogen (BUN) 13 9 - 16 mg/dL [facility] Creatinine, Serum 0.89 0.5 - 1.4 mg/dL [facility] Estimated Glomerular Filt Rate >60 [facility] Comment:Chronic Kidney Disea se: Estimated GFR < 60 mL/min/1.35e4Stzqto Kidney Disease: Estimated GFR < 15 mL/min/1.73m2 Glucose 110 60 - 115 mg/dL [facility] Calcium 9.6 8.4 - 10.2 mg/dL [facility] Bilirubin, Total 0.5 0.0 - 1.0 mg/dL [facility] Aspartate Amino Transferase 25 5 - 37 U/L [facility] Alanine Aminotransferase 16 0 - 40 U/L [facility] Total Protein 7.5 6.5 - 8.0 g/dL [facility] Albumin Level 4.4 3.5 - 5.0 g/dL [facility] Alkaline Phosphatase 112 39 - 117 U/L [facility] 10/31/2024 9:05 AM EST 10/31/2024 9:09 AM EST us Generic External Data Provider LAB BLOOD ORDERAB LES Final Result [facility] [address] [place] [phone] * (ABNORMAL) CBC auto differential (10/31/2024 9:05 AM EST) White Blood Count 4.5(L) 4.8 - 10.8 X10*3/uL [facility] Red Blood Count 4.96 4.60 - 5.80 X10*6/uL [facility] Hemoglobin 14.0 14.0 - 18.0 g/dl [facility] Hematocrit 43.2 42.0 - 52.0 % [facility] Mean Corpuscular Volume 87.1 80.0 - 98.0 fL [facility] Mean Corpuscular Hemoglobin 28.2 27.0 - 33.0 pg [facility] Mean Corpuscular HGB Conc 32.4 31.0 - 36.0 g/dl [facility] Red Cell Distribution Width 17.2(H) 11.0 - 16.0 % [facility] Platelet Count 230 160 - 400 X10*3/uL [facility] Mean Platelet Volume 10.0 9.4 - 12.4 fL [facility] Neutrophils Percent Auto 26.0(L) 45 - 73 % [facility] Imm Gran Pct Auto 0.2 0.0 - 0.4 % [facility] Lymphocytes Percent Auto 60.4(H) 20 - 40 % [facility] Monocytes Percent Auto 12.6(H) 2 - 11 % [facility] Eosinophils Percent Auto 0.4 0 - 4 % [facility] Basophils Percent Auto 0.4 0 - 2 % [facility] NRBC Pct Auto 0.0 0.0 - 0.2 /100WBC [facility] Neutrophils Absolute Auto 1.2(L) 2.0 - 8.3 x10*3/uL [facility] Imm Gran Abs Auto 0.01 0.00 - 0.03 X10*3/uL [facility] Lymphocytes Absolute Auto 2.7 1.2 - 4.9 X10*3/uL [facility] Monocytes Absolute Auto 0.6 0.1 - 1.2 X10*3/uL [facility] Eosinophils Absolute Auto 0.0 0.0 - 0.4 X10*3/uL [facility] Basophils Absolute Auto 0.0 0.0 - 0.2 X10*3/uL [facility] NRBC Abs Auto 0.000 0.0 - 0.012 X10*3/uL [facility] 10/31/2024 9:05 AM EST 10/31/2024 9:09 AM EST us Generic External Data Provider LAB BLOOD ORDERAB LES Edited Result - Final [facility] [address] [place] [phone] documented in this encounter Visit Diagnoses Not on filedocumented in this encounter Additional Health Concerns Assessment Noted Time PHQ-9 Depression Total Score: 0 01/06/20 23 2:54 PM EDT documented as of this encounter Care Teams Geometry Professor Relationship Specialty Start Date End Date Ricci Barkley MD [address] [place] [phone] PCP - General Internal Medicine 01/04/19 documented as of this encounter
--- OUTSIDE RECORDS SUMMARY | 2024-11-28 13:22 | XMS_ITS | Encounter Summary ---
Author Organization [employer] Address [address] [facility] [address] [place] [address] Care Team Providers Care Risk Advisor Name Role Phone Ricci Barkley MD Primary Care Provider [phone]- [phone] Encounter Details Date Type Department Care Team (Latest Contact Info) Description 11/11/2024 Travel Social History Tobacco Use Types Packs/Day Years [...] documented as of this encounter Care Teams Risk Advisor Relationship Specialty Start Date End Date Ricci Barkley MD [address] [place] [phone] PCP - General Internal Medicine 01/04/19 documented as of this encounter
[2024-11-28 16:11] LABS: Glucose Random 96 mg/dL (60-115)
== END 2024-11-28 11:57 | disposition home or self-care (01) ==
LOC: HO.LAB 11:56
PROVIDERS: PCP Internal Medicine; Visit Provider Internal Medicine
DX: C18.0 Malignant neoplasm of cecum (principal)
CPT/HCPCS: 36415; 80053; 81003; 85025

== ENCOUNTER 2024-12-12 13:05 | Outpatient (REF) | payer MEDICAID, SELFPAY ==
[2024-12-12 13:20] LABS: MANUAL DIFF FLAG NO
[2024-12-12 13:23] LABS: Basophils Percent Auto 0.2 % (0-2); Eosinophils Percent Auto 0.6 % (0-4); Hematocrit 41.7 % (42.0-52.0); Hemoglobin 13.5 g/dl (14.0-18.0); Imm Gran Abs Auto 0.01 X10*3/uL (0.00-0.03); Imm Gran Pct Auto 0.2 % (0.0-0.4); Lymphocytes Absolute Auto 2.1 X10*3/uL (1.2-4.9); Mean Corpuscular HGB Conc 32.4 g/dl (31.0-36.0); Mean Corpuscular Hemoglobin 27.6 pg (27.0-33.0); Mean Corpuscular Volume 85.3 fL (80.0-98.0); Mean Platelet Volume 8.9 fL (9.4-12.4); Monocytes Absolute Auto 0.3 X10*3/uL (0.1-1.2); Monocytes Percent Auto 6.8 % (2-11); Neutrophils Absolute Auto 2.2 x10*3/uL (2.0-8.3); Neutrophils Percent Auto 47.2 % (45-73); Platelet Count 166 X10*3/uL (160-400); Red Blood Count 4.89 X10*6/uL (4.60-5.80); Red Cell Distribution Width 16.4 % (11.0-16.0); White Blood Count 4.7 X10*3/uL (4.8-10.8)
[2024-12-12 13:36] LABS: Alanine Aminotransferase 19 U/L (0-40); Albumin Level 4.4 g/dL (3.5-5.0); Alkaline Phosphatase 121 U/L (39-117); Anion Gap 13 (12-20); Aspartate Amino Transferase 27 U/L (5-37); Bilirubin Total 0.6 mg/dL (0.0-1.0); Blood Urea Nitrogen 14 mg/dL (9-16); Calcium 9.2 mg/dL (8.4-10.2); Carbon Dioxide 24 mmol/L (22-29); Chloride 108 mmol/L (96-108); Estimated Glomerular Filt Rate > 60; Glucose Random 94 mg/dL (60-115); Potassium 4.5 mmol/L (3.3-5.1); Sodium 140 mmol/L (135-145); Total Protein 7.7 g/dL (6.5-8.0)
[2024-12-12 13:47] LABS: Appearance Urine Clear; Color Urine Yellow; Glucose Urine UA Negative (Negative); Leukocyte Esterase Urine Negative (Negative); Nitrite Urine Negative (Negative); Urine Blood Negative (Negative); Urine Ketones Negative (Negative); Urine Protein Negative (Neg-Trace)
== END 2024-12-12 13:06 | disposition home or self-care (01) ==
LOC: HO.LAB 13:05
PROVIDERS: PCP Internal Medicine; Visit Provider Internal Medicine
DX: C18.0 Malignant neoplasm of cecum (principal)
CPT/HCPCS: 36415; 80053; 81003; 85025

== ENCOUNTER 2024-12-13 14:20 | Outpatient (REF) | payer MEDICAID, SELFPAY ==
--- NOTE | ~2024-12-13 | CT_ITS ---
CLINICAL HISTORY: Assess response to treatment CT abdomen and pelvis with contrast Comparison: CT/REG/DC/SR - CT ABDOMEN PELVIS WO IV CON - 02/24/24 07:21 EDT Findings: The lung bases are clear. Gallbladder is contracted. Solid organs are within normal limits. No bowel obstruction, pneumoperitoneum, or pneumatosis. There has been a decrease in size of the previously seen peritoneal nodule within the right pericolic gutter, surrounding the surgical clips, which currently measures 25 mm diameter. As before, there is a sinus tract extending inferiorly from this lesion into the right upper pelvis, where there is a 15 mm nodule which is decreased in size. The periumbilical soft tissue density mass is slightly increased, currently measuring 26 mm oblique transverse. Pelvic contents unremarkable. Appendix is not seen. Grade 1 anterolisthesis of L5 on S1. Bilateral L5-S1 pars interarticularis defects IMPRESSION: 1. 2 of the right-sided peritoneal nodules have decreased in size. There has been a slight increase in size of the periumbilical nodule. 2. Grade 1 isthmic spondylolisthesis of L5 on S1. This document has been electronically signed by: Ankit Peralta MD on 12/14/2024 13:57:16
--- NOTE | ~2024-12-13 | CT_ITS ---
CLINICAL HISTORY: Assess response to treatment CT chest with contrast Comparison: CT/OT/PT/SR - PET CT FUSION SKULL TO THIGH - 06/24/23 14:37 EDT Findings: The heart is normal size. The visualized thyroid and mediastinum are unremarkable. Right chest wall port a catheter. No consolidation or effusion. The upper abdomen is unremarkable. No acute fractures. IMPRESSION: 1. Unremarkable chest CT. This document has been electronically signed by: Ankit Peralta MD on 12/14/2024 14:33:44
[2024-12-13] MEDS: iohexoL 350 MG/ML 100 ML INFUS..BTL IV (15:01)
--- OUTSIDE RECORDS SUMMARY | 2024-12-13 15:21 | XMS_ITS | Clinical Summary ---
Author Organization [employer] Address [address] [place] [address] 7 [place] [address] Care Team Providers Care Director Clinical Research Name Role Phone Ricci Barkley MD Primary [...] Encounters Date Type Department Care Team Description 12/12/2024 Orders Only GENERIC EXTERNAL DATA DEPARTMENT Provider, Generic External Data 11/28/2024 Orders Only GENERIC EXTERNAL DATA DEPARTMENT Provider, Generic External Data 11/14/2024 Orders Only GENERIC EXTERNAL DATA DEPARTMENT Provider, Generic External Data 11/11/2024 3:45 PM EST Office Visit [facility] [address] [place], [place] [phone] Ricci Barkley MD Dislocation of temporomandibular joint, initial encounter (Primary Dx) 11/11/2024 Travel 11/11/2024 Telephone [facility] [address] [place] [address] Ricci Barkley MD Nurse Triage 10/31/2024 Orders [...] Associated Diagnosis Comments COMPREHENSIVE METABOLIC PANEL Routine 12/12/2024 1:14 PM EST CBC WITH AUTO DIFFERENTIAL Routine 12/12/2024 1:14 PM EST URINALYSIS WITH REFLEX TO MICROSCOPIC Routine 12/12/2024 1:12 PM EST COMPREHENSIVE METABOLIC PANEL Routine 11/28/2024 [...] TO MICROSCOPIC Routine 09/12/2024 1:48 PM EST LIPID PANEL, STANDARD Routine 08/13/2020 9:16 AM EDT PROPHYLAXIS - ADULT Routine 03/15/2019 1 2:00 AM EDT INTRAORAL - COMPLETE SERIES OF RADIOGRAPHIC IMAGES Routine 03/14/2019 12:00 AM EDT COMPREHENSIVE ORAL EVALUATION - NEW OR ESTABLISHED PATIENT Routine 03/14/2019 12:00 AM EDT from Last 3 Months or Most Recently Relevant to Health Maintenance Results * (ABNORMAL) CBC auto differential (12/12/2024 1:14 PM EST) Only the most recent of8 resultswithin the time period is included. White Blood Count 4.7(L) 4.8 - 10.8 X10*3/uL [facility] Red Blood Count 4.89 4.60 - 5.80 X10*6/uL [facility] Hemoglobin 13.5(L) 14.0 - 18.0 g/dl [facility] Hematocrit 41.7(L) 42.0 - 52.0 % [facility] Mean Corpuscular Volume 85.3 80.0 - 98.0 fL [facility] Mean Corpuscular Hemoglobin 27.6 27.0 - 33.0 pg [facility] Mean Corpuscular HGB Conc 32.4 31.0 - 36.0 g/dl [facility] Red Cell Distribution Width 16.4(H) 11.0 - 16.0 % [facility] Platelet Count 166 160 - 400 X10*3/uL [facility] Mean Platelet Volume 8.9(L) 9.4 - 12.4 fL [facility] Neutrophils Percent Auto 47.2 45 - 73 % [facility] Imm Gran Pct Auto 0.2 0.0 - 0.4 % [facility] Lymphocytes Percent Auto 45.0(H) 20 - 40 % [facility] Monocytes Percent Auto 6.8 2 - 11 % [facility] Eosinophils Percent Auto 0.6 0 - 4 % [facility] Basophils Percent Auto 0.2 0 - 2 % [facility] NRBC Pct Auto 0.0 0.0 - 0.2 /100WBC [facility] Neutrophils Absolute Auto 2.2 2.0 - 8.3 x10*3/uL [facility] Imm Gran Abs Auto 0.01 0.00 - 0.03 X10*3/uL [facility] Lymphocytes Absolute Auto 2.1 1.2 - 4.9 X10*3/uL [facility] Monocytes Absolute Auto 0.3 0.1 - 1.2 X10*3/uL [facility] Eosinophils Absolute Auto 0.0 0.0 - 0.4 X10*3/uL [facility] Basophils Absolute Auto 0.0 0.0 - 0.2 X10*3/uL [facility] NRBC Abs Auto 0.000 0.0 - 0.012 X10*3/uL [facility] 12/12/2024 1:14 PM EST 12/12/2024 1:18 PM EST us Generic External Data Provider LAB BLOOD ORDERAB LES Final Result [facility] [address] [place], [place] [phone] * (ABNORMAL) Comprehensive Metabolic Panel (12/12/2024 1:14 PM EST) Only the most recent of8 resultswithin the time period is included. Sodium 140 135 - 145 mmol/L [facility] Potassium 4.5 3.3 - 5.1 mmol/L [facility] Chloride 108 96 - 108 mmol/L [facility] Carbon Dioxide 24 22 - 29 mmol/L [facility] Anion Gap 13 12 - 20 [facility] Urea Nitrogen (BUN) 14 9 - 16 mg/dL [facility] Creatinine, Serum 0.77 0.5 - 1.4 mg/dL [facility] Estimated Glomerular Filt Rate >60 [facility] Comment:Chronic Kidney Disea se: Estimated GFR < 60 mL/min/1.82j1Bxyefo Kidney Disease: Estimated GFR < 15 mL/min/1.73m2 Glucose 94 60 - 115 mg/dL [facility] Calcium 9.2 8.4 - 10.2 mg/dL [facility] Bilirubin, Total 0.6 0.0 - 1.0 mg/dL [facility] Aspartate Amino Transferase 27 5 - 37 U/L [facility] Alanine Aminotransferase 19 0 - 40 U/L [facility] Total Protein 7.7 6.5 - 8.0 g/dL [facility] Albumin Level 4.4 3.5 - 5.0 g/dL [facility] Alkaline Phosphatase 121(H) 39 - 117 U/L [facility] 12/12/2024 1:14 PM EST 12/12/2024 1:18 PM EST Generic External Data Provider LAB BLOOD ORDERAB LES Final Result Performing Organization Address [facility] Co de Phone Number [facility] [address] [place] [phone] * Urinalysis with Reflex to Microscopic (12/12/2024 1:12 PM EST) Only the most recent of7 resultswithin the time period is included. Color Urine Yellow [facility] Appearance Urine Clear [facility] PH 6.0 5.0 - 9.0 [facility] Glucose Urine UA Negative Negative mg/dL [facility] Urine Blood Negative Negative [facility] Specific [place] - Urine 1.020 1.005 - 1.025 [facility] Urine Protein Negative Neg-Trace mg/dL [facility] Urine Ketones Negative Negative mg/dL [facility] Nitrite Urine Negative Negative [facility] Leukocyte Esterase Urine Negative Negative [facility] 12/12/2024 1:12 PM EST 12/12/2024 1:40 PM EST Generic External Data Provider LAB URINE ORDERAB LES Final Result Performing Organization Address [facility] Co de Phone Number [facility] [address] [place] [phone] * Slide Review (10/31/2024 9:05 AM EST) Slide Review VERIFIED [facility] 10/31/2024 9:05 AM EST 10/31/2024 9:09 AM EST us Generic External Data Provider LAB BLOOD ORDERAB LES Final Result Performing Organization Address City/[facility]/ZIP Co de Phone Number [facility] [address] [place] [phone] * Magnesium (10/31/2024 9:05 AM EST) Magnesium 1.9 1.6 - 2.6 mg/dL [facility] 10/31/2024 9:05 AM EST 10/31/2024 9:09 AM EST Generic External Data Provider LAB BLOOD ORDERAB LES Final Result Performing Organization Address [facility] Phone Number [facility] [address] [place] [phone] * (ABNORMAL) LIPID PANEL, STANDARD (08/13/2020 [...] ?? Que PARR et al. AMELIA. 2013;310(19): 6078-3314 ?? (http://Ulmon/faq/EBS814) Cholesterol, Total 207(H) <200 mg/dL [facility] ?? Que PARR et al. AMELIA. 2013;310(19): 5541-5455 ?? (http://Ulmon/faq/KBF494) Chol/HDLC Ratio 4.2 <5.0 (calc) [facility] ?? Que PARR et al. AMELIA. 2013;310(19): 7211-9826 ?? (http://education.Booklr.Xuehuile/faq/WPP558) Chol/HDLC Ratio 4.2 <5.0 (calc) [facility] Non-HDL Cholesterol 158(H) <130 mg/dL (calc) [facility] Comment: For patients with diabetes plus 1 major ASCVD risk ?? factor, treating to a non-HDL-C goal of <100 mg/dL ?? (LDL-C of <70 mg/dL) is considered a therapeutic ?? option. 08/13/2020 9:16 AM EDT us Ricci Barkley MD LAB BLOOD ORDERABLES Final Result [facility] [address] from Last 3 Months or Most Recently Relevant to Health Maintenance Insurance [address] [place] [address] [facility] C3 [facility] MEDICAID STAND ADULT Care Teams Director Clinical Research Relationship Specialty Start Date End Date Ricci Barkley MD [address] [place] [phone] PCP - General Internal Medicine 01/04/19
--- OUTSIDE RECORDS SUMMARY | 2024-12-13 15:21 | XMS_ITS | Encounter Summary ---
Author Organization [employer] Address [address] [place] [address] Care Team Providers Care Boom Master Name Role Phone Ricci Barkley MD Primary Care Provider [phone]- [phone] Encounter Details Date Type Department Care Team [...] on filedocumented in this encounter Care Teams Boom Master Relationship Specialty Start Date End Date Ricci Barkley MD [address] [place] [address] PCP - General Internal Medicine 01/04/19 documented as of this encounter
--- OUTSIDE RECORDS SUMMARY | 2024-12-13 15:21 | XMS_ITS | Encounter Summary ---
Author Organization [employer] Address [address] [facility] [address]t [place] [address] Care Team Providers Care Jackscrew Worker Name Role Phone Ricci Barkley MD Primary Care Provider [phone]- [phone] Encounter Details Date Type Department Care Team [...] EST) Sodium 141 135 - 145 mmol/L [facility] Potassium 4.6 3.3 - 5.1 mmol/L [facility] Comment:Slight Hemolysis.Int erpret result with caution. Chloride 108 96 - 108 mmol/L [facility] Carbon Dioxide 25 22 - 29 mmol/L [facility] Anion Gap 13 12 - 20 [facility] Urea Nitrogen (BUN) 9 9 - 16 mg/dL [facility] Creatinine, Serum 0.82 0.5 - 1.4 mg/dL [facility] Estimated Glomerular Filt Rate >60 [facility] Comment:Chronic Kidney Disea se: Estimated GFR < 60 mL/min/1.23b3Cyvymh Kidney Disease: Estimated GFR < 15 mL/min/1.73m2 Glucose 78 60 - 115 mg/dL [facility] Calcium 9.3 8.4 - 10.2 mg/dL [facility] Bilirubin, Total 0.6 0.0 - 1.0 mg/dL [facility] Aspartate Amino Transferase 34 5 - 37 U/L [facility] Comment:Slight Hemolysis.Int erpret result with caution. Alanine Aminotransferase 17 0 - 40 U/L [facility] Total Protein 8.2(H) 6.5 - 8.0 g/dL [facility] Albumin Level 4.5 3.5 - 5.0 g/dL [facility] Alkaline Phosphatase 116 39 - 117 U/L [facility] 11/14/2024 3:48 PM EST 11/14/2024 3:48 PM EST Narrative [facility] - 11/14/2024 5:50 PM EST ` Generic External Data Provider LAB BLOOD ORDERAB LES Final Result Performing Organization Address [facility] de Phone Number [facility] [address] [place] [phone] * Urinalysis with Reflex to Microscopic (11/14/2024 3:48 PM EST) Color Urine Dark Yellow [facility] Appearance Urine Clear [facility] PH 5.5 5.0 - 9.0 [facility] Glucose Urine UA Negative Negative mg/dL [facility] Urine Blood Negative Negative [facility] Specific [place] - Urine 1.025 1.005 - 1.025 [facility] Urine Protein Negative Neg-Trace mg/dL [facility] Urine Ketones Trace Negative mg/dL [facility] Nitrite Urine Negative Negative [facility] Leukocyte Esterase Urine Negative Negative [facility] 11/14/2024 3:48 PM EST 11/14/2024 4:10 PM EST us Generic External Data Provider LAB URINE ORDERAB LES Final Result Performing Organization Address [facility] Co de Phone Number [facility] [address] [place] [phone] * (ABNORMAL) CBC auto differential (11/14/2024 3:48 PM EST) White Blood Count 6.0 4.8 - 10.8 X10*3/uL [facility] Red Blood Count 5.04 4.60 - 5.80 X10*6/uL [facility] Hemoglobin 14.0 14.0 - 18.0 g/dl [facility] Hematocrit 43.5 42.0 - 52.0 % [facility] Mean Corpuscular Volume 86.3 80.0 - 98.0 fL [facility] Mean Corpuscular Hemoglobin 27.8 27.0 - 33.0 pg [facility] Mean Corpuscular HGB Conc 32.2 31.0 - 36.0 g/dl [facility] Red Cell Distribution Width 16.5(H) 11.0 - 16.0 % [facility] Platelet Count 224 160 - 400 X10*3/uL [facility] Mean Platelet Volume 9.3(L) 9.4 - 12.4 fL [facility] Neutrophils Percent Auto 57.2 45 - 73 % [facility] Imm Gran Pct Auto 0.5(H) 0.0 - 0.4 % [facility] Lymphocytes Percent Auto 34.7 20 - 40 % [facility] Monocytes Percent Auto 6.8 2 - 11 % [facility] Eosinophils Percent Auto 0.5 0 - 4 % [facility] Basophils Percent Auto 0.3 0 - 2 % [facility] NRBC Pct Auto 0.0 0.0 - 0.2 /100WBC [facility] Neutrophils Absolute Auto 3.4 2.0 - 8.3 x10*3/uL [facility] Imm Gran Abs Auto 0.03 0.00 - 0.03 X10*3/uL [facility] Lymphocytes Absolute Auto 2.1 1.2 - 4.9 X10*3/uL [facility] Monocytes Absolute Auto 0.4 0.1 - 1.2 X10*3/uL [facility] Eosinophils Absolute Auto 0.0 0.0 - 0.4 X10*3/uL [facility] Basophils Absolute Auto 0.0 0.0 - 0.2 X10*3/uL [facility] NRBC Abs Auto 0.000 0.0 - 0.012 X10*3/uL [facility] 11/14/2024 3:48 PM EST 11/14/2024 3:48 PM EST Narrative [facility] - 11/14/2024 4:15 PM EST ` us Generic External Data Provider LAB BLOOD ORDERAB LES Final Result [facility] [address] [place] [address] [phone] documented in this encounter Visit Diagnoses Not on filedocumented in this encounter Additional Health Concerns Assessment Noted Time PHQ-9 Depression Total Score: 0 11/11/19 25 4:16 PM EST documented as of this encounter Care Teams Jackscrew Worker Relationship Specialty Start Date End Date Ricci Barkley MD [address] [place] [phone] PCP - General Internal Medicine 01/04/19 documented as of this encounter
--- OUTSIDE RECORDS SUMMARY | 2024-12-13 15:21 | XMS_ITS | Encounter Summary ---
Author Organization [employer] Address [address] [facility] 7t [place] [address] Care Team Providers Care Silverer Name Role Phone Ricci Barkley MD Primary Care Provider [phone]- [phone] Encounter Details Date Type Department Care Team (Late st Contact Info) Description 12/12/2024 Orders Only GENERIC EXTERNAL DATA [...] Diagnosis Comments CBC WITH AUTO DIFFERENTIAL Routine 12/12/2024 1:14 PM EST COMPREHENSIVE METABOLIC PANEL Routine 12/12/2024 1:14 PM EST URINALYSIS WITH REFLEX TO MICROSCOPIC Routine 12/12/2024 1:12 PM EST documented in this encounter Results * (ABNORMAL) Comprehensive Metabolic Panel (12/12/2024 1:14 PM EST) Sodium 140 135 - 145 mmol/L [facility] Potassium 4.5 3.3 - 5.1 mmol/L [facility] Chloride 108 96 - 108 mmol/L [facility] Carbon Dioxide 24 22 - 29 mmol/L [facility] Anion Gap 13 12 - 20 [facility] Urea Nitrogen (BUN) 14 9 - 16 mg/dL [facility] Creatinine, Serum 0.77 0.5 - 1.4 mg/dL [facility] Estimated Glomerular Filt Rate >60 [facility] Comment:Chronic Kidney Disea se: Estimated GFR < 60 mL/min/1.11s4Hykggv Kidney Disease: Estimated GFR < 15 mL/min/1.73m2 Glucose 94 60 - 115 mg/dL [facility] Calcium 9.2 8.4 - 10.2 mg/dL [facility] Bilirubin, Total 0.6 0.0 - 1.0 mg/dL [facility] Aspartate Amino Transferase 27 5 - 37 U/L [facility] Alanine Aminotransferase 19 0 - 40 U/L [facility] Total Protein 7.7 6.5 - 8.0 g/dL [facility] Albumin Level 4.4 3.5 - 5.0 g/dL [facility] Alkaline Phosphatase 121(H) 39 - 117 U/L [facility] 12/12/2024 1:14 PM EST 12/12/2024 1:18 PM EST us Generic External Data Provider LAB BLOOD ORDERAB LES Final Result [facility] [address] [place] [address] [phone] * (ABNORMAL) CBC auto differential (12/12/2024 1:14 PM EST) White Blood Count 4.7(L) 4.8 - 10.8 X10*3/uL [facility] Red Blood Count 4.89 4.60 - 5.80 X10*6/uL [facility] Hemoglobin 13.5(L) 14.0 - 18.0 g/dl [facility] Hematocrit 41.7(L) 42.0 - 52.0 % [facility] Mean Corpuscular Volume 85.3 80.0 - 98.0 fL [facility] Mean Corpuscular Hemoglobin 27.6 27.0 - 33.0 pg [facility] Mean Corpuscular HGB Conc 32.4 31.0 - 36.0 g/dl [facility] Red Cell Distribution Width 16.4(H) 11.0 - 16.0 % [facility] Platelet Count 166 160 - 400 X10*3/uL [facility] Mean Platelet Volume 8.9(L) 9.4 - 12.4 fL [facility] Neutrophils Percent Auto 47.2 45 - 73 % [facility] Imm Gran Pct Auto 0.2 0.0 - 0.4 % [facility] Lymphocytes Percent Auto 45.0(H) 20 - 40 % [facility] Monocytes Percent Auto 6.8 2 - 11 % [facility] Eosinophils Percent Auto 0.6 0 - 4 % [facility] Basophils Percent Auto 0.2 0 - 2 % [facility] NRBC Pct Auto 0.0 0.0 - 0.2 /100WBC [facility] Neutrophils Absolute Auto 2.2 2.0 - 8.3 x10*3/uL [facility] Imm Gran Abs Auto 0.01 0.00 - 0.03 X10*3/uL [facility] Lymphocytes Absolute Auto 2.1 1.2 - 4.9 X10*3/uL [facility] Monocytes Absolute Auto 0.3 0.1 - 1.2 X10*3/uL [facility] Eosinophils Absolute Auto 0.0 0.0 - 0.4 X10*3/uL [facility] Basophils Absolute Auto 0.0 0.0 - 0.2 X10*3/uL [facility] NRBC Abs Auto 0.000 0.0 - 0.012 X10*3/uL [facility] 12/12/2024 1:14 PM EST 12/12/2024 1:18 PM EST us Generic External Data Provider LAB BLOOD ORDERAB LES Final Result [facility] [address] [place] [phone] * Urinalysis with Reflex to Microscopic (12/12/2024 1:12 PM EST) Color Urine Yellow [facility] Appearance Urine Clear [facility] PH 6.0 5.0 - 9.0 [facility] Glucose Urine UA Negative Negative mg/dL [facility] Urine Blood Negative Negative [facility] Specific [place] - Urine 1.020 1.005 - 1.025 [facility] Urine Protein Negative Neg-Trace mg/dL [facility] Urine Ketones Negative Negative mg/dL [facility] Nitrite Urine Negative Negative [facility] Leukocyte Esterase Urine Negative Negative [facility] 12/12/2024 1:12 PM EST 12/12/2024 1:40 PM EST us Generic External Data Provider LAB URINE ORDERAB LES Final Result [facility] [address] [place] [address] [phone] documented in this encounter Visit Diagnoses Not on filedocumented in this encounter Additional Health Concerns Assessment Noted Time PHQ-9 Depression Total Score: 0 11/11/19 25 4:16 PM EST documented as of this encounter Care Teams Silverer Relationship Specialty Start Date End Date Ricci Barkley MD [address] [place] [phone] PCP - General Internal Medicine 01/04/19 documented as of this encounter
--- OUTSIDE RECORDS SUMMARY | 2024-12-13 15:21 | XMS_ITS | Encounter Summary ---
Author Organization [employer] Address [address] [place] [address] Care Team Providers Care Tea Room Manager Name Role Phone Ricci Barkley MD Primary Care Provider [phone]- [phone] Encounter Details Date Type Department Care Team [...] on filedocumented in this encounter Care Teams Tea Room Manager Relationship Specialty Start Date End Date Ricci Barkley MD [address] [place] [phone] PCP - General Internal Medicine 01/04/19 documented as of this encounter
--- OUTSIDE RECORDS SUMMARY | 2024-12-13 15:21 | XMS_ITS | Encounter Summary ---
Author Organization [employer] Address [address] [facility] [address] [place] [address] Care Team Providers Care Band Tumbler Name Role Phone Ricci Barkley MD Primary Care Provider [phone]- [phone] Encounter Details Date Type Department Care Team [...] encounter Results * (ABNORMAL) Comprehensive Metabolic Panel (11/28/2024 12:14 PM EST) Sodium 139 135 - 145 mmol/L [facility] Potassium 4.1 3.3 - 5.1 mmol/L [facility] Chloride 107 96 - 108 mmol/L [facility] Carbon Dioxide 27 22 - 29 mmol/L [facility] Anion Gap 9(L) 12 - 20 [facility] Urea Nitrogen (BUN) 11 9 - 16 mg/dL [facility] Creatinine, Serum 0.71 0.5 - 1.4 mg/dL [facility] Estimated Glomerular Filt Rate >60 [facility] Comment:Chronic Kidney Disea se: Estimated GFR < 60 mL/min/[id number] Kidney Disease: Estimated GFR < 15 mL/min/1.73m2 Glucose 96 60 - 115 mg/dL [facility] Calcium 9.4 8.4 - 10.2 mg/dL [facility] Bilirubin, Total 0.6 0.0 - 1.0 mg/dL [facility] Aspartate Amino Transferase 24 5 - 37 U/L [facility] Alanine Aminotransferase 20 0 - 40 U/L [facility] Total Protein 7.9 6.5 - 8.0 g/dL [facility] Albumin Level 4.5 3.5 - 5.0 g/dL [facility] Alkaline Phosphatase 113 39 - 117 U/L [facility] 11/28/2024 12:1 4 PM EST 11/28/2024 12:14 PM EST us Generic External Data Provider LAB BLOOD ORDERAB LES Final Result [facility] [address] [place] [address] [phone] * (ABNORMAL) CBC auto differential (11/28/2024 12:14 PM EST) White Blood Count 4.0(L) 4.8 - 10.8 X10*3/uL [facility] Red Blood Count 5.02 4.60 - 5.80 X10*6/uL [facility] Hemoglobin 13.9(L) 14.0 - 18.0 g/dl [facility] Hematocrit 43.6 42.0 - 52.0 % [facility] Mean Corpuscular Volume 86.9 80.0 - 98.0 fL [facility] Mean Corpuscular Hemoglobin 27.7 27.0 - 33.0 pg [facility] Mean Corpuscular HGB Conc 31.9 31.0 - 36.0 g/dl [facility] Red Cell Distribution Width 16.9(H) 11.0 - 16.0 % [facility] Platelet Count 251 160 - 400 X10*3/uL [facility] Mean Platelet Volume 9.7 9.4 - 12.4 fL [facility] Neutrophils Percent Auto 41.7(L) 45 - 73 % [facility] Imm Gran Pct Auto 0.3 0.0 - 0.4 % [facility] Lymphocytes Percent Auto 48.2(H) 20 - 40 % [facility] Monocytes Percent Auto 8.5 2 - 11 % [facility] Eosinophils Percent Auto 1.0 0 - 4 % [facility] Basophils Percent Auto 0.3 0 - 2 % [facility] NRBC Pct Auto 0.0 0.0 - 0.2 /100WBC [facility] Neutrophils Absolute Auto 1.7(L) 2.0 - 8.3 x10*3/uL [facility] Imm Gran Abs Auto 0.01 0.00 - 0.03 X10*3/uL [facility] Lymphocytes Absolute Auto 1.9 1.2 - 4.9 X10*3/uL [facility] Monocytes Absolute Auto 0.3 0.1 - 1.2 X10*3/uL [facility] Eosinophils Absolute Auto 0.0 0.0 - 0.4 X10*3/uL [facility] Basophils Absolute Auto 0.0 0.0 - 0.2 X10*3/uL [facility] NRBC Abs Auto 0.000 0.0 - 0.012 X10*3/uL [facility] 11/28/2024 12:1 4 PM EST 11/28/2024 12:14 PM EST us Generic External Data Provider LAB BLOOD ORDERAB LES Final Result [facility] [address], [place] [phone] * Urinalysis with Reflex to Microscopic (11/28/2024 12:10 PM EST) Color Urine Yellow [facility] Appearance Urine Clear [facility] PH 7.0 5.0 - 9.0 [facility] Glucose Urine UA Negative Negative mg/dL [facility] Urine Blood Negative Negative [facility] Specific [place] - Urine 1.020 1.005 - 1.025 [facility] Urine Protein Negative Neg-Trace mg/dL [facility] Urine Ketones Negative Negative mg/dL [facility] Nitrite Urine Negative Negative [facility] Leukocyte Esterase Urine Negative Negative [facility] 11/28/2024 12:1 0 PM EST 11/28/2024 12:22 PM EST us Generic External Data Provider LAB URINE ORDERAB LES Final Result [facility] [address] [place] [phone] [phone] documented in this encounter Visit Diagnoses Not on filedocumented in this encounter Additional Health Concerns Assessment Noted Time PHQ-9 Depression Total Score: 0 11/11/19 25 4:16 PM EST documented as of this encounter Care Teams Band Tumbler Relationship Specialty Start Date End Date Ricci Barkley MD [address] [place] [phone] PCP - General Internal Medicine 01/04/19 documented as of this encounter
== END 2024-12-13 14:21 | disposition home or self-care (01) ==
LOC: HO.CT 14:20
PROVIDERS: PCP Internal Medicine; Visit Provider Internal Medicine
DX: C18.0 Malignant neoplasm of cecum (principal)
CPT/HCPCS: 71260; 74177; Q9967

== ENCOUNTER → 2024-12-13 14:21 | Outpatient (BNV) | payer MEDICAID, SELFPAY | PROVIDERS: PCP Internal Medicine; Visit Provider Radiology Diagnostic Radiology | DX: C18.0 Malignant neoplasm of cecum (principal) | CPT/HCPCS: 71260; 74177 ==

== ENCOUNTER 2024-12-27 16:02 | Outpatient (REF) | payer MEDICAID, SELFPAY ==
[2024-12-27 17:09] LABS: Basophils Percent Auto 0.3 % (0-2); Eosinophils Percent Auto 0.3 % (0-4); Hematocrit 41.7 % (42.0-52.0); Hemoglobin 13.3 g/dl (14.0-18.0); Lymphocytes Absolute Auto 2.3 X10*3/uL (1.2-4.9); Lymphocytes Percent Auto 73.4 % (20-40); MANUAL DIFF FLAG SCAN; Mean Corpuscular HGB Conc 31.9 g/dl (31.0-36.0); Mean Corpuscular Hemoglobin 27.7 pg (27.0-33.0); Mean Corpuscular Volume 86.7 fL (80.0-98.0); Mean Platelet Volume 10.1 fL (9.4-12.4); Monocytes Absolute Auto 0.3 X10*3/uL (0.1-1.2); Monocytes Percent Auto 10.1 % (2-11); Neutrophils Absolute Auto 0.5 x10*3/uL (2.0-8.3); Neutrophils Percent Auto 15.9 % (45-73); Platelet Count 310 X10*3/uL (160-400); Red Blood Count 4.81 X10*6/uL (4.60-5.80); Red Cell Distribution Width 17.2 % (11.0-16.0); SCAN SMEAR FLAG 1; White Blood Count 3.2 X10*3/uL (4.8-10.8)
[2024-12-27 17:25] LABS: Appearance Urine Clear; Color Urine Dark Yellow; Glucose Urine UA Negative (Negative); Leukocyte Esterase Urine Negative (Negative); Nitrite Urine Negative (Negative); PH 6.5 (5.0-9.0); Specific Gravity - Urine 1.025 (1.005-1.025); Urine Blood Negative (Negative); Urine Ketones 15 mg/dL (Negative); Urine Protein Trace mg/dL (Neg-Trace)
[2024-12-27 17:38] LABS: Alanine Aminotransferase 17 U/L (0-40); Albumin Level 4.6 g/dL (3.5-5.0); Anion Gap 12 (12-20); Aspartate Amino Transferase 25 U/L (5-37); Bilirubin Total 0.8 mg/dL (0.0-1.0); Blood Urea Nitrogen 11 mg/dL (9-16); Calcium 9.8 mg/dL (8.4-10.2); Carbon Dioxide 27 mmol/L (22-29); Chloride 106 mmol/L (96-108); Estimated Glomerular Filt Rate > 60; Glucose Random 94 mg/dL (60-115); Potassium 4.2 mmol/L (3.3-5.1); Sodium 141 mmol/L (135-145)
[2024-12-27 17:45] LABS: Alkaline Phosphatase 127 U/L (39-117)
[2024-12-27 17:47] LABS: SLIDE REVIEW VERIFIED
--- OUTSIDE RECORDS SUMMARY | 2024-12-27 19:57 | XMS_ITS | Encounter Summary ---
Author Organization [employer] Address [address] [facility] [address] [place] [address] Care Team Providers Care Gastroenterology Nurse Name Role Phone Ricci Barkley MD Primary Care Provider [phone] Encounter Details Date Type Department Care Team (Late st Contact Info) Description 12/27/2024 Orders Only GENERIC EXTERNAL DATA DEPARTMENT Provider, [...] Date/Time Associated Diagnosis Comments SLIDE REVIEW Routine 12/27/2024 4:11 PM EST CBC WITH AUTO DIFFERENTIAL Routine 12/27/2024 4:11 PM EST MAGNESIUM Routine 12/27/2024 4:11 PM EST COMPREHENSIVE METABOLIC PANEL Routine 12/27/2024 4:11 PM EST URINALYSIS WITH REFLEX TO MICROSCOPIC Routine 12/27/2024 4:08 PM EST documented in this encounter Results * Slide Review (12/27/2024 4:11 PM EST) Slide Review VERIFIED [facility] 12/27/2024 4:11 PM EST 12/27/2024 4:11 PM EST us Generic External Data Provider LAB BLOOD ORDERAB LES Final Result [facility] [address] [place] [phone] * (ABNORMAL) CBC auto differential (12/27/2024 4:11 PM EST) White Blood Count 3.2(L) 4.8 - 10.8 X10*3/uL [facility] Red Blood Count 4.81 4.60 - 5.80 X10*6/uL [facility] Hemoglobin 13.3(L) 14.0 - 18.0 g/dl [facility] Hematocrit 41.7(L) 42.0 - 52.0 % [facility] Mean Corpuscular Volume 86.7 80.0 - 98.0 fL [facility] Mean Corpuscular Hemoglobin 27.7 27.0 - 33.0 pg [facility] Mean Corpuscular HGB Conc 31.9 31.0 - 36.0 g/dl [facility] Red Cell Distribution Width 17.2(H) 11.0 - 16.0 % [facility] Platelet Count 310 160 - 400 X10*3/uL [facility] Mean Platelet Volume 10.1 9.4 - 12.4 fL [facility] Neutrophils Percent Auto 15.9(L) 45 - 73 % [facility] Imm Gran Pct Auto 0.0 0.0 - 0.4 % [facility] Lymphocytes Percent Auto 73.4(H) 20 - 40 % [facility] Monocytes Percent Auto 10.1 2 - 11 % [facility] Eosinophils Percent Auto 0.3 0 - 4 % [facility] Basophils Percent Auto 0.3 0 - 2 % [facility] NRBC Pct Auto 0.0 0.0 - 0.2 /100WBC [facility] Neutrophils Absolute Auto 0.5(L) 2.0 - 8.3 x10*3/uL [facility] Imm Gran Abs Auto 0.00 0.00 - 0.03 X10*3/uL [facility] Lymphocytes Absolute Auto 2.3 1.2 - 4.9 X10*3/uL [facility] Monocytes Absolute Auto 0.3 0.1 - 1.2 X10*3/uL [facility] Eosinophils Absolute Auto 0.0 0.0 - 0.4 X10*3/uL [facility] Basophils Absolute Auto 0.0 0.0 - 0.2 X10*3/uL [facility] NRBC Abs Auto 0.000 0.0 - 0.012 X10*3/uL [facility] 12/27/2024 4:11 PM EST 12/27/2024 4:11 PM EST us Generic External Data Provider LAB BLOOD ORDERAB LES Edited Result - Final Performing Organization Address [facility]/ZIP Co de Phone Number [facility] [address] [place] [phone] * Magnesium (12/27/2024 4:11 PM EST) Magnesium 2.0 1.6 - 2.6 mg/dL [facility] 12/27/2024 4:11 PM EST 12/27/2024 4:11 PM EST us Generic External Data Provider LAB BLOOD ORDERAB LES Final Result Performing Organization Address [facility] Co de Phone Number [facility] [address] [place] [phone] * (ABNORMAL) Comprehensive Metabolic Panel (12/27/2024 4:11 PM EST) Sodium 141 135 - 145 mmol/L [facility] Potassium 4.2 3.3 - 5.1 mmol/L [facility] Chloride 106 96 - 108 mmol/L [facility] Carbon Dioxide 27 22 - 29 mmol/L [facility] Anion Gap 12 12 - 20 [facility] Urea Nitrogen (BUN) 11 9 - 16 mg/dL [facility] Creatinine, Serum 0.77 0.5 - 1.4 mg/dL [facility] Estimated Glomerular Filt Rate >60 [facility] Comment:Chronic Kidney Disea se: Estimated GFR < 60 mL/min/[id number] Kidney Disease: Estimated GFR < 15 mL/min/1.73m2 Glucose 94 60 - 115 mg/dL [facility] Calcium 9.8 8.4 - 10.2 mg/dL [facility] Bilirubin, Total 0.8 0.0 - 1.0 mg/dL [facility] Aspartate Amino Transferase 25 5 - 37 U/L [facility] Alanine Aminotransferase 17 0 - 40 U/L [facility] Total Protein 8.0 6.5 - 8.0 g/dL [facility] Albumin Level 4.6 3.5 - 5.0 g/dL [facility] Alkaline Phosphatase 127(H) 39 - 117 U/L [facility] 12/27/2024 4:11 PM EST 12/27/2024 4:11 PM EST us Generic External Data Provider LAB BLOOD ORDERAB LES Final Result Performing Organization Address [facility] Co de Phone Number [facility] [address] [place] [phone] * Urinalysis with Reflex to Microscopic (12/27/2024 4:08 PM EST) Color Urine Dark Yellow [facility] Appearance Urine Clear [facility] PH 6.5 5.0 - 9.0 [facility] Glucose Urine UA Negative Negative mg/dL [facility] Urine Blood Negative Negative [facility] Specific [place] - Urine 1.025 1.005 - 1.025 [facility] Urine Protein Trace Neg-Trace mg/dL [facility] Urine Ketones 15 Negative mg/dL [facility] Nitrite Urine Negative Negative [facility] Leukocyte Esterase Urine Negative Negative [facility] 12/27/2024 4:08 PM EST 12/27/2024 5:06 PM EST Generic External Data Provider LAB URINE ORDERAB LES Final Result Performing Organization Address [facility] Co de Phone Number [facility] [address] [place] [phone] documented in this encounter Visit Diagnoses Not on filedocumented in this encounter Additional Health Concerns Assessment Noted Time PHQ-9 Depression Total Score: 0 11/11/19 25 4:16 PM EST documented as of this encounter Care Teams Gastroenterology Nurse Relationship Specialty Start Date End Date Ricci Barkley MD [address] [place] [phone] PCP - General Internal Medicine 01/04/19 documented as of this encounter
--- OUTSIDE RECORDS SUMMARY | 2024-12-27 19:57 | XMS_ITS | Encounter Summary ---
Author Organization [employer] Address [address] [facility] [address] [place] [address] Care Team Providers Care Heavy Equipment Operator Apprentice Name Role Phone Ricci Barkley MD Primary Care Provider [phone] [phone] Encounter Details Date Type Department Care Team [...] EST) Sodium 139 135 - 145 mmol/L [facility] Potassium 4.1 3.3 - 5.1 mmol/L [facility] Chloride 107 96 - 108 mmol/L [facility] Carbon Dioxide 27 22 - 29 mmol/L [facility] Anion Gap 9(L) 12 - 20 [facility] Urea Nitrogen (BUN) 11 9 - 16 mg/dL [facility] Creatinine, Serum 0.71 0.5 - 1.4 mg/dL [facility] Estimated Glomerular Filt Rate >60 [facility] Comment:Chronic Kidney Disea se: Estimated GFR < 60 mL/min/[id number] Kidney Disease: Estimated GFR < 15 mL/min/1.73m2 Glucose 96 60 - 115 mg/dL [facility] Calcium 9.4 8.4 - 10.2 mg/dL [facility] Bilirubin, Total 0.6 0.0 - 1.0 mg/dL [facility] Aspartate Amino Transferase 24 5 - 37 U/L [facility] Alanine Aminotransferase 20 0 - 40 U/L [facility] Total Protein 7.9 6.5 - 8.0 g/dL [facility] Albumin Level 4.5 3.5 - 5.0 g/dL [facility] Alkaline Phosphatase 113 39 - 117 U/L [facility] 11/28/2024 12:1 4 PM EST 11/28/2024 12:14 PM EST us Generic External Data Provider LAB BLOOD ORDERAB LES Final Result [facility] [address] [place] [phone] [phone] * (ABNORMAL) CBC auto differential (11/28/2024 12:14 PM EST) White Blood Count 4.0(L) 4.8 - 10.8 X10*3/uL [facility] Red Blood Count 5.02 4.60 - 5.80 X10*6/uL [facility] Hemoglobin 13.9(L) 14.0 - 18.0 g/dl [facility] Hematocrit 43.6 42.0 - 52.0 % [facility] Mean Corpuscular Volume 86.9 80.0 - 98.0 fL [facility] Mean Corpuscular Hemoglobin 27.7 27.0 - 33.0 pg [facility] Mean Corpuscular HGB Conc 31.9 31.0 - 36.0 g/dl [facility] Red Cell Distribution Width 16.9(H) 11.0 - 16.0 % [facility] Platelet Count 251 160 - 400 X10*3/uL [facility] Mean Platelet Volume 9.7 9.4 - 12.4 fL [facility] Neutrophils Percent Auto 41.7(L) 45 - 73 % [facility] Imm Gran Pct Auto 0.3 0.0 - 0.4 % [facility] Lymphocytes Percent Auto 48.2(H) 20 - 40 % [facility] Monocytes Percent Auto 8.5 2 - 11 % [facility] Eosinophils Percent Auto 1.0 0 - 4 % [facility] Basophils Percent Auto 0.3 0 - 2 % [facility] NRBC Pct Auto 0.0 0.0 - 0.2 /100WBC [facility] Neutrophils Absolute Auto 1.7(L) 2.0 - 8.3 x10*3/uL [facility] Imm Gran Abs Auto 0.01 0.00 - 0.03 X10*3/uL [facility] Lymphocytes Absolute Auto 1.9 1.2 - 4.9 X10*3/uL [facility] Monocytes Absolute Auto 0.3 0.1 - 1.2 X10*3/uL [facility] Eosinophils Absolute Auto 0.0 0.0 - 0.4 X10*3/uL [facility] Basophils Absolute Auto 0.0 0.0 - 0.2 X10*3/uL [facility] NRBC Abs Auto 0.000 0.0 - 0.012 X10*3/uL [facility] 11/28/2024 12:1 4 PM EST 11/28/2024 12:14 PM EST us Generic External Data Provider LAB BLOOD ORDERAB LES Final Result [facility] [address], [place] [phone] * Urinalysis with Reflex to Microscopic (11/28/2024 12:10 PM EST) Color Urine Yellow [facility] Appearance Urine Clear [facility] PH 7.0 5.0 - 9.0 [facility] Glucose Urine UA Negative Negative mg/dL [facility] Urine Blood Negative Negative [facility] Specific [place] - Urine 1.020 1.005 - 1.025 [facility] Urine Protein Negative Neg-Trace mg/dL [facility] Urine Ketones Negative Negative mg/dL [facility] Nitrite Urine Negative Negative [facility] Leukocyte Esterase Urine Negative Negative [facility] 11/28/2024 12:1 0 PM EST 11/28/2024 12:22 PM EST us Generic External Data Provider LAB URINE ORDERAB LES Final Result [facility] [address] [place] [phone] documented in this encounter Visit Diagnoses Not on filedocumented in this encounter Additional Health Concerns Assessment Noted Time PHQ-9 Depression Total Score: 0 11/11/19 25 4:16 PM EST documented as of this encounter Care Teams Heavy Equipment Operator Apprentice Relationship Specialty Start Date End Date Ricci Barkley MD [address] [place] [phone] PCP - General Internal Medicine 01/04/19 documented as of this encounter
--- OUTSIDE RECORDS SUMMARY | 2024-12-27 19:57 | XMS_ITS | Encounter Summary ---
Author Organization [employer] Address [address] [place] [phone] Care Team Providers Care Table Saw Operator Name Role Phone Ricci Barkley MD Primary Care Provider [phone] Encounter Details Date Type Department Care Team [...] on filedocumented in this encounter Care Teams Table Saw Operator Relationship Specialty Start Date End Date Ricci Barkley MD [address] [place] [phone] PCP - General Internal Medicine 01/04/19 documented as of this encounter
--- OUTSIDE RECORDS SUMMARY | 2024-12-27 19:57 | XMS_ITS | Encounter Summary ---
Author Organization [employer] Address [address] [place] [address] Care Team Providers Care Career Development Coordinator/Teacher Name Role Phone Ricci Barkley MD Primary Care Provider [phone]- [phone] Encounter Details Date Type Department Care Team [...] on filedocumented in this encounter Care Teams Career Development Coordinator/Teacher Relationship Specialty Start Date End Date Ricci Barkley MD [address] [place] [address] PCP - General Internal Medicine 01/04/19 documented as of this encounter
--- OUTSIDE RECORDS SUMMARY | 2024-12-27 19:57 | XMS_ITS | Encounter Summary ---
Author Organization [employer] Address [address] [facility] 7t [place] [address] Care Team Providers Care Candy Feeder Name Role Phone Ricci Barkley MD Primary Care Provider [phone] Encounter Details Date Type Department Care Team (Late st Contact Info) Description 12/13/2024 Orders Only [facility] External Provider, [facility] Social History Tobacco Use Types Packs/Day Years [...] Procedure Name Priority Date/Time Associated Diagnosis Comments CT CHEST W CONTRAST Routine 12/14/2024 2 :[address] ABDOMEN PELVIS W CONTRAST Routine 12/14/2024 1:57 PM EST documented in this encounter Results * CT Chest w/ Contrast (12/14/2024 2:33 PM EST) Anatomical Region Laterality Modality Body, Chest Computed Tomogra phy 12/14/2024 2:33 PM EST Narrative 12/14/2024 2:34 PM EST ? [facility] ?[address] ?[place] [address] ? CT Scan Report ? Signed ? Patient: Jp Shah ?MR#: [id number] ?? [id number] ? : 1970 ?Acct:[id number] ? Age/Sex: 54 / M ?ADM Date: 12/13/24 ? Loc: HO.CT ? Attending Dr: Elli Nazario MD ? Ordering Physician: Elli Nazario MD ?? Date of Service: 12/13/24 ?? Procedure(s): CT chest w IV con ?? Accession Number(s): [id number] ? cc: Ricci Barkley MD; Elli Nazario MD ? Report Number: ?? [id number]: Total DLP = ??135.00 mGy-cm ? CLINICAL HISTORY: Assess response to treatment ? CT chest with contrast ? Comparison: CT/OT/PT/SR - PET CT FUSION SKULL TO THIGH - 06/24/23 14:37 EDT ? Findings: ?? The heart is normal size. ?? The visualized thyroid and mediastinum are unremarkable. ?? Right chest wall port a catheter. ?? No consolidation or effusion. ? The upper abdomen is unremarkable. ?? No acute fractures. ? IMPRESSION: ?? 1. Unremarkable chest CT. ? This document has been electronically signed by: Ankit Peralta MD on ?? 12/14/2024 14:33:44 ? Dictated By: ?Ankit Peralta MD ? Signed By: ?<Electronically signed by Ankit Peralta MD in OV> ? 12/14/24 1434 ? DD/ 1433 ? TD/TT: 12/14/24 1433 ? Hospital Medical Assistant: ? Procedure Note Donduter, Image - 12/14/[address] [place] [address] [address] Scan Report Signed Patient: Jp ShahMR#: [id number] : 1970Acct:[id number] Age/Sex: 54 / MADM Date: 12/13/24 Loc: HO.CT Attending Dr: Elli Nazario MD Ordering Physician: Elli Nazario MD Date of Service: 12/13/24 Procedure(s): CT chest w IV con Accession Number(s): [id number] cc: Ricci Barkley MD; Elli Nzaario MD Report Number: [id number]: Total DLP = 135.00 mGy-cm CLINICAL HISTORY: Assess response to treatment CT chest with contrast Comparison: CT/OT/PT/SR - PET CT FUSION SKULL TO THIGH - 06/24/23 14:37 EDT Findings: The heart is normal size. The visualized thyroid and mediastinum are unremarkable. Right chest wall port a catheter. No consolidation or effusion. The upper abdomen is unremarkable. No acute fractures. IMPRESSION: 1. Unremarkable chest CT. This document has been electronically signed by: Ankit Peralta MD on 12/14/2024 14:33:44 Dictated By: Ankit Peralta MD Signed By: <Electronically signed by Ankit Peralta MD in OV> 12/14/24 1434 DD/ 1433 TD/TT: 12/14/24 1433 Hospital Medical Assistant: us [facility] External Provider IMG CT PROCEDURES Final Result * CT Abdomen Pelvis w/ Contrast (12/14/2024 1:57 PM EST) Anatomical Region Laterality Modality Body, Pelvis, Abdomen Computed T omography 12/14/2024 1:57 PM EST Narrative 12/14/2024 1:58 PM EST ? [facility] ?[address] ?[place], [place] [address] ? CT Scan Report ? Signed ? Patient: Jp Shah ?MR#: [id number] ?? [id number] ? : 1970 ?Acct:[id number] ? Age/Sex: 54 / M ?ADM Date: 12/13/24 ? Loc: HO.CT ? Attending Dr: Elli Nazario MD ? Ordering Physician: Elli Nazario MD ?? Date of Service: 12/13/24 ?? Procedure(s): CT abdomen pelvis w IV con ?? Accession Number(s): [id number] ? cc: Ricci Barkley MD; Elli Nazario MD ? Report Number: ?? [id number]: Total DLP = ??337.00 mGy-cm ? CLINICAL HISTORY: Assess response to treatment ? CT abdomen and pelvis with contrast ? Comparison: CT/REG/FL/SR - CT ABDOMEN PELVIS WO IV CON - 02/24/24 07:21 EDT ? Findings: ?? The lung bases are clear. ? Gallbladder is contracted. Solid organs are within normal limits. ?? No bowel obstruction, pneumoperitoneum, or pneumatosis. There has been a ?? decrease in size of the previously seen peritoneal nodule within the right ?? pericolic gutter, surrounding the surgical clips, which currently measures ?? 25 mm diameter. As before, there is a sinus tract extending inferiorly ?? from this lesion into the right upper pelvis, where there is a 15 mm ?? nodule which is decreased in size. The periumbilical soft tissue density ?? mass is slightly increased, currently measuring 26 mm oblique transverse. ? Pelvic contents unremarkable. Appendix is not seen. ?? Grade 1 anterolisthesis of L5 on S1. 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 IMPRESSION: ?? 1. 2 of the right-sided peritoneal nodules have decreased in size. There ?? has been a slight increase in size of the periumbilical nodule. ?? 2. Grade 1 isthmic spondylolisthesis of L5 on S1. ? This document has been electronically signed by: Ankit Peralta MD on ?? 12/14/2024 13:57:16 ? Dictated By: ?Ankit Peralta MD ? Signed By: ?<Electronically signed by Ankit Peralta MD in OV> ? 12/14/24 1357 ? DD/ 1357 ? TD/TT: 12/14/24 1357 ? Hospital Medical Assistant: ? Procedure Note Donduter, Image - 12/14/[address] [place] [address] [address] Scan Report Signed Patient: Jp ShahMR#: [id number] : 1970Acct:[id number] Age/Sex: 54 / MADM Date: 12/13/24 Loc: HO.CT Attending Dr: Elli Nazario MD Ordering Physician: Elli Nazario MD Date of Service: 12/13/24 Procedure(s): CT abdomen pelvis w IV con Accession Number(s): [id number] cc: Ricci Barkley MD; Elli Nazario MD Report Number: [id number]: Total DLP = 337.00 mGy-cm CLINICAL HISTORY: Assess response to treatment CT abdomen and pelvis with contrast Comparison: CT/REG/FL/SR - CT ABDOMEN PELVIS WO IV CON - 02/24/24 07:21 EDT Findings: The lung bases are clear. Gallbladder is contracted. Solid organs are within normal limits. No bowel obstruction, pneumoperitoneum, or pneumatosis. There has been a decrease in size of the previously seen peritoneal nodule within the right pericolic gutter, surrounding the surgical clips, which currently measures 25 mm diameter. As before, there is a sinus tract extending inferiorly from this lesion into the right upper pelvis, where there is a 15 mm nodule which is decreased in size. The periumbilical soft tissue density mass is slightly increased, currently measuring 26 mm oblique transverse. Pelvic contents unremarkable. Appendix is not seen. Grade 1 anterolisthesis of L5 on S1. Bilateral L5-S1 pars interarticularis defects IMPRESSION: 1. 2 of the right-sided peritoneal nodules have decreased in size. There has been a slight increase in size of the periumbilical nodule. 2. Grade 1 isthmic spondylolisthesis of L5 on S1. This document has been electronically signed by: Ankit Peralta MD on 12/14/2024 13:57:16 Dictated By: Ankit Peralta MD Signed By: <Electronically signed by Ankit Peralta MD in OV> 12/14/24 1357 DD/ 1357 TD/TT: 12/14/24 135 Hospital Medical Assistant: [facility] External Provider IMG CT PROCEDURES Final Result documented in this encounter Visit Diagnoses Not on filedocumented in this encounter Additional Health Concerns Assessment Noted Time PHQ-9 Depression Total Score: 0 11/11/19 25 4:16 PM EST documented as of this encounter Care Teams Candy Feeder Relationship Specialty Start Date End Date Ricci Barkley MD [address] [place] [phone] PCP - General Internal Medicine 01/04/19 documented as of this encounter
--- OUTSIDE RECORDS SUMMARY | 2024-12-27 19:57 | XMS_ITS | Clinical Summary ---
Author Organization [employer] Address [address] [place] [address] 7 [place] [address] Care Team Providers Care Cable Splicer Name Role Phone Ricci Barkley MD Primary [...] Encounters Date Type Department Care Team Description 12/27/2024 Orders Only GENERIC EXTERNAL DATA DEPARTMENT Provider, Generic External Data 12/13/2024 Orders Only [facility] External Provider, [facility] 12/12/2024 Orders Only GENERIC EXTERNAL DATA DEPARTMENT Provider, Generic External Data 11/28/2024 Orders Only GENERIC EXTERNAL DATA DEPARTMENT Provider, Generic External Data 11/14/2024 Orders Only GENERIC EXTERNAL DATA DEPARTMENT Provider, Generic External Data 11/11/2024 3:45 PM EST Office Visit [facility] [address] [place] [address] Ricci Barkley MD Dislocation of temporomandibular joint, initial encounter (Primary Dx) 11/11/2024 Travel 11/11/2024 Telephone [facility] [address] [place] [address] Ricci Barkley MD Nurse Triage 10/31/2024 Orders [...] is your housing situation today? I have brentrenata parr 11/11/[address] you [...] 11/11/2025 11/11/2024 Depression Screening 11/11/2025 11/11/2024, 11/11/19 SDOH Screening 11/11/2025 11/11/2024 DTaP/Tdap/Td Vaccines (2 [...] TO MICROSCOPIC Routine 12/27/2024 4:[address] CHEST W CONTRAST Routine 12/14/2024 2 :[address] ABDOMEN PELVIS W CONTRAST Routine 12/14/2024 1:57 PM EST COMPREHENSIVE METABOLIC PANEL Routine 12/12/2024 [...] TO MICROSCOPIC Routine 10/10/2024 3:42 PM EST LIPID PANEL, STANDARD Routine 08/13/2020 9:16 AM EDT PROPHYLAXIS - ADULT Routine 03/15/2019 1 2:00 AM EDT INTRAORAL - COMPLETE SERIES OF RADIOGRAPHIC IMAGES Routine 03/14/2019 12:00 AM EDT COMPREHENSIVE ORAL EVALUATION - NEW OR ESTABLISHED PATIENT Routine 03/14/2019 12:00 AM EDT from Last 3 Months or Most Recently Relevant to Health Maintenance Results * Slide Review (12/27/2024 4:11 PM EST) Only the most recent of2 resultswithin the time period is included. Slide Review VERIFIED [facility] 12/27/2024 4:11 PM EST 12/27/2024 4:11 PM EST us Generic External Data Provider LAB BLOOD ORDERAB LES Final Result [facility] [address] [place] [phone] * (ABNORMAL) CBC auto differential (12/27/2024 4:11 PM EST) Only the most recent of7 resultswithin the time period is included. White Blood Count 3.2(L) 4.8 - 10.8 X10*3/uL [facility] Red Blood Count 4.81 4.60 - 5.80 X10*6/uL [facility] Hemoglobin 13.3(L) 14.0 - 18.0 g/dl [facility] Hematocrit 41.7(L) 42.0 - 52.0 % [facility] Mean Corpuscular Volume 86.7 80.0 - 98.0 fL [facility] Mean Corpuscular Hemoglobin 27.7 27.0 - 33.0 pg [facility] Mean Corpuscular HGB Conc 31.9 31.0 - 36.0 g/dl [facility] Red Cell Distribution Width 17.2(H) 11.0 - 16.0 % [facility] Platelet Count 310 160 - 400 X10*3/uL [facility] Mean Platelet Volume 10.1 9.4 - 12.4 fL [facility] Neutrophils Percent Auto 15.9(L) 45 - 73 % [facility] Imm Gran Pct Auto 0.0 0.0 - 0.4 % [facility] Lymphocytes Percent Auto 73.4(H) 20 - 40 % [facility] Monocytes Percent Auto 10.1 2 - 11 % [facility] Eosinophils Percent Auto 0.3 0 - 4 % [facility] Basophils Percent Auto 0.3 0 - 2 % [facility] NRBC Pct Auto 0.0 0.0 - 0.2 /100WBC [facility] Neutrophils Absolute Auto 0.5(L) 2.0 - 8.3 x10*3/uL [facility] Imm Gran Abs Auto 0.00 0.00 - 0.03 X10*3/uL [facility] Lymphocytes Absolute Auto 2.3 1.2 - 4.9 X10*3/uL [facility] Monocytes Absolute Auto 0.3 0.1 - 1.2 X10*3/uL [facility] Eosinophils Absolute Auto 0.0 0.0 - 0.4 X10*3/uL [facility] Basophils Absolute Auto 0.0 0.0 - 0.2 X10*3/uL [facility] NRBC Abs Auto 0.000 0.0 - 0.012 X10*3/uL [facility] 12/27/2024 4:11 PM EST 12/27/2024 4:11 PM EST us Generic External Data Provider LAB BLOOD ORDERAB LES Edited Result - Final [facility] [address] [place] [address] [phone] * Magnesium (12/27/2024 4:11 PM EST) Only the most recent of2 resultswithin the time period is included. Magnesium 2.0 1.6 - 2.6 mg/dL [facility] 12/27/2024 4:11 PM EST 12/27/2024 4:11 PM EST us Generic External Data Provider LAB BLOOD ORDERAB LES Final Result [facility] [address] [place] [address] [phone] * (ABNORMAL) Comprehensive Metabolic Panel (12/27/2024 4:11 PM EST) Only the most recent of7 resultswithin the time period is included. Sodium 141 135 - 145 mmol/L [facility] Potassium 4.2 3.3 - 5.1 mmol/L [facility] Chloride 106 96 - 108 mmol/L [facility] Carbon Dioxide 27 22 - 29 mmol/L [facility] Anion Gap 12 12 - 20 [facility] Urea Nitrogen (BUN) 11 9 - 16 mg/dL [facility] Creatinine, Serum 0.77 0.5 - 1.4 mg/dL [facility] Estimated Glomerular Filt Rate >60 [facility] Comment:Chronic Kidney Disea se: Estimated GFR < 60 mL/min/1.55v7Doynay Kidney Disease: Estimated GFR < 15 mL/min/1.73m2 Glucose 94 60 - 115 mg/dL [facility] Calcium 9.8 8.4 - 10.2 mg/dL [facility] Bilirubin, Total 0.8 0.0 - 1.0 mg/dL [facility] Aspartate Amino Transferase 25 5 - 37 U/L [facility] Alanine Aminotransferase 17 0 - 40 U/L [facility] Total Protein 8.0 6.5 - 8.0 g/dL [facility] Albumin Level 4.6 3.5 - 5.0 g/dL [facility] Alkaline Phosphatase 127(H) 39 - 117 U/L [facility] 12/27/2024 4:11 PM EST 12/27/2024 4:11 PM EST us Generic External Data Provider LAB BLOOD ORDERAB LES Final Result Performing Organization Address [facility] de Phone Number [facility] [address] [place] [address] [phone] * Urinalysis with Reflex to Microscopic (12/27/2024 4:08 PM EST) Only the most recent of7 resultswithin the time period is included. Color Urine Dark Yellow [facility] Appearance Urine Clear [facility] PH 6.5 5.0 - 9.0 [facility] Glucose Urine UA Negative Negative mg/dL [facility] Urine Blood Negative Negative [facility] Specific [place] - Urine 1.025 1.005 - 1.025 [facility] Urine Protein Trace Neg-Trace mg/dL [facility] Urine Ketones 15 Negative mg/dL [facility] Nitrite Urine Negative Negative [facility] Leukocyte Esterase Urine Negative Negative [facility] 12/27/2024 4:08 PM EST 12/27/2024 5:06 PM EST us Generic External Data Provider LAB URINE ORDERAB LES Final Result Performing Organization Address [facility] de Phone Number [facility] [address] [place] [phone] * CT Chest w/ Contrast (12/14/2024 2:33 PM EST) Anatomical Region Laterality Modality Body, Chest Computed Tomogra phy 12/14/2024 2:33 PM EST Narrative 12/14/2024 2:34 PM EST ? [facility] ?[address] ?[place] [address] ? CT Scan Report ? Signed ? Patient: Jp Shah ?MR#: [id number] ?? [id number] ? : 1970 ?Acct:[id number] ? Age/Sex: 54 / M ?ADM Date: 02/18/25 ? Loc: HO.CT ? Attending Dr: Elli Nazario MD ? Ordering Physician: Elli Nazario MD ?? Date of Service: 12/13/24 ?? Procedure(s): CT chest w IV con ?? Accession Number(s): [id number] ? cc: Ricci Barkley MD; Elli Nazario MD ? Report Number: ?? [id number]: Total DLP = ??135.00 mGy-cm ? CLINICAL [...] DD/ 1433 ? TD/TT: 12/14/24 1433 ? Yarder Engineer: ? Procedure Note Gilberto Wynne - 12/14/[address] [place] [address] [address] Scan Report Signed Patient: Jp ShahMR#: [id number] : 1970Acct:[id number] Age/Sex: 54 / MADM Date: 12/13/24 Loc: HO.CT Attending Dr: Elli Nazario MD Ordering Physician: Elli Nazario MD Date of Service: 12/13/24 Procedure(s): CT chest w IV con Accession Number(s): [id number] cc: Ricci Barkley MD; Elli Nazario MD Report Number: [id number]: Total DLP = 135.00 mGy-cm CLINICAL HISTORY: [...] 12/14/24 1434 DD/ 1433 TD/TT: 12/14/24 1433 Yarder Engineer: [facility] External Provider IMG CT PROCEDURES Final Result * CT Abdomen Pelvis w/ Contrast (12/14/2024 1:57 PM EST) Anatomical Region Laterality Modality Body, Pelvis, Abdomen Computed T omography 12/14/2024 1:57 PM EST Narrative 12/14/2024 1:58 PM EST ? [facility] ?[address] ?[place] [address] ? CT Scan Report ? Signed ? Patient: Jp Shah ?MR#: [id number] ?? [id number] ? : 1970 ?Acct:[id number] ? Age/Sex: 54 / M ?ADM Date: 12/13/24 ? Loc: HO.CT ? Attending Dr: Elli Nazario MD ? Ordering Physician: Elli Nazario MD ?? Date of Service: 12/13/24 ?? Procedure(s): CT abdomen pelvis w IV con ?? Accession Number(s): [id number] ? cc: Ricci Barkley MD; Elli Nazario MD ? Report Number: ?? [id number]: Total DLP = ??337.00 mGy-cm ? CLINICAL HISTORY: Assess response to treatment ? CT abdomen and pelvis with contrast ? Comparison: CT/REG/NH/SR - CT ABDOMEN PELVIS WO IV CON [...] in OV> ? 12/14/24 1357 ? DD/ [facility]7 ? TD/TT: 12/14/24 1357 ? Yarder Engineer: ? Procedure Note Gilberto Wynne - 12/14/[address] [place] [address] [address] Scan Report Signed Patient: Jp ShahMR#: [id number] : 1970Acct:[id number] Age/Sex: 54 / MADM Date: 12/13/24 Loc: HO.CT Attending Dr: Elli Nazario MD Ordering Physician: Elli Nazario MD Date of Service: 12/13/24 Procedure(s): CT abdomen pelvis w IV con Accession Number(s): [id number] cc: Ricci Barkley MD; Elli Nazario MD Report Number: [id number]: Total DLP = 337.00 mGy-cm CLINICAL HISTORY: Assess response to treatment CT abdomen and pelvis with contrast Comparison: CT/REG/NH/SR - CT ABDOMEN PELVIS WO IV CON - 5/1/24 07:21 EDT Findings: The lung bases are [...] OV> 12/14/24 1357 DD/ 1357 TD/TT: 12/14/24 1357 Yarder Engineer: [facility] External Provider IMG CT PROCEDURES Final Result * (ABNORMAL) LIPID PANEL, STANDARD (08/13/2020 9:16 [...] ?? Que SS et al. AMELIA. 2013;310(19): 9884-9605 ?? (http://QuantConnect.Yanado/faq/AZD683) Cholesterol, Total 207(H) <200 mg/dL [facility] ?? Que SS et al. AMELIA. 2013;310(19): 2906-4646 ?? (http://Radius/faq/VLK412) Chol/HDLC Ratio 4.2 <5.0 (calc) [facility] ?? Que PARR et al. AMELIA. 2013;310(19): 2934-6393 ?? (http://education.Yanado/faq/SDE418) Chol/HDLC Ratio 4.2 <5.0 (calc) [facility] Non-HDL Cholesterol 158(H) <130 mg/dL (calc) [facility] Comment: For patients with diabetes plus 1 major ASCVD risk ?? factor, treating to a non-HDL-C goal of <100 mg/dL ?? (LDL-C of <70 mg/dL) is considered a therapeutic ?? option. 08/13/2020 9:16 AM EDT us Ricci Barkley MD LAB BLOOD ORDERABLES Final Result [facility] Anywhere [address] from Last 3 Months or Most Recently Relevant to Health Maintenance Insurance [address] [place] [address] [facility] C3 DENTAL-[facility] MEDICAID STAND ADULT 31 TIMI GARCIA # [id number] [id number] Care Teams Cable Splicer Relationship Specialty Start Date End Date Ricci Barkley MD [address] [place] [address] [place] [address] PCP - General Internal Medicine 01/04/19
--- OUTSIDE RECORDS SUMMARY | 2024-12-27 19:57 | XMS_ITS | Encounter Summary ---
Author Organization [employer] Address [address] [facility] [address]t [place] [address] Care Team Providers Care Purchase Order Checker Name Role Phone Ricci Barkley MD Primary Care Provider [phone] Encounter Details Date Type Department Care Team [...] EST) Sodium 140 135 - 145 mmol/L [facility] Potassium 4.5 3.3 - 5.1 mmol/L [facility] Chloride 108 96 - 108 mmol/L [facility] Carbon Dioxide 24 22 - 29 mmol/L [facility] Anion Gap 13 12 - 20 [facility] Urea Nitrogen (BUN) 14 9 - 16 mg/dL [facility] Creatinine, Serum 0.77 0.5 - 1.4 mg/dL [facility] Estimated Glomerular Filt Rate >60 [facility] Comment:Chronic Kidney Disea se: Estimated GFR < 60 mL/min/1.73b9Jbahmu Kidney Disease: Estimated GFR < 15 mL/min/1.73m2 Glucose 94 60 - 115 mg/dL [facility] Calcium 9.2 8.4 - 10.2 mg/dL [facility] Bilirubin, Total 0.6 0.0 - 1.0 mg/dL [facility] Aspartate Amino Transferase 27 5 - 37 U/L [facility] Alanine Aminotransferase 19 0 - 40 U/L [facility] Total Protein 7.7 6.5 - 8.0 g/dL [facility] Albumin Level 4.4 3.5 - 5.0 g/dL [facility] Alkaline Phosphatase 121(H) 39 - 117 U/L [facility] 12/12/2024 1:14 PM EST 12/12/2024 1:18 PM EST us Generic External Data Provider LAB BLOOD ORDERAB LES Final Result [facility] [address] [place] [address] [phone] * (ABNORMAL) CBC auto differential (12/12/2024 1:14 PM EST) White Blood Count 4.7(L) 4.8 - 10.8 X10*3/uL [facility] Red Blood Count 4.89 4.60 - 5.80 X10*6/uL [facility] Hemoglobin 13.5(L) 14.0 - 18.0 g/dl [facility] Hematocrit 41.7(L) 42.0 - 52.0 % [facility] Mean Corpuscular Volume 85.3 80.0 - 98.0 fL [facility] Mean Corpuscular Hemoglobin 27.6 27.0 - 33.0 pg [facility] Mean Corpuscular HGB Conc 32.4 31.0 - 36.0 g/dl [facility] Red Cell Distribution Width 16.4(H) 11.0 - 16.0 % [facility] Platelet Count 166 160 - 400 X10*3/uL [facility] Mean Platelet Volume 8.9(L) 9.4 - 12.4 fL [facility] Neutrophils Percent Auto 47.2 45 - 73 % [facility] Imm Gran Pct Auto 0.2 0.0 - 0.4 % [facility] Lymphocytes Percent Auto 45.0(H) 20 - 40 % [facility] Monocytes Percent Auto 6.8 2 - 11 % [facility] Eosinophils Percent Auto 0.6 0 - 4 % [facility] Basophils Percent Auto 0.2 0 - 2 % [facility] NRBC Pct Auto 0.0 0.0 - 0.2 /100WBC [facility] Neutrophils Absolute Auto 2.2 2.0 - 8.3 x10*3/uL [facility] Imm Gran Abs Auto 0.01 0.00 - 0.03 X10*3/uL [facility] Lymphocytes Absolute Auto 2.1 1.2 - 4.9 X10*3/uL [facility] Monocytes Absolute Auto 0.3 0.1 - 1.2 X10*3/uL [facility] Eosinophils Absolute Auto 0.0 0.0 - 0.4 X10*3/uL [facility] Basophils Absolute Auto 0.0 0.0 - 0.2 X10*3/uL [facility] NRBC Abs Auto 0.000 0.0 - 0.012 X10*3/uL [facility] 12/12/2024 1:14 PM EST 12/12/2024 1:18 PM EST us Generic External Data Provider LAB BLOOD ORDERAB LES Final Result [facility] [address] [place] [phone] * Urinalysis with Reflex to Microscopic (12/12/2024 1:12 PM EST) Color Urine Yellow [facility] Appearance Urine Clear [facility] PH 6.0 5.0 - 9.0 [facility] Glucose Urine UA Negative Negative mg/dL [facility] Urine Blood Negative Negative [facility] Specific [place] - Urine 1.020 1.005 - 1.025 [facility] Urine Protein Negative Neg-Trace mg/dL [facility] Urine Ketones Negative Negative mg/dL [facility] Nitrite Urine Negative Negative [facility] Leukocyte Esterase Urine Negative Negative [facility] 12/12/2024 1:12 PM EST 12/12/2024 1:40 PM EST us Generic External Data Provider LAB URINE ORDERAB LES Final Result [facility] [address] [place] [address] [phone] documented in this encounter Visit Diagnoses Not on filedocumented in this encounter Additional Health Concerns Assessment Noted Time PHQ-9 Depression Total Score: 0 11/11/19 25 4:16 PM EST documented as of this encounter Care Teams Purchase Order Checker Relationship Specialty Start Date End Date Ricci Barkley MD [address] [place] [phone] PCP - General Internal Medicine 01/04/19 documented as of this encounter
== END 2024-12-27 16:03 | disposition home or self-care (01) ==
LOC: HO.LAB 16:02
PROVIDERS: PCP Internal Medicine; Visit Provider Internal Medicine
DX: C18.0 Malignant neoplasm of cecum (principal)
CPT/HCPCS: 36415; 80053; 81003; 83735; 85025

== ENCOUNTER 2025-01-10 13:00 | Outpatient (REF) | payer MEDICAID, SELFPAY ==
[2025-01-10 13:12] LABS: MANUAL DIFF FLAG NO
[2025-01-10 13:14] LABS: Basophils Percent Auto 0.2 % (0-2); Eosinophils Percent Auto 0.2 % (0-4); Hematocrit 39.5 % (42.0-52.0); Hemoglobin 12.6 g/dl (14.0-18.0); Imm Gran Abs Auto 0.01 X10*3/uL (0.00-0.03); Imm Gran Pct Auto 0.2 % (0.0-0.4); Lymphocytes Absolute Auto 1.8 X10*3/uL (1.2-4.9); Lymphocytes Percent Auto 42.2 % (20-40); Mean Corpuscular HGB Conc 31.9 g/dl (31.0-36.0); Mean Corpuscular Hemoglobin 27.5 pg (27.0-33.0); Mean Corpuscular Volume 86.2 fL (80.0-98.0); Mean Platelet Volume 9.9 fL (9.4-12.4); Monocytes Absolute Auto 0.2 X10*3/uL (0.1-1.2); Monocytes Percent Auto 5.4 % (2-11); Neutrophils Absolute Auto 2.2 x10*3/uL (2.0-8.3); Neutrophils Percent Auto 51.8 % (45-73); Platelet Count 211 X10*3/uL (160-400); Red Blood Count 4.58 X10*6/uL (4.60-5.80); Red Cell Distribution Width 16.9 % (11.0-16.0); White Blood Count 4.2 X10*3/uL (4.8-10.8)
[2025-01-10 13:30] LABS: Alanine Aminotransferase 19 U/L (0-40); Albumin Level 4.2 g/dL (3.5-5.0); Alkaline Phosphatase 129 U/L (39-117); Anion Gap 10 (12-20); Aspartate Amino Transferase 22 U/L (5-37); Bilirubin Total 0.5 mg/dL (0.0-1.0); Blood Urea Nitrogen 16 mg/dL (9-16); Calcium 8.9 mg/dL (8.4-10.2); Carbon Dioxide 24 mmol/L (22-29); Chloride 110 mmol/L (96-108); Estimated Glomerular Filt Rate > 60; Glucose Random 109 mg/dL (60-115); Potassium 4.2 mmol/L (3.3-5.1); Sodium 140 mmol/L (135-145); Total Protein 7.3 g/dL (6.5-8.0)
[2025-01-10 14:26] LABS: Appearance Urine Clear; Color Urine Dark Yellow; Glucose Urine UA Negative (Negative); Leukocyte Esterase Urine Negative (Negative); Nitrite Urine Negative (Negative); Specific Gravity - Urine >= 1.030 (1.005-1.025); Urine Blood Negative (Negative); Urine Ketones Trace mg/dL (Negative); Urine Protein Trace mg/dL (Neg-Trace)
== END 2025-01-10 13:01 | disposition home or self-care (01) ==
LOC: HO.LAB 13:00
PROVIDERS: PCP Internal Medicine; Visit Provider Internal Medicine
DX: C18.0 Malignant neoplasm of cecum (principal)
CPT/HCPCS: 36415; 80053; 81003; 85025

== ENCOUNTER 2025-01-23 15:10 | Outpatient (REF) | payer MEDICAID, SELFPAY ==
[2025-01-23 15:28] LABS: Appearance Urine Clear; Color Urine Yellow; Glucose Urine UA Negative (Negative); Leukocyte Esterase Urine Negative (Negative); Nitrite Urine Negative (Negative); Specific Gravity - Urine 1.015 (1.005-1.025); Urine Blood Negative (Negative); Urine Ketones Negative (Negative); Urine Protein Negative (Neg-Trace)
[2025-01-23 15:28] LABS: Eosinophils Percent Auto 0.6 % (0-4); Hematocrit 41.7 % (42.0-52.0); Hemoglobin 13.3 g/dl (14.0-18.0); Lymphocytes Absolute Auto 2.2 X10*3/uL (1.2-4.9); Lymphocytes Percent Auto 66.1 % (20-40); MANUAL DIFF FLAG SCAN; Mean Corpuscular HGB Conc 31.9 g/dl (31.0-36.0); Mean Corpuscular Hemoglobin 27.9 pg (27.0-33.0); Mean Corpuscular Volume 87.4 fL (80.0-98.0); Mean Platelet Volume 9.4 fL (9.4-12.4); Monocytes Absolute Auto 0.3 X10*3/uL (0.1-1.2); Monocytes Percent Auto 10.1 % (2-11); Neutrophils Absolute Auto 0.8 x10*3/uL (2.0-8.3); Neutrophils Percent Auto 23.2 % (45-73); Platelet Count 259 X10*3/uL (160-400); Red Blood Count 4.77 X10*6/uL (4.60-5.80); Red Cell Distribution Width 18.2 % (11.0-16.0); SCAN SMEAR FLAG 1; White Blood Count 3.3 X10*3/uL (4.8-10.8)
[2025-01-23 15:54] LABS: Alanine Aminotransferase 17 U/L (0-40); Albumin Level 4.4 g/dL (3.5-5.0); Anion Gap 12 (12-20); Aspartate Amino Transferase 29 U/L (5-37); Bilirubin Total 0.5 mg/dL (0.0-1.0); Blood Urea Nitrogen 9 mg/dL (9-16); Calcium 9.6 mg/dL (8.4-10.2); Carbon Dioxide 25 mmol/L (22-29); Chloride 107 mmol/L (96-108); Estimated Glomerular Filt Rate > 60; Glucose Random 92 mg/dL (60-115); Potassium 4.1 mmol/L (3.3-5.1); Sodium 140 mmol/L (135-145); Total Protein 7.4 g/dL (6.5-8.0)
[2025-01-23 16:04] LABS: Alkaline Phosphatase 121 U/L (39-117)
[2025-01-23 16:06] LABS: SLIDE REVIEW VERIFIED
--- OUTSIDE RECORDS SUMMARY | 2025-01-23 17:08 | XMS_ITS | Clinical Summary ---
Author Organization [employer] Address [address] [facility] [address] [place] [address] Care Team Providers Care Clinical Staff Anesthesiologist Name Role Phone Ricci Barkley MD Primary [...] Encounters Date Type Department Care Team Description 01/23/2025 Orders Only GENERIC EXTERNAL DATA DEPARTMENT Provider, Generic External Data 01/10/2025 Orders Only GENERIC EXTERNAL DATA DEPARTMENT Provider, Generic External Data 01/06/2025 Population Health Risk Score [facility] (C3) Department [address] [phone] Provider, Population Health Generic 12/27/2024 Orders Only GENERIC EXTERNAL DATA DEPARTMENT Provider, Generic External Data 12/13/2024 Orders Only [facility] External Provider, [facility] 12/12/2024 Orders Only GENERIC EXTERNAL DATA DEPARTMENT Provider, Generic External Data 11/28/2024 Orders Only GENERIC EXTERNAL DATA DEPARTMENT Provider, Generic External Data 11/14/2024 Orders Only GENERIC EXTERNAL DATA DEPARTMENT Provider, Generic External Data 11/11/2024 3:45 PM EST Office Visit [facility] [address] [place] [address] Ricci Barkley MD Dislocation of temporomandibular joint, initial encounter (Primary Dx) 11/11/2024 Travel 11/11/2024 Telephone [facility] [address] [place] [phone] Ricci Barkley MD Nurse Triage 10/31/2024 Orders [...] Date/Time Associated Diagnosis Comments SLIDE REVIEW Routine 01/23/2025 3:21 PM EDT CBC WITH AUTO DIFFERENTIAL Routine 01/23/2025 3:21 PM EDT COMPREHENSIVE METABOLIC PANEL Routine 01/23/2025 3:21 PM EDT URINALYSIS WITH REFLEX TO MICROSCOPIC Routine 01/23/2025 3:15 PM EDT COMPREHENSIVE METABOLIC PANEL Routine 01/10/2025 1:10 PM EDT CBC WITH AUTO DIFFERENTIAL Routine 01/10/2025 1:10 PM EDT URINALYSIS WITH REFLEX TO MICROSCOPIC Routine 01/10/2025 1:07 PM EDT SLIDE REVIEW Routine 12/27/2024 4:11 PM EST [...] AUTO DIFFERENTIAL Routine 10/31/2024 9:05 AM EST LIPID PANEL, STANDARD Routine 08/13/2020 9:16 AM EDT PROPHYLAXIS - ADULT Routine 03/15/2019 1 2:00 AM EDT INTRAORAL - COMPLETE SERIES OF RADIOGRAPHIC IMAGES Routine 03/14/2019 12:00 AM EDT COMPREHENSIVE ORAL EVALUATION - NEW OR ESTABLISHED PATIENT Routine 03/14/2019 12:00 AM EDT from Last 3 Months or Most Recently Relevant to Health Maintenance Results * Slide Review (01/23/2025 3:21 PM EDT) Only the most recent of3 resultswithin the time period is included. Slide Review VERIFIED [facility] 01/23/2025 3:21 PM EDT 01/23/2025 3:21 PM EDT us Generic External Data Provider LAB BLOOD ORDERAB LES Final Result [facility] [address] [place] [phone] * (ABNORMAL) CBC auto differential (01/23/2025 3:21 PM EDT) Only the most recent of7 resultswithin the time period is included. White Blood Count 3.3(L) 4.8 - 10.8 X10*3/uL [facility] Red Blood Count 4.77 4.60 - 5.80 X10*6/uL [facility] Hemoglobin 13.3(L) 14.0 - 18.0 g/dl [facility] Hematocrit 41.7(L) 42.0 - 52.0 % [facility] Mean Corpuscular Volume 87.4 80.0 - 98.0 fL [facility] Mean Corpuscular Hemoglobin 27.9 27.0 - 33.0 pg [facility] Mean Corpuscular HGB Conc 31.9 31.0 - 36.0 g/dl [facility] Red Cell Distribution Width 18.2(H) 11.0 - 16.0 % [facility] Platelet Count 259 160 - 400 X10*3/uL [facility] Mean Platelet Volume 9.4 9.4 - 12.4 fL [facility] Neutrophils Percent Auto 23.2(L) 45 - 73 % [facility] Imm Gran Pct Auto 0.0 0.0 - 0.4 % [facility] Lymphocytes Percent Auto 66.1(H) 20 - 40 % [facility] Monocytes Percent Auto 10.1 2 - 11 % [facility] Eosinophils Percent Auto 0.6 0 - 4 % [facility] Basophils Percent Auto 0.0 0 - 2 % [facility] NRBC Pct Auto 0.0 0.0 - 0.2 /100WBC [facility] Neutrophils Absolute Auto 0.8(L) 2.0 - 8.3 x10*3/uL [facility] Imm Gran Abs Auto 0.00 0.00 - 0.03 X10*3/uL [facility] Lymphocytes Absolute Auto 2.2 1.2 - 4.9 X10*3/uL [facility] Monocytes Absolute Auto 0.3 0.1 - 1.2 X10*3/uL [facility] Eosinophils Absolute Auto 0.0 0.0 - 0.4 X10*3/uL [facility] Basophils Absolute Auto 0.0 0.0 - 0.2 X10*3/uL [facility] NRBC Abs Auto 0.000 0.0 - 0.012 X10*3/uL [facility] 01/23/2025 3:21 PM EDT 01/23/2025 3:21 PM EDT us Generic External Data Provider LAB BLOOD ORDERAB LES Edited Result - Final [facility] [address] [place] [address] [phone] * (ABNORMAL) Comprehensive Metabolic Panel (01/23/2025 3:21 PM EDT) Only the most recent of7 resultswithin the time period is included. Sodium 140 135 - 145 mmol/L [facility] Potassium 4.1 3.3 - 5.1 mmol/L [facility] Chloride 107 96 - 108 mmol/L [facility] Carbon Dioxide 25 22 - 29 mmol/L [facility] Anion Gap 12 12 - 20 [facility] Urea Nitrogen (BUN) 9 9 - 16 mg/dL [facility] Creatinine, Serum 0.75 0.5 - 1.4 mg/dL [facility] Estimated Glomerular Filt Rate >60 [facility] Comment:Chronic Kidney Disea se: Estimated GFR < 60 mL/min/[id number] Kidney Disease: Estimated GFR < 15 mL/min/1.73m2 Glucose 92 60 - 115 mg/dL [facility] Calcium 9.6 8.4 - 10.2 mg/dL [facility] Bilirubin, Total 0.5 0.0 - 1.0 mg/dL [facility] Aspartate Amino Transferase 29 5 - 37 U/L [facility] Alanine Aminotransferase 17 0 - 40 U/L [facility] Total Protein 7.4 6.5 - 8.0 g/dL [facility] Albumin Level 4.4 3.5 - 5.0 g/dL [facility] Alkaline Phosphatase 121(H) 39 - 117 U/L [facility] 01/23/2025 3:21 PM EDT 01/23/2025 3:21 PM EDT us Generic External Data Provider LAB BLOOD ORDERAB LES Final Result Performing Organization Address [facility]/ZIP Co de Phone Number [facility] [address] [place] [address] [phone] * Urinalysis with Reflex to Microscopic (01/23/2025 3:15 PM EDT) Only the most recent of7 resultswithin the time period is included. Color Urine Yellow [facility] Appearance Urine Clear [facility] PH 6.0 5.0 - 9.0 [facility] Glucose Urine UA Negative Negative mg/dL [facility] Urine Blood Negative Negative [facility] Specific [place] - Urine 1.015 1.005 - 1.025 [facility] Urine Protein Negative Neg-Trace mg/dL [facility] Urine Ketones Negative Negative mg/dL [facility] Nitrite Urine Negative Negative [facility] Leukocyte Esterase Urine Negative Negative [facility] 01/23/2025 3:15 PM EDT 01/23/2025 3:32 PM EDT Generic External Data Provider LAB URINE ORDERAB LES Final Result Performing Organization Address City/[facility]/ZIP Co de Phone Number [facility] [address] [place] [phone] * Magnesium (12/27/2024 4:11 PM EST) Only the most recent of2 resultswithin the time period is included. Magnesium 2.0 1.6 - 2.6 mg/dL [facility] 12/27/2024 4:11 PM EST 12/27/2024 4:11 PM EST Generic External Data Provider LAB BLOOD ORDERAB LES Final Result Performing Organization Address [facility] Co de Phone Number [facility] [address] [place] [phone] * CT Chest w/ Contrast (12/14/2024 2:33 PM EST) Anatomical Region Laterality Modality Body, Chest Computed Tomogra phy 12/14/2024 2:33 PM EST Narrative 12/14/2024 2:34 PM EST ? [facility] ?[address] ?[place] [address] ? CT Scan Report ? Signed ? Patient: Ceasar Mcdonough,Jp ?MR#: [id number] ?? [id number] ? : 1970 ?Acct:[id number] ? Age/Sex: 54 / M ?ADM Date: 12/13/24 ? Loc: HO.CT ? Attending Dr: Elli Nazario MD ? Ordering Physician: Elli Nazario MD ?? Date of Service: 12/13/24 ?? Procedure(s): CT chest w IV con ?? Accession Number(s): [id number] ? cc: Ricci Barkley MD; Elli Nazario MD ? Report Number: ?? [id number]: Total DLP = ??135.00 mGy-cm ? CLINICAL [...] DD/ 1433 ? TD/TT: 12/14/24 1433 ? Patient Liaison: ? Procedure Note Sherrell, Image - 12/14/[address] [address] [address] Scan Report Signed Patient: Noah Shah#: [id number] : 1970Acct:[id number] Age/Sex: 54 / MADM Date: 12/13/24 Loc: HO.CT Attending Dr: Elli Nazario MD Ordering Physician: Elli Nazario MD Date of Service: 12/13/24 Procedure(s): CT chest w IV con Accession Number(s): [id number] cc: Ricci Barkley MD; Elli Nazario MD Report Number: [id number]: Total DLP = 135.00 mGy-cm CLINICAL HISTORY: [...] 12/14/24 1434 DD/ 1433 TD/TT: 12/14/24 1433 Patient Liaison: [facility] External Provider IMG CT PROCEDURES Final Result * CT Abdomen Pelvis w/ Contrast (12/14/2024 1:57 PM EST) Anatomical Region Laterality Modality Body, Pelvis, Abdomen Computed T omography 12/14/2024 1:57 PM EST Narrative 12/14/2024 1:58 PM EST ? [facility] ?[address] ?[place] [address] ? CT Scan Report ? Signed ? Patient: Jp Shah ?MR#: [id number] ?? [id number] ? : 1970 ?Acct:[id number] ? Age/Sex: 54 / M ?ADM Date: 02/18/25 ? Loc: HO.CT ? Attending Rosalie Nazario MD ? Ordering Physician: Elli Nazario MD ?? Date of Service: 12/13/24 ?? Procedure(s): CT abdomen pelvis w IV con ?? Accession Number(s): [id number] ? cc: Ricci Barkley MD; Elli Nazario MD ? Report Number: ?? [id number]: Total DLP = ??337.00 mGy-cm ? CLINICAL HISTORY: Assess response to treatment ? CT abdomen and pelvis with contrast ? Comparison: CT/REG/[place]/SR - CT ABDOMEN PELVIS WO IV CON [...] DD/ 1357 ? TD/TT: 12/14/24 1357 ? Patient Liaison: ? Procedure Note Donduter, Image - 12/14/[address] [address] [address] Scan Report Signed Patient: Jp Shah#: [id number] : 1970Acct:[id number] Age/Sex: 54 / MADM Date: 12/13/24 Loc: HO.CT Attending Dr: Elli Nazario MD Ordering Physician: Elli Nazario MD Date of Service: 12/13/24 Procedure(s): CT abdomen pelvis w IV con Accession Number(s): [id number] cc: Ricci Barkley MD; Elli Nazario MD Report Number: [id number]: Total DLP = 337.00 mGy-cm CLINICAL HISTORY: Assess response to treatment CT abdomen and pelvis with contrast Comparison: CT/REG/[place]/SR - CT ABDOMEN PELVIS WO IV CON [...] document has been electronically signed by: Ankit Perlata MD on 12/14/2024 13:57:16 Dictated By: Ankit Peralta MD Signed By: <Electronically signed by Ankit Peralta MD in [place]> 12/14/24 1357 DD/ 1357 TD/TT: 12/14/24 1357 Patient Liaison: [facility] External Provider IMG CT PROCEDURES Final Result [...] ?? Que PARR et al. AMELIA. 2013;310(19): 9059-9288 ?? (http://[email or web address].Ambature/faq/QRX571) Cholesterol, Total 207(H) <200 mg/dL [facility] ?? Que PARR et al. AMELIA. 2013;310(19): 5151-3396 ?? (http://[email or web address].Ambature/faq/PWD245) Chol/HDLC Ratio 4.2 <5.0 (calc) [facility] [...] ?? Que PARR et al. AMELIA. 2013;310(19): 2636-8259 ?? (http://[employer]/faq/NCE437) Chol/HDLC Ratio 4.2 <5.0 (calc) [facility] Non-HDL Cholesterol 158(H) <130 mg/dL (calc) [facility] Comment: For patients with diabetes plus 1 major ASCVD risk ?? factor, treating to a non-HDL-C goal of <100 mg/dL ?? (LDL-C of <70 mg/dL) is considered a therapeutic ?? option. 08/13/2020 9:16 AM EDT us Ricci Barkley MD LAB BLOOD ORDERABLES Final Result [facility] [address] from Last 3 Months or Most Recently Relevant to Health Maintenance Insurance [facility] STAND ADULT Care Teams Clinical Staff Anesthesiologist Relationship Specialty Start Date End Date Ricci Barkley MD [address] [place] [phone] PCP - General Internal Medicine 01/04/19
--- OUTSIDE RECORDS SUMMARY | 2025-01-23 17:08 | XMS_ITS | Encounter Summary ---
Author Organization [employer] Address [address] [facility] 7t [place] [address] Care Team Providers Care Optician Apprentice Dispensing Name Role Phone Ricci Barkley MD Primary Care Provider [phone] Encounter Details Date Type Department Care Team (Late st Contact Info) Description 01/23/2025 Orders Only GENERIC EXTERNAL DATA [...] TO MICROSCOPIC Routine 01/23/2025 3:15 PM EDT documented in this encounter Results * Slide Review (01/23/2025 3:21 PM EDT) Slide Review VERIFIED [facility] 01/23/2025 3:21 PM EDT 01/23/2025 3:21 PM EDT us Generic External Data Provider LAB BLOOD ORDERAB LES Final Result [facility] [address] [place] [address] [phone] * (ABNORMAL) CBC auto differential (01/23/2025 3:21 PM EDT) White Blood Count 3.3(L) 4.8 - 10.8 X10*3/uL [facility] Red Blood Count 4.77 4.60 - 5.80 X10*6/uL [facility] Hemoglobin 13.3(L) 14.0 - 18.0 g/dl [facility] Hematocrit 41.7(L) 42.0 - 52.0 % [facility] Mean Corpuscular Volume 87.4 80.0 - 98.0 fL [facility] Mean Corpuscular Hemoglobin 27.9 27.0 - 33.0 pg [facility] Mean Corpuscular HGB Conc 31.9 31.0 - 36.0 g/dl [facility] Red Cell Distribution Width 18.2(H) 11.0 - 16.0 % [facility] Platelet Count 259 160 - 400 X10*3/uL [facility] Mean Platelet Volume 9.4 9.4 - 12.4 fL [facility] Neutrophils Percent Auto 23.2(L) 45 - 73 % [facility] Imm Gran Pct Auto 0.0 0.0 - 0.4 % [facility] Lymphocytes Percent Auto 66.1(H) 20 - 40 % [facility] Monocytes Percent Auto 10.1 2 - 11 % [facility] Eosinophils Percent Auto 0.6 0 - 4 % [facility] Basophils Percent Auto 0.0 0 - 2 % [facility] NRBC Pct Auto 0.0 0.0 - 0.2 /100WBC [facility] Neutrophils Absolute Auto 0.8(L) 2.0 - 8.3 x10*3/uL [facility] Imm Gran Abs Auto 0.00 0.00 - 0.03 X10*3/uL [facility] Lymphocytes Absolute Auto 2.2 1.2 - 4.9 X10*3/uL [facility] Monocytes Absolute Auto 0.3 0.1 - 1.2 X10*3/uL [facility] Eosinophils Absolute Auto 0.0 0.0 - 0.4 X10*3/uL [facility] Basophils Absolute Auto 0.0 0.0 - 0.2 X10*3/uL [facility] NRBC Abs Auto 0.000 0.0 - 0.012 X10*3/uL [facility] 01/23/2025 3:21 PM EDT 01/23/2025 3:21 PM EDT us Generic External Data Provider LAB BLOOD ORDERAB LES Edited Result - Final Performing Organization Address City/[facility]/ZIP Co de Phone Number [facility] [address] [place] [address] [phone] * (ABNORMAL) Comprehensive Metabolic Panel (01/23/2025 3:21 PM EDT) Sodium 140 135 - 145 mmol/L [facility] Potassium 4.1 3.3 - 5.1 mmol/L [facility] Chloride 107 96 - 108 mmol/L [facility] Carbon Dioxide 25 22 - 29 mmol/L [facility] Anion Gap 12 12 - 20 [facility] Urea Nitrogen (BUN) 9 9 - 16 mg/dL [facility] Creatinine, Serum 0.75 0.5 - 1.4 mg/dL [facility] Estimated Glomerular Filt Rate >60 [facility] Comment:Chronic Kidney Disea se: Estimated GFR < 60 mL/min/[id number] Kidney Disease: Estimated GFR < 15 mL/min/1.73m2 Glucose 92 60 - 115 mg/dL [facility] Calcium 9.6 8.4 - 10.2 mg/dL [facility] Bilirubin, Total 0.5 0.0 - 1.0 mg/dL [facility] Aspartate Amino Transferase 29 5 - 37 U/L [facility] Alanine Aminotransferase 17 0 - 40 U/L [facility] Total Protein 7.4 6.5 - 8.0 g/dL [facility] Albumin Level 4.4 3.5 - 5.0 g/dL [facility] Alkaline Phosphatase 121(H) 39 - 117 U/L [facility] 01/23/2025 3:21 PM EDT 01/23/2025 3:21 PM EDT us Generic External Data Provider LAB BLOOD ORDERAB LES Final Result [facility] [address] [place] [phone] [phone] * Urinalysis with Reflex to Microscopic (01/23/2025 3:15 PM EDT) Color Urine Yellow [facility] Appearance Urine Clear [facility] PH 6.0 5.0 - 9.0 [facility] Glucose Urine UA Negative Negative mg/dL [facility] Urine Blood Negative Negative [facility] Specific [place] - Urine 1.015 1.005 - 1.025 [facility] Urine Protein Negative Neg-Trace mg/dL [facility] Urine Ketones Negative Negative mg/dL [facility] Nitrite Urine Negative Negative [facility] Leukocyte Esterase Urine Negative Negative [facility] 01/23/2025 3:15 PM EDT 01/23/2025 3:32 PM EDT us Generic External Data Provider LAB URINE ORDERAB LES Final Result [facility] [address] [place] [address] [phone] documented in this encounter Visit Diagnoses Not on filedocumented in this encounter Additional Health Concerns Assessment Noted Time PHQ-9 Depression Total Score: 0 11/11/19 25 4:16 PM EST documented as of this encounter Care Teams Optician Apprentice Dispensing Relationship Specialty Start Date End Date Ricci Barkley MD [address] [place] [phone] PCP - General Internal Medicine 01/04/19 documented as of this encounter
--- OUTSIDE RECORDS SUMMARY | 2025-01-23 17:08 | XMS_ITS | Encounter Summary ---
Author Organization [employer] Address [address] [place] [address] Care Team Providers Care Server Assistant Name Role Phone Ricci Barkley MD Primary Care Provider [phone]- [phone] Encounter Details Date Type Department Care Team [...] on filedocumented in this encounter Care Teams Server Assistant Relationship Specialty Start Date End Date Ricci Barkley MD [address] [place] [address] PCP - General Internal Medicine 01/04/19 documented as of this encounter
--- OUTSIDE RECORDS SUMMARY | 2025-01-23 17:08 | XMS_ITS | Encounter Summary ---
Author Organization [employer] Address [address] [place] [phone] Care Team Providers Care Tractor Mechanic Apprentice Name Role Phone Ricci Barkley MD Primary Care Provider [phone]- [phone] Encounter Details Date Type Department Care Team [...] on filedocumented in this encounter Care Teams Tractor Mechanic Apprentice Relationship Specialty Start Date End Date Ricci Barkley MD [address] [place] [address] PCP - General Internal Medicine 01/04/19 documented as of this encounter
== END 2025-01-23 15:11 | disposition home or self-care (01) ==
LOC: HO.LAB 15:10
PROVIDERS: PCP Internal Medicine; Visit Provider Internal Medicine
DX: C18.0 Malignant neoplasm of cecum (principal)
CPT/HCPCS: 36415; 80053; 81003; 85025

== ENCOUNTER 2025-02-07 11:24 | Outpatient (REF) | payer MEDICAID, SELFPAY ==
[2025-02-07 11:33] LABS: MANUAL DIFF FLAG NO
[2025-02-07 12:01] LABS: Basophils Percent Auto 0.2 % (0-2); Eosinophils Percent Auto 0.2 % (0-4); Hematocrit 40.7 % (42.0-52.0); Hemoglobin 13.1 g/dl (14.0-18.0); Imm Gran Abs Auto 0.02 X10*3/uL (0.00-0.03); Imm Gran Pct Auto 0.5 % (0.0-0.4); Lymphocytes Percent Auto 44.6 % (20-40); Mean Corpuscular HGB Conc 32.2 g/dl (31.0-36.0); Mean Corpuscular Hemoglobin 27.8 pg (27.0-33.0); Mean Corpuscular Volume 86.4 fL (80.0-98.0); Mean Platelet Volume 9.4 fL (9.4-12.4); Monocytes Absolute Auto 0.3 X10*3/uL (0.1-1.2); Monocytes Percent Auto 7.7 % (2-11); Neutrophils Absolute Auto 2.1 x10*3/uL (2.0-8.3); Neutrophils Percent Auto 46.8 % (45-73); Platelet Count 206 X10*3/uL (160-400); Red Blood Count 4.71 X10*6/uL (4.60-5.80); Red Cell Distribution Width 17.3 % (11.0-16.0); White Blood Count 4.4 X10*3/uL (4.8-10.8)
[2025-02-07 12:15] LABS: Appearance Urine Clear; Color Urine Yellow; Glucose Urine UA Negative (Negative); Leukocyte Esterase Urine Negative (Negative); Nitrite Urine Negative (Negative); PH 6.5 (5.0-9.0); Urine Blood Negative (Negative); Urine Ketones Negative (Negative); Urine Protein Negative (Neg-Trace)
[2025-02-07 12:31] LABS: Alanine Aminotransferase 19 U/L (0-40); Albumin Level 4.6 g/dL (3.5-5.0); Anion Gap 13 (12-20); Aspartate Amino Transferase 32 U/L (5-37); Bilirubin Total 0.9 mg/dL (0.0-1.0); Blood Urea Nitrogen 13 mg/dL (9-16); Calcium 9.7 mg/dL (8.4-10.2); Carbon Dioxide 24 mmol/L (22-29); Chloride 105 mmol/L (96-108); Estimated Glomerular Filt Rate > 60; Glucose Random 97 mg/dL (60-115); Potassium 4.8 mmol/L (3.3-5.1); Sodium 137 mmol/L (135-145); Total Protein 7.7 g/dL (6.5-8.0)
--- OUTSIDE RECORDS SUMMARY | 2025-02-07 14:10 | XMS_ITS | Clinical Summary ---
Author Organization [employer] Address [address] [facility] [place] [address] Care Team Providers Care Official Court Interpreter Name Role Phone Ricci Barkley MD Primary [...] Encounters Date Type Department Care Team Description 02/07/2025 Orders Only GENERIC EXTERNAL DATA DEPARTMENT Provider, Generic External Data 01/23/2025 Orders Only GENERIC EXTERNAL DATA DEPARTMENT Provider, Generic External Data 01/10/2025 Orders Only GENERIC EXTERNAL DATA DEPARTMENT Provider, Generic External Data 01/06/2025 Population Health Risk Score [facility] (C3) Department [address] [address] Provider, Population Health Generic 12/27/2024 Orders Only GENERIC EXTERNAL DATA DEPARTMENT Provider, Generic External Data 12/13/2024 Orders Only [facility] External Provider, [facility] 12/12/2024 Orders Only GENERIC EXTERNAL DATA DEPARTMENT Provider, Generic External Data 11/28/2024 Orders Only GENERIC EXTERNAL DATA DEPARTMENT Provider, Generic External Data 11/14/2024 Orders Only GENERIC EXTERNAL DATA DEPARTMENT Provider, Generic External Data 11/11/2024 3:45 PM EST Office Visit [facility] [address] [place] [address] Ricci Barkley MD Dislocation of temporomandibular joint, initial encounter (Primary Dx) 11/11/2024 Travel 11/11/2024 Telephone [facility] [address] [place] [address] Ricci Barkley MD Nurse Triage from Last 3 Months Social History Tobacco [...] Associated Diagnosis Comments COMPREHENSIVE METABOLIC PANEL Routine 02/07/2025 11:33 AM EDT CBC WITH AUTO DIFFERENTIAL Routine 02/07/2025 11:33 AM EDT URINALYSIS WITH REFLEX TO MICROSCOPIC Routine 02/07/2025 11:29 AM EDT SLIDE REVIEW Routine 01/23/2025 3:21 PM EDT [...] AUTO DIFFERENTIAL Routine 11/14/2024 3:48 PM EST LIPID PANEL, STANDARD Routine 08/13/2020 9:16 AM EDT PROPHYLAXIS - ADULT Routine 03/15/2019 1 2:00 AM EDT INTRAORAL - COMPLETE SERIES OF RADIOGRAPHIC IMAGES Routine 03/14/2019 12:00 AM EDT COMPREHENSIVE ORAL EVALUATION - NEW OR ESTABLISHED PATIENT Routine 03/14/2019 12:00 AM EDT from Last 3 Months or Most Recently Relevant to Health Maintenance Results * (ABNORMAL) CBC auto differential (02/07/2025 11:33 AM EDT) Only the most recent of7 resultswithin the time period is included. White Blood Count 4.4(L) 4.8 - 10.8 X10*3/uL [facility] Red Blood Count 4.71 4.60 - 5.80 X10*6/uL [facility] Hemoglobin 13.1(L) 14.0 - 18.0 g/dl [facility] Hematocrit 40.7(L) 42.0 - 52.0 % [facility] Mean Corpuscular Volume 86.4 80.0 - 98.0 fL [facility] Mean Corpuscular Hemoglobin 27.8 27.0 - 33.0 pg [facility] Mean Corpuscular HGB Conc 32.2 31.0 - 36.0 g/dl [facility] Red Cell Distribution Width 17.3(H) 11.0 - 16.0 % [facility] Platelet Count 206 160 - 400 X10*3/uL [facility] Mean Platelet Volume 9.4 9.4 - 12.4 fL [facility] Neutrophils Percent Auto 46.8 45 - 73 % [facility] Imm Gran Pct Auto 0.5(H) 0.0 - 0.4 % [facility] Lymphocytes Percent Auto 44.6(H) 20 - 40 % [facility] Monocytes Percent Auto 7.7 2 - 11 % [facility] Eosinophils Percent Auto 0.2 0 - 4 % [facility] Basophils Percent Auto 0.2 0 - 2 % [facility] NRBC Pct Auto 0.0 0.0 - 0.2 /100WBC [facility] Neutrophils Absolute Auto 2.1 2.0 - 8.3 x10*3/uL [facility] Imm Gran Abs Auto 0.02 0.00 - 0.03 X10*3/uL [facility] Lymphocytes Absolute Auto 2.0 1.2 - 4.9 X10*3/uL [facility] Monocytes Absolute Auto 0.3 0.1 - 1.2 X10*3/uL [facility] Eosinophils Absolute Auto 0.0 0.0 - 0.4 X10*3/uL [facility] Basophils Absolute Auto 0.0 0.0 - 0.2 X10*3/uL [facility] NRBC Abs Auto 0.000 0.0 - 0.012 X10*3/uL [facility] 02/07/2025 11:3 3 AM EDT 02/07/2025 11:33 AM EDT us Generic External Data Provider LAB BLOOD ORDERAB LES Final Result [facility] [address] [place] [phone] * Urinalysis with Reflex to Microscopic (02/07/2025 11:29 AM EDT) Only the most recent of7 resultswithin the time period is included. Color Urine Yellow [facility] Appearance Urine Clear [facility] PH 6.5 5.0 - 9.0 [facility] Glucose Urine UA Negative Negative mg/dL [facility] Urine Blood Negative Negative [facility] Specific [place] - Urine 1.020 1.005 - 1.025 [facility] Urine Protein Negative Neg-Trace mg/dL [facility] Urine Ketones Negative Negative mg/dL [facility] Nitrite Urine Negative Negative [facility] Leukocyte Esterase Urine Negative Negative [facility] 02/07/2025 11:2 9 AM EDT 02/07/2025 11:52 AM EDT us Generic External Data Provider LAB URINE ORDERAB LES Final Result Performing Organization Address City/[facility]/ZIP Co de Phone Number [facility] [address] [place] [address] [phone] * Slide Review (01/23/2025 3:21 PM EDT) Only the most recent of2 resultswithin the time period is included. Slide Review VERIFIED [facility] 01/23/2025 3:21 PM EDT 01/23/2025 3:21 PM EDT Generic External Data Provider LAB BLOOD ORDERAB LES Final Result Performing Organization Address [facility] de Phone Number [facility] [address] [place] [address] [phone] * (ABNORMAL) Comprehensive Metabolic Panel (01/23/2025 3:21 PM EDT) Only the most recent of6 resultswithin the time period is included. Sodium 140 135 - 145 mmol/L [facility] Potassium 4.1 3.3 - 5.1 mmol/L [facility] Chloride 107 96 - 108 mmol/L [facility] Carbon Dioxide 25 22 - 29 mmol/L [facility] Anion Gap 12 12 - 20 [facility] Urea Nitrogen (BUN) 9 9 - 16 mg/dL [facility] Creatinine, Serum 0.75 0.5 - 1.4 mg/dL [facility] Estimated Glomerular Filt Rate >60 [facility] Comment:Chronic Kidney Disea se: Estimated GFR < 60 mL/min/1.07u4Pauhlg Kidney Disease: Estimated GFR < 15 mL/min/1.73m2 Glucose 92 60 - 115 mg/dL [facility] Calcium 9.6 8.4 - 10.2 mg/dL [facility] Bilirubin, Total 0.5 0.0 - 1.0 mg/dL [facility] Aspartate Amino Transferase 29 5 - 37 U/L [facility] Alanine Aminotransferase 17 0 - 40 U/L [facility] Total Protein 7.4 6.5 - 8.0 g/dL [facility] Albumin Level 4.4 3.5 - 5.0 g/dL [facility] Alkaline Phosphatase 121(H) 39 - 117 U/L [facility] 01/23/2025 3:21 PM EDT 01/23/2025 3:21 PM EDT Generic External Data Provider LAB BLOOD ORDERAB LES Final Result Performing Organization Address [facility] Co de Phone Number [facility] [address] [place] [address] [phone] * Magnesium (12/27/2024 4:11 PM EST) Magnesium 2.0 1.6 - 2.6 mg/dL [facility] 12/27/2024 4:11 PM EST 12/27/2024 4:11 PM EST us Generic External Data Provider LAB BLOOD ORDERAB LES Final Result Performing Organization Address [facility] de Phone Number [facility] [address] [place] [address] [phone] * CT Chest w/ Contrast (12/14/2024 2:33 PM EST) Anatomical Region Laterality Modality Body, Chest Computed Tomogra phy 12/14/2024 2:33 PM EST Narrative 12/14/2024 2:34 PM EST ? [facility] ?[address] ?[place] [address] ? CT Scan Report ? Signed ? Patient: Jp Shah ?MR#: [id number] ?? [id number] ? : 1970 ?Acct:[id number] ? Age/Sex: 54 / M ?ADM Date: /18/25 ? Loc: HO.CT ? Attending Dr: Elli Nazario MD ? Ordering Physician: Elli Nazario MD ?? Date of Service: 12/13/24 ?? Procedure(s): CT chest w IV con ?? Accession Number(s): [id number] ? cc: Ricci Barkley MD; Elli Nazario MD ? Report Number: ?? [id number]: Total DLP = ??135.00 mGy-cm ? CLINICAL [...] DD/ 1433 ? TD/TT: 12/14/24 1433 ? Cable Placer: ? Procedure Note Sherrell, Gilberto - 12/14/[address] [place] [address] [address] Scan Report Signed Patient: Jp ShahMR#: [id number] : 1970Acct:[id number] Age/Sex: 54 / MADM Date: 12/13/24 Loc: HO.CT Attending Dr: Elli Nazario MD Ordering Physician: Elli Nazario MD Date of Service: 12/13/24 Procedure(s): CT chest w IV con Accession Number(s): [id number] cc: Ricci Barkley MD; Elli Nazario MD Report Number: [id number]: Total DLP = 135.00 mGy-cm CLINICAL HISTORY: [...] 12/14/24 1434 DD/ 1433 TD/TT: 12/14/24 1433 Cable Placer: [facility] External Provider IMG CT PROCEDURES Final Result * CT Abdomen Pelvis w/ Contrast (12/14/2024 1:57 PM EST) Anatomical Region Laterality Modality Body, Pelvis, Abdomen Computed T omography 12/14/2024 1:57 PM EST Narrative 12/14/2024 1:58 PM EST ? [facility] ?[address] ?[place] [address] ? CT Scan Report ? Signed ? Patient: Jp Shah ?MR#: [id number] ?? [id number] ? : 1970 ?Acct:[id number] ? Age/Sex: 54 / M ?ADM Date: 12/13/24 ? Loc: HO.CT ? Attending Dr: Elli Nazario MD ? Ordering Physician: Elli Nazario MD ?? Date of Service: 12/13/24 ?? Procedure(s): CT abdomen pelvis w IV con ?? Accession Number(s): [id number] ? cc: Ricci Barkley MD; Elli Nazario MD ? Report Number: ?? [id number]: Total DLP = ??337.00 mGy-cm ? CLINICAL HISTORY: Assess response to treatment ? CT abdomen and pelvis with contrast ? Comparison: CT/REG/[place]/SR - CT ABDOMEN PELVIS WO IV CON [...] 12/14/24 1357 ? DD/ 1357 ? TD/TT: 12/14/247 ? Cable Placer: ? Procedure Note Gilberto Wynne - 12/14/[address] [place] [address] [address] Scan Report Signed Patient: Jp ShahMR#: [id number] : 1970Acct:[id number] Age/Sex: 54 / MADM Date: 12/13/24 Loc: HO.CT Attending Dr: Elli Nazario MD Ordering Physician: Elli Nazario MD Date of Service: 12/13/24 Procedure(s): CT abdomen pelvis w IV con Accession Number(s): [id number] cc: Ricci Barkley MD; Elli Nazario MD Report Number: [id number]: Total DLP = 337.00 mGy-cm CLINICAL HISTORY: Assess response to treatment CT abdomen and pelvis with contrast Comparison: CT/REG/[place]/SR - CT ABDOMEN PELVIS WO IV CON [...] 12/14/24 1357 DD/ 1357 TD/TT: 12/14/24 1357 Cable Placer: [facility] External Provider IMG CT PROCEDURES Final [...] ?? Que SS et al. AMELIA. 2013;310(19): [id number] ?? (http://[employer]/faq/JBX718) Cholesterol, Total 207(H) <200 mg/dL [facility] ?? Que SS et al. AMELIA. 2013;310(19): 0407-7527 ?? (http://[employer]/faq/SQO875) Chol/HDLC Ratio 4.2 <5.0 (calc) [facility] [...] ?? Que PARR et al. AMELIA. 2013;310(19): [id number] ?? (http://[employer]/faq/NMD652) Chol/HDLC Ratio 4.2 <5.0 (calc) [facility] Non-HDL Cholesterol 158(H) <130 mg/dL (calc) [facility] Comment: For patients with diabetes plus 1 major ASCVD risk ?? factor, treating to a non-HDL-C goal of <100 mg/dL ?? (LDL-C of <70 mg/dL) is considered a therapeutic ?? option. 08/13/2020 9:16 AM EDT Ricci Barkley MD LAB BLOOD ORDERABLES Final Result [facility] [address] from Last 3 Months or Most Recently Relevant to Health Maintenance Insurance [address] [place] [address] [facility] C3 DENTAL-[facility] MEDICAID STAND ADULT Care Teams Official Court Interpreter Relationship Specialty Start Date End Date Ricci Barkley MD [address] [place] [address] [place] [address] PCP - General Internal Medicine 01/04/19
--- OUTSIDE RECORDS SUMMARY | 2025-02-07 14:10 | XMS_ITS | Encounter Summary ---
Author Organization [employer] Address [address] [place] [address] Care Team Providers Care Edge Stainer Name Role Phone Ricci Barkley MD Primary Care Provider [phone]- [phone] Encounter Details Date Type Department Care Team [...] on filedocumented in this encounter Care Teams Edge Stainer Relationship Specialty Start Date End Date Ricci Barkley MD [address] [place] [address] PCP - General Internal Medicine 01/04/19 documented as of this encounter
--- OUTSIDE RECORDS SUMMARY | 2025-02-07 14:10 | XMS_ITS | Encounter Summary ---
Author Organization [employer] Address [address] [facility] 7[address] [place] [address] Care Team Providers Care Cpc Name Role Phone Ricci Barkley MD Primary Care Provider [phone]- [phone] Encounter Details Date Type Department Care Team (Late st Contact Info) Description 02/07/2025 Orders Only GENERIC EXTERNAL DATA [...] Date /Time Comprehensive Metabolic Panel Lab Routine 02/07/2025 11:33 AM EDT documented as of this encounter Procedures Procedure Name Priority Date/Time Associated Diagnosis Comments CBC WITH AUTO DIFFERENTIAL Routine 02/07/2025 11:33 AM EDT COMPREHENSIVE METABOLIC PANEL Routine 02/07/2025 11:33 AM EDT URINALYSIS WITH REFLEX TO MICROSCOPIC Routine 02/07/2025 11:29 AM EDT documented in this encounter Results * (ABNORMAL) CBC auto differential (02/07/2025 11:33 AM EDT) White Blood Count 4.4(L) 4.8 - 10.8 X10*3/uL [facility] Red Blood Count 4.71 4.60 - 5.80 X10*6/uL [facility] Hemoglobin 13.1(L) 14.0 - 18.0 g/dl [facility] Hematocrit 40.7(L) 42.0 - 52.0 % [facility] Mean Corpuscular Volume 86.4 80.0 - 98.0 fL [facility] Mean Corpuscular Hemoglobin 27.8 27.0 - 33.0 pg [facility] Mean Corpuscular HGB Conc 32.2 31.0 - 36.0 g/dl [facility] Red Cell Distribution Width 17.3(H) 11.0 - 16.0 % [facility] Platelet Count 206 160 - 400 X10*3/uL [facility] Mean Platelet Volume 9.4 9.4 - 12.4 fL [facility] Neutrophils Percent Auto 46.8 45 - 73 % [facility] Imm Gran Pct Auto 0.5(H) 0.0 - 0.4 % [facility] Lymphocytes Percent Auto 44.6(H) 20 - 40 % [facility] Monocytes Percent Auto 7.7 2 - 11 % [facility] Eosinophils Percent Auto 0.2 0 - 4 % [facility] Basophils Percent Auto 0.2 0 - 2 % [facility] NRBC Pct Auto 0.0 0.0 - 0.2 /100WBC [facility] Neutrophils Absolute Auto 2.1 2.0 - 8.3 x10*3/uL [facility] Imm Gran Abs Auto 0.02 0.00 - 0.03 X10*3/uL [facility] Lymphocytes Absolute Auto 2.0 1.2 - 4.9 X10*3/uL [facility] Monocytes Absolute Auto 0.3 0.1 - 1.2 X10*3/uL [facility] Eosinophils Absolute Auto 0.0 0.0 - 0.4 X10*3/uL [facility] Basophils Absolute Auto 0.0 0.0 - 0.2 X10*3/uL [facility] NRBC Abs Auto 0.000 0.0 - 0.012 X10*3/uL [facility] 02/07/2025 11:3 3 AM EDT 02/07/2025 11:33 AM EDT us Generic External Data Provider LAB BLOOD ORDERAB LES Final Result [facility] [address] [place], [place] [phone] * Urinalysis with Reflex to Microscopic (02/07/2025 11:29 AM EDT) Color Urine Yellow [facility] Appearance Urine Clear [facility] PH 6.5 5.0 - 9.0 [facility] Glucose Urine UA Negative Negative mg/dL [facility] Urine Blood Negative Negative [facility] Specific [employer] - Urine 1.020 1.005 - 1.025 [facility] Urine Protein Negative Neg-Trace mg/dL [facility] Urine Ketones Negative Negative mg/dL [facility] Nitrite Urine Negative Negative [facility] Leukocyte Esterase Urine Negative Negative [facility] 02/07/2025 11:2 9 AM EDT 02/07/2025 11:52 AM EDT us Generic External Data Provider LAB URINE ORDERAB LES Final Result [facility] [address] [place] [address] [phone] documented in this encounter Visit Diagnoses Not on filedocumented in this encounter Additional Health Concerns Assessment Noted Time PHQ-9 Depression Total Score: 0 11/11/19 25 4:16 PM EST documented as of this encounter Care Teams Cpc Relationship Specialty Start Date End Date Ricci Barkley MD [address] [place] [phone] PCP - General Internal Medicine 01/04/19 documented as of this encounter
--- OUTSIDE RECORDS SUMMARY | 2025-02-07 14:10 | XMS_ITS | Encounter Summary ---
Author Organization [employer] Address [address] [place] [address] Care Team Providers Care Supervisor Nurse Name Role Phone Ricci Barkley MD Primary Care Provider [phone]- [phone] Encounter Details Date Type Department Care Team [...] on filedocumented in this encounter Care Teams Supervisor Nurse Relationship Specialty Start Date End Date Ricci Barkley MD [address] [place] [address] PCP - General Internal Medicine 01/04/19 documented as of this encounter
[2025-02-07 17:12] LABS: Alkaline Phosphatase 111 U/L (39-117)
== END 2025-02-07 11:25 | disposition home or self-care (01) ==
LOC: HO.LAB 11:24
PROVIDERS: PCP Internal Medicine; Visit Provider Internal Medicine
DX: C18.0 Malignant neoplasm of cecum (principal)
CPT/HCPCS: 36415; 80053; 81003; 85025

== ENCOUNTER 2025-02-20 13:32 | Outpatient (REF) | payer MEDICAID, SELFPAY ==
[2025-02-20 13:56] LABS: Basophils Percent Auto 0.3 % (0-2); Eosinophils Percent Auto 0.5 % (0-4); Hemoglobin 12.8 g/dl (14.0-18.0); Imm Gran Abs Auto 0.01 X10*3/uL (0.00-0.03); Imm Gran Pct Auto 0.3 % (0.0-0.4); Lymphocytes Absolute Auto 2.3 X10*3/uL (1.2-4.9); Lymphocytes Percent Auto 61.3 % (20-40); MANUAL DIFF FLAG SCAN; Mean Corpuscular Hemoglobin 28.2 pg (27.0-33.0); Mean Corpuscular Volume 88.1 fL (80.0-98.0); Mean Platelet Volume 9.8 fL (9.4-12.4); Monocytes Absolute Auto 0.4 X10*3/uL (0.1-1.2); Monocytes Percent Auto 11.7 % (2-11); Neutrophils Percent Auto 25.9 % (45-73); Platelet Count 286 X10*3/uL (160-400); Red Blood Count 4.54 X10*6/uL (4.60-5.80); Red Cell Distribution Width 18.5 % (11.0-16.0); SCAN SMEAR FLAG 1; White Blood Count 3.7 X10*3/uL (4.8-10.8)
[2025-02-20 14:25] LABS: Alanine Aminotransferase 20 U/L (0-40); Albumin Level 4.6 g/dL (3.5-5.0); Alkaline Phosphatase 116 U/L (39-117); Anion Gap 11 (12-20); Aspartate Amino Transferase 23 U/L (5-37); Bilirubin Total 0.4 mg/dL (0.0-1.0); Blood Urea Nitrogen 14 mg/dL (9-16); Carbon Dioxide 26 mmol/L (22-29); Chloride 108 mmol/L (96-108); Estimated Glomerular Filt Rate > 60; Glucose Random 106 mg/dL (60-115); Potassium 4.1 mmol/L (3.3-5.1); Sodium 141 mmol/L (135-145); Total Protein 7.4 g/dL (6.5-8.0)
[2025-02-20 14:27] LABS: Appearance Urine Clear; Color Urine Dark Yellow; Glucose Urine UA Negative (Negative); Leukocyte Esterase Urine Negative (Negative); Nitrite Urine Negative (Negative); Specific Gravity - Urine 1.025 (1.005-1.025); Urine Blood Negative (Negative); Urine Ketones Trace mg/dL (Negative); Urine Protein Negative (Neg-Trace)
[2025-02-20 15:47] LABS: SLIDE REVIEW VERIFIED
--- OUTSIDE RECORDS SUMMARY | 2025-02-20 16:07 | XMS_ITS | Encounter Summary ---
Author Organization [employer] Address [address] [place] [address] Care Team Providers Care Manager Philosophy Name Role Phone Ricci Barkley MD Primary Care Provider [phone]- [phone] Encounter Details Date Type Department Care Team [...] on filedocumented in this encounter Care Teams Manager Philosophy Relationship Specialty Start Date End Date Ricci Barkley MD [address] [place] [address] PCP - General Internal Medicine 01/04/19 documented as of this encounter
--- OUTSIDE RECORDS SUMMARY | 2025-02-20 16:07 | XMS_ITS | Encounter Summary ---
Author Organization [employer] Address [address] [place] [address] Care Team Providers Care Packing Room Supervisor Name Role Phone Ricci Barkley MD Primary Care Provider [phone]- [phone] Encounter Details Date Type Department Care Team [...] on filedocumented in this encounter Care Teams Packing Room Supervisor Relationship Specialty Start Date End Date Ricci Barkley MD [address] [place] [address] PCP - General Internal Medicine 01/04/19 documented as of this encounter
--- OUTSIDE RECORDS SUMMARY | 2025-02-20 16:07 | XMS_ITS | Encounter Summary ---
Author Organization [employer] Address [address] [facility] 7t [place] [address] Care Team Providers Care Financial Examiner Name Role Phone Ricci Barkley MD Primary Care Provider [phone]- [phone] Encounter Details Date Type Department Care Team (Late st Contact Info) Description 02/20/2025 Orders Only GENERIC EXTERNAL DATA DEPARTMENT Provider, [...] Comments URINALYSIS WITH REFLEX TO MICROSCOPIC Routine 02/20/2025 1:45 PM EDT SLIDE REVIEW Routine 02/20/2025 1:43 PM EDT CBC WITH AUTO DIFFERENTIAL Routine 02/20/2025 1:43 PM EDT COMPREHENSIVE METABOLIC PANEL Routine 02/20/2025 1:43 PM EDT documented in this encounter Results * Urinalysis with Reflex to Microscopic (02/20/2025 1:45 PM EDT) Color Urine Dark Yellow [facility] Appearance Urine Clear [facility] PH 7.0 5.0 - 9.0 [facility] Glucose Urine UA Negative Negative mg/dL [facility] Urine Blood Negative Negative [facility] Specific [place] - Urine 1.025 1.005 - 1.025 [facility] Urine Protein Negative Neg-Trace mg/dL [facility] Urine Ketones Trace Negative mg/dL [facility] Nitrite Urine Negative Negative [facility] Leukocyte Esterase Urine Negative Negative [facility] 02/20/2025 1:45 PM EDT 02/20/2025 1:58 PM EDT us Generic External Data Provider LAB URINE ORDERAB LES Final Result [facility] [address] [place] [address] [phone] * Slide Review (02/20/2025 1:43 PM EDT) Slide Review VERIFIED [facility] 02/20/2025 1:43 PM EDT 02/20/2025 1:43 PM EDT us Generic External Data Provider LAB BLOOD ORDERAB LES Final Result [facility] [address] [place] [address] [phone] * (ABNORMAL) CBC auto differential (02/20/2025 1:43 PM EDT) White Blood Count 3.7(L) 4.8 - 10.8 X10*3/uL [facility] Red Blood Count 4.54(L) 4.60 - 5.80 X10*6/uL [facility] Hemoglobin 12.8(L) 14.0 - 18.0 g/dl [facility] Hematocrit 40.0(L) 42.0 - 52.0 % [facility] Mean Corpuscular Volume 88.1 80.0 - 98.0 fL [facility] Mean Corpuscular Hemoglobin 28.2 27.0 - 33.0 pg [facility] Mean Corpuscular HGB Conc 32.0 31.0 - 36.0 g/dl [facility] Red Cell Distribution Width 18.5(H) 11.0 - 16.0 % [facility] Platelet Count 286 160 - 400 X10*3/uL [facility] Mean Platelet Volume 9.8 9.4 - 12.4 fL [facility] Neutrophils Percent Auto 25.9(L) 45 - 73 % [facility] Imm Gran Pct Auto 0.3 0.0 - 0.4 % [facility] Lymphocytes Percent Auto 61.3(H) 20 - 40 % [facility] Monocytes Percent Auto 11.7(H) 2 - 11 % [facility] Eosinophils Percent Auto 0.5 0 - 4 % [facility] Basophils Percent Auto 0.3 0 - 2 % [facility] NRBC Pct Auto 0.0 0.0 - 0.2 /100WBC [facility] Neutrophils Absolute Auto 1.0(L) 2.0 - 8.3 x10*3/uL [facility] Imm Gran Abs Auto 0.01 0.00 - 0.03 X10*3/uL [facility] Lymphocytes Absolute Auto 2.3 1.2 - 4.9 X10*3/uL [facility] Monocytes Absolute Auto 0.4 0.1 - 1.2 X10*3/uL [facility] Eosinophils Absolute Auto 0.0 0.0 - 0.4 X10*3/uL [facility] Basophils Absolute Auto 0.0 0.0 - 0.2 X10*3/uL [facility] NRBC Abs Auto 0.000 0.0 - 0.012 X10*3/uL [facility] 02/20/2025 1:43 PM EDT 02/20/2025 1:43 PM EDT us Generic External Data Provider LAB BLOOD ORDERAB LES Edited Result - Final [facility] [address] [place], [place] [phone] * (ABNORMAL) Comprehensive Metabolic Panel (02/20/2025 1:43 PM EDT) Sodium 141 135 - 145 mmol/L [facility] Potassium 4.1 3.3 - 5.1 mmol/L [facility] Chloride 108 96 - 108 mmol/L [facility] Carbon Dioxide 26 22 - 29 mmol/L [facility] Anion Gap 11(L) 12 - 20 [facility] Urea Nitrogen (BUN) 14 9 - 16 mg/dL [facility] Creatinine, Serum 0.75 0.5 - 1.4 mg/dL [facility] Estimated Glomerular Filt Rate >60 [facility] Comment:Chronic Kidney Disea se: Estimated GFR < 60 mL/min/[id number] Kidney Disease: Estimated GFR < 15 mL/min/1.73m2 Glucose 106 60 - 115 mg/dL [facility] Calcium 9.0 8.4 - 10.2 mg/dL [facility] Bilirubin, Total 0.4 0.0 - 1.0 mg/dL [facility] Aspartate Amino Transferase 23 5 - 37 U/L [facility] Alanine Aminotransferase 20 0 - 40 U/L [facility] Total Protein 7.4 6.5 - 8.0 g/dL [facility] Albumin Level 4.6 3.5 - 5.0 g/dL [facility] Alkaline Phosphatase 116 39 - 117 U/L [facility] 02/20/2025 1:43 PM EDT 02/20/2025 1:43 PM EDT us Generic External Data Provider LAB BLOOD ORDERAB LES Final Result [facility] [address] [place] [address] [phone] documented in this encounter Visit Diagnoses Not on filedocumented in this encounter Additional Health Concerns Assessment Noted Time PHQ-9 Depression Total Score: 0 11/11/19 25 4:16 PM EST documented as of this encounter Care Teams Financial Examiner Relationship Specialty Start Date End Date Ricci Barkley MD [address] [place] [phone] PCP - General Internal Medicine 01/04/19 documented as of this encounter
--- OUTSIDE RECORDS SUMMARY | 2025-02-20 16:07 | XMS_ITS | Clinical Summary ---
Author Organization [employer] Address [address] [facility] 7 [place] [address] Care Team Providers Care Boat Loader Helper Name Role Phone Ricci Barkley MD Primary [...] Encounters Date Type Department Care Team Description 02/20/2025 Orders Only GENERIC EXTERNAL DATA DEPARTMENT Provider, Generic External Data 02/07/2025 Orders Only GENERIC EXTERNAL DATA DEPARTMENT Provider, Generic External Data 01/23/2025 Orders Only GENERIC EXTERNAL DATA DEPARTMENT Provider, Generic External Data 01/10/2025 Orders Only GENERIC EXTERNAL DATA DEPARTMENT Provider, Generic External Data 01/06/2025 Population Health Risk Score [facility] Department [address] [place] [address], [place] [phone] Provider, Population Health Generic 12/27/2024 Orders Only GENERIC EXTERNAL DATA DEPARTMENT Provider, Generic External Data 12/13/2024 Orders Only [facility] External Provider, [facility] 12/12/2024 Orders Only GENERIC EXTERNAL DATA [...] Full Mouth 03/15/2022 03/14/2019 COVID-19 Vaccine ( - 2023- season) 2024 12/13/2021, 11/15/2021 Tobacco Screening 07/04/2025 [...] METABOLIC PANEL Routine 02/20/2025 1:43 PM EDT COMPREHENSIVE METABOLIC PANEL Routine 02/07/2025 11:33 [...] TO MICROSCOPIC Routine 11/28/2024 12:10 PM EST LIPID PANEL, STANDARD Routine 08/13/2020 9:16 AM EDT PROPHYLAXIS - ADULT Routine 03/15/2019 1 2:00 AM EDT INTRAORAL - COMPLETE SERIES OF RADIOGRAPHIC IMAGES Routine 03/14/2019 12:00 AM EDT COMPREHENSIVE ORAL EVALUATION - NEW OR ESTABLISHED PATIENT Routine 03/14/2019 12:00 AM EDT from Last 3 Months or Most Recently Relevant to Health Maintenance Results * Urinalysis with Reflex to Microscopic (02/20/2025 1:45 PM EDT) Only the most recent of7 resultswithin the time period is included. Color Urine Dark Yellow [facility] Appearance Urine Clear [facility] PH 7.0 5.0 - 9.0 [facility] Glucose Urine UA Negative Negative mg/dL [facility] Urine Blood Negative Negative [facility] Specific [place] - Urine 1.025 1.005 - 1.025 [facility] Urine Protein Negative Neg-Trace mg/dL [facility] Urine Ketones Trace Negative mg/dL [facility] Nitrite Urine Negative Negative [facility] Leukocyte Esterase Urine Negative Negative [facility] 02/20/2025 1:45 PM EDT 02/20/2025 1:58 PM EDT us Generic External Data Provider LAB URINE ORDERAB LES Final Result Performing Organization Address [facility]/ZIP Co de Phone Number [facility] [address] [place] [place] [phone] * Slide Review (02/20/2025 1:43 PM EDT) Only the most recent of3 resultswithin the time period is included. Slide Review VERIFIED [facility] 02/20/2025 1:43 PM EDT 02/20/2025 1:43 PM EDT us Generic External Data Provider LAB BLOOD ORDERAB LES Final Result Performing Organization Address [facility]/ZIP Co de Phone Number [facility] [address] [place] [address] [phone] * (ABNORMAL) CBC auto differential (02/20/2025 1:43 PM EDT) Only the most recent of7 resultswithin the time period is included. White Blood Count 3.7(L) 4.8 - 10.8 X10*3/uL [facility] Red Blood Count 4.54(L) 4.60 - 5.80 X10*6/uL [facility] Hemoglobin 12.8(L) 14.0 - 18.0 g/dl [facility] Hematocrit 40.0(L) 42.0 - 52.0 % [facility] Mean Corpuscular Volume 88.1 80.0 - 98.0 fL [facility] Mean Corpuscular Hemoglobin 28.2 27.0 - 33.0 pg [facility] Mean Corpuscular HGB Conc 32.0 31.0 - 36.0 g/dl [facility] Red Cell Distribution Width 18.5(H) 11.0 - 16.0 % [facility] Platelet Count 286 160 - 400 X10*3/uL [facility] Mean Platelet Volume 9.8 9.4 - 12.4 fL [facility] Neutrophils Percent Auto 25.9(L) 45 - 73 % [facility] Imm Gran Pct Auto 0.3 0.0 - 0.4 % [facility] Lymphocytes Percent Auto 61.3(H) 20 - 40 % [facility] Monocytes Percent Auto 11.7(H) 2 - 11 % [facility] Eosinophils Percent Auto 0.5 0 - 4 % [facility] Basophils Percent Auto 0.3 0 - 2 % [facility] NRBC Pct Auto 0.0 0.0 - 0.2 /100WBC [facility] Neutrophils Absolute Auto 1.0(L) 2.0 - 8.3 x10*3/uL [facility] Imm Gran Abs Auto 0.01 0.00 - 0.03 X10*3/uL [facility] Lymphocytes Absolute Auto 2.3 1.2 - 4.9 X10*3/uL [facility] Monocytes Absolute Auto 0.4 0.1 - 1.2 X10*3/uL [facility] Eosinophils Absolute Auto 0.0 0.0 - 0.4 X10*3/uL [facility] Basophils Absolute Auto 0.0 0.0 - 0.2 X10*3/uL [facility] NRBC Abs Auto 0.000 0.0 - 0.012 X10*3/uL [facility] 02/20/2025 1:43 PM EDT 02/20/2025 1:43 PM EDT us Generic External Data Provider LAB BLOOD ORDERAB LES Edited Result - Final [facility] [address] [place] [address] [phone] * (ABNORMAL) Comprehensive Metabolic Panel (02/20/2025 1:43 PM EDT) Only the most recent of7 resultswithin the time period is included. Sodium 141 135 - 145 mmol/L [facility] Potassium 4.1 3.3 - 5.1 mmol/L [facility] Chloride 108 96 - 108 mmol/L [facility] Carbon Dioxide 26 22 - 29 mmol/L [facility] Anion Gap 11(L) 12 - 20 [facility] Urea Nitrogen (BUN) 14 9 - 16 mg/dL [facility] Creatinine, Serum 0.75 0.5 - 1.4 mg/dL [facility] Estimated Glomerular Filt Rate >60 [facility] Comment:Chronic Kidney Disea se: Estimated GFR < 60 mL/min/1.71u5Tyrlum Kidney Disease: Estimated GFR < 15 mL/min/1.73m2 Glucose 106 60 - 115 mg/dL [facility] Calcium 9.0 8.4 - 10.2 mg/dL [facility] Bilirubin, Total 0.4 0.0 - 1.0 mg/dL [facility] Aspartate Amino Transferase 23 5 - 37 U/L [facility] Alanine Aminotransferase 20 0 - 40 U/L [facility] Total Protein 7.4 6.5 - 8.0 g/dL [facility] Albumin Level 4.6 3.5 - 5.0 g/dL [facility] Alkaline Phosphatase 116 39 - 117 U/L [facility] 02/20/2025 1:43 PM EDT 02/20/2025 1:43 PM EDT Generic External Data Provider LAB BLOOD ORDERAB LES Final Result Performing Organization Address [facility] de Phone Number [facility] [address] [place] [address] [phone] * Magnesium (12/27/2024 4:11 PM EST) Magnesium 2.0 1.6 - 2.6 mg/dL [facility] 12/27/2024 4:11 PM EST 12/27/2024 4:11 PM EST Generic External Data Provider LAB BLOOD ORDERAB LES Final Result Performing Organization Address [facility] de Phone Number [facility] [address] [place] [address] [phone] * CT Chest w/ Contrast (12/14/2024 2:33 PM EST) Anatomical Region Laterality Modality Body, Chest Computed Tomogra phy 12/14/2024 2:33 PM EST Narrative 12/14/2024 2:34 PM EST ? [facility] ?[address] ?[place] [address] ? CT Scan Report ? Signed ? Patient: Jp Shah ?MR#: [id number] ?? [id number] ? : 1970 ?Acct:[id number] ? Age/Sex: 54 / M ?ADM Date: 02/18/25 ? Loc: HO.CT ? Attending Dr: Elli Nazario MD ? Ordering Physician: Elli Nazario MD ?? Date of Service: 12/13/24 ?? Procedure(s): CT chest w IV con ?? Accession Number(s): [id number] ? cc: Ricci Barkley MD; Elli Nazario MD ? Report Number: ?? [id number]: Total DLP = ??135.00 mGy-cm ? CLINICAL [...] DD/ 1433 ? TD/TT: 12/14/24 1433 ? [employer]: ? Procedure Note Sherrell, Image - 12/14/[address] [place] [address] [address] Scan Report Signed Patient: Jp ShahMR#: [id number] : 1970Acct:[id number] Age/Sex: 54 / MADM Date: 12/13/24 Loc: HO.CT Attending Dr: Elli Nazario MD Ordering Physician: Elli Nazario MD Date of Service: 12/13/24 Procedure(s): CT chest w IV con Accession Number(s): [id number] cc: Ricci Barkley MD; Elli Nazario MD Report Number: [id number]: Total DLP = 135.00 mGy-cm CLINICAL HISTORY: [...] MD on 12/14/2024 14:33:44 Dictated By: Ankit Peratla MD Signed By: <Electronically signed by Ankit Peratla MD in OV> 12/14/24 1434 DD/ 1433 TD/TT: 12/14/24 1433 [employer]: [facility] External Provider IMG CT PROCEDURES Final Result * CT Abdomen Pelvis w/ Contrast (12/14/2024 1:57 PM EST) Anatomical Region Laterality Modality Body, Pelvis, Abdomen Computed T omography 12/14/2024 1:57 PM EST Narrative 12/14/2024 1:58 PM EST ? [facility] ?[address] ?[place] [address] ? CT Scan Report ? Signed ? Patient: McdonoughJp Thapa ?MR#: [id number] ?? [id number] ? : 1970 ?Acct:[id number] ? Age/Sex: 54 / M ?ADM Date: 12/13/24 ? Loc: HO.CT ? Attending Dr: Elli Nazario MD ? Ordering Physician: Elli Nazario MD ?? Date of Service: 12/13/24 ?? Procedure(s): CT abdomen pelvis w IV con ?? Accession Number(s): [id number] ? cc: Ricci Barkley MD; Elli Nazario MD ? Report Number: ?? [id number]: Total DLP = ??337.00 mGy-cm ? CLINICAL HISTORY: Assess response to treatment ? CT abdomen and pelvis with contrast ? Comparison: CT/REG/UT/SR - CT ABDOMEN PELVIS WO IV CON [...] DD/ 1357 ? TD/TT: 12/14/24 1357 ? [employer]: ? Procedure Note Sherrell, Gilberto - 12/14/[address] [place] [address] [address] Scan Report Signed Patient: Jp ShahMR#: [id number] : 1970Acct:[id number] Age/Sex: 54 / MADM Date: 12/13/24 Loc: HO.CT Attending Dr: Elli Nazario MD Ordering Physician: Elli Nazario MD Date of Service: 12/13/24 Procedure(s): CT abdomen pelvis w IV con Accession Number(s): [id number] cc: Ricci Barkley MD; Elli Nazario MD Report Number: [id number]: Total DLP = 337.00 mGy-cm CLINICAL HISTORY: Assess response to treatment CT abdomen and pelvis with contrast Comparison: CT/REG/UT/SR - CT ABDOMEN PELVIS WO IV CON [...] 12/14/24 1357 DD/ 1357 TD/TT: 12/14/24 1357 [employer]: [facility] External Provider IMG CT PROCEDURES Final [...] ?? Que PARR et al. AMELIA. 2013;310(19): 3842-7697 ?? (http://Slanissue/faq/USY830) Cholesterol, Total 207(H) <200 mg/dL [facility] ?? Que PARR et al. AMELIA. 2013;310(19): 1043-9758 ?? (http://Slanissue/faq/LHQ788) Chol/HDLC Ratio 4.2 <5.0 (calc) [facility] [...] ?? Que PARR et al. AMELIA. 2013;310(19): 5822-1727 ?? (http://education.Devign Lab.eHi Car Rental/faq/KVC983) Chol/HDLC Ratio 4.2 <5.0 (calc) [facility] [...] Result [facility] [address] from Last 3 Months or Most Recently Relevant to Health Maintenance Insurance [facility] C3 DENTAL-[facility] MEDICAID STAND ADULT Care Teams Boat Loader Helper Relationship Specialty Start Date End Date Ricci Barkley MD [address] [place] [phone] PCP - General Internal Medicine 01/04/19
== END 2025-02-20 13:33 | disposition home or self-care (01) ==
LOC: HO.LAB 13:32
PROVIDERS: PCP Internal Medicine; Visit Provider Internal Medicine
DX: C18.0 Malignant neoplasm of cecum (principal)
CPT/HCPCS: 36415; 80053; 81003; 85025

== ENCOUNTER 2025-03-07 13:37 | Outpatient (REF) | payer MEDICAID, SELFPAY ==
[2025-03-07 13:54] LABS: MANUAL DIFF FLAG NO
[2025-03-07 13:59] LABS: Basophils Percent Auto 0.2 % (0-2); Eosinophils Percent Auto 0.2 % (0-4); Hematocrit 40.6 % (42.0-52.0); Imm Gran Abs Auto 0.02 X10*3/uL (0.00-0.03); Imm Gran Pct Auto 0.4 % (0.0-0.4); Lymphocytes Absolute Auto 2.2 X10*3/uL (1.2-4.9); Lymphocytes Percent Auto 48.6 % (20-40); Mean Corpuscular Hemoglobin 27.8 pg (27.0-33.0); Mean Corpuscular Volume 86.9 fL (80.0-98.0); Mean Platelet Volume 9.2 fL (9.4-12.4); Monocytes Absolute Auto 0.3 X10*3/uL (0.1-1.2); Monocytes Percent Auto 6.9 % (2-11); Neutrophils Percent Auto 43.7 % (45-73); Platelet Count 201 X10*3/uL (160-400); Red Blood Count 4.67 X10*6/uL (4.60-5.80); White Blood Count 4.6 X10*3/uL (4.8-10.8)
[2025-03-07 14:02] LABS: Appearance Urine Clear; Color Urine Yellow; Glucose Urine UA Negative (Negative); Leukocyte Esterase Urine Negative (Negative); Nitrite Urine Negative (Negative); Urine Blood Negative (Negative); Urine Ketones Negative (Negative); Urine Protein Negative (Neg-Trace)
[2025-03-07 14:17] LABS: Alanine Aminotransferase 17 U/L (0-40); Albumin Level 4.8 g/dL (3.5-5.0); Alkaline Phosphatase 108 U/L (39-117); Anion Gap 12 (12-20); Aspartate Amino Transferase 26 U/L (5-37); Bilirubin Total 0.9 mg/dL (0.0-1.0); Blood Urea Nitrogen 15 mg/dL (9-16); Calcium 9.3 mg/dL (8.4-10.2); Carbon Dioxide 27 mmol/L (22-29); Chloride 105 mmol/L (96-108); Estimated Glomerular Filt Rate > 60; Glucose Random 94 mg/dL (60-115); Potassium 4.7 mmol/L (3.3-5.1); Sodium 139 mmol/L (135-145); Total Protein 7.5 g/dL (6.5-8.0)
--- OUTSIDE RECORDS SUMMARY | 2025-03-07 14:44 | XMS_ITS | Encounter Summary ---
Author Organization [employer] Address [address] [place] [address] 7 [place] [address] Care Team Providers Care Cisco Certified Network Associate Name Role Phone Ricci Barkley MD Primary Care Provider [phone] Encounter Details Date Type Department Care Team [...] on filedocumented in this encounter Care Teams [employer] Certified Network Associate Relationship Specialty Start Date End Date Ricci Barkley MD [address] [place] [address] PCP - General Internal Medicine 01/04/19 documented as of this encounter
--- OUTSIDE RECORDS SUMMARY | 2025-03-07 14:44 | XMS_ITS | Encounter Summary ---
Author Organization [employer] Address [address] [facility] [address]t [place] [address] Care Team Providers Care Margin Clerk Name Role Phone Ricci Barkley MD Primary Care Provider [phone] Encounter Details Date Type Department Care Team (Late st Contact Info) Description 03/07/2025 Orders Only GENERIC EXTERNAL DATA DEPARTMENT Provider, [...] Diagnosis Comments CBC WITH AUTO DIFFERENTIAL Routine 03/07/2025 1:53 PM EDT COMPREHENSIVE METABOLIC PANEL Routine 03/07/2025 1:53 PM EDT URINALYSIS WITH REFLEX TO MICROSCOPIC Routine 03/07/2025 1:45 PM EDT documented in this encounter Results * Comprehensive Metabolic Panel (03/07/2025 1:53 PM EDT) Sodium 139 135 - 145 mmol/L [facility] Potassium 4.7 3.3 - 5.1 mmol/L [facility] Chloride 105 96 - 108 mmol/L [facility] Carbon Dioxide 27 22 - 29 mmol/L [facility] Anion Gap 12 12 - 20 [facility] Urea Nitrogen (BUN) 15 9 - 16 mg/dL [facility] Creatinine, Serum 0.76 0.5 - 1.4 mg/dL [facility] Estimated Glomerular Filt Rate >60 [facility] Comment:Chronic Kidney Disea se: Estimated GFR < 60 mL/min/1.97o7Ctgqyo Kidney Disease: Estimated GFR < 15 mL/min/1.73m2 Glucose 94 60 - 115 mg/dL [facility] Calcium 9.3 8.4 - 10.2 mg/dL [facility] Bilirubin, Total 0.9 0.0 - 1.0 mg/dL [facility] Aspartate Amino Transferase 26 5 - 37 U/L [facility] Alanine Aminotransferase 17 0 - 40 U/L [facility] Total Protein 7.5 6.5 - 8.0 g/dL [facility] Albumin Level 4.8 3.5 - 5.0 g/dL [facility] Alkaline Phosphatase 108 39 - 117 U/L [facility] 03/07/2025 1:53 PM EDT 03/07/2025 1:53 PM EDT us Generic External Data Provider LAB BLOOD ORDERAB LES Final Result [facility] [address] [place] [phone] [phone] * (ABNORMAL) CBC auto differential (03/07/2025 1:53 PM EDT) White Blood Count 4.6(L) 4.8 - 10.8 X10*3/uL [facility] Red Blood Count 4.67 4.60 - 5.80 X10*6/uL [facility] Hemoglobin 13.0(L) 14.0 - 18.0 g/dl [facility] Hematocrit 40.6(L) 42.0 - 52.0 % [facility] Mean Corpuscular Volume 86.9 80.0 - 98.0 fL [facility] Mean Corpuscular Hemoglobin 27.8 27.0 - 33.0 pg [facility] Mean Corpuscular HGB Conc 32.0 31.0 - 36.0 g/dl [facility] Red Cell Distribution Width 18.0(H) 11.0 - 16.0 % [facility] Platelet Count 201 160 - 400 X10*3/uL [facility] Mean Platelet Volume 9.2(L) 9.4 - 12.4 fL [facility] Neutrophils Percent Auto 43.7(L) 45 - 73 % [facility] Imm Gran Pct Auto 0.4 0.0 - 0.4 % [facility] Lymphocytes Percent Auto 48.6(H) 20 - 40 % [facility] Monocytes Percent Auto 6.9 2 - 11 % [facility] Eosinophils Percent Auto 0.2 0 - 4 % [facility] Basophils Percent Auto 0.2 0 - 2 % [facility] NRBC Pct Auto 0.0 0.0 - 0.2 /100WBC [facility] Neutrophils Absolute Auto 2.0 2.0 - 8.3 x10*3/uL [facility] Imm Gran Abs Auto 0.02 0.00 - 0.03 X10*3/uL [facility] Lymphocytes Absolute Auto 2.2 1.2 - 4.9 X10*3/uL [facility] Monocytes Absolute Auto 0.3 0.1 - 1.2 X10*3/uL [facility] Eosinophils Absolute Auto 0.0 0.0 - 0.4 X10*3/uL [facility] Basophils Absolute Auto 0.0 0.0 - 0.2 X10*3/uL [facility] NRBC Abs Auto 0.000 0.0 - 0.012 X10*3/uL [facility] 03/07/2025 1:53 PM EDT 03/07/2025 1:53 PM EDT us Generic External Data Provider LAB BLOOD ORDERAB LES Final Result [facility] [address], [place] [phone] * Urinalysis with Reflex to Microscopic (03/07/2025 1:45 PM EDT) Color Urine Yellow [facility] Appearance Urine Clear [facility] PH 7.0 5.0 - 9.0 [facility] Glucose Urine UA Negative Negative mg/dL [facility] Urine Blood Negative Negative [facility] Specific [place] - Urine 1.020 1.005 - 1.025 [facility] Urine Protein Negative Neg-Trace mg/dL [facility] Urine Ketones Negative Negative mg/dL [facility] Nitrite Urine Negative Negative [facility] Leukocyte Esterase Urine Negative Negative [facility] 03/07/2025 1:45 PM EDT 03/07/2025 2:05 PM EDT us Generic External Data Provider LAB URINE ORDERAB LES Final Result Performing Organization Address City/State/[facility] Co de Phone Number [facility] [address] [place] [address] [phone] documented in this encounter Visit Diagnoses Not on filedocumented in this encounter Additional Health Concerns Assessment Noted Time PHQ-9 Depression Total Score: 0 11/11/19 25 4:16 PM EST documented as of this encounter Care Teams Margin Clerk Relationship Specialty Start Date End Date Ricci Barkley MD [address] [place] [phone] PCP - General Internal Medicine 01/04/19 documented as of this encounter
--- OUTSIDE RECORDS SUMMARY | 2025-03-07 14:44 | XMS_ITS | Clinical Summary ---
Author Organization [employer] Address [address] [place] [address] 7t [place] [address] Care Team Providers Care Rivet Thrower Name Role Phone Ricci Barkley MD Primary [...] Encounters Date Type Department Care Team Description 03/07/2025 Orders Only GENERIC EXTERNAL DATA DEPARTMENT Provider, Generic External Data 02/20/2025 Orders Only GENERIC EXTERNAL DATA DEPARTMENT Provider, Generic External Data 02/07/2025 Orders Only GENERIC EXTERNAL DATA DEPARTMENT Provider, Generic External Data 01/23/2025 Orders Only GENERIC EXTERNAL DATA DEPARTMENT Provider, Generic External Data 01/10/2025 Orders Only GENERIC EXTERNAL DATA DEPARTMENT Provider, Generic External Data 01/06/2025 Population Health Risk Score [facility] Department [address] [place] [address] Provider, Population Health Generic 12/27/2024 Orders Only GENERIC EXTERNAL DATA DEPARTMENT Provider, Generic External Data 12/13/2024 Orders Only [facility] External Provider, [facility] 12/12/2024 Orders Only GENERIC EXTERNAL DATA DEPARTMENT [...] Associated Diagnosis Comments COMPREHENSIVE METABOLIC PANEL Routine 03/07/2025 1:53 PM EDT CBC WITH AUTO DIFFERENTIAL Routine 03/07/2025 1:53 PM EDT URINALYSIS WITH REFLEX TO MICROSCOPIC Routine 03/07/2025 1:45 PM EDT URINALYSIS WITH REFLEX TO MICROSCOPIC Routine 02/20/2025 [...] TO MICROSCOPIC Routine 12/12/2024 1:12 PM EST LIPID PANEL, STANDARD Routine 08/13/2020 9:16 AM EDT PROPHYLAXIS - ADULT Routine 03/15/2019 1 2:00 AM EDT INTRAORAL - COMPLETE SERIES OF RADIOGRAPHIC IMAGES Routine 03/14/2019 12:00 AM EDT COMPREHENSIVE ORAL EVALUATION - NEW OR ESTABLISHED PATIENT Routine 03/14/2019 12:00 AM EDT from Last 3 Months or Most Recently Relevant to Health Maintenance Results * (ABNORMAL) CBC auto differential (03/07/2025 1:53 PM EDT) Only the most recent of7 resultswithin the time period is included. White Blood Count 4.6(L) 4.8 - 10.8 X10*3/uL [facility] Red Blood Count 4.67 4.60 - 5.80 X10*6/uL [facility] Hemoglobin 13.0(L) 14.0 - 18.0 g/dl [facility] Hematocrit 40.6(L) 42.0 - 52.0 % [facility] Mean Corpuscular Volume 86.9 80.0 - 98.0 fL [facility] Mean Corpuscular Hemoglobin 27.8 27.0 - 33.0 pg [facility] Mean Corpuscular HGB Conc 32.0 31.0 - 36.0 g/dl [facility] Red Cell Distribution Width 18.0(H) 11.0 - 16.0 % [facility] Platelet Count 201 160 - 400 X10*3/uL [facility] Mean Platelet Volume 9.2(L) 9.4 - 12.4 fL [facility] Neutrophils Percent Auto 43.7(L) 45 - 73 % [facility] Imm Gran Pct Auto 0.4 0.0 - 0.4 % [facility] Lymphocytes Percent Auto 48.6(H) 20 - 40 % [facility] Monocytes Percent Auto 6.9 2 - 11 % [facility] Eosinophils Percent Auto 0.2 0 - 4 % [facility] Basophils Percent Auto 0.2 0 - 2 % [facility] NRBC Pct Auto 0.0 0.0 - 0.2 /100WBC [facility] Neutrophils Absolute Auto 2.0 2.0 - 8.3 x10*3/uL [facility] Imm Gran Abs Auto 0.02 0.00 - 0.03 X10*3/uL [facility] Lymphocytes Absolute Auto 2.2 1.2 - 4.9 X10*3/uL [facility] Monocytes Absolute Auto 0.3 0.1 - 1.2 X10*3/uL [facility] Eosinophils Absolute Auto 0.0 0.0 - 0.4 X10*3/uL [facility] Basophils Absolute Auto 0.0 0.0 - 0.2 X10*3/uL [facility] NRBC Abs Auto 0.000 0.0 - 0.012 X10*3/uL [facility] 03/07/2025 1:53 PM EDT 03/07/2025 1:53 PM EDT us Generic External Data Provider LAB BLOOD ORDERAB LES Final Result [facility] [address] [place] [phone] * Comprehensive Metabolic Panel (03/07/2025 1:53 PM EDT) Only the most recent of7 resultswithin the time period is included. Sodium 139 135 - 145 mmol/L [facility] Potassium 4.7 3.3 - 5.1 mmol/L [facility] Chloride 105 96 - 108 mmol/L [facility] Carbon Dioxide 27 22 - 29 mmol/L [facility] Anion Gap 12 12 - 20 [facility] Urea Nitrogen (BUN) 15 9 - 16 mg/dL [facility] Creatinine, Serum 0.76 0.5 - 1.4 mg/dL [facility] Estimated Glomerular Filt Rate >60 [facility] Comment:Chronic Kidney Disea se: Estimated GFR < 60 mL/min/[id number] Kidney Disease: Estimated GFR < 15 mL/min/1.73m2 Glucose 94 60 - 115 mg/dL [facility] Calcium 9.3 8.4 - 10.2 mg/dL [facility] Bilirubin, Total 0.9 0.0 - 1.0 mg/dL [facility] Aspartate Amino Transferase 26 5 - 37 U/L [facility] Alanine Aminotransferase 17 0 - 40 U/L [facility] Total Protein 7.5 6.5 - 8.0 g/dL [facility] Albumin Level 4.8 3.5 - 5.0 g/dL [facility] Alkaline Phosphatase 108 39 - 117 U/L [facility] 03/07/2025 1:53 PM EDT 03/07/2025 1:53 PM EDT us Generic External Data Provider LAB BLOOD ORDERAB LES Final Result Performing Organization Address [facility] Co de Phone Number [facility] [address] [place] [phone] * Urinalysis with Reflex to Microscopic (03/07/2025 1:45 PM EDT) Only the most recent of7 resultswithin the time period is included. Color Urine Yellow [facility] Appearance Urine Clear [facility] PH 7.0 5.0 - 9.0 [facility] Glucose Urine UA Negative Negative mg/dL [facility] Urine Blood Negative Negative [facility] Specific [place] - Urine 1.020 1.005 - 1.025 [facility] Urine Protein Negative Neg-Trace mg/dL [facility] Urine Ketones Negative Negative mg/dL [facility] Nitrite Urine Negative Negative [facility] Leukocyte Esterase Urine Negative Negative [facility] 03/07/2025 1:45 PM EDT 03/07/2025 2:05 PM EDT us Generic External Data Provider LAB URINE ORDERAB LES Final Result Performing Organization Address [facility]/ZIP Co de Phone Number [facility] [address] [place] [phone] * Slide Review (02/20/2025 1:43 PM EDT) Only the most recent of3 resultswithin the time period is included. Slide Review VERIFIED [facility] 02/20/2025 1:43 PM EDT 02/20/2025 1:43 PM EDT us Generic External Data Provider LAB BLOOD ORDERAB LES Final Result Performing Organization Address [facility] de Phone Number [facility] [address] [place] [phone] * Magnesium (12/27/2024 4:11 PM EST) Magnesium 2.0 1.6 - 2.6 mg/dL [facility] 12/27/2024 4:11 PM EST 12/27/2024 4:11 PM EST Generic External Data Provider LAB BLOOD ORDERAB LES Final Result Performing Organization Address [facility] de Phone Number [facility] [address] [place] [phone] * CT Chest w/ Contrast (12/14/2024 2:33 PM EST) Anatomical Region Laterality Modality Body, Chest Computed Tomogra phy 12/14/2024 2:33 PM EST Narrative 12/14/2024 2:34 PM EST ? [facility] ?[address] ?[place] [address] ? CT Scan Report ? Signed ? Patient: Jp Shah ?MR#: [id number] ?? [id number] ? : 1970 ?Acct:[id number] ? Age/Sex: 54 / M ?ADM Date: 02/18/25 ? Loc: HO.CT ? Attending Dr: Elli Nazario MD ? Ordering Physician: Elli Nazario MD ?? Date of Service: 12/13/24 ?? Procedure(s): CT chest w IV con ?? Accession Number(s): [id number] ? cc: Ricci Barkley MD; Elli Nazario MD ? Report Number: ?? [id number]: Total DLP = ??135.00 mGy-cm ? CLINICAL [...] DD/ 1433 ? TD/TT: 12/14/24 1433 ? [employer]: ? Procedure Note Gilberto Wynne - 12/14/[address] [place] [address] [address] Scan Report Signed Patient: Jp ShahMR#: [id number] : 1970Acct:[id number] Age/Sex: 54 / MADM Date: 12/13/24 Loc: HO.CT Attending Dr: Elli Nazario MD Ordering Physician: Elli Nazario MD Date of Service: 12/13/24 Procedure(s): CT chest w IV con Accession Number(s): [id number] cc: Ricci Barkley MD; Elli Nazario MD Report Number: [id number]: Total DLP = 135.00 mGy-cm CLINICAL HISTORY: [...] 12/14/24 1434 DD/ 1433 TD/TT: 12/14/24 1433 [employer]: us [facility] External Provider IMG CT PROCEDURES Final Result * CT Abdomen Pelvis w/ Contrast (12/14/2024 1:57 PM EST) Anatomical Region Laterality Modality Body, Pelvis, Abdomen Computed T omography 12/14/2024 1:57 PM EST Narrative 12/14/2024 1:58 PM EST ? [facility] ?[address] ?[place] [address] ? CT Scan Report ? Signed ? Patient: Jp Shah ?MR#: [id number] ?? [id number] ? : 1970 ?Acct:[id number] ? Age/Sex: 54 / M ?ADM Date: 12/13/24 ? Loc: HO.CT ? Attending Dr: Elli Nazario MD ? Ordering Physician: Elli Nazario MD ?? Date of Service: 12/13/24 ?? Procedure(s): CT abdomen pelvis w IV con ?? Accession Number(s): [id number] ? cc: Ricci Barkley MD; Elli Nazario MD ? Report Number: ?? [id number]: Total DLP = ??337.00 mGy-cm ? CLINICAL HISTORY: Assess response to treatment ? CT abdomen and pelvis with contrast ? Comparison: CT/REG/SC/SR - CT ABDOMEN PELVIS WO IV CON [...] DD/ 1357 ? TD/TT: 12/14/24 1357 ? [employer]: ? Procedure Note Sherrell, Gilberto - 12/14/[address] [place] [address] [address] Scan Report Signed Patient: Jp ShahMR#: [id number] : 1970Acct:[id number] Age/Sex: 54 / MADM Date: 12/13/24 Loc: .CT Attending Dr: Elli Nazario MD Ordering Physician: Elli Nazario MD Date of Service: 12/13/24 Procedure(s): CT abdomen pelvis w IV con Accession Number(s): [id number] cc: Ricci Barkley MD; Elli Nazario MD Report Number: [id number]: Total DLP = 337.00 mGy-cm CLINICAL HISTORY: Assess response to treatment CT abdomen and pelvis with contrast Comparison: CT/REG/SC/SR - CT ABDOMEN PELVIS WO IV CON [...] 12/14/24 1357 DD/ 1357 TD/TT: 12/14/24 135 [employer]: [facility] External Provider IMG CT PROCEDURES Final [...] ?? Que PARR et al. AMELIA. 2013;310(19): 8524-7248 ?? (http://[employer]/faq/JCE977) Cholesterol, Total 207(H) <200 mg/dL [facility] ?? Que PARR et al. AMELIA. 2013;310(19): 0578-1289 ?? (http://[employer]/faq/QGH203) Chol/HDLC Ratio 4.2 <5.0 (calc) [facility] ?? Que PARR et al. AMELIA. 2013;310(19): 2065-6860 ?? (http://education.[email or web address]/faq/PEG099) Chol/HDLC Ratio 4.2 <5.0 (calc) [facility] Non-HDL Cholesterol 158(H) <130 mg/dL (calc) [facility] Comment: For patients with diabetes plus 1 major ASCVD risk ?? factor, treating to a non-HDL-C goal of <100 mg/dL ?? (LDL-C of <70 mg/dL) is considered a therapeutic ?? option. 08/13/2020 9:16 AM EDT us Ricci Barkley MD LAB BLOOD ORDERABLES Final Result [facility] [address] from Last 3 Months or Most Recently Relevant to Health Maintenance Insurance # [place] [address] [facility] C3 DENTAL-[facility] MEDICAID STAND ADULT Care Teams Rivet Thrower Relationship Specialty Start Date End Date Ricci Barkley MD [address] [place] [phone] PCP - General Internal Medicine 01/04/19
--- OUTSIDE RECORDS SUMMARY | 2025-03-07 14:44 | XMS_ITS | Encounter Summary ---
Author Organization [employer] Address [address] [place] [address] 7 [place] [address] Care Team Providers Care Radiology Specialist Name Role Phone Ricci Barkley MD Primary Care Provider [phone] Encounter Details Date Type Department Care Team [...] on filedocumented in this encounter Care Teams Radiology Specialist Relationship Specialty Start Date End Date Ricci Barkley MD [address] [place] [address] PCP - General Internal Medicine 01/04/19 documented as of this encounter
== END 2025-03-07 13:38 | disposition home or self-care (01) ==
LOC: HO.LAB 13:37
PROVIDERS: PCP Internal Medicine; Visit Provider Internal Medicine
DX: C18.0 Malignant neoplasm of cecum (principal)
CPT/HCPCS: 36415; 80053; 81003; 85025

== ENCOUNTER 2025-04-03 09:56 | Outpatient (REF) | payer MEDICAID, SELFPAY ==
[2025-04-03 10:08] LABS: MANUAL DIFF FLAG NO
[2025-04-03 10:12] LABS: Basophils Percent Auto 0.4 % (0-2); Eosinophils Percent Auto 0.4 % (0-4); Hematocrit 38.6 % (42.0-52.0); Hemoglobin 12.2 g/dl (14.0-18.0); Imm Gran Abs Auto 0.01 X10*3/uL (0.00-0.03); Imm Gran Pct Auto 0.2 % (0.0-0.4); Lymphocytes Absolute Auto 1.9 X10*3/uL (1.2-4.9); Lymphocytes Percent Auto 43.3 % (20-40); Mean Corpuscular HGB Conc 31.6 g/dl (31.0-36.0); Mean Corpuscular Volume 88.5 fL (80.0-98.0); Mean Platelet Volume 9.6 fL (9.4-12.4); Monocytes Absolute Auto 0.3 X10*3/uL (0.1-1.2); Monocytes Percent Auto 6.3 % (2-11); Neutrophils Absolute Auto 2.2 x10*3/uL (2.0-8.3); Neutrophils Percent Auto 49.4 % (45-73); Platelet Count 170 X10*3/uL (160-400); Red Blood Count 4.36 X10*6/uL (4.60-5.80); Red Cell Distribution Width 16.6 % (11.0-16.0); White Blood Count 4.5 X10*3/uL (4.8-10.8)
[2025-04-03 10:19] LABS: Appearance Urine Clear; Color Urine Dark Yellow; Glucose Urine UA Negative (Negative); Leukocyte Esterase Urine Negative (Negative); Nitrite Urine Negative (Negative); PH 5.5 (5.0-9.0); Specific Gravity - Urine 1.015 (1.005-1.025); Urine Blood Negative (Negative); Urine Ketones Negative (Negative); Urine Protein Negative (Neg-Trace)
[2025-04-03 10:32] LABS: Alanine Aminotransferase 28 U/L (0-40); Albumin Level 4.5 g/dL (3.5-5.0); Alkaline Phosphatase 113 U/L (39-117); Anion Gap 8 (12-20); Aspartate Amino Transferase 30 U/L (5-37); Bilirubin Total 0.3 mg/dL (0.0-1.0); Blood Urea Nitrogen 12 mg/dL (9-16); Calcium 9.2 mg/dL (8.4-10.2); Carbon Dioxide 27 mmol/L (22-29); Chloride 109 mmol/L (96-108); Estimated Glomerular Filt Rate > 60; Glucose Random 99 mg/dL (60-115); Potassium 4.6 mmol/L (3.3-5.1); Sodium 139 mmol/L (135-145); Total Protein 7.3 g/dL (6.5-8.0)
--- OUTSIDE RECORDS SUMMARY | 2025-04-03 10:46 | XMS_ITS | Encounter Summary ---
Author Organization [employer] Address [address] [facility] 7t [place] [address] Care Team Providers Care Jig Builder Helper Name Role Phone Ricci Barkley MD Primary Care Provider [phone] Encounter Details Date Type Department Care Team (Late st Contact Info) Description 04/03/2025 Orders Only GENERIC EXTERNAL DATA DEPARTMENT Provider, [...] Diagnosis Comments CBC WITH AUTO DIFFERENTIAL Routine 04/03/2025 10:07 AM EDT COMPREHENSIVE METABOLIC PANEL Routine 04/03/2025 10:07 AM EDT URINALYSIS WITH REFLEX TO MICROSCOPIC Routine 04/03/2025 10:05 AM EDT documented in this encounter Results * (ABNORMAL) Comprehensive Metabolic Panel (04/03/2025 10:07 AM EDT) Sodium 139 135 - 145 mmol/L [facility] Potassium 4.6 3.3 - 5.1 mmol/L [facility] Comment:Slight Hemolysis.Int erpret result with caution. Chloride 109(H) 96 - 108 mmol/L [facility] Carbon Dioxide 27 22 - 29 mmol/L [facility] Anion Gap 8(L) 12 - 20 [facility] Urea Nitrogen (BUN) 12 9 - 16 mg/dL [facility] Creatinine, Serum 0.83 0.5 - 1.4 mg/dL [facility] Estimated Glomerular Filt Rate >60 [facility] Comment:Chronic Kidney Disea se: Estimated GFR < 60 mL/min/1.45e5Kgtndo Kidney Disease: Estimated GFR < 15 mL/min/1.73m2 Glucose 99 60 - 115 mg/dL [facility] Calcium 9.2 8.4 - 10.2 mg/dL [facility] Bilirubin, Total 0.3 0.0 - 1.0 mg/dL [facility] Aspartate Amino Transferase 30 5 - 37 U/L [facility] Comment:Slight Hemolysis.Int erpret result with caution. Alanine Aminotransferase 28 0 - 40 U/L [facility] Total Protein 7.3 6.5 - 8.0 g/dL [facility] Albumin Level 4.5 3.5 - 5.0 g/dL [facility] Alkaline Phosphatase 113 39 - 117 U/L [facility] 04/03/2025 10:0 7 AM EDT 04/03/2025 10:07 AM EDT us Generic External Data Provider LAB BLOOD ORDERAB LES Final Result [facility] [address] [place] [address] [phone] * (ABNORMAL) CBC auto differential (04/03/2025 10:07 AM EDT) White Blood Count 4.5(L) 4.8 - 10.8 X10*3/uL [facility] Red Blood Count 4.36(L) 4.60 - 5.80 X10*6/uL [facility] Hemoglobin 12.2(L) 14.0 - 18.0 g/dl [facility] Hematocrit 38.6(L) 42.0 - 52.0 % [facility] Mean Corpuscular Volume 88.5 80.0 - 98.0 fL [facility] Mean Corpuscular Hemoglobin 28.0 27.0 - 33.0 pg [facility] Mean Corpuscular HGB Conc 31.6 31.0 - 36.0 g/dl [facility] Red Cell Distribution Width 16.6(H) 11.0 - 16.0 % [facility] Platelet Count 170 160 - 400 X10*3/uL [facility] Mean Platelet Volume 9.6 9.4 - 12.4 fL [facility] Neutrophils Percent Auto 49.4 45 - 73 % [facility] Imm Gran Pct Auto 0.2 0.0 - 0.4 % [facility] Lymphocytes Percent Auto 43.3(H) 20 - 40 % [facility] Monocytes Percent Auto 6.3 2 - 11 % [facility] Eosinophils Percent Auto 0.4 0 - 4 % [facility] Basophils Percent Auto 0.4 0 - 2 % [facility] NRBC Pct Auto 0.0 0.0 - 0.2 /100WBC [facility] Neutrophils Absolute Auto 2.2 2.0 - 8.3 x10*3/uL [facility] Imm Gran Abs Auto 0.01 0.00 - 0.03 X10*3/uL [facility] Lymphocytes Absolute Auto 1.9 1.2 - 4.9 X10*3/uL [facility] Monocytes Absolute Auto 0.3 0.1 - 1.2 X10*3/uL [facility] Eosinophils Absolute Auto 0.0 0.0 - 0.4 X10*3/uL [facility] Basophils Absolute Auto 0.0 0.0 - 0.2 X10*3/uL [facility] NRBC Abs Auto 0.000 0.0 - 0.012 X10*3/uL [facility] 04/03/2025 10:0 7 AM EDT 04/03/2025 10:07 AM EDT us Generic External Data Provider LAB BLOOD ORDERAB LES Final Result [facility] [address] [place] [phone] * Urinalysis with Reflex to Microscopic (04/03/2025 10:05 AM EDT) Color Urine Dark Yellow [facility] Appearance Urine Clear [facility] PH 5.5 5.0 - 9.0 [facility] Glucose Urine UA Negative Negative mg/dL [facility] Urine Blood Negative Negative [facility] Specific [place] - Urine 1.015 1.005 - 1.025 [facility] Urine Protein Negative Neg-Trace mg/dL [facility] Urine Ketones Negative Negative mg/dL [facility] Nitrite Urine Negative Negative [facility] Leukocyte Esterase Urine Negative Negative [facility] 04/03/2025 10:0 5 AM EDT 04/03/2025 10:15 AM EDT us Generic External Data Provider LAB URINE ORDERAB LES Final Result [facility] [address] [place] [address] [phone] documented in this encounter Visit Diagnoses Not on filedocumented in this encounter Additional Health Concerns Assessment Noted Time PHQ-9 Depression Total Score: 0 11/11/19 25 4:16 PM EST documented as of this encounter Care Teams Jig Builder Helper Relationship Specialty Start Date End Date Ricci Barkley MD [address] [place] [phone] PCP - General Internal Medicine 01/04/19 documented as of this encounter
== END 2025-04-03 09:57 | disposition home or self-care (01) ==
LOC: HO.LAB 09:56
PROVIDERS: PCP Internal Medicine; Visit Provider Internal Medicine
DX: C18.0 Malignant neoplasm of cecum (principal)
CPT/HCPCS: 36415; 80053; 81003; 85025

== ENCOUNTER 2025-05-09 14:24 | Outpatient (REF) | payer MEDICAID, SELFPAY ==
[2025-05-09 14:43] LABS: MANUAL DIFF FLAG NO
[2025-05-09 15:12] LABS: Hematocrit 42.9 % (42.0-52.0); Hemoglobin 13.9 g/dl (14.0-18.0); Imm Gran Abs Auto 0.01 X10*3/uL (0.00-0.03); Imm Gran Pct Auto 0.1 % (0.0-0.4); Lymphocytes Absolute Auto 2.1 X10*3/uL (1.2-4.9); Mean Corpuscular HGB Conc 32.4 g/dl (31.0-36.0); Mean Corpuscular Hemoglobin 27.7 pg (27.0-33.0); Mean Corpuscular Volume 85.5 fL (80.0-98.0); NRBC Abs Auto 0.000 X10*3/uL (0.0-0.012); NRBC Pct Auto 0.0 /100WBC (0.0-0.2); Platelet Count 222 X10*3/uL (160-400); Red Blood Count 5.02 X10*6/uL (4.60-5.80); White Blood Count 7.4 X10*3/uL (4.8-10.8)
[2025-05-09 15:35] LABS: Alanine Aminotransferase 33 U/L (0-40); Albumin Level 4.8 g/dL (3.5-5.0); Alkaline Phosphatase 96 U/L (39-117); Anion Gap 12 (12-20); Aspartate Amino Transferase 31 U/L (5-37); Blood Urea Nitrogen 16 mg/dL (9-16); Calcium 9.5 mg/dL (8.4-10.2); Carbon Dioxide 28 mmol/L (22-29); Chloride 107 mmol/L (96-108); Estimated Glomerular Filt Rate > 60; Magnesium 2.2 mg/dL (1.6-2.6); Potassium 4.8 mmol/L (3.3-5.1); Sodium 142 mmol/L (135-145); Total Protein 7.3 g/dL (6.5-8.0)
--- OUTSIDE RECORDS SUMMARY | 2025-05-09 15:42 | XMS_ITS | Encounter Summary ---
Author Organization [employer] Address [address] [facility] 7t [place] [address] Care Team Providers Care Railroad Auditor Name Role Phone Ricci Barkley MD Primary Care Provider [phone] Encounter Details Date Type Department Care Team (Late st Contact Info) Description 05/09/2025 Orders Only GENERIC EXTERNAL DATA DEPARTMENT Provider, [...] Diagnosis Comments CBC WITH AUTO DIFFERENTIAL Routine 05/09/2025 2:41 PM EDT MAGNESIUM Routine 05/09/2025 2:41 PM EDT COMPREHENSIVE METABOLIC PANEL Routine 05/09/2025 2:41 PM EDT documented in this encounter Results * Magnesium (05/09/2025 2:41 PM EDT) Magnesium 2.2 1.6 - 2.6 mg/dL [facility] 05/09/2025 2:41 PM EDT 05/09/2025 2:41 PM EDT us Generic External Data Provider LAB BLOOD ORDERAB LES Final Result [facility] [address] [place] [phone] * Comprehensive Metabolic Panel (05/09/2025 2:41 PM EDT) Sodium 142 135 - 145 mmol/L [facility] Potassium 4.8 3.3 - 5.1 mmol/L [facility] Chloride 107 96 - 108 mmol/L [facility] Carbon Dioxide 28 22 - 29 mmol/L [facility] Anion Gap 12 12 - 20 [facility] Urea Nitrogen (BUN) 16 9 - 16 mg/dL [facility] Creatinine, Serum 0.87 0.5 - 1.4 mg/dL [facility] Estimated Glomerular Filt Rate >60 [facility] Comment:Chronic Kidney Disea se: Estimated GFR < 60 mL/min/1.88y5Nuewvg Kidney Disease: Estimated GFR < 15 mL/min/1.73m2 Glucose 97 60 - 115 mg/dL [facility] Calcium 9.5 8.4 - 10.2 mg/dL [facility] Bilirubin, Total 0.7 0.0 - 1.0 mg/dL [facility] Aspartate Amino Transferase 31 5 - 37 U/L [facility] Alanine Aminotransferase 33 0 - 40 U/L [facility] Total Protein 7.3 6.5 - 8.0 g/dL [facility] Albumin Level 4.8 3.5 - 5.0 g/dL [facility] Alkaline Phosphatase 96 39 - 117 U/L [facility] 05/09/2025 2:41 PM EDT 05/09/2025 2:41 PM EDT us Generic External Data Provider LAB BLOOD ORDERAB LES Final Result [facility] [address] [place] [phone] * (ABNORMAL) CBC auto differential (05/09/2025 2:41 PM EDT) White Blood Count 7.4 4.8 - 10.8 X10*3/uL [facility] Red Blood Count 5.02 4.60 - 5.80 X10*6/uL [facility] Hemoglobin 13.9(L) 14.0 - 18.0 g/dl [facility] Hematocrit 42.9 42.0 - 52.0 % [facility] Mean Corpuscular Volume 85.5 80.0 - 98.0 fL [facility] Mean Corpuscular Hemoglobin 27.7 27.0 - 33.0 pg [facility] Mean Corpuscular HGB Conc 32.4 31.0 - 36.0 g/dl [facility] Red Cell Distribution Width 15.6 11.0 - 16.0 % [facility] Platelet Count 222 160 - 400 X10*3/uL [facility] Mean Platelet Volume 9.9 9.4 - 12.4 fL [facility] Neutrophils Percent Auto 60.8 45 - 73 % [facility] Imm Gran Pct Auto 0.1 0.0 - 0.4 % [facility] Lymphocytes Percent Auto 28.6 20 - 40 % [facility] Monocytes Percent Auto 9.9 2 - 11 % [facility] Eosinophils Percent Auto 0.5 0 - 4 % [facility] Basophils Percent Auto 0.1 0 - 2 % [facility] NRBC Pct Auto 0.0 0.0 - 0.2 /100WBC [facility] Neutrophils Absolute Auto 4.5 2.0 - 8.3 x10*3/uL [facility] Imm Gran Abs Auto 0.01 0.00 - 0.03 X10*3/uL [facility] Lymphocytes Absolute Auto 2.1 1.2 - 4.9 X10*3/uL [facility] Monocytes Absolute Auto 0.7 0.1 - 1.2 X10*3/uL [facility] Eosinophils Absolute Auto 0.0 0.0 - 0.4 X10*3/uL [facility] Basophils Absolute Auto 0.0 0.0 - 0.2 X10*3/uL [facility] NRBC Abs Auto 0.000 0.0 - 0.012 X10*3/uL [facility] 05/09/2025 2:41 PM EDT 05/09/2025 2:41 PM EDT us Generic External Data Provider LAB BLOOD ORDERAB LES Final Result [facility] [address] [place] [phone] documented in this encounter Visit Diagnoses Not on filedocumented in this encounter Additional Health Concerns Assessment Noted Time PHQ-9 Depression Total Score: 0 11/11/19 25 4:16 PM EST documented as of this encounter Care Teams Railroad Auditor Relationship Specialty Start Date End Date Ricci Barkley MD [address] [place] [phone] PCP - General Internal Medicine 01/04/19 documented as of this encounter
== END 2025-05-09 14:25 | disposition home or self-care (01) ==
LOC: HO.LAB 14:24
PROVIDERS: PCP Internal Medicine; Visit Provider Internal Medicine
DX: C18.0 Malignant neoplasm of cecum (principal)
CPT/HCPCS: 36415; 80053; 83735; 85025

== ENCOUNTER 2025-05-23 10:39 | Outpatient (REF) | payer MEDICAID, SELFPAY ==
[2025-05-23 10:54] LABS: MANUAL DIFF FLAG NO
[2025-05-23 11:01] LABS: Hematocrit 44.7 % (42.0-52.0); Hemoglobin 14.1 g/dl (14.0-18.0); Imm Gran Abs Auto 0.02 X10*3/uL (0.00-0.03); Imm Gran Pct Auto 0.3 % (0.0-0.4); Lymphocytes Absolute Auto 2.0 X10*3/uL (1.2-4.9); Mean Corpuscular HGB Conc 31.5 g/dl (31.0-36.0); Mean Corpuscular Hemoglobin 27.3 pg (27.0-33.0); Mean Corpuscular Volume 86.6 fL (80.0-98.0); NRBC Abs Auto 0.000 X10*3/uL (0.0-0.012); NRBC Pct Auto 0.0 /100WBC (0.0-0.2); Platelet Count 179 X10*3/uL (160-400); Red Blood Count 5.16 X10*6/uL (4.60-5.80); White Blood Count 6.4 X10*3/uL (4.8-10.8)
[2025-05-23 11:10] LABS: Alanine Aminotransferase 25 U/L (0-40); Albumin Level 4.7 g/dL (3.5-5.0); Alkaline Phosphatase 105 U/L (39-117); Anion Gap 12 (12-20); Aspartate Amino Transferase 32 U/L (5-37); Blood Urea Nitrogen 14 mg/dL (9-16); Calcium 9.6 mg/dL (8.4-10.2); Carbon Dioxide 27 mmol/L (22-29); Chloride 108 mmol/L (96-108); Estimated Glomerular Filt Rate > 60; Magnesium 2.2 mg/dL (1.6-2.6); Potassium 4.9 mmol/L (3.3-5.1); Sodium 142 mmol/L (135-145); Total Protein 7.6 g/dL (6.5-8.0)
--- OUTSIDE RECORDS SUMMARY | 2025-05-23 11:46 | XMS_ITS | Clinical Summary ---
Author Organization [employer] Address [address] [place] [address] 7 [place] [address] Care Team Providers Care Take Up Operator Name Role Phone Ricci Barkley MD Primary Care Provider [phone] Ashia Mena Unavailable Allergies No known active allergies Medications celecoxib [...] Encounters Date Type Department Care Team Description 05/23/2025 Patient Outreach [facility] [address] [place] [address] Ricci Barkley MD 05/23/2025 Patient Outreach [facility] [address] [place], [place] [phone] Ricci Barkley MD 05/23/2025 Patient Outreach [facility] [address] [place] [address] Ricci Barkley MD 05/23/2025 Patient Outreach [facility] [address] [place] [address] Ricci Barkley MD Care Coordination ([facility]) 05/22/2025 Patient Outreach [facility] [address] [place] [address] Ricci Barkley MD Care Coordination ([facility] Chart review) 05/22/2025 Patient Outreach [facility] [address] [place] [address] Ricci Barkley MD 05/09/2025 Orders Only GENERIC EXTERNAL DATA DEPARTMENT Provider, Generic External Data 04/03/2025 Orders Only GENERIC EXTERNAL DATA DEPARTMENT Provider, Generic External Data 03/07/2025 Orders Only GENERIC EXTERNAL DATA DEPARTMENT [...] before you got money to buy more: Often true 05/23/2025 Within the past 12 months,th e food you bought just didn't last and you didn't have enough money to get more: Often true Transportation Answer Date Recorded In the past [...] 67 11/11/2024 3:38 PM EST Temperature 36.7 C (98 F) 11/11/2024 3:38 PM EST Respiratory Rate 20 [...] FIT DNA/Cologuard 1969 FIT 1969 FOBT 1969 Sigmoidoscopy 1969 Disability Screening 1969 Hepatitis C Screening 1987 Hepatitis B Vaccines (1 of 3 - 19+ 3-dose series) 1988 Pneumococcal Vaccine: 50+ Years (1 of 1 - PCV) 2019 Zoster Vaccines (1 of 2) 2019 Dental Oral Exam 09/15/2019 03/14/2019 Dental Prophylaxis 09/16/2019 03/15/2019 Dental X-Ray: Bitewings 03/15/2020 03/14/2019 Dental X-Ray: Full Mouth 03/15/2022 03/14/2019 COVID-19 Vaccine ( season) 2024 12/13/2021, 11/15/2021 Influenza Vaccine (#1) 2025 , 08/21/2023, 11/15/2021, Additional history exists Tobacco Screening 07/04/2025 07/04/2024 Lipid Panel 08/13/2025 08/13/2020 Alcohol/Substance Use Screening 11/11/2025 11/11/2024 Depression Screening 11/11/2025 11/11/2024, 11/11/19 25 SDOH Screening 05/23/2026 05/23/2025 DTaP/Tdap/Td Vaccines (2 - Td or Tdap) 06/24/2034 06/24/2024 RSV Patients and Patients Aged 60 years or older (1 - 1-dose 75+ series) 2044 HIV Screening Completed 03/28/2025 HIB Vaccines Aged Out No longer eligi [...] patient's age to complete this topic Meningococcal B Vaccine Aged Out No l onger eligible based on patient's age to complete [...] Procedure Name Priority Date/Time Associated Diagnosis Comments MAGNESIUM Routine 05/09/2025 2:41 PM EDT COMPREHENSIVE METABOLIC PANEL Routine 05/09/2025 2:41 PM EDT CBC WITH AUTO DIFFERENTIAL Routine 05/09/2025 2:41 PM EDT COMPREHENSIVE METABOLIC PANEL Routine 04/03/2025 10:07 AM EDT CBC WITH AUTO DIFFERENTIAL Routine 04/03/2025 10:07 AM EDT URINALYSIS WITH REFLEX TO MICROSCOPIC Routine 04/03/2025 10:05 AM EDT COMPREHENSIVE METABOLIC PANEL Routine 03/07/2025 1:53 PM EDT CBC WITH AUTO DIFFERENTIAL Routine 03/07/2025 1:53 PM EDT URINALYSIS WITH REFLEX TO MICROSCOPIC Routine 03/07/2025 1:45 PM EDT LIPID PANEL, STANDARD Routine 08/13/2020 9:16 AM EDT PROPHYLAXIS - ADULT Routine 03/15/2019 1 2:00 AM EDT INTRAORAL - COMPLETE SERIES OF RADIOGRAPHIC IMAGES Routine 03/14/2019 12:00 AM EDT COMPREHENSIVE ORAL EVALUATION - NEW OR ESTABLISHED PATIENT Routine 03/14/2019 12:00 AM EDT from Last 3 Months or Most Recently Relevant to Health Maintenance Results * (ABNORMAL) CBC auto differential (05/09/2025 2:41 PM EDT) Only the most recent of3 resultswithin the time period is included. White Blood Count 7.4 4.8 - 10.8 X10*3/uL [facility] Red Blood Count 5.02 4.60 - 5.80 X10*6/uL [facility] Hemoglobin 13.9(L) 14.0 - 18.0 g/dl [facility] Hematocrit 42.9 42.0 - 52.0 % [facility] Mean Corpuscular Volume 85.5 80.0 - 98.0 fL [facility] Mean Corpuscular Hemoglobin 27.7 27.0 - 33.0 pg [facility] Mean Corpuscular HGB Conc 32.4 31.0 - 36.0 g/dl [facility] Red Cell Distribution Width 15.6 11.0 - 16.0 % [facility] Platelet Count 222 160 - 400 X10*3/uL [facility] Mean Platelet Volume 9.9 9.4 - 12.4 fL [facility] Neutrophils Percent Auto 60.8 45 - 73 % [facility] Imm Gran Pct Auto 0.1 0.0 - 0.4 % [facility] Lymphocytes Percent Auto 28.6 20 - 40 % [facility] Monocytes Percent Auto 9.9 2 - 11 % [facility] Eosinophils Percent Auto 0.5 0 - 4 % [facility] Basophils Percent Auto 0.1 0 - 2 % [facility] NRBC Pct Auto 0.0 0.0 - 0.2 /100WBC [facility] Neutrophils Absolute Auto 4.5 2.0 - 8.3 x10*3/uL [facility] Imm Gran Abs Auto 0.01 0.00 - 0.03 X10*3/uL [facility] Lymphocytes Absolute Auto 2.1 1.2 - 4.9 X10*3/uL [facility] Monocytes Absolute Auto 0.7 0.1 - 1.2 X10*3/uL [facility] Eosinophils Absolute Auto 0.0 0.0 - 0.4 X10*3/uL [facility] Basophils Absolute Auto 0.0 0.0 - 0.2 X10*3/uL [facility] NRBC Abs Auto 0.000 0.0 - 0.012 X10*3/uL [facility] 05/09/2025 2:41 PM EDT 05/09/2025 2:41 PM EDT us Generic External Data Provider LAB BLOOD ORDERAB LES Final Result Performing Organization Address [facility] Co de Phone Number [facility] [address] [place] [phone] * Magnesium (05/09/2025 2:41 PM EDT) Magnesium 2.2 1.6 - 2.6 mg/dL [facility] 05/09/2025 2:41 PM EDT 05/09/2025 2:41 PM EDT us Generic External Data Provider LAB BLOOD ORDERAB LES Final Result Performing Organization Address City/[facility] Co de Phone Number [facility] [address] [place] [address] [phone] * Comprehensive Metabolic Panel (05/09/2025 2:41 PM EDT) Only the most recent of3 resultswithin the time period is included. Sodium 142 135 - 145 mmol/L [facility] Potassium 4.8 3.3 - 5.1 mmol/L [facility] Chloride 107 96 - 108 mmol/L [facility] Carbon Dioxide 28 22 - 29 mmol/L [facility] Anion Gap 12 12 - 20 [facility] Urea Nitrogen (BUN) 16 9 - 16 mg/dL [facility] Creatinine, Serum 0.87 0.5 - 1.4 mg/dL [facility] Estimated Glomerular Filt Rate >60 [facility] Comment:Chronic Kidney Disea se: Estimated GFR < 60 mL/min/1.07p2Afeazx Kidney Disease: Estimated GFR < 15 mL/min/1.73m2 Glucose 97 60 - 115 mg/dL [facility] Calcium 9.5 8.4 - 10.2 mg/dL [facility] Bilirubin, Total 0.7 0.0 - 1.0 mg/dL [facility] Aspartate Amino Transferase 31 5 - 37 U/L [facility] Alanine Aminotransferase 33 0 - 40 U/L [facility] Total Protein 7.3 6.5 - 8.0 g/dL [facility] Albumin Level 4.8 3.5 - 5.0 g/dL [facility] Alkaline Phosphatase 96 39 - 117 U/L [facility] 05/09/2025 2:41 PM EDT 05/09/2025 2:41 PM EDT us Generic External Data Provider LAB BLOOD ORDERAB LES Final Result [facility] [address] [place] [address] [phone] * Urinalysis with Reflex to Microscopic (04/03/2025 10:05 AM EDT) Only the most recent of2 resultswithin the time period is included. Color Urine Dark Yellow [facility] Appearance Urine Clear [facility] PH 5.5 5.0 - 9.0 [facility] Glucose Urine UA Negative Negative mg/dL [facility] Urine Blood Negative Negative [facility] Specific [place] - Urine 1.015 1.005 - 1.025 [facility] Urine Protein Negative Neg-Trace mg/dL [facility] Urine Ketones Negative Negative mg/dL [facility] Nitrite Urine Negative Negative [facility] Leukocyte Esterase Urine Negative Negative [facility] 04/03/2025 10:0 5 AM EDT 04/03/2025 10:15 AM EDT us Generic External Data Provider LAB URINE ORDERAB LES Final Result Performing Organization Address City/State/[facility] Co de Phone Number [facility] [address] [place] [phone] * (ABNORMAL) LIPID PANEL, STANDARD (08/13/2020 9:16 AM EDT) Cholesterol, Total 207(H) <200 mg/dL [facility] Chol/HDLC Ratio 4.2 <5.0 (calc) [facility] Non-HDL Cholesterol 158(H) <130 mg/dL (calc) [facility] Comment: For patients with diabetes plus 1 major ASCVD risk factor, treating to a non-HDL-C goal of <100 mg/dL (LDL-C of <70 mg/dL) is considered a therapeutic option. HDL Cholesterol 49 > OR = 40 mg/dL [facility] Triglycerides 112 <150 mg/dL [facility] LDL Cholesterol 136(H) mg/dL (calc) [facility] Comment: Reference range: <100 Desirable range <100 mg/dL for primary prevention; <70 mg/dL for patients with CHD or diabetic patients with > or = 2 CHD risk factors. LDL-C is now calculated using the Manish calculation, which is a validated novel method providing better accuracy than the Friedewald equation in the estimation of LDL-C. Que PARR et al. AMELIA. 2013;310(19): 3899-7112 (http://education.Omicia.Mingxieku/faq/YYO580) Cholesterol, Total 207(H) <200 mg/dL [facility] HDL Cholesterol 49 > OR = 40 mg/dL [facility] Triglycerides 112 <150 mg/dL [facility] LDL Cholesterol 136(H) mg/dL (calc) [facility] Comment: Reference range: <100 Desirable range <100 mg/dL for primary prevention; <70 mg/dL for patients with CHD or diabetic patients with > or = 2 CHD risk factors. LDL-C is now calculated using the Que-Rodriguez calculation, which is a validated novel method providing better accuracy than the Friedewald equation in the estimation of LDL-C. Que SS et al. AMELIA. 2013;310(19): 4134-0323 (http://education.Omicia.Mingxieku/faq/XWD616) Chol/HDLC Ratio 4.2 <5.0 (calc) [facility] Non-HDL Cholesterol 158(H) <130 mg/dL (calc) [facility] Comment: For patients with diabetes plus 1 major ASCVD risk factor, treating to a non-HDL-C goal of <100 mg/dL (LDL-C of <70 mg/dL) is considered a therapeutic option. Cholesterol, Total 207(H) <200 mg/dL [facility] HDL Cholesterol 49 > OR = 40 mg/dL [facility] Triglycerides 112 <150 mg/dL [facility] LDL Cholesterol 136(H) mg/dL (calc) [facility] Comment: Reference range: <100 Desirable range <100 mg/dL for primary prevention; <70 mg/dL for patients with CHD or diabetic patients with > or = 2 CHD risk factors. LDL-C is now calculated using the Que-Rodriguez calculation, which is a validated novel method providing better accuracy than the Friedewald equation in the estimation of LDL-C. Que PARR et al. AMELIA. 2013;310(19): 1658-8037 (http://education.Omicia.Mingxieku/faq/ZVT278) Chol/HDLC Ratio 4.2 <5.0 (calc) [facility] Non-HDL Cholesterol 158(H) <130 mg/dL (calc) [facility] Comment: For patients with diabetes plus 1 major ASCVD risk factor, treating to a non-HDL-C goal of <100 mg/dL (LDL-C of <70 mg/dL) is considered a therapeutic option. 08/13/2020 9:16 AM EDT us Ricci Barkley MD LAB BLOOD ORDERABLES Final Result [facility] Anywhere [address] from Last 3 Months or Most Recently Relevant to Health Maintenance Insurance [facility] C3 DENTAL-[facility] MEDICAID STAND ADULT Care Teams Take Up Operator Relationship Specialty Start Date End Date Ricci Barkley MD [address] [place] [address] [place] [address] PCP - General Internal Medicine 01/04/19 Ashia Mena 05/22/25
--- OUTSIDE RECORDS SUMMARY | 2025-05-23 11:46 | XMS_ITS | Encounter Summary ---
Author Organization [facility] Address [address] [place] [phone] Phone Care Team Providers Care Center Specialists Name Role Phone Self-Referred, Patient Unavailable Unavailab le Elli Nazario MD Unavailable [phone] Moe Shaffer MD, PhD Unavailable Elli Nazario MD Primary Care Provider Elli Nazario MD Unavailable [phone] Selena Antonio Unavailable [phone] Encounter Details Date Type Department Care Team (Late st Contact Info) Description 03/30/2025 Procedure Pass Nneka Lank Imaging Department, [facility] [place], [place] [address], Floor [address] [place] [address] Social History Tobacco Use Types Packs/Day Years Used Date Smoking Tobacco: Former Cigarettes 0.5 19 0 04/02/1986 - 03/31/2005 Passive Smoke Exposure: Never Smokeless Tobacco: Never Alcohol Use Standard Drinks/Week Comments Not Currently 66 (1 standard drink = 0.6 oz pu re alcohol) Education Answer Date Recorded Are you interested in more education? Not on charles e 02/21/2023 Are you concerned about learning? Not on file 02/21/2023 No 02/21/2023 No 02/21/2023 Digital Access Answer Date Recorded No 03/24/2023 No 03/24/2023 Reliable internet access at home? Not on file 03/24/2023 Device with a working camera? Not on file Sex and Gender Information Value Date Recorded Sex Assigned at Male 10/30/2022 2:56 PM EST Legal Sex Male 2:51 PM EST Gender Identity Male 10/30/2022 2:56 PM EST Sexual Orientation Straight 10/30/2022 2: 56 PM EST documented as of this encounter Plan of Treatment Upcoming Encounters Date Type Department Care Team (Late st Contact Info) Description 05/30/2025 1:15 PM EDT Office Visit [facility] General & GI Surgery [address] [place] [address] [place] [address] Yelitza Ward MD, MSc [address] [place] [phone] [email or web address] documented as of this encounter Visit Diagnoses Not on filedocumented in this encounter Care Teams Center Specialists Relationship Specialty Start Date End Date Elli Nazario MD [address] [place] [phone] [email or web address] PCP - General Internal Medicine 02/08/25 Self-Referred, Patient 10/30/22 Elli Nazario MD [address] [place] [address] [email or web address] 12/01/22 Moe Shaffer MD, PhD [address] [place] [phone] [email or web address] 12/01/22 Elli Nazario MD [address] [place] [phone] [email or web address] Referring Physician Internal Medicine 02/08/25 Selena Antonio [address] [place] [address] [email or web address] Carburetor Specialist 03/24/25 documented as of this encounter Additional Source Comments The information contained in this document represents components of the legal health record. It is not the complete legal health record.[facility]
== END 2025-05-23 10:40 | disposition home or self-care (01) ==
LOC: HO.LAB 10:39
PROVIDERS: Visit Provider Internal Medicine
DX: C18.0 Malignant neoplasm of cecum (principal)
CPT/HCPCS: 36415; 80053; 83735; 85025

== ENCOUNTER 2025-06-06 14:30 | Outpatient (REF) | payer MEDICAID, SELFPAY ==
[2025-06-06 14:44] LABS: MANUAL DIFF FLAG NO
--- OUTSIDE RECORDS SUMMARY | 2025-06-06 15:26 | XMS_ITS | Clinical Summary ---
Author Organization [employer] Address [address] [place] [address] 7 [place] [address] Care Team Providers Care Cosmetic Sales Advisor Name Role Phone Ricci Barkley MD Primary Care Provider [phone] Ashia Mena Unavailable Allergies No known active [...] Encounters Date Type Department Care Team Description 05/29/2025 Telephone [facility] [address] [place] [address] Ricci Barkley MD Call Back Request 05/29/2025 Patient Outreach [facility] [address] [place] [address] Ricci Barkley MD Care Coordination ([facility] f/u) 05/23/2025 Patient Outreach [address] [address] Ricci Barkley MD 05/23/2025 Patient Outreach [address] [address] Ricci Barkley MD 05/23/2025 Patient Outreach [address] [address] Ricci Barkley MD 05/23/2025 Patient Outreach [address] [address] Ricci Barkley MD Care Coordination ([facility]) 05/22/2025 Patient Outreach [address] [address] Ricci Barkley MD Care Coordination ([facility] Chart review) 05/22/2025 Patient Outreach [address] [address] Ricci Barkley MD 05/09/2025 Orders Only GENERIC [...] Depression Screening 11/11/2025 11/11/2024, 11/11/19 SDOH Screening 05/23/2026 05/23/2025 DTaP/Tdap/Td Vaccines (2 [...] Blood Count 7.4 4.8 - 10.8 X10*3/uL [facility] Red Blood Count 5.02 4.60 - 5.80 X10*6/uL [facility] Hemoglobin 13.9(L) 14.0 - 18.0 g/dl [facility] Hematocrit 42.9 42.0 - 52.0 % [facility] Mean Corpuscular Volume 85.5 80.0 - 98.0 fL [facility] Mean Corpuscular Hemoglobin 27.7 27.0 - 33.0 pg [facility] Mean Corpuscular HGB Conc 32.4 31.0 - 36.0 g/dl [facility] Red Cell Distribution Width 15.6 11.0 - 16.0 % [facility] Platelet Count 222 160 - 400 X10*3/uL [facility] Mean Platelet Volume 9.9 9.4 - 12.4 fL [facility] Neutrophils Percent Auto 60.8 45 - 73 % [facility] Imm Gran Pct Auto 0.1 0.0 - 0.4 % [facility] Lymphocytes Percent Auto 28.6 20 - 40 % [facility] Monocytes Percent Auto 9.9 2 - 11 % [facility] Eosinophils Percent Auto 0.5 0 - 4 % [facility] Basophils Percent Auto 0.1 0 - 2 % [facility] NRBC Pct Auto 0.0 0.0 - 0.2 /100WBC [facility] Neutrophils Absolute Auto 4.5 2.0 - 8.3 x10*3/uL [facility] Imm Gran Abs Auto 0.01 0.00 - 0.03 X10*3/uL [facility] Lymphocytes Absolute Auto 2.1 1.2 - 4.9 X10*3/uL [facility] Monocytes Absolute Auto 0.7 0.1 - 1.2 X10*3/uL [facility] Eosinophils Absolute Auto 0.0 0.0 - 0.4 X10*3/uL [facility] Basophils Absolute Auto 0.0 0.0 - 0.2 X10*3/uL [facility] NRBC Abs Auto 0.000 0.0 - 0.012 X10*3/uL [facility] 05/09/2025 2:41 PM EDT 05/09/2025 2:41 PM EDT us Generic External Data Provider LAB BLOOD ORDERAB LES Final Result [facility] [address] [place] [address] [phone] * Magnesium (05/09/2025 2:41 PM EDT) Magnesium 2.2 1.6 - 2.6 mg/dL [facility] 05/09/2025 2:41 PM EDT 05/09/2025 2:41 PM EDT us Generic External Data Provider LAB BLOOD ORDERAB LES Final Result [facility] [address] [place] [address] [phone] * Comprehensive Metabolic Panel (05/09/2025 2:41 PM EDT) Only the most recent of3 resultswithin the time period is included. Sodium 142 135 - 145 mmol/L [facility] Potassium 4.8 3.3 - 5.1 mmol/L [facility] Chloride 107 96 - 108 mmol/L [facility] Carbon Dioxide 28 22 - 29 mmol/L [facility] Anion Gap 12 12 - 20 [facility] Urea Nitrogen (BUN) 16 9 - 16 mg/dL [facility] Creatinine, Serum 0.87 0.5 - 1.4 mg/dL [facility] Estimated Glomerular Filt Rate >60 [facility] Comment:Chronic Kidney Disea se: Estimated GFR < 60 mL/min/1.03n4Ztkiim Kidney Disease: Estimated GFR < 15 mL/min/1.73m2 Glucose 97 60 - 115 mg/dL [facility] Calcium 9.5 8.4 - 10.2 mg/dL [facility] Bilirubin, Total 0.7 0.0 - 1.0 mg/dL [facility] Aspartate Amino Transferase 31 5 - 37 U/L [facility] Alanine Aminotransferase 33 0 - 40 U/L [facility] Total Protein 7.3 6.5 - 8.0 g/dL [facility] Albumin Level 4.8 3.5 - 5.0 g/dL [facility] Alkaline Phosphatase 96 39 - 117 U/L [facility] 05/09/2025 2:41 PM EDT 05/09/2025 2:41 PM EDT us Generic External Data Provider LAB BLOOD ORDERAB LES Final Result Performing Organization Address [facility]/ZIP Co de Phone Number [facility] [address] [place] [phone] * Urinalysis with Reflex to Microscopic (04/03/2025 10:05 AM EDT) Only the most recent of2 resultswithin the time period is included. Color Urine Dark Yellow [facility] Appearance Urine Clear [facility] PH 5.5 5.0 - 9.0 [facility] Glucose Urine UA Negative Negative mg/dL [facility] Urine Blood Negative Negative [facility] Specific [place] - Urine 1.015 1.005 - 1.025 [facility] Urine Protein Negative Neg-Trace mg/dL [facility] Urine Ketones Negative Negative mg/dL [facility] Nitrite Urine Negative Negative [facility] Leukocyte Esterase Urine Negative Negative [facility] 04/03/2025 10:0 5 AM EDT 04/03/2025 10:15 AM EDT Generic External Data Provider LAB URINE ORDERAB LES Final Result Performing Organization Address [facility] Co de Phone Number [facility] [address] [place] [phone] * (ABNORMAL) LIPID PANEL, STANDARD (08/13/2020 [...] LDL-C. Que SS et al. AMELIA. 2013;310(19): 8073-7580 (http://education.Sitefly.Ren[employer] Inc./faq/WNI971) Cholesterol, Total 207(H) <200 mg/dL [facility] LDL-C. Que SS et al. AMELIA. 2013;310(19): 1852-3380 (http://education.Sitefly.Renren Inc./faq/AJC580) Chol/HDLC Ratio 4.2 <5.0 (calc) [facility] LDL-C. Que SS et al. AMELIA. 2013;310(19): 3249-2459 (http://education.Sitefly.com/faq/RVI283) Chol/HDLC Ratio 4.2 <5.0 (calc) [facility] Non-HDL Cholesterol 158(H) <130 mg/dL (calc) [facility] Comment: For patients with diabetes plus 1 major ASCVD risk factor, treating to a non-HDL-C goal of <100 mg/dL (LDL-C of <70 mg/dL) is considered a therapeutic option. 08/13/2020 9:16 AM EDT Ricci Barkley MD LAB BLOOD ORDERABLES Final Result [facility] [address] from Last 3 Months or Most Recently Relevant to Health Maintenance Insurance # [place] [address] [facility] C3 DENTAL-[facility] MEDICAID STAND ADULT Care Teams Cosmetic Sales Advisor Relationship Specialty Start Date End Date Ricci Barkley MD [address] [place] [phone] PCP - General Internal Medicine 01/04/19 Ashia Mena 05/22/25
--- OUTSIDE RECORDS SUMMARY | 2025-06-06 15:26 | XMS_ITS | Encounter Summary ---
Author Organization [facility] Address [address] [place] [address] Phone Care Team Providers Care Blast Furnace Checker Name Role Phone Self-Referred, Patient Unavailable Unavailab le Elli Nazario MD Unavailable [phone] Moe Shaffer MD, PhD Unavailable Elli Nazario MD Unavailable [phone] Selena Antonio Unavailable [phone] Ricci Barkley MD Primary Care Pr ovider Encounter Details Date Type Department Care Team (Late st Contact Info) Description 03/30/2025 Procedure Pass [facility]ka L[facility] Imaging Department, [facility] [place], [place] [address] [facility], Floor L1 [place] [address] Social History Tobacco Use Types Packs/Day Years [...] Team (Late st Contact Info) Description 05/30/2025 Procedure Pass [facility] CT Imaging, [place] [address] [place] [address] 05/30/2025 Procedure Pass [facility] CT Imaging, [place] [address] [place] [address] 06/30/2025 3:45 PM EDT Appointment [facility] CT Imaging, [place] [address] [place] [address] Nathaly Watson PA-C [facility], [place] [address] [email or web address] 07/11/2025 11:15 AM EDT Telemedicine [facility] General & GI Surgery [address] [place], [place] [address]2362-3 [place] [address] Yelitza Ward MD, MSc [address] [place] [address] [email or web address] documented as of this encounter Visit Diagnoses Not on filedocumented in this encounter Care Teams Blast Furnace Checker Relationship Specialty Start Date End Date Ricci Barkley MD [address] [place] [address] PCP - General Internal Medicine 05/30/25 Self-Referred, Patient 10/30/22 Elli Nazario MD [address] [place] [address] [email or web address] Internal Medicine 12/01/22 Moe Shaffer MD, PhD [address] [place] [address] [email or web address] Medical Oncology 12/01/22 Elli Nazario MD [address] [place] [address] [email or web address] Referring Physician Internal Medicine 02/08/25 Selena Antonio [address] [place] [address] [email or web address] [place] Clarity Developer 03/24/25 documented as of this encounter Additional Source Comments The information contained in this document represents components of the legal health record. It is not the complete legal health record.[facility]
[2025-06-06 16:46] LABS: Hematocrit 44.4 % (42.0-52.0); Hemoglobin 14.0 g/dl (14.0-18.0); Imm Gran Abs Auto 0.02 X10*3/uL (0.00-0.03); Imm Gran Pct Auto 0.3 % (0.0-0.4); Lymphocytes Absolute Auto 2.2 X10*3/uL (1.2-4.9); Mean Corpuscular HGB Conc 31.5 g/dl (31.0-36.0); Mean Corpuscular Hemoglobin 26.8 pg (27.0-33.0); Mean Corpuscular Volume 84.9 fL (80.0-98.0); NRBC Abs Auto 0.000 X10*3/uL (0.0-0.012); NRBC Pct Auto 0.0 /100WBC (0.0-0.2); Platelet Count 189 X10*3/uL (160-400); Red Blood Count 5.23 X10*6/uL (4.60-5.80); White Blood Count 6.5 X10*3/uL (4.8-10.8)
[2025-06-06 17:14] LABS: Alanine Aminotransferase 34 U/L (0-40); Albumin Level 4.9 g/dL (3.5-5.0); Alkaline Phosphatase 98 U/L (39-117); Anion Gap 13 (12-20); Aspartate Amino Transferase 32 U/L (5-37); Blood Urea Nitrogen 13 mg/dL (9-16); Calcium 9.6 mg/dL (8.4-10.2); Carbon Dioxide 30 mmol/L (22-29); Chloride 103 mmol/L (96-108); Estimated Glomerular Filt Rate > 60; Magnesium 2.1 mg/dL (1.6-2.6); Potassium 5.0 mmol/L (3.3-5.1); Sodium 141 mmol/L (135-145); Total Protein 7.6 g/dL (6.5-8.0)
== END 2025-06-06 14:31 | disposition home or self-care (01) ==
LOC: HO.LAB 14:30
PROVIDERS: PCP Internal Medicine; Visit Provider Internal Medicine
DX: C18.0 Malignant neoplasm of cecum (principal)
CPT/HCPCS: 36415; 80053; 83735; 85025

== ENCOUNTER 2025-07-04 15:57 | Outpatient (REF) | payer MEDICAID, SELFPAY ==
--- OUTSIDE RECORDS SUMMARY | 2025-06-30 13:15 | XMS_ITS | Encounter Summary ---
Author Organization [facility] Address [address] [place] [address] Phone Care Team Providers Care Cheese Cooker Name Role Phone Self-Referred, Patient Unavailable Unavailab le Elli Nazario MD Unavailable [phone] Moe Shaffer MD, PhD Unavailable Elli Nazario MD Unavailable [phone] Selena Antonio Unavailable [phone] Ricci Barkley MD Primary Care Pr ovider Reason for Referral * MRI/CAT Scan - Closed Specialty Diagnoses / Procedures Referred By Francisco robison Referred To Contact Radiology Diagnoses Malignant neoplasm of ascending colon Allergic reaction to contrast material, subsequent encounter Procedures CT Chest CHG DIAGNOSTIC COMPUTED TOMOGRAPHY THORAX W/O CNTRST CHG DIAGNOSTIC COMPUTED TOMOGRAPHY THORAX W/CONTRAST CHG DIAGNOSTIC COMPUTED TOMOGRAPHY THORAX C-/C+ Nathaly Watson PA-C [address] [place] [address] and [facility], [place] [address] Phone: tel: fax: mailto:[email or web address] Referral ID Status Reason Start Date Expiration Date Visits Re quested Visits Authorized [id number] Closed 06/30/2025 07/30/2025 1 1 * MRI/CAT Scan - Closed Specialty Diagnoses / Procedures Referred By Francisco t Referred To Contact Radiology Diagnoses Malignant neoplasm of ascending colon Procedures CT Abdomen/Pelvis CHG CT SCAN,ABDOMENT AND PELVIS,W/O CONTRAST CHG CT SCAN,ABDOMENT AND PELVIS,W CONTRAST CHG CT SCAN,ABDOMENT AND PELVIS,COMBO Natahly Watson PA-C 75 [facility], Department of Surgery [place], [place] Phone: tel: fax: mailto:[email or web address] Referral ID Status Reason Start Date Expiration Date Visits Re quested Visits Authorized [id number] Closed 06/30/2025 07/30/2025 1 1 Reason for Visit * MRI/CAT Scan - Closed Specialty Diagnoses / Procedures Referred By Francisco t Referred To Contact Radiology Diagnoses Malignant neoplasm of ascending colon Allergic reaction to contrast material, subsequent encounter Procedures CT Chest CHG DIAGNOSTIC COMPUTED TOMOGRAPHY THORAX W/O CNTRST CHG DIAGNOSTIC COMPUTED TOMOGRAPHY THORAX W/CONTRAST CHG DIAGNOSTIC COMPUTED TOMOGRAPHY THORAX C-/C+ Nathaly Watson PA-C [address] [facility], Department of Surgery [place], [place] Phone: tel: fax: mailto:[email or web address] Referral ID Status Reason Start Date Expiration Date Visits Re quested Visits Authorized [id number] Closed 06/30/2025 07/30/2025 1 1 Encounter Details Date Type Department Care Team (Late st Contact Info) Description 06/30/2025 1:15 PM EDT - 06/30/2025 11:59 PM EDT Hospital Encounter [facility] CT Imaging, [place] [address] [place], [place] [phone] Nathaly Watson PA-C [address] [place] [address], Department of Surgery [place], [place] [email or web address] Arrived Discharge Disposition: Home or Self Care Social History Tobacco Use Types Packs/Day Years [...] with a working camera? Not on file Intimate Partner Violence Answer Date R ecorded Are you denied basic needs s uch as food, clothing, or medical care? No 04/17/2025 In the past 12 months have y ou been in a relationship with a person who hurts, threatens, or tries to control you? No 04/17/2025 Are you denied basic needs s uch as food, clothing, or medical care? No 04/17/2025 In the past 12 months have y ou been in a relationship with a person who hurts, threatens, or tries to control you? No 04/17/2025 Sex and Gender Information Value Date Recorded Sex Assigned at Male 10/30/2022 2:56 PM EST Legal Sex Male 2:51 PM EST Gender Identity Male 10/30/2022 2:56 PM EST Sexual Orientation Straight 10/30/2022 2: 56 PM EST documented as of this encounter Medications at Time of Discharge b complex vitamins capsule Take 1 capsule by mouth daily. ferrous sulfate 325 mg (65 mg [place] iron) tablet Take 325 mg by mouth daily with breakfast. magnesium carbonate 54 mg/5 mL Liqd Take 54 mg by mouth daily before breakfast. oxyCODONE 5 MG immediate release tablet Take 1 tablet (5 mg total) by mouth every 4 (four) hours as needed for pain (specific location in comments) (surgical pain). Partial fill ok 5 tablet 04/17/2025 predniSONE (DELTASONE) 50 MG tablet Take 1 tablet by mouth 13, 7 and 1 hour(s) before your appointment where you will be receiving IV contrast dye for your imaging study 3 tablet 05/30/2025 trifluridine-tip iraciL (LONSURF) 15-6.14 mg tablet Take 35 mg/m2 by mouth 2 (two) times a day. documented as of this encounter Plan of Treatment Upcoming Encounters Date Type Department Care Team (Late st Contact Info) Description 07/11/2025 11:15 AM EDT Telemedicine [facility] General & GI Surgery [address] [place], [place] [address] [place] [address] Yelitza Ward MD, MSc [address] [place] [address] [email or web address] documented as of this encounter Procedures Procedure Name Priority Date/Time Associated Diagnosis Comments CT CHEST WITH CONTRAST Routine 06/30/2025 2:54 PM EDT Malignant neoplasm of ascending colon Allergic reaction to contrast material, subsequent encounter CT ABDOMEN/PELVIS WITH CONTRAST Routine 06/30/2025 2:54 PM EDT Malignant neoplasm of ascending colon documented in this encounter Results * CT CHEST WITH CONTRAST (06/30/2025 2:54 PM EDT) Anatomical Region Laterality Modality Chest Computed Tomogra phy 07/01/2025 9:05 AM EDT Impressions 07/02/2025 6:33 AM EDT 1. No definite evidence of metastatic disease in the chest noted on this chest CT. Narrative 07/02/2025 6:[address] CHEST WITH CONTRAST Referring clinician's provided indication for this examination in Epic: * Colon cancer, assess treatment response; colon ca with peritoneal spread s/p dx laparoscopy 04/17 with concern for additional disease beneath scar tissue, last MRI with increased size of peritoneal nodules/masses. He resumed chemo completed 2 cycles, will complete 2 more then have repeat imaging TECHNIQUE: Multidetector CT of the chest was performed with intravenous contrast using tailored dose modulation techniques. COMPARISON: 04/04/2025 FINDINGS: Devices/Tubes/Lines: Central venous line terminating in the junction of SVC and right atrium.. Lungs: No new suspicion pulmonary nodules or consolidation. 2 mm left upper lobe derrick-fissural nodule is unchanged on series 3 image 192, which may represent an intrapulmonary lymph node. Pleura: No pleural effusion. Mediastinum: Small hiatal hernia. Lymph Nodes: No enlarged supraclavicular, axillary, mediastinal, or hilar lymph nodes. Upper Abdomen: Please see concurrent abdominal CT for abdominal findings. Chest Wall: Bilateral mild gynecomastia. Bones: No destructive osseous lesions. Procedure Note Ancelmo Mascorro MD, MPH - 07/02/2025 CT CHEST WITH CONTRAST Referring clinician's provided indication for this examination in [facility]: *Colon cancer, assess treatment response; colon ca with peritoneal spreads/p dx laparoscopy 04/17 with concern for additional disease beneath scartissue, last MRI with increased size of peritoneal nodules/masses. Heresumed chemo completed 2 cycles, will complete 2 more then have repeatimaging TECHNIQUE: Multidetector CT of the chest was performed with intravenouscontrast using tailored dose modulation techniques. COMPARISON: 04/04/2025 FINDINGS: Devices/Tubes/Lines: Central venous line terminating in the junction ofSVC and right atrium.. Lungs: No new suspicion pulmonary nodules or consolidation. 2 mm leftupper lobe derrick-fissural nodule is unchanged on series 3 image 192, whichmay represent an intrapulmonary lymph node. Pleura: No pleural effusion. Mediastinum: Small hiatal hernia. Lymph Nodes: No enlarged supraclavicular, axillary, mediastinal, or hilarlymph nodes. Upper Abdomen: Please see concurrent abdominal CT for abdominalfindings. Chest Wall: Bilateral mild gynecomastia. Bones: No destructive osseous lesions. IMPRESSION: 1. No definite evidence of metastatic disease in the chest noted on thischest CT. us Nathaly Watson PA-C IMG CT CHEST Final Result * CT ABDOMEN/PELVIS WITH CONTRAST (06/30/2025 2:54 PM EDT) Anatomical Region Laterality Modality Abdomen, Pelvis Computed Tomogra phy 06/30/2025 4:36 PM EDT Impressions 06/30/2025 7:35 PM EDT Compared to PET CT from 04/14/2025 and abdominal MRI from 04/17/2025: 1. Similar to slight decrease in size of peritoneal implants. 2. No new sites of disease in the abdomen and pelvis. Narrative 06/30/2025 7:[address] ABDOMEN/PELVIS WITH CONTRAST Referring clinician's provided indication for this examination in Epic: * Colon cancer, assess treatment response; colon ca with peritoneal spread s/p dx laparoscopy 04/17 with concern for additional disease beneath scar tissue, last MRI with increased size of peritoneal nodules/masses. He resumed chemo completed 2 cycles, will complete 2 more then have repeat imaging TECHNIQUE: Multidetector-row CT of the abdomen and pelvis was performed after administration of intravenous contrast using tailored dose modulation techniques. Images were reconstructed in the axial, coronal, and sagittal planes. COMPARISON: PET/CT from 04/14/2025 and abdominal and pelvic MRI from 04/17/2025 FINDINGS: Lower Chest: See same-day chest CT report Liver: No focal lesions. Biliary: No biliary ductal dilatation. Spleen: No splenomegaly or focal lesions. Pancreas: No masses or ductal dilatation. Adrenal Glands: No nodules. Kidneys/Ureters: No solid masses, stones, or hydronephrosis. Bowel: Prior right colectomy. No bowel wall thickening or obstruction. Peritoneum/Retroperitoneum: Accounting for differences in modality peritoneal implants are similar or decreased for example: * 3.3 x 2.0 cm along the right paracolic gutter and involving the abdominal wall (1:41), previously 3.5 x 2.0 cm on the prior MRI. This is contiguous with the peritoneal implant extending to the right psoas muscle (see below) and overall extends 7.3 cm craniocaudal (900:51) * 1.8 x 1.5 cm adjacent to the right psoas muscle (1:48), previously 1.8 x 1.3 cm on the prior PET/CT * 1.8 x 1.1 cm below the right rectus muscle (1:37), not well seen on the more recent PET/CT or MRI however similar to the CT scan from 12/13/2024 * 2.4 x 1.3 cm in the midline just below the anterior abdominal wall (1:42), previously 2.6 x 1.7 cm on the prior PET/CT Lymph Nodes: No lymphadenopathy. Pelvic Organs/Bladder: No mass. Vessels: Atherosclerotic disease of normal caliber abdominal aorta. Bones/Soft Tissues: No destructive osseous lesions. Bilateral pars defect at L5 with grade 2 anterolisthesis of L5 on S1. Procedure Note Meghana Mello MD - 06/30/2025 CT ABDOMEN/PELVIS WITH CONTRAST Referring clinician's provided indication for this examination in [facility]: *Colon cancer, assess treatment response; colon ca with peritoneal spreads/p dx laparoscopy 04/17 with concern for additional disease beneath scartissue, last MRI with increased size of peritoneal nodules/masses. Heresumed chemo completed 2 cycles, will complete 2 more then have repeatimaging TECHNIQUE: Multidetector-row CT of the abdomen and pelvis was performedafter administration of intravenous contrast using tailored dosemodulation techniques. Images were reconstructed in the axial, coronal,and sagittal planes. COMPARISON: PET/CT from 04/14/2025 and abdominal and pelvic MRI from04/17/2025 FINDINGS: Lower Chest: See same-day chest CT report Liver: No focal lesions. Biliary: No biliary ductal dilatation. Spleen: No splenomegaly or focal lesions. Pancreas: No masses or ductal dilatation. Adrenal Glands: No nodules. Kidneys/Ureters: No solid masses, stones, or hydronephrosis. Bowel: Prior right colectomy. No bowel wall thickening or obstruction. Peritoneum/Retroperitoneum: Accounting for differences in modalityperitoneal implants are similar or decreased for example: * 3.3 x 2.0 cm along the right paracolic gutter and involving theabdominal wall (1:41), previously 3.5 x 2.0 cm on the prior MRI. This iscontiguous with the peritoneal implant extending to the right psoas muscle(see below) and overall extends 7.3 cm craniocaudal (900:51) * 1.8 x 1.5 cm adjacent to the right psoas muscle (1:48), previously 1.8x 1.3 cm on the prior PET/CT * 1.8 x 1.1 cm below the right rectus muscle (1:37), not well seen on themore recent PET/CT or MRI however similar to the CT scan from 12/13/2024 * 2.4 x 1.3 cm in the midline just below the anterior abdominal wall(1:42), previously 2.6 x 1.7 cm on the prior PET/CT Lymph Nodes: No lymphadenopathy. Pelvic Organs/Bladder: No mass. Vessels: Atherosclerotic disease of normal caliber abdominal aorta. Bones/Soft Tissues: No destructive osseous lesions. Bilateral pars defectat L5 with grade 2 anterolisthesis of L5 on S1. IMPRESSION: Compared to PET CT from 04/14/2025 and abdominal MRI from 04/17/2025: 1. Similar to slight decrease in size of peritoneal implants. 2. No new sites of disease in the abdomen and pelvis. us Nathaly Watson PA-C IMG CT ABD/PELVIS Final Resu lt documented in this encounter Visit Diagnoses Diagnosis Malignant neoplasm of ascending colon Allergic reaction to contrast material, subsequent encounter documented in this encounter Administered Medications Inactive Administered Medications - up to 3 most recent administrations Medication Order MAR Action Action Date Dose Rate Site iohexoL (OMNIPAQUE-350) 350 mg iodine/mL solution 25-125 mL 25-125 mL, Intravenous, Once as needed, pre procedure/treatment, Starting on Thu06/30/25 at 1442, For 1 dose, Procedural Contrast/Med Active Now, Each mL contains 755 mg of iohexol equivalent to 350 mg of organic iodine. Given 06/30/2025 2:56 PM EDT 75 mL documented in this encounter Care Teams Cheese Cooker Relationship Specialty Start Date End Date Ricci Barkley MD [address] [place] [address] PCP - General Internal Medicine 05/30/25 Self-Referred, Patient 10/30/22 Elli Nazario MD [address] [place] [address] [email or web address] Medicine 12/01/22 Moe Shaffer MD, PhD [address] [place] [address] [email or web address] Medical Oncology 12/01/22 Elli Nazario MD [address] [place] [address] [email or web address] Referring Physician Internal Medicine 02/08/25 Selena Antonio [address] [place] [address] [email or web address] Regional Forester 03/24/25 documented as of this encounter Additional Source Comments The information contained in this document represents components of the legal health record. It is not the complete legal health record.[facility]
[2025-07-04 16:10] LABS: MANUAL DIFF FLAG NO
[2025-07-04 16:29] LABS: Hematocrit 45.3 % (42.0-52.0); Hemoglobin 14.8 g/dl (14.0-18.0); Imm Gran Abs Auto 0.03 X10*3/uL (0.00-0.03); Imm Gran Pct Auto 0.4 % (0.0-0.4); Lymphocytes Absolute Auto 2.6 X10*3/uL (1.2-4.9); Mean Corpuscular HGB Conc 32.7 g/dl (31.0-36.0); Mean Corpuscular Hemoglobin 27.3 pg (27.0-33.0); Mean Corpuscular Volume 83.4 fL (80.0-98.0); NRBC Abs Auto 0.000 X10*3/uL (0.0-0.012); NRBC Pct Auto 0.0 /100WBC (0.0-0.2); Platelet Count 171 X10*3/uL (160-400); Red Blood Count 5.43 X10*6/uL (4.60-5.80); White Blood Count 7.3 X10*3/uL (4.8-10.8)
[2025-07-04 17:23] LABS: Alanine Aminotransferase 38 U/L (0-40); Albumin Level 4.9 g/dL (3.5-5.0); Alkaline Phosphatase 102 U/L (39-117); Anion Gap 13 (12-20); Aspartate Amino Transferase 37 U/L (5-37); Blood Urea Nitrogen 11 mg/dL (9-16); Calcium 8.9 mg/dL (8.4-10.2); Carbon Dioxide 25 mmol/L (22-29); Chloride 106 mmol/L (96-108); Estimated Glomerular Filt Rate > 60; Potassium 4.4 mmol/L (3.3-5.1); Sodium 140 mmol/L (135-145); Total Protein 7.3 g/dL (6.5-8.0)
--- OUTSIDE RECORDS SUMMARY | 2025-07-04 18:06 | XMS_ITS | Encounter Summary ---
Author Organization [facility] Address [address] [place] [address] Phone Care Team Providers Care Functional Mental Disability Teacher Name Role Phone Self-Referred, Patient Unavailable Unavailab le Elli Nazario MD Unavailable [phone] Moe Shaffer MD, PhD Unavailable Elli Nazario MD Unavailable [phone] Selena Antonio Unavailable [phone] Ricci Barkley MD Primary Care Pr ovider Encounter Details Date Type Department Care Team (Late st Contact Info) Description 05/30/2025 Procedure Pass [facility] CT Imaging, [place] [address] [place] [address] Social History Tobacco Use Types Packs/Day Years [...] Info) Description 07/11/2025 11:15 AM EDT Telemedicine [facility] General & GI Surgery [address] [place], [place] [address] [place] [address] Yelitza Ward MD, MSc [address] [place] [address] [email or web address] documented as of this encounter Visit Diagnoses Not on filedocumented in this encounter Care Teams Functional Mental Disability Teacher Relationship Specialty Start Date End Date Ricci Barkley MD [address] [place] [address] PCP - General Internal Medicine 05/30/25 Self-Referred, Patient 10/30/22 Elli Nazario MD [address] [place] [phone] [email or web address] 12/01/22 Moe Shaffer MD, PhD [address] [place] [address] [email or web address] Medical Oncology 12/01/22 Elli Nazario MD [address] [place] [address] [email or web address] Physician Internal Medicine 02/08/25 Selena Antonio [address] [place] [address] [email or web address] [email or web address] House Manager 03/24/25 documented as of this encounter Additional Source Comments The information contained in this document represents components of the legal health record. It is not the complete legal health record.[facility]
--- OUTSIDE RECORDS SUMMARY | 2025-07-04 18:06 | XMS_ITS | Encounter Summary ---
Author Organization [facility] Address [address] [facility] [address] [place] [address] Phone Care Team Providers Care Tool Die Maker Name Role Phone Pcp, Not Required Primary Care Provider Unavaila ble Self-Referred, Patient Unavailable Unavailab Elli Solomon MD Unavailable [phone] Moe Shaffer MD, PhD Unavailable Elli Nazario MD Unavailable [phone] Selena Antonio Unavailable [phone] Ricci Barkley MD Primary Care Pr ovider Encounter Details Date Type Department Care Team (Late st Contact Info) Description 12/01/2022 Ancillary Orders Outside Imaging Moe Shaffer MD, PhD [address] [place] [address] [email or web address] Social History Tobacco Use Types Packs/Day Years Used Date Smoking Tobacco: Former Cigarettes 0.5 19 0 04/02/1986 - 03/31/2005 Alcohol Use Standard Drinks/Week Comments Not Currently 66 (1 standard drink = 0.6 oz pu re alcohol) Sex and Gender Information Value Date Recorded Sex Assigned at Male 10/30/2022 2:56 PM EST Legal Sex Male 2:51 PM EST Gender Identity Male 10/30/2022 2:56 PM EST Sexual Orientation Straight 10/30/2022 2: 56 PM EST documented as of this encounter Plan of Treatment Upcoming Encounters Date Type Department Care Team (Late st Contact Info) Description 07/11/2025 11:15 AM EDT Telemedicine [facility] General & GI Surgery [address] [facility] [address] [place] [address] Yelitza Ward MD, MSc [address] [place] [address] [email or web address] documented as of this encounter Results * NM PET Whole Body Outside (No Interpretation) (06/10/2022 12:00 AM EDT) Other Narrative [facility] - 12/01/2022 7:48 AM EST This study is for PACS storage only and not for interpretation. Moe Shaffer MD, PhD IMG OUTSIDE IMAGING W /OUT INTERPRETATION Final Result Performing Organization Address City/[facility] de Phone Number [email or web address] * CT Abdomen Outside (No Interpretation) (03/04/2022 12:00 AM EDT) Other Narrative [facility] - 12/01/2022 7:49 AM EST This study is for PACS storage only and not for interpretation. Moe Shaffer MD, PhD IMG OUTSIDE IMAGING W /OUT INTERPRETATION Final Result Performing Organization Address City/[facility] Co de Phone Number [email or web address] documented in this encounter Visit Diagnoses Not on filedocumented in this encounter Care Teams Tool Die Maker Relationship Specialty Start Date End Date Pcp, Not Required [address] [place] [address] PCP - General 10/30/22 02/07/25 Ricci Barkley MD [address] [place] [address] PCP - General Internal Medicine 05/30/25 Self-Referred, Patient 10/30/22 Elli Nazario MD [address] [place] [address] [email or web address] Internal Medicine 12/01/22 Moe Shaffer MD, PhD [address] [place] [address] [email or web address] Medical Oncology 12/01/22 Elli Nazario MD [address] [place] [address] [email or web address] Referring Physician Internal Medicine 02/08/25 Selena Antonio [address] [place] [address] [email or web address] Banquet Manager 03/24/25 documented as of this encounter Additional Source Comments The information contained in this document represents components of the legal health record. It is not the complete legal health record.[facility]
--- OUTSIDE RECORDS SUMMARY | 2025-07-04 18:06 | XMS_ITS | Encounter Summary ---
Author Organization [facility] Address [address] [place] [address] Phone Care Team Providers Care Kindergarten Tutor Name Role Phone Self-Referred, Patient Unavailable Unavailab le Elli Nazario MD Unavailable [phone] Moe Shaffer MD, PhD Unavailable [phone] Elli Nazario MD Unavailable [phone] Selena Antonio Unavailable [phone] Ricci Barkley MD Primary Care Pr ovider Encounter Details Date Type Department Care Team (Late st Contact Info) Description 04/17/2025 Procedure Pass [facility] Periop [address] [place] [address] Social History Tobacco Use Types Packs/Day Years [...] Info) Description 07/11/2025 11:15 AM EDT Telemedicine [facility] General & GI Surgery [address] [place], [place] [address]16[address]3 [place] [address] Yelitza Ward MD, MSc [address] [place] [address] [email or web address] documented as of this encounter Visit Diagnoses Not on filedocumented in this encounter Care Teams Kindergarten Tutor Relationship Specialty Start Date End Date Ricci Barkley MD [address] [place] [address] PCP - General Internal Medicine 05/30/25 Self-Referred, Patient 10/30/22 Elli Nazario MD [address] [place] [address] [email or web address] Medicine 12/01/22 Moe Shaffer MD, PhD [address] [place] [address] [email or web address] Medical Oncology 12/01/22 Elli Nazario MD [address] [place] [address] [email or web address] Referring Physician Internal Medicine 02/08/25 Selena Antonio [address] [place] [address] [email or web address] Long Lines Operator 03/24/25 documented as of this encounter Additional Source Comments The information contained in this document represents components of the legal health record. It is not the complete legal health record.[facility]
--- OUTSIDE RECORDS SUMMARY | 2025-07-04 18:06 | XMS_ITS | Encounter Summary ---
Author Organization [facility] Address [address] [place] [address] Phone Care Team Providers Care Bag Shop Worker Name Role Phone Self-Referred, Patient Unavailable Unavailab le Elli Nazario MD Unavailable [phone] Moe Shaffer MD, PhD Unavailable [phone] Elli Nazario MD Unavailable [phone] Selena Antonio Unavailable [phone] Ricci Barkley MD Primary Care Pr ovider Encounter Details Date Type Department Care Team (Late st Contact Info) Description 05/30/2025 Procedure Pass [facility] CT Imaging, [place] [address] [place] [address] Social History Tobacco Use Types Packs/Day Years [...] Info) Description 07/11/2025 11:15 AM EDT Telemedicine [facility] General & GI Surgery [address] [place], [place] [address] [place] [address] Yelitza Ward MD, MSc [address] [place] [address] [email or web address] documented as of this encounter Visit Diagnoses Not on filedocumented in this encounter Care Teams Bag Shop Worker Relationship Specialty Start Date End Date Ricci Barkley MD [address] [place] [address] PCP - General Internal Medicine 05/30/25 Self-Referred, Patient 10/30/22 Elli Nazario MD [address] [place] [address] [email or web address] Medicine 12/01/22 Moe Shaffer MD, PhD [address] [place] [address] [email or web address] Medical Oncology 12/01/22 Elli Nazario MD [address] [place] [address] [email or web address] Referring Physician Internal Medicine 02/08/25 Selena Antonio [address] [place] [address] [email or web address] Bilingual Nanny 03/24/25 documented as of this encounter Additional Source Comments The information contained in this document represents components of the legal health record. It is not the complete legal health record.[facility]
--- OUTSIDE RECORDS SUMMARY | 2025-07-04 18:06 | XMS_ITS | Encounter Summary ---
Author Organization [employer] Address [address] [place] [address] 7 [place] [address] Care Team Providers Care Induction Coordination Engineer Name Role Phone Ricci Barkley MD Primary Care Provider [phone] Ashia Mena Unavailable Encounter Details Date Type Department Care Team (Latest Contact Info) Description 03/15/2019 Abstract C CONVERSIONS Dental, Provider, DDS Social History Tobacco [...] on filedocumented in this encounter Care Teams Induction Coordination Engineer Relationship Specialty Start Date End Date Ricci Barkley MD [address] [place] [address] PCP - General Internal Medicine 01/04/19 Ashia Mena 05/22/25 documented as of this encounter
--- OUTSIDE RECORDS SUMMARY | 2025-07-04 18:06 | XMS_ITS | Encounter Summary ---
Author Organization [employer] Address 75 [facility] 7t [place] [address] Care Team Providers Care Table Machine Operator Name Role Phone Ricci Barkley MD Primary Care Provider [phone] Ashia Mena Unavailable Encounter Details Date Type Department Care Team (Late st Contact Info) Description 07/04/2025 Orders Only GENERIC EXTERNAL DATA DEPARTMENT Provider, [...] Diagnosis Comments CBC WITH AUTO DIFFERENTIAL Routine 07/04/2025 4:08 PM EDT COMPREHENSIVE METABOLIC PANEL Routine 07/04/2025 4:08 PM EDT documented in this encounter Results * Comprehensive Metabolic Panel (07/04/2025 4:08 PM EDT) Sodium 140 135 - 145 mmol/L [facility] Potassium 4.4 3.3 - 5.1 mmol/L [facility] Chloride 106 96 - 108 mmol/L [facility] Carbon Dioxide 25 22 - 29 mmol/L [facility] Anion Gap 13 12 - 20 [facility] Urea Nitrogen (BUN) 11 9 - 16 mg/dL [facility] Creatinine, Serum 0.84 0.5 - 1.4 mg/dL [facility] Estimated Glomerular Filt Rate >60 [facility] Comment:Chronic Kidney Disea se: Estimated GFR < 60 mL/min/1.91c0Dkmpkm Kidney Disease: Estimated GFR < 15 mL/min/1.73m2 Glucose 80 60 - 115 mg/dL [facility] Calcium 8.9 8.4 - 10.2 mg/dL [facility] Bilirubin, Total 0.4 0.0 - 1.0 mg/dL [facility] Aspartate Amino Transferase 37 5 - 37 U/L [facility] Alanine Aminotransferase 38 0 - 40 U/L [facility] Total Protein 7.3 6.5 - 8.0 g/dL [facility] Albumin Level 4.9 3.5 - 5.0 g/dL [facility] Alkaline Phosphatase 102 39 - 117 U/L [facility] 07/04/2025 4:08 PM EDT 07/04/2025 4:08 PM EDT us Generic External Data Provider LAB BLOOD ORDERAB LES Final Result [facility] [address] [place] [address] [phone] * (ABNORMAL) CBC auto differential (07/04/2025 4:08 PM EDT) White Blood Count 7.3 4.8 - 10.8 X10*3/uL [facility] Red Blood Count 5.43 4.60 - 5.80 X10*6/uL [facility] Hemoglobin 14.8 14.0 - 18.0 g/dl [facility] Hematocrit 45.3 42.0 - 52.0 % [facility] Mean Corpuscular Volume 83.4 80.0 - 98.0 fL [facility] Mean Corpuscular Hemoglobin 27.3 27.0 - 33.0 pg [facility] Mean Corpuscular HGB Conc 32.7 31.0 - 36.0 g/dl [facility] Red Cell Distribution Width 17.4(H) 11.0 - 16.0 % [facility] Platelet Count 171 160 - 400 X10*3/uL [facility] Mean Platelet Volume 9.2(L) 9.4 - 12.4 fL [facility] Neutrophils Percent Auto 48.9 45 - 73 % [facility] Imm Gran Pct Auto 0.4 0.0 - 0.4 % [facility] Lymphocytes Percent Auto 35.8 20 - 40 % [facility] Monocytes Percent Auto 14.1(H) 2 - 11 % [facility] Eosinophils Percent Auto 0.7 0 - 4 % [facility] Basophils Percent Auto 0.1 0 - 2 % [facility] NRBC Pct Auto 0.0 0.0 - 0.2 /100WBC [facility] Neutrophils Absolute Auto 3.6 2.0 - 8.3 x10*3/uL [facility] Imm Gran Abs Auto 0.03 0.00 - 0.03 X10*3/uL [facility] Lymphocytes Absolute Auto 2.6 1.2 - 4.9 X10*3/uL [facility] Monocytes Absolute Auto 1.0 0.1 - 1.2 X10*3/uL [facility] Eosinophils Absolute Auto 0.1 0.0 - 0.4 X10*3/uL [facility] Basophils Absolute Auto 0.0 0.0 - 0.2 X10*3/uL [facility] NRBC Abs Auto 0.000 0.0 - 0.012 X10*3/uL [facility] 07/04/2025 4:08 PM EDT 07/04/2025 4:08 PM EDT us Generic External Data Provider LAB BLOOD ORDERAB LES Final Result Performing Organization Address City/State/[facility] Co de Phone Number [facility] [address] [place] [address] [phone] documented in this encounter Visit Diagnoses Not on filedocumented in this encounter Additional Health Concerns Assessment Noted Time PHQ-9 Depression Total Score: 0 11/11/19 25 4:16 PM EST documented as of this encounter Care Teams Table Machine Operator Relationship Specialty Start Date End Date Ricci Barkley MD [address] [place] [address] PCP - General Internal Medicine 01/04/19 Ashia Mena 05/22/25 documented as of this encounter
--- OUTSIDE RECORDS SUMMARY | 2025-07-04 18:06 | XMS_ITS | Encounter Summary ---
Author Organization [employer] Address 75 [facility] 7 [place] [address] Care Team Providers Care Boiler Blower Name Role Phone Ricci Barkley MD Primary Care Provider [phone] Ashia Mena Unavailable Reason for Visit * Reason Onset Date Comments Call Back Request 05/29/2025 Encounter Details Date Type Department Care Team (Late st Contact Info) Description 05/29/[address] [facility] MEDICINE [address] [place] [address] Ricci Barkley MD [address] [place] [address] Call Back Request Social History Tobacco Use Types Packs/Day Years [...] encounter Miscellaneous Notes * Telephone Encounter - Eugene Mena - 05/29/2025 1:22 PM EDT Tc from spouse (no HIPAA) requesting to speak with Ashia (CHW). Please contact pt at [phone]. documented in this encounter Plan of Treatment Not on file documented as of this encounter Visit Diagnoses Not on filedocumented in this encounter Additional Health Concerns Assessment Noted Time PHQ-9 Depression Total Score: 0 11/11/19 25 4:16 PM EST documented as of this encounter Care Teams Boiler Blower Relationship Specialty Start Date End Date Ricci Barkley MD [address] [place] [address] PCP - General Internal Medicine 01/04/19 Ashia Mena 05/22/25 documented as of this encounter
--- OUTSIDE RECORDS SUMMARY | 2025-07-04 18:06 | XMS_ITS | Encounter Summary ---
Author Organization [facility] Address [address] [place] [address] Phone Care Team Providers Care Alum Plant Operator Name Role Phone Self-Referred, Patient Unavailable Unavailab le Elli Nazario MD Unavailable [phone] Moe Shaffer MD, PhD Unavailable Elli Nazario MD Unavailable [phone] Selena Antonio Unavailable [phone] Ricci Barkley MD Primary Care Pr ovider Encounter Details Date Type Department Care Team (Late st Contact Info) Description 03/30/2025 Procedure Pass [facility] L[facility] Imaging Department, [facility] Cancer [place], [place] [address] [facility], Floor [address] [place] [address] Social History Tobacco Use Types Packs/Day Years [...] Info) Description 07/11/2025 11:15 AM EDT Telemedicine [facility] General & GI Surgery [address] [place], [place] [address]3 [place] [address] Yelitza Ward MD, MSc [address] [place] [address] [email or web address] documented as of this encounter Visit Diagnoses Not on filedocumented in this encounter Care Teams Alum Plant Operator Relationship Specialty Start Date End Date Ricci Barkley MD [address] [place] [address] PCP - General Internal Medicine 05/30/25 Self-Referred, Patient 10/30/22 Elli Nazario MD [address] [place] [address] [email or web address] 12/01/22 Moe Shaffer MD, PhD [address] [place] [address] [email or web address] Medical Oncology 12/01/22 Elli Nazario MD [address] [place] [address] [email or web address] Referring Physician Internal Medicine 02/08/25 Selena Antonio [address] [place] [address] [email or web address] Older Worker Specialist 03/24/25 documented as of this encounter Additional Source Comments The information contained in this document represents components of the legal health record. It is not the complete legal health record.[facility]
--- OUTSIDE RECORDS SUMMARY | 2025-07-04 18:06 | XMS_ITS | Encounter Summary ---
Author Organization [facility] Address [address] [facility] [address] [place] [address] Phone Care Team Providers Care Trade Manager Name Role Phone Self-Referred, Patient Unavailable Unavailab le Elli Nazario MD Unavailable [phone] Moe Shaffer MD, PhD Unavailable Elli Nazario MD Unavailable [phone] Selena Antonio Unavailable [phone] Ricci Barkley MD Primary Care Pr ovider Encounter Details Date Type Department Care Team (Late st Contact Info) Description 04/20/[address] [facility] [address] [address] Yelitza Zapata PA-C [address] [place] [address] [email or web address] Social History Tobacco Use Types Packs/Day Years [...] PM EST documented as of this encounter Progress Notes * Yelitza Zapata PA-C - 04/20/2025 11:32 AM EDT Apheresis Collection Suitability Name: Jp Coburn MRN: ?[id number] Indication: ?[facility] research protocol [id number] (colon cancer) Tentative Collection Date: ?04/25/25 Date of mobilization: N/A Has the donor been tested for evidence of communicable infectious diseases in accordance with FDA/AABB guidelines: ?yes ?If female, is the donor surgically sterile? N/A If yes, explain: If female, is the donor older than 54? N/A If female, is the donor post menopausal? N/A HCG: N/A ? Relevant Past Medical History: ?Cardiac (Atrial fibrillation or flutter, sick sinus syndrome, or ventricular arrhythmias, CAD/CA, CHF, HTN, heart valve disease, diastolic dysfunction, peripheral edema). Hx of HTN, well controlled now Endocrine (NIDDM/IDDM, thyroid disease, Adrenal disorders, ???). No Heme (Coagulopathy, Anemia, Hemoglobinopathies, ITP/TTP,???). ?Anemia Neuro (Cerebrovascular disease-TIA/CVA, Seizure disorders, Migraine headaches). No Psychiatric disorders (Mood disorders, Substance Abuse/Dependence???). No Pulmonary (Asthma, COPD, Pulmonary Embolism, Interstitial lung disease, Pleural/Mediastinal disorders, Tumor). No ?I, the Transfusion Medicine PA, have deemed the above donor to be medically suitable for [facility] research collection. The information above was collected from a review of patient records. Yelitza Zapata PA-C Transfusion Medicine PA [facility] Transfusion Medicine Pager: [phone] documented in this encounter Plan of Treatment Upcoming Encounters Date Type Department Care Team (Late st Contact Info) Description 07/11/2025 11:15 AM EDT Telemedicine [facility] General & GI Surgery [address] [place] [address] Yelitza Ward MD, MSc [address] [place] [address] [email or web address] documented as of this encounter Visit Diagnoses Not on filedocumented in this encounter Care Teams Trade Manager Relationship Specialty Start Date End Date Ricci Barkley MD [address] [place] [address] PCP - General Internal Medicine 05/30/25 Self-Referred, Patient 10/30/22 Elli Nazario MD [address] [place] [address] [email or web address] Internal Medicine 12/01/22 Moe Shaffer MD, PhD [address] [place] [address] [email or web address] Medical Oncology 12/01/22 Elli Nazario MD [address] [place] [address] [email or web address] Referring Physician Internal Medicine 02/08/25 Selena Antonio [address] [place] [address] [email or web address] Final Assembly Inspector 03/24/25 documented as of this encounter Additional Source Comments The information contained in this document represents components of the legal health record. It is not the complete legal health record.[facility]
--- OUTSIDE RECORDS SUMMARY | 2025-07-04 18:06 | XMS_ITS | Encounter Summary ---
Author Organization [facility] Address [address] [facility] [address] [place] [address] Phone Care Team Providers Care Java Spring Developer Name Role Phone Self-Referred, Patient Unavailable Unavailab le Elli Nazario MD Unavailable [phone] Moe Shaffer MD, PhD Unavailable [phone] Elli Nazario MD Unavailable [phone] Selena Antonio Unavailable [phone] Ricci Barkley MD Primary Care Pr ovider Encounter Details Date Type Department Care Team (Late st Contact Info) Description 03/27/2025 Procedure Pass Nneka Lank Imaging Department, [facility] Cancer [place], MRI [address] [address] Social History Tobacco Use Types Packs/Day Years [...] PM EST documented as of this encounter Last Filed Vital Signs Vital Sign Reading Time Taken Comments Blood Pressure - - Pulse - - Temperature - - Respiratory Rate - - Oxygen Saturation - - Inhaled Oxygen Concentration - - Weight 70.3 kg (155 lb) 03/30/2025 2:21 PM EDT Height - - Body Mass Index 25.98 03/28/2025 12:46 PM EDT documented in this encounter Plan of Treatment Upcoming Encounters Date Type Department Care Team (Late st Contact Info) Description 07/11/2025 11:15 AM EDT Telemedicine [facility] General & GI Surgery [address] [place] [address] Yelitza Ward MD, MSc [address] [place] [address] [email or web address] documented as of this encounter Visit Diagnoses Not on filedocumented in this encounter Care Teams Java Spring Developer Relationship Specialty Start Date End Date Ricci Barkley MD [address] [place] [address] PCP - General Internal Medicine 05/30/25 Self-Referred, Patient 10/30/22 Elli Nazario MD [address] [place] [address] [email or web address] Medicine 12/01/22 Moe Shaffer MD, PhD [address] [place] [address] [email or web address] Medical Oncology 12/01/22 Elli Nazario MD [address] [place] [address] [email or web address] Referring Physician Internal Medicine 02/08/25 Selena Antonio [address] [place] [address] [email or web address] Stick Feeder 03/24/25 documented as of this encounter Additional Source Comments The information contained in this document represents components of the legal health record. It is not the complete legal health record.[facility]
--- OUTSIDE RECORDS SUMMARY | 2025-07-04 18:06 | XMS_ITS | Encounter Summary ---
Author Organization [facility] Address [address] [place] [address] Phone Care Team Providers Care Contracts Manager Name Role Phone Self-Referred, Patient Unavailable Unavailab le Elli Nazario MD Unavailable [phone] Moe Shaffer MD, PhD Unavailable Elli Nazario MD Unavailable [phone] Selena Antonio Unavailable [phone] Ricci Barkley MD Primary Care Pr ovider Encounter Details Date Type Department Care Team (Late st Contact Info) Description 03/30/2025 Procedure Pass [facility] [address] [place] [address] Social History Tobacco Use Types Packs/Day Years [...] with a working camera? Not on file 05 / Sex and Gender Information Value Date Recorded Sex Assigned at Male 10/30/2022 2:56 PM EST Legal Sex Male 2:51 PM EST Gender Identity Male 10/30/2022 2:56 PM EST Sexual Orientation Straight 10/30/2022 2: 56 PM EST documented as of this encounter Plan of Treatment Upcoming Encounters Date Type Department Care Team (Late st Contact Info) Description 07/11/2025 11:15 AM EDT Telemedicine [facility] General & GI Surgery [address] [place] [address] ASB2-3 [place] [address] Yelitza Ward MD, MSc [address] [place] [address] [email or web address] documented as of this encounter Visit Diagnoses Not on filedocumented in this encounter Care Teams Contracts Manager Relationship Specialty Start Date End Date Ricci Barkley MD [address] [place] [address] PCP - General Internal Medicine 05/30/25 Self-Referred, Patient 10/30/22 Elli Nazario MD [address] [place] [address] [email or web address] 12/01/22 Moe Shaffer MD, PhD [address] [place] [address] [email or web address] Medical Oncology 12/01/22 Elli Nazario MD [address] [place] [address] [email or web address] Referring Physician Internal Medicine 02/08/25 Selena Antonio [address] [place] [address] [email or web address] Sterile Processing Tech 03/24/25 documented as of this encounter Additional Source Comments The information contained in this document represents components of the legal health record. It is not the complete legal health record.[facility]
--- OUTSIDE RECORDS SUMMARY | 2025-07-04 18:06 | XMS_ITS ---
Author Organization [facility] Address [address] [place] [address] Phone Care Team Providers Care Baccarat Dealer Name Role Phone Self-Referred, Patient Unavailable Unavailab le Elli Nazario MD Unavailable [phone] Moe Shaffer MD, PhD Unavailable [phone] Elli Nazario MD Unavailable [phone] Selena Antonio Unavailable [phone] Ricci Barkley MD Primary Care Pr ovider Active Problems Problem Noted Date Diagnosed Date Genital herpes simplex 01/05/2023 Malignant neoplasm of ascending colon 09/08/2020 Cancer Staging:Pathologic stage from 09/14/2020:Stage IIIB(pT4a, pN1b, cM0) - Signed by Moe Shaffer MD, PhD on 12/01/2022 Microcytic anemia 08/14/2020 Current Treatment and Therapy Plans [facility] Cellular Therapy Collection* Plan Start Date:04/25/2025 Plan Provider:Marybel Paulino PA-C Linked Problems Malignant neoplasm of ascend ing colon Treatment Medications No medications scheduled. Past Treatment and Therapy Plans No past plan information found.
--- OUTSIDE RECORDS SUMMARY | 2025-07-04 18:06 | XMS_ITS | Encounter Summary ---
Author Organization [facility] Address [address] [place] [address] Phone Care Team Providers Care Joss House Keeper Name Role Phone Pcp, Not Required Primary Care Provider Unavaila ble Self-Referred, Patient Unavailable Unavailab Elli Solomon MD Unavailable [phone] Moe Shaffer MD, PhD Unavailable [phone] Elli Nazario MD Unavailable [phone] Selena Antonio Unavailable [phone] Ricci Barkley MD Primary Care Pr ovider Encounter Details Date Type Department Care Team (Late st Contact Info) Description 12/01/2022 Ancillary Orders [facility] [place] [facility] On[facility] [address] [facility], 9th [address], [address] [place] [address] Moe Shaffer MD, PhD [address] [place] [phone] [email or web address]. [facility] Social History Tobacco Use [...] Info) Description 07/11/2025 11:15 AM EDT Telemedicine [facility] General & GI Surgery [address] [facility] [place] [address] Yelitza Ward MD, MSc [address] [place] [address] [email or web address] documented as of this encounter Visit Diagnoses Not on filedocumented in this encounter Care Teams Joss House Keeper Relationship Specialty Start Date End Date Pcp, Not Required [address] [place] [address] PCP - General 10/30/22 02/07/25 Ricci Barkley MD [address] [place] [address] PCP - General Internal Medicine 05/30/25 Self-Referred, Patient 10/30/22 Elli Nazario MD [address] [place] [address] [email or web address] 12/01/22 Moe Shaffer MD, PhD [address] [place] [phone] [email or web address] Medical Oncology 12/01/22 Elli Nazario MD [address] [place] [phone] [email or web address] Referring Physician Internal Medicine 02/08/25 Selena Antonio [address] [place] [phone] [email or web address] Sheet Metal Duct Worker Supervisor 03/24/25 documented as of this encounter Additional Source Comments The information contained in this document represents components of the legal health record. It is not the complete legal health record.[facility]
--- OUTSIDE RECORDS SUMMARY | 2025-07-04 18:06 | XMS_ITS | Encounter Summary ---
Author Organization [facility] Address [address] [address] [place] [phone] Phone Care Team Providers Care Cryptologic Supervisor Name Role Phone Self-Referred, Patient Unavailable Unavailab le Elli Nazario MD Unavailable [phone] Moe Shaffer MD, PhD Unavailable Elli Nazario MD Unavailable [phone] Selena Antonio Unavailable [phone] Ricci Barkley MD Primary Care Pr ovider Encounter Details Date Type Department Care Team (Late st Contact Info) Description 03/27/2025 Procedure Pass [facility] L2 PRU [address] [place] [address] Social History Tobacco Use Types Packs/Day Years [...] Upcoming Encounters Date Type Department Care Team ([facility] st Contact Info) Description 07/11/2025 11:15 AM EDT Telemedicine [facility] General & GI Surgery [address] [place], [place] [address]22[address] [place] [address] Yelitza Ward MD, MSc [address] [place] [phone] [email or web address] documented as of this encounter Visit Diagnoses Not on filedocumented in this encounter Care Teams Cryptologic Supervisor Relationship Specialty Start Date End Date Ricci Barkley MD [address] [place] [address] PCP - General Internal Medicine 05/30/25 Self-Referred, Patient 10/30/22 Elli Nazario MD [address] [place] [phone] [email or web address] 12/01/22 Moe Shaffer MD, PhD [address] [place] [phone] [email or web address] Medical Oncology 12/01/22 Elli Nazario MD [address] [place] [phone] [email or web address] Referring Physician Internal Medicine 02/08/25 Selena Antonio [address] [place] [phone] [email or web address] Weight And Balance Control Agent 03/24/25 documented as of this encounter Additional Source Comments The information contained in this document represents components of the legal health record. It is not the complete legal health record.[facility]
--- OUTSIDE RECORDS SUMMARY | 2025-07-04 18:06 | XMS_ITS | Encounter Summary ---
Author Organization [facility] Address [address] [place] [phone] Phone Care Team Providers Care Boilers And Pressure Vessels Inspector Name Role Phone Self-Referred, Patient Unavailable Unavailab le Elli Nazario MD Unavailable [phone] Moe Shaffer MD, PhD Unavailable Elli Nazario MD Unavailable [phone] Selena Antonio Unavailable [phone] Ricci Barkley MD Primary Care Pr ovider Encounter Details Date Type Department Care Team (Late st Contact Info) Description 03/30/2025 Procedure Pass [facility] [address] [place] [address] Social History Tobacco Use Types Packs/Day Years [...] Info) Description 07/11/2025 11:15 AM EDT Telemedicine [facility] General & GI Surgery [address] [place] [address] AS[address] [place] [address] Yelitza Ward MD, MSc [address] [place] [phone] [email or web address] documented as of this encounter Visit Diagnoses Not on filedocumented in this encounter Care Teams Boilers And Pressure Vessels Inspector Relationship Specialty Start Date End Date Ricci Barkley MD [address] [place] [address] PCP - General Internal Medicine 05/30/25 Self-Referred, Patient 10/30/22 Elli Nazario MD [address] [place] [address] [email or web address] Internal Medicine 12/01/22 Moe Shaffer MD, PhD [address] [place] [phone] [email or web address] Medical Oncology 12/01/22 Elli Nazario MD [address] [place] [phone] [email or web address] Referring Physician Internal Medicine 02/08/25 Selena Antonio [address] [place] [address] [email or web address] Radio Recorder 03/24/25 documented as of this encounter Additional Source Comments The information contained in this document represents components of the legal health record. It is not the complete legal health record.[facility]
--- OUTSIDE RECORDS SUMMARY | 2025-07-04 18:06 | XMS_ITS ---
Author Organization [employer] Address [address] [facility] 7t [place] [address] Care Team Providers Care Forestry Technician Name Role Phone Ricci Barkley MD Primary Care Provider [phone] Ashia Mena [facility] Status:Enrolled (Active) Start date:05/22/2025 Enrollment date:05/23/2025 Enrollment reason:C3 Manual Referral Overview SDOH Referral- Please see below msg from C[employer]. Jayleen, We received a request for support with a C3 member. Please note: Non- CTC Epic sites can find the referral noted in [employer] Epic sites can find the referral noted in EPIC Member Name JP FITZPATRICK Member 1970 Member MMIS# [id number] Member Contact Information Language: Bilingual Member Health Center Referral Source Please contact Francia Lim at [phone] ex [phone] if the member is not reachable. Reason for referral Francia Lim, Patient Advocate at [facility], called seeking meal services for the member who has health conditions and is experiencing food insecurity. She stated that she had submitted a referral already, but the member was never contacted. Case Team Name Relationship Phone Ashia Mena(Responsible Staff) [phone] Continued Care and Services Coordination
--- OUTSIDE RECORDS SUMMARY | 2025-07-04 18:06 | XMS_ITS | Encounter Summary ---
Author Organization [employer] Address [address] [place] [address] [address] [place] [address] Care Team Providers Care Ship Design Teacher Name Role Phone Ricci Barkley MD Primary Care Provider [phone] Ashia Mena Unavailable Encounter Details Date Type Department Care Team (Latest Contact Info) Description 10/31/2019 Abstract C CONVERSIONS Dental, Provider, DDS Social [...] on filedocumented in this encounter Care Teams Ship Design Teacher Relationship Specialty Start Date End Date Ricci Barkley MD [address] [place] [address] PCP - General Internal Medicine 01/04/19 Ashia Mena 05/22/25 documented as of this encounter
--- OUTSIDE RECORDS SUMMARY | 2025-07-04 18:06 | XMS_ITS | Clinical Summary ---
Author Organization [facility] Address [address] [facility] [address] [place] [address] Phone Care Team Providers Care Implementation Advisor Name Role Phone Self-Referred, Patient Unavailable Unavailab le Elli Nazario MD Unavailable [phone] Moe Shaffer MD, PhD Unavailable Elli Nazario MD Unavailable [phone] Selena Antonio Unavailable Ricci Barkley MD Primary Care Pr ovider Allergies Active Allergy Reactions Criticality Noted Date Comments Iodinated Contrast Media Swelling Medium 12/01/2022 No SOB Medications b complex vitamins capsule Take 1 capsule by mouth daily. Active trifluridine-ti piraciL (LONSURF) 15-6.14 mg tablet Take 35 mg/m2 by mouth 2 (two) times a day. Active magnesium carbonate 54 mg/5 mL Liqd Take 54 mg by mouth daily before breakfast. Active ferrous sulfate 325 mg (65 mg tazlina iron) tablet Take 325 mg by mouth daily with breakfast. Active oxyCODONE 5 MG immediate release tablet Take 1 tablet (5 mg total) by mouth every 4 (four) hours as needed for pain (specific location in comments) (surgical pain). Partial fill ok 5 tablet 5 Active predniSONE (DELTASONE) 50 MG tablet Take 1 tablet by mouth 13, 7 and 1 hour(s) before your appointment where you will be receiving IV contrast dye for your imaging study 3 tablet Active Active Problems Problem Noted Date Diagnosed Date Genital herpes simplex 01/05/2023 Malignant neoplasm of ascending colon 09/08/2020 Cancer Staging:Pathologic stage from 09/14/2020:Stage IIIB(pT4a, pN1b, cM0) - Signed by Moe Shaffer MD, PhD on 12/01/2022 Microcytic anemia 08/14/2020 Encounters Date Type Department Care Team Description 06/30/2025 1:15 PM EDT - 06/30/2025 11:59 PM EDT Hospital Encounter [facility] CT Imaging, [place] [address] [place] [address] Nathaly Watson PA-C Arrived Discharge Disposition: Home or Self Care 05/30/2025 1:15 PM EDT Office Visit [facility] General & GI Surgery [address] [place] [address] Yelitza Ward MD, MSc Malignant neoplasm of ascending colon (Primary Dx); Allergic reaction to contrast material, subsequent encounter 05/30/2025 Procedure Pass [facility] CT Imaging, [place] [address] [place] [address] 05/30/2025 Procedure Pass [facility] CT Imaging, [place] [address] [place] [address] 05/18/2025 Orders Only [facility] for Multiple Myeloma, Division of Hematologic Oncology, [facility] [place] [address] [place] [address], 7th [place] [address] Fransisca Adams 04/25/2025 12:00 PM EDT - 04/25/2025 11:59 PM EDT Hospital Encounter [facility] Angio Interventional Radiology [address] [place] [address] Joni Flores MD Seguritan, Ayden T, PA-C Discharge Disposition: Home or Self Care 04/25/2025 10:45 AM EDT Telemedicine [facility] General & GI Surgery [address] [place] [address] Yelitza Ward MD, MSc Malignant neoplasm of ascending colon (Primary Dx) 04/25/2025 9:30 AM EDT Nurse Only Center for Lymphoma, Division of Hematologic Oncology, [facility] [place] [address] [facility], [address] [place] [address] Joni Flores MD McHugh, Kristin Mary, SHANTELLE 04/25/2025 9:30 AM EDT Office Visit [facility]intestinal Oncology, [facility] [address] [facility] [place] [address] Joni Flores MD Malignant neoplasm of ascending colon (Primary Dx) 04/25/2025 7:10 AM EDT - 04/25/2025 11:59 AM EDT Hospital Encounter [facility] Blood [address] [address] Addi Romero MD Manis, MD Thomas Cuenca Marc E, manager of warehouse Disposition: Home or Self Care 04/25/2025 5:50 AM EDT - 04/25/2025 9:19 AM EDT Hospital Encounter [facility] L2 PRU [address] [place] [address] Joni Flores MD Flockton, Jeffrey, SHANTELLE Juarez, Madelin Pagan, Nena Kyes Discharge Disposition: Home or Self Care 04/24/2025 Orders Only [facility] for Multiple Myeloma, Division of Hematologic Oncology, [facility] Cancer [address], [address] [place] [address] Oscar Izquierdo, RN Malignant neoplasm of ascending colon (Primary Dx) 04/21/2025 Orders Only Center for Leukemia, Division of Hematologic Oncology, [facility] Cancer [address], [address] [place] [address] Joni Flores MD Malignant neoplasm of ascending colon (Primary Dx) 04/20/2025 Social Work Social Work Department, [facility] [address] [place] [address] Jany Herzog LICSW 04/20/2025 Documentation [facility] [address] [place] [address] Yelitza Zapata PA-C 04/20/2025 Documentation [facility] Lymphoma, Division of Hematologic Oncology, [facility] [place] [address] [facility], 7th [place] [address] Mari Hays, SHANTELLE 04/20/2025 Social Work Social Work Department, [facility] [address] [place] [address] Jany Herzog LICSW 04/17/2025 3:34 PM EDT Anesthesia Event [facility] Periop [address] [place] [address] Anna Perdomo MD Stewart, Maura Buckley, RN 04/17/2025 1:37 PM EDT - 04/17/2025 3:26 PM EDT Surgery [facility] Periop [address] [place] [address] Yelitza Ward MD, MSc LAPAROSCOPY DIAGNOSTIC 04/17/2025 12:03 PM EDT - 04/17/2025 6:22 PM EDT Hospital Encounter [facility] Periop [address] [place] [address] Yelitza Ward MD, MSc Discharge Disposition: Home or Self Care 04/17/2025 10:33 AM EDT - 04/17/2025 12:02 PM EDT Hospital Encounter [facility] Radiology [address] [place] [address] Joni Flores MD Discharge Disposition: Home or Self Care 04/17/2025 Procedure Pass [facility] Peri [address] [place] [address] 04/14/2025 9:15 AM EDT - 04/14/2025 11:59 PM EDT Hospital Encounter [facility] Radiology [address] [place] [address] Joni Flores MD Discharge Disposition: Home or Self Care 04/12/2025 8:30 AM EDT Pre-Admission Testing [facility] [address] [address] Yelitza Ward MD, MSc 04/10/2025 10:00 AM EDT Social Work Social Work Department, [facility] [address] [place] [address] Jany Herzog LICSW Schlechter, Benjamin L, MD 04/04/2025 12:48 PM EDT - 04/04/2025 11:59 PM EDT Hospital Encounter [facility] Imaging Department, [facility], MRI [address] [facility], [place] [address] [place] [address] Joni Flores MD Discharge Disposition: Home or Self Care 04/04/2025 11:27 AM EDT - 04/04/2025 12:47 PM EDT Hospital Encounter [facility] Imaging Department, [facility], CT [address] [facility], Floor [address]1 [place] [address] Joni Flores MD Discharge Disposition: Home or Self Care 04/04/2025 8:45 AM EDT - 04/04/2025 11:26 AM EDT Hospital Encounter [facility] Imaging Department, [facility], Nuclear Medicine [address] [facility], Floor [address]2 [place] [address] Joni Flores MD Discharge Disposition: Home or Self Care 03/30/2025 Procedure Pass [facility] [address] [place] [address] 03/30/2025 Procedure Pass [facility] [address] [place] [address] 03/30/2025 Procedure Pass [facility] Imaging Department, [facility], CT [address] [facility], Floor [address]1 [place] [address] 03/27/2025 Procedure Pass [facility] Angio Interventional Radiology [address] [place] [address] 03/27/2025 Procedure Pass [facility] L2 PRU [address] [place] [address] 03/27/2025 Procedure Pass [facility] Imaging Department, [facility] [place], MRI [address] [address] from Last 3 Months Family History Medical History Relation Comments Drug use disorder Brother 1 HIV Father Leukemia Mother Relation Status Comments Brother 1 Brother 2 Alive Father Maternal Grandfather Maternal Grandmother Mother Paternal Grandfather Paternal Grandmother Social History Tobacco Use Types Packs/Day Years Used Date Smoking Tobacco: Former Cigarettes 0.5 19 0 04/02/1986 - 03/31/2005 Passive Smoke Exposure: Never Smokeless Tobacco: Never Tobacco Cessation:Counseling Given: Not Answered Alcohol Use Standard Drinks/Week Comments Not Currently [...] Orientation Straight 10/30/2022 2: 56 PM EST Last Filed Vital Signs Vital Sign Reading Time Taken Comments Blood Pressure 135/88 05/30/2025 1:10 PM EDT Pulse 58 05/30/2025 1:10 PM EDT Temperature 36.8 C (98.3 F) 04/25/2025 2:42 PM EDT Respiratory Rate 18 05/30/2025 1:10 PM EDT Oxygen Saturation 100% 05/30/2025 1:10 PM EDT Inhaled Oxygen Concentration 20.8% 04/25/2025 8 :25 AM EDT Weight 70.5 kg (155 lb 8 oz) 05/30/2025 1:10 PM EDT Height 165.1 cm (5' 5 ) 05/30/2025 1:10 PM EDT Body Mass Index 25.88 05/30/2025 1:10 PM EDT Plan of Treatment Upcoming Encounters Date Type Department Care Team (Late st Contact Info) Description 07/11/2025 11:15 AM EDT Telemedicine [facility] General & GI Surgery [address] [place], [place] [phone] [place] [address] Yelitza Ward MD, MSc [address] [place] [id number] [email or web address] Health Maintenance Due Date Last Done Comments Adult Td,Tdap Booster 1969 PNEUMOCOCCAL VACCINES (50+ y ears) (1 of 2 - PCV) 1988 ZOSTER VACCINES (1 of 2) 1988 COLOGUARD 2014 COLONOSCOPY 2014 COLORECTAL CANCER SCREENING 2014 FIT TEST 2014 FOBT 2014 SIGMOIDOSCOPY 2014 VIRTUAL COLONOSCOPY 2014 INFLUENZA VACCINE (#1) 2025 COVID-19 VACCINE (1 - 2023-2 5 season) 2025 LIPID PANEL 08/13/2025 08/13/2020 DEPRESSION SCREENING 03/21/2026 03/21/2025 SCREENING FOR DIABETES 04/25/2028 04/25/2025 HEPATITIS C SCREENING Completed 03/28/2025 HIV ONE-TIME SCREENING (18-6 5 YEARS) Completed 03/28/2025 SMOKING STATUS SCREENING (On ce After 26 Yrs) Completed 05/30/2025 HEPATITIS A VACCINES Aged Out No long er eligible based on patient's age to complete this topic HIB VACCINES Aged Out No longer eligi ble based on patient's age to complete this topic MENINGOCOCCAL VACCINES (ACWY) Aged Out No longer eligible based on patient's age to complete this topic MENINGOCOCCAL VACCINES (B) Aged Out N o longer eligible based on patient's age to complete this topic Medical Devices Not on file Procedures Procedure Name Priority Date/Time Associated Diagnosis Comments CT CHEST WITH CONTRAST Routine 2:54 PM EDT Malignant neoplasm of ascending colon Allergic reaction to contrast material, subsequent encounter CT ABDOMEN/PELVIS WITH CONTRAST Routine 06/30/2025 2:54 PM EDT Malignant neoplasm of ascending colon IR PHERESIS CATHETER Routine 04/25/2025 4:06 PM EDT Malignant neoplasm of ascending colon CBC AND DIFFERENTIAL STAT 04/25/2025 2:31 PM EDT Malignant neoplasm of ascending colon IR PHERESIS CATHETER Routine 04/25/2025 8:33 AM EDT Malignant neoplasm of ascending colon CBC AND DIFFERENTIAL Routine 04/25/2025 7:18 AM EDT Malignant neoplasm of ascending colon HC B CELLS TOTAL COUNT Routine 7:18 AM EDT Malignant neoplasm of ascending colon COMPREHENSIVE METABOLIC PANEL STAT 04/25/2025 6:35 AM EDT CBC AND DIFFERENTIAL STAT 04/25/2025 6:35 AM EDT AIRWAY PLACEMENT Routine 04/17/2025 3:44 PM EDT POCT GLUCOSE Routine 04/17/2025 3:24 PM EDT MO LAP,DIAGNOSTIC ABDOMEN 04/17/2025 2:28 PM EDT Malignant neoplasm of ascending colon MRI PELVIS WITH AND WITHOUT CONTRAST Routine 04/17/2025 11:00 AM EDT Malignant neoplasm of ascending colon MRI ABDOMEN WITH AND WITHOUT CONTRAST Routine 04/17/2025 11:00 AM EDT Malignant neoplasm of ascending colon NM PET CT SCALP TO TOES Routine 04/14/2025 12:07 PM EDT Malignant neoplasm of ascending colon POCT GLUCOSE Routine 04/14/2025 10:39 AM EDT GI THALIA PANC [address] BLD Routine 1:51 PM EDT Malignant neoplasm of ascending colon HC BLOOD COUNT COMPLETE AUTO&AUTO DIFRNTL WBC Routine 04/04/2025 1:51 PM EDT Malignant neoplasm of ascending colon MRI BRAIN WITH AND WITHOUT CONTRAST Routine 04/04/2025 1:21 PM EDT Malignant neoplasm of ascending colon CT CHEST WITHOUT CONTRAST Routine 04/04/2025 11:52 AM EDT Malignant neoplasm of ascending colon NM ONCOLOGY GATED CARD BLOOD POOL SCAN (MUGA) - DFCI ONLY Routine 04/04/2025 11:11 AM EDT Malignant neoplasm of ascending colon HEPATITIS C ANTIBODY, QUALITATIVE Routine 03/28/2025 12:36 PM EDT Need for hepatitis C screening test Malignant neoplasm of ascending colon from Last 3 Months or Most Recently Relevant to Health Maintenance Results * CT CHEST WITH CONTRAST (06/30/2025 [...] clinician's provided indication for this examination in [facility]: *Colon cancer, assess treatment response; colon ca [...] clinician's provided indication for this examination in [facility]: * Colon cancer, assess treatment response; colon [...] clinician's provided indication for this examination in [facility]: *Colon cancer, assess treatment response; colon ca [...] of disease in the abdomen and pelvis. Nathaly Watson PA-C IMG CT ABD/PELVIS Final Resu lt * IR Pheresis Catheter Removal; Chest; Radiologist Discretion (04/25/2025 4:06 PM EDT) Anatomical Region Laterality Modality Interventional R adiography 04/25/2025 4:05 PM EDT Narrative 04/25/2025 4:07 PM EDT Procedure: Left non-tunneled catheter removal Clinical History and Indication: 54 years old male with colon cancer. Non- tunneled CVC is requested for collection. Patient has completed collection and line removal is requested. Operators: Advanced Practice Provider: Oswaldo Salazar PA-C Pre-Procedural Medications: Antibiotics: See medication administration in electronic medical record for details. Other: None. Intra-Procedural Medications and Contrast: See medication administration in electronic medical record for details. Sedation: None. Device(s): 1. None. Technique and Findings: Written informed consent was obtained. The patient was prepped and draped in a sterile fashion. A Procedural Time-Out was performed immediately prior to the procedure. The catheter was removed, inspected, and confirmed to be removed in its entirety. Hemostasis was achieved by manual compression. A sterile dressing was placed. Specimens Submitted: None. Adverse Events: None. Estimated Blood Loss: Minimal. Summary: 1. Left non-tunneled catheter removal. Procedure Note Oswaldo Salazar PA-C - 04/25/2025 Procedure: Left non-tunneled catheter removal Clinical History and Indication: 54 years old male with colon cancer.Non- tunneled CVC is requested for collection. Patient has completedcollection and line removal is requested. Operators: Advanced Practice Provider: Oswaldo Salazar PA-C Pre-Procedural Medications: Antibiotics: See medication administration in electronic medical recordfor details. Other: None. Intra-Procedural Medications and Contrast: See medication administrationin electronic medical record for details. Sedation: None. Device(s): 1. None. Technique and Findings: Written informed consent was obtained. The patient was prepped and drapedin a sterile fashion. A Procedural Time-Out was performed immediatelyprior to the procedure. The catheter was removed, inspected, and confirmed to be removed in itsentirety. Hemostasis was achieved by manual compression. A steriledressing was placed. Specimens Submitted: None. Adverse Events: None. Estimated Blood Loss: Minimal. Summary: 1. Left non-tunneled catheter removal. us Joni Flores MD IMG IR VASCULAR Final R esult * (ABNORMAL) CBC and differential (04/25/2025 2:31 PM EDT) Only the most recent of4 resultswithin the time period is included. WBC 6.13 4.00 - 11.00 K/uL [facility] RBC 4.30(L) 4.50 - 5.90 M/uL [facility] HGB 11.9(L) 13.5 - 17.5 g/dL [facility] HCT 37.5(L) 41.0 - 53.0 % [facility] PLT 113(L) 150 - 450 K/uL [facility] MCV 87.2 80.0 - 100.0 fL [facility] MCH 27.7 27.0 - 31.0 pg [facility] MCHC 31.7(L) 32.0 - 36.0 g/dL [facility] RDW 15.5(H) 11.5 - 14.5 % [facility] MPV 8.9 8.4 - 12.0 fL [facility] NRBC 0.00 0.00 /100 WBCs [facility] ABSOLUTE NRBC 0.00 0.00 K/uL [facility] DIFF METHOD Auto [facility] NEUTS 65.5 48.0 - 76.0 % [facility] LYMPHS 25.0 18.0 - 41.0 % [facility] MONOS 7.7 4.0 - 11.0 % [facility] EOS 1.0 0.0 - 5.0 % [facility] BASOS 0.3 0.0 - 1.5 % [facility] % IMMATURE GRANS 0.5 0.0 - 0.9 % [facility] ABSOLUTE NEUTS 4.02 1.92 - 7.60 K/uL [facility] Comment:1.21-5.39 cells/KL i s the reference range for individuals with the Dunn null phenotype ABSOLUTE LYMPHS 1.53 0.72 - 4.10 K/uL [facility] ABSOLUTE MONOS 0.47 0.16 - 1.10 K/uL [facility] ABSOLUTE EOS 0.06 0.00 - 0.50 K/uL [facility] ABSOLUTE BASOS 0.02 0.00 - 0.15 K/uL [facility] ABS IMMATURE GRANS 0.03 0.00 - 0.09 K/uL [facility] ABSOLUTE NEUTROPHIL COUNT 4.02 1.92 - 7.60 K/uL [facility] Comment: Automated cell count. Manual ANC may differ if performed. 1.21-5.39 cells/KL is the reference range for individuals with the Dunn null phenotype Blood (Blood, Venous) 04/25/2025 2:31 PM EDT 04/25/2025 2:36 PM EDT us Marybel Paulino PA-C LAB BLOOD ORDERABLES F inal Result [facility] [address] [place] [address] * IR Pheresis Catheter Placement; Chest; Radiologist Discretion (04/25/2025 8:33 AM EDT) Anatomical Region Laterality Modality Interventional R adiography 04/25/2025 8:31 AM EDT Narrative 04/25/2025 8:59 AM EDT Procedure: Left non-tunneled central venous catheter placement Clinical History and Indication: 54 year old male with colon cancer. Non- tunneled CVC is requested for collection. Operators: Advanced Practice Provider: Madelin Juarez PA-C Pre-Procedural Medications: Antibiotics: None. Other: None. Intra-Procedural Medications and Contrast: See medication administration in electronic medical record for details. Sedation: Moderate Procedural (Conscious) Sedation was administered and monitored by radiology department nursing staff and supervised by the licensed independent provider. The following parameters were monitored: oxygen saturation, heart rate, blood pressure and response to care. The licensed independent provider spent 20 minutes of continuous [id number]-lh-dlow sedation time with the patient. Patient Radiation Dose: Fluoroscopy Time: 0.8 minutes. Cumulative Dose: 4.58 mGy. Device(s): CovVertiFlexurkar 12 Ukrainian/13 cm double lumen Technique and Findings: Written informed consent was obtained. The patient was prepped and draped in a sterile fashion. A Procedural Time-Out was performed immediately prior to the procedure. Under local anesthesia and real-time ultrasound guidance, the left internal jugular vein was entered with a micropuncture set, and a sonographic image archived for the medical record. A J-tipped guidewire was advanced. A non-tunneled central venous catheter was inserted over the wire. The tip was positioned under fluoroscopic guidance. The catheter was secured to the skin with stat lock device. The device aspirated and flushed well, and was locked with normal saline solution. A dressing was placed. Chest radiograph at the completion of the procedure showed good catheter position with the tip at the superior cavoatrial junction and no pneumothorax. All procedural wires, catheters, and sheaths were removed and/or accounted for at the completion of the procedure. Specimens Submitted: None. Adverse Events: None. Estimated Blood Loss: Minimal. Summary: 1. Patent left internal jugular vein. 2. Non-tunneled catheter placement via this vein. Plan: 1. The device is ready for immediate use. 2. The device is not power injectable. The device is not ethanol-compatible. Procedure Note Madelin Juarez PA-C - 04/25/2025 Procedure: Left non-tunneled central venous catheter placement Clinical History and Indication: 54 year old male with colon cancer.Non-tunneled CVC is requested for collection. Operators: Advanced Practice Provider: Madelin Juarez PA-C Pre-Procedural Medications: Antibiotics: None. Other: None. Intra-Procedural Medications and Contrast: See medication administrationin electronic medical record for details. Sedation: Moderate Procedural (Conscious) Sedation was administered andmonitored by radiology department nursing staff and supervised by [facility] independent provider. The following parameters were monitored:oxygen saturation, heart rate, blood pressure and response to care. Thelicensed independent provider spent 20 minutes of continuous rraj-qc-kfkdnfpzyrsc time with the patient. Patient Radiation Dose: Fluoroscopy Time: 0.8 minutes. Cumulative Dose: 4.58 mGy. Device(s): CovVertiFlexurkar 12 [place]/13 cm double lumen Technique and Findings: Written informed consent was obtained. The patient was prepped and drapedin a sterile fashion. A Procedural Time-Out was performed immediatelyprior to the procedure. Under local anesthesia and real-time ultrasound guidance, the leftinternal jugular vein was entered with a micropuncture set, and asonographic image archived for the medical record. A J-tipped guidewirewas advanced. A non-tunneled central venous catheter was inserted overthe wire. The tip was positioned under fluoroscopic guidance. Thecatheter was secured to the skin with stat lock device. The deviceaspirated and flushed well, and was locked with normal saline solution. Adressing was placed. Chest radiograph at the completion of the procedureshowed good catheter position with the tip at the superior cavoatrialjunction and no pneumothorax. All procedural wires, catheters, andsheaths were removed and/or accounted for at the completion of theprocedure. Specimens Submitted: None. Adverse Events: None. Estimated Blood Loss: Minimal. Summary: 1. Patent left internal jugular vein. 2. Non-tunneled catheter placement via this vein. Plan: 1. The device is ready for immediate use. 2. The device is not power injectable. The device is notethanol-compatible. us Joni Flores MD IMG IR VASCULAR Final R esult * (ABNORMAL) Lymphocyte Subsets (04/25/2025 7:18 AM EDT) ABSOLUTE LYMPH COUNT 2,630 950 - 2,967 /uL [facility] CD3+ (ABS) 2,004 319 - 2,784 /uL [facility] CD3+ (PCT) 76.2 52.0 - 84.0 %Lymphs [facility] CD3+ CD4+ (ABS) 1,506(H) 295 - 1,471 /uL [facility] CD3+ CD4+ (PCT) 57.3(H) 26.0 - 55.0 %Lymphs [facility] CD3+ CD8+ (ABS) 450 125 - 1,214 /uL [facility] CD3+ CD8+ (PCT) 17.1 11.0 - 37.0 %Lymphs [facility] CD3- CD19+ (ABS) 516 110 - 541 /uL [facility] CD3- CD19+ (PCT) 19.6 7.0 - 25.0 %Lymphs [facility] CD3-CD(16+56)+ (ABS) 101 36 - 652 /uL [facility] CD3-CD(16+56)+ (PCT) 3.8 2.0 - 27.0 %Lymphs [facility] CD4+:CD8+ RATIO 3.35 0.7 - 5.0 [facility] Blood 04/25/2025 7:18 AM EDT 04/25/2025 7:23 AM EDT Joni Flores MD LAB BLOOD ORDERABLES Fi nal Result Performing Organization Address City/State/[facility] Co de Phone Number [facility] [address] [place] [id number] * Comprehensive metabolic panel (04/25/2025 6:35 AM EDT) SODIUM 141 136 - 145 mmol/L [facility] POTASSIUM 4.1 3.4 - 5.1 mmol/L [facility] CHLORIDE 102 98 - 107 mmol/L [facility] CO2 29 22 - 31 mmol/L [facility] BUN 13 6 - 23 mg/dL [facility] CREATININE 1.07 0.50 - 1.20 mg/dL [facility] GLUCOSE 83 70 - 100 mg/dL [facility] ALBUMIN 4.6 3.5 - 5.2 g/dL [facility] TOTAL PROTEIN 7.6 6.4 - 8.3 g/dL [facility] CALCIUM 9.1 8.8 - 10.7 mg/dL [facility] ALKALINE PHOSPHATASE 117 35 - 130 U/L [facility] TOTAL BILIRUBIN 0.4 0.0 - 1.0 mg/dL [facility] AST 20 10 - 50 U/L [facility] ALT 15 10 - 50 U/L [facility] GLOBULIN 3.0 2.2 - 4.2 g/dL [facility] EGFR 82 >59 mL/min/1.7 3m2 [facility] Comment:Estimated glomerular filtration rate calculated using the CKD-EPI refit equation. ANION GAP 10 7 - 17 mmol/L [facility] Blood 04/25/2025 6:35 AM EDT 04/25/2025 7:23 AM EDT us Marybel Paulino PA-C LAB BLOOD ORDERABLES F inal Result Performing Organization Address City/State/[facility] Co de Phone Number [facility] [address] [place] [address] * ANES ETT DOUBLE LUMEN - AIRWAY LDA (04/17/2025 3:44 PM EDT) Narrative Yi Singh MD - 04/17/2025 3:44 PM EDT Yi Singh MD 04/17/2025 3:58 PM Airway Placement Procedure Note: Patient was not difficult to intubate. Procedure performed by: fellow/resident/[employer] Anesthesiologist: Anna Perdomo MD Fellow/Resident/[employer]: Yi Singh MD Airway procedure initiated at:04/17/2025 3:44 PM and ended at. Personal Protective Equipment: Mask: surgical mask Eye Protection: eye shield Gloves: gloves Mask Ventilation: Quality: not attempted Airway Placement: Technique: video laryngoscopy and direct laryngoscopy Rapid sequence induction: no Details: Blade type: Mac Direct view: grade 1 Video Laryngoscopy was: elective Number of attempts: 1 ETT type: cuffed ETT size: 7.0 ETT depth at teeth: 22 Tube position confirmed by: bilateral breath sounds and EtCO2 Bite Block: soft Outcomes: Evidence of dental injury? no Complications observed? no us Anna Perdomo MD [place] ANESTHESIA Final Res ult * POCT Glucose (04/17/2025 3:24 PM EDT) Only the most recent of2 resultswithin the time period is included. Glucose, POCT 76 70 - 100 mg/dL [facility] 04/17/2025 3:24 PM EDT 04/17/2025 3:26 PM EDT us Yelitza Ward MD, MSc POINT OF CARE TEST ORD ERABLES Final Result [facility] [address] [place] [address], [place] [address] * MRI PELVIS WITH AND WITHOUT CONTRAST (04/17/2025 11:00 AM EDT) Anatomical Region Laterality Modality Pelvis Magnetic Resonan ce 04/17/2025 2:13 PM EDT Impressions 04/17/2025 8:19 PM EDT Compared to 12/13/2024: 1. Increased size of multiple peritoneal nodules and masses, FDG-avid on recent PET/CT 04/14/2025, likely peritoneal carcinomatosis. Narrative 04/17/2025 8:19 PM EDT MRI ABDOMEN WITH AND WITHOUT CONTRAST, MRI PELVIS WITH AND WITHOUT CONTRAST Referring clinician's provided indication for this examination in Epic: Research Study TECHNIQUE: Multiplanar MR imaging of the abdomen was performed using T1, T2, fat saturated, and diffusion weighted techniques. Dynamic multiphase imaging was also performed after administration of an intravenous gadolinium contrast agent. Multiplanar MR imaging of the pelvis was performed using T1, T2, and diffusion weighted techniques. Dynamic multiphase imaging was also performed after administration of an intravenous gadolinium contrast agent. COMPARISON: NM PET CT SCALP TO TOES ; CT ABDOMEN/PELVIS OUTSIDE (NO INTERPRETATION) (accession [id number]), NM PET CT SCALP TO TOES (accession [id number]) FINDINGS: Lower Chest: No effusions. Liver: No focal lesions. Biliary: Adenomyomatosis of the gallbladder fundus (1:26). No biliary ductal dilatation. Spleen: No splenomegaly or focal lesions. Pancreas: No masses or ductal dilatation. Adrenal Glands: No nodules. Kidneys/Ureters: No solid masses or hydronephrosis. Bladder: No mass. Bowel: No dilatation or wall thickening. Other pelvic organs: No mass. Peritoneum/Retroperitoneum: Increased size of peritoneal nodules and masses, FDG-avid on recent PET/CT 04/14/2025, such as: * Along the right paracolic gutter measuring 3.5 x 2.0 cm (13:11), previously 2.7 x 1.7 cm; * Along the anterior midline abdomen measuring 2.7 x 1.8 cm (13:9), previously 2.3 x 1.6 cm; * Abutting the right psoas muscle measuring 2.4 x 1.5 cm (6:7), previously 1.4 x 1.1 cm. Lymph Nodes: No lymphadenopathy. Vessels: No abdominal aortic aneurysm. Bones/Soft Tissues: No focal marrow replacing lesions. Grade 1-2 anterolisthesis L5 over S1. Procedure Note Krista Diego MD, PhD - 04/17/2025 MRI ABDOMEN WITH AND WITHOUT CONTRAST, MRI PELVIS WITH AND WITHOUTCONTRAST Referring clinician's provided indication for this examination in Epic:Research Study TECHNIQUE: Multiplanar MR imaging of the abdomen was performed using T1, T2, fatsaturated, and diffusion weighted techniques. Dynamic multiphase imagingwas also performed after administration of an intravenous gadoliniumcontrast agent. Multiplanar MR imaging of the pelvis was performed using T1, T2, anddiffusion weighted techniques. Dynamic multiphase imaging was alsoperformed after administration of an intravenous gadolinium contrastagent. COMPARISON: [place] PET CT SCALP TO TOES ; CT ABDOMEN/PELVIS OUTSIDE(NO INTERPRETATION) (accession [id number]), [place] PET CT SCALP TOTOES (accession [id number]) FINDINGS: Lower Chest: No effusions. Liver: No focal lesions. Biliary: Adenomyomatosis of the gallbladder fundus (1:26). No biliaryductal dilatation. Spleen: No splenomegaly or focal lesions. Pancreas: No masses or ductal dilatation. Adrenal Glands: No nodules. Kidneys/Ureters: No solid masses or hydronephrosis. Bladder: No mass. Bowel: No dilatation or wall thickening. Other pelvic organs: No mass. Peritoneum/Retroperitoneum: Increased size of peritoneal nodules andmasses, FDG- avid on recent PET/CT 04/14/2025, such as: * Along the right paracolic gutter measuring 3.5 x 2.0 cm (13:11),previously 2.7 x 1.7 cm; * Along the anterior midline abdomen measuring 2.7 x 1.8 cm (13:9),previously 2.3 x 1.6 cm; * Abutting the right psoas muscle measuring 2.4 x 1.5 cm (6:7),previously 1.4 x 1.1 cm. Lymph Nodes: No lymphadenopathy. Vessels: No abdominal aortic aneurysm. Bones/Soft Tissues: No focal marrow replacing lesions. Grade 1-2anterolisthesis L5 over S1. IMPRESSION: Compared to 12/13/2024: 1. Increased size of multiple peritoneal nodules and masses, FDG-avid onrecent PET/CT 04/14/2025, likely peritoneal carcinomatosis. us Joni Flores MD IMG MR PELVIS Final R esult * MRI ABDOMEN WITH AND WITHOUT CONTRAST (04/17/2025 11:00 AM EDT) Anatomical Region Laterality Modality Abdomen Magnetic Resonan ce 04/17/2025 2:13 PM EDT Impressions 04/17/2025 8:19 PM EDT Compared to 12/13/2024: 1. Increased size of multiple peritoneal nodules and masses, FDG-avid on recent PET/CT 04/14/2025, likely peritoneal carcinomatosis. Narrative 04/17/2025 8:19 PM EDT MRI ABDOMEN WITH AND WITHOUT CONTRAST, MRI PELVIS WITH AND WITHOUT CONTRAST Referring clinician's provided indication for this examination in Epic: Research Study TECHNIQUE: Multiplanar MR imaging of the abdomen was performed using T1, T2, fat saturated, and diffusion weighted techniques. Dynamic multiphase imaging was also performed after administration of an intravenous gadolinium contrast agent. Multiplanar MR imaging of the pelvis was performed using T1, T2, and diffusion weighted techniques. Dynamic multiphase imaging was also performed after administration of an intravenous gadolinium contrast agent. COMPARISON: NM PET CT SCALP TO TOES ; CT ABDOMEN/PELVIS OUTSIDE (NO INTERPRETATION) 2024- (accession [id number]), NM PET CT SCALP TO TOES (accession [id number]) FINDINGS: Lower Chest: No effusions. Liver: No focal lesions. Biliary: Adenomyomatosis of the gallbladder fundus (1:26). No biliary ductal dilatation. Spleen: No splenomegaly or focal lesions. Pancreas: No masses or ductal dilatation. Adrenal Glands: No nodules. Kidneys/Ureters: No solid masses or hydronephrosis. Bladder: No mass. Bowel: No dilatation or wall thickening. Other pelvic organs: No mass. Peritoneum/Retroperitoneum: Increased size of peritoneal nodules and masses, FDG-avid on recent PET/CT 04/14/2025, such as: * Along the right paracolic gutter measuring 3.5 x 2.0 cm (13:11), previously 2.7 x 1.7 cm; * Along the anterior midline abdomen measuring 2.7 x 1.8 cm (13:9), previously 2.3 x 1.6 cm; * Abutting the right psoas muscle measuring 2.4 x 1.5 cm (6:7), previously 1.4 x 1.1 cm. Lymph Nodes: No lymphadenopathy. Vessels: No abdominal aortic aneurysm. Bones/Soft Tissues: No focal marrow replacing lesions. Grade 1-2 anterolisthesis L5 over S1. Procedure Note Krista Diego MD, PhD - 04/17/2025 MRI ABDOMEN WITH AND WITHOUT CONTRAST, MRI PELVIS WITH AND WITHOUTCONTRAST Referring clinician's provided indication for this examination in Epic:Research Study TECHNIQUE: Multiplanar MR imaging of the abdomen was performed using T1, T2, fatsaturated, and diffusion weighted techniques. Dynamic multiphase imagingwas also performed after administration of an intravenous gadoliniumcontrast agent. Multiplanar MR imaging of the pelvis was performed using T1, T2, anddiffusion weighted techniques. Dynamic multiphase imaging was alsoperformed after administration of an intravenous gadolinium contrastagent. COMPARISON: NM PET CT SCALP TO TOES ; CT ABDOMEN/PELVIS OUTSIDE(NO INTERPRETATION) (accession [id number]), NM PET CT SCALP TOTOES (accession [id number]) FINDINGS: Lower Chest: No effusions. Liver: No focal lesions. Biliary: Adenomyomatosis of the gallbladder fundus (1:26). No biliaryductal dilatation. Spleen: No splenomegaly or focal lesions. Pancreas: No masses or ductal dilatation. Adrenal Glands: No nodules. Kidneys/Ureters: No solid masses or hydronephrosis. Bladder: No mass. Bowel: No dilatation or wall thickening. Other pelvic organs: No mass. Peritoneum/Retroperitoneum: Increased size of peritoneal nodules andmasses, FDG- avid on recent PET/CT 04/14/2025, such as: * Along the right paracolic gutter measuring 3.5 x 2.0 cm (13:11),previously 2.7 x 1.7 cm; * Along the anterior midline abdomen measuring 2.7 x 1.8 cm (13:9),previously 2.3 x 1.6 cm; * Abutting the right psoas muscle measuring 2.4 x 1.5 cm (6:7),previously 1.4 x 1.1 cm. Lymph Nodes: No lymphadenopathy. Vessels: No abdominal aortic aneurysm. Bones/Soft Tissues: No focal marrow replacing lesions. Grade 1-2anterolisthesis L5 over S1. IMPRESSION: Compared to 12/13/2024: 1. Increased size of multiple peritoneal nodules and masses, FDG-avid onrecent PET/CT 04/14/2025, likely peritoneal carcinomatosis. us Joni Flores MD IMG MR ABDOMEN Final R esult * NM PET CT Scalp to Toes (04/14/2025 12:07 PM EDT) Anatomical Region Laterality Modality Positron Emissio n Tomography (PET) 04/19/2025 11:4 1 AM EDT Impressions 04/19/2025 12:58 PM EDT 1. Several FDG avid peritoneal/omental nodules with moderate to intense uptake, likely representing peritoneal carcinomatosis. Linear FDG uptake along the right paracolic gutter nodule inseparable from the transversus abdominis muscle, may represent tumor extension/infiltration into the muscle. 2. No convincing evidence of other sites of FDG avid metastatic disease. ATTESTATION: IÓscar, as teaching physician have reviewed the images, if any, for this patient's exam, and if necessary, have edited the report originally created by Molina Franco. Narrative 04/19/2025 12:58 PM EDT Reason for exam (per EHR order): Research Study Additional clinical information obtained from the EHR: 54-year-old man. History of colon adenocarcinoma initially diagnosed in 2019 with peritoneal disease, on treatment with Lonsurf + Avastin since February 2024. Subsequent treatment strategy. TECHNIQUE: Radiopharmaceutical: F-18-FDG. Dose: 10.01 mCi. Blood glucose: 99 mg/dL. TECHNIQUE: At 71 minutes following IV tracer administration via a right antecubital fossa vein, positron emission tomography was performed from the vertex of the skull through the toes. Non-contrast low-dose helical CT imaging was performed over the same range without breath-hold for attenuation correction of PET images and anatomic correlation. COMPARISON: FDG PET/CT dated 09/09/2022 at outside hospital. Correlation is made with MRI of the abdomen and pelvis dated 04/17/2025. FINDINGS: Direct quantitative comparison of FDG uptake to prior examination at outside hospital is difficult due to differences in technique. Therefore, quantification will be provided for the current examination and only qualitative statements will be made about changes in FDG uptake. HEAD AND NECK: Misregistration artifacts are present. Focal FDG uptake along the right masseter muscle (image 70), likely physiologic. No FDG avid cervical lymphadenopathy. Foci of mild FDG activity localizing to the adipose tissues of the lower neck and supraclavicular region, likely representing physiologic brown fat activation. CHEST: Ports and devices: Right internal jugular approach port catheter with tip terminating at the superior cavoatrial junction. Lungs: No abnormal FDG uptake. Posterior dependent atelectasis. Pleura: No abnormal FDG uptake. No pleural effusions. Lymph Nodes: No abnormal FDG uptake. Mediastinum: No abnormal FDG uptake. Breasts/Chest Wall: No abnormal FDG uptake. ABDOMEN/PELVIS: Liver/biliary system: No abnormal FDG uptake. Pancreas: No abnormal FDG uptake. Spleen: No abnormal FDG uptake. Adrenal Glands: No abnormal FDG uptake. Kidneys: No abnormal FDG uptake. Bowel: No abnormal FDG uptake. Prior right hemicolectomy. Mesentery, Omentum and Peritoneum: Multiple FDG avid peritoneal/omental nodules, increased in size and FDG uptake compared to FDG PET/CT from 09/09/2022, including, * 3.9 x 2.4 cm nodule in the right paracolic gutter inseparable from the transverse abdominis muscle adjacent to surgical clips, with most intense FDG uptake along the right lateral aspect, SUVmax 7.9 (image 234), previously 2.9 x 2.4 cm with central photopenia and mild peripheral FDG uptake * 2.0 x 1.4 cm nodule abutting the right psoas muscle, SUVmax 6.9 (image 245), previously 1.3 x 1.0 cm with mild FDG uptake * 2.6 x 1.7 cm omental nodule in the anterior abdomen slightly to the right of midline, SUV max 3.5 (image 241), previously 1.5 x 0.8 cm with mild FDG uptake. Pelvis Organs: No abnormal FDG uptake. Lymph Nodes: No abnormal FDG uptake. MUSCULOSKELETAL: No FDG avid osseous lesions. Multilevel degenerative changes of the spine, most severe at L5-S1 with 1.1 cm anterolisthesis of L5 on S1 and bilateral L5 pars defect. LOWER EXTREMITIES: No abnormal FDG uptake. Procedure Note Óscar Becerra MD - 04/19/2025 Reason for exam (per EHR order): Research Study Additional clinical information obtained from the EHR: 54-year-old man.History of colon adenocarcinoma initially diagnosed in 2019 withperitoneal disease, on treatment with Lonsurf + Avastin since February 2024.Subsequent treatment strategy. TECHNIQUE: Radiopharmaceutical: F-18-FDG. Dose: 10.01 mCi. Blood glucose: 99 mg/dL. TECHNIQUE: At 71 minutes following IV tracer administration via a rightantecubital fossa vein, positron emission tomography was performed fromthe vertex of the skull through the toes. Non-contrast low-dose helical CTimaging was performed over the same range without breath-hold forattenuation correction of PET images and anatomic correlation. COMPARISON: FDG PET/CT dated 09/09/2022 at outside hospital. Correlationis made with MRI of the abdomen and pelvis dated 04/17/2025. FINDINGS: [facility] due to differences in technique. Therefore,quantification will be provided for the current examination and onlyqualitative statements will be made about changes in FDG uptake. HEAD AND NECK: Misregistration artifacts are present. Focal FDG uptakealong the right masseter muscle (image 70), likely physiologic. No FDGavid cervical lymphadenopathy. Foci of mild FDG activity localizing to theadipose tissues of the lower neck and supraclavicular region, likelyrepresenting physiologic brown fat activation. CHEST: Ports and devices: Right internal jugular approach port catheter with tipterminating at the superior cavoatrial junction. Lungs: No abnormal FDG uptake. Posterior dependent atelectasis. Pleura: No abnormal FDG uptake. No pleural effusions. Lymph Nodes: No abnormal FDG uptake. Mediastinum: No abnormal FDG uptake. Breasts/Chest Wall: No abnormal FDG uptake. ABDOMEN/PELVIS: Liver/biliary system: No abnormal FDG uptake. Pancreas: No abnormal FDG uptake. Spleen: No abnormal FDG uptake. Adrenal Glands: No abnormal FDG uptake. Kidneys: No abnormal FDG uptake. Bowel: No abnormal FDG uptake. Prior right hemicolectomy. Mesentery, Omentum and Peritoneum: Multiple FDG avid peritoneal/omentalnodules, increased in size and FDG uptake compared to FDG PET/CT from09/09/2022, including, * 3.9 x 2.4 cm nodule in the right paracolic gutter inseparable from thetransverse abdominis muscle adjacent to surgical clips, with most intenseFDG uptake along the right lateral aspect, SUVmax 7.9 (image 234),previously 2.9 x 2.4 cm with central photopenia and mild peripheral FDGuptake * 2.0 x 1.4 cm nodule abutting the right psoas muscle, SUVmax 6.9 ([id number]), previously 1.3 x 1.0 cm with mild FDG uptake * 2.6 x 1.7 cm omental nodule in the anterior abdomen slightly to theright of midline, SUV max 3.5 (image 241), previously 1.5 x 0.8 cm withmild FDG uptake. Pelvis Organs: No abnormal FDG uptake. Lymph Nodes: No abnormal FDG uptake. MUSCULOSKELETAL: No FDG avid osseous lesions. Multilevel degenerativechanges of the spine, most severe at L5-S1 with 1.1 cm anterolisthesis ofL5 on S1 and bilateral L5 pars defect. LOWER EXTREMITIES: No abnormal FDG uptake. IMPRESSION: 1. Several FDG avid peritoneal/omental nodules with moderate to intenseuptake, likely representing peritoneal carcinomatosis. Linear FDG uptakealong the right paracolic gutter nodule inseparable from the transversusabdominis muscle, may represent tumor extension/infiltration into themuscle. 2. No convincing evidence of other sites of FDG avid metastaticdisease. ATTESTATION: IÓscar, as teaching physician have reviewedthe images, if any, for this patient's exam, and if necessary, have editedthe report originally created by Molina Franco. us Joni Flores MD IMG NM PET Final R esult * GI THALIA PANC [id number] BLD (04/04/2025 1:51 PM EDT) Pathologist [facility] Research Test FOR RESEARCH STUDY [facility] LIC# [id number] Blood 04/04/2025 1:51 PM EDT 04/04/2025 2:08 PM EDT us Moe Shaffer MD, PhD LAB BLOOD ORDERABLES Final Result [facility] LIC# [id number] [address] [place] [address] * MRI BRAIN WITH AND WITHOUT CONTRAST (04/04/2025 1:21 PM EDT) Anatomical Region Laterality Modality Head Magnetic Resonan ce Other 04/04/2025 2:49 PM EDT Impressions 04/04/2025 6:52 PM EDT * No evidence of intracranial metastatic disease. ATTESTATION: IOlamide, as teaching physician have reviewed the images, if any, for this patient's exam, and if necessary, have edited the report originally created by Leighton Bar. Narrative 04/04/2025 6:52 PM EDT MRI BRAIN WITH AND WITHOUT CONTRAST Referring clinician's provided indication for this examination in Epic: Research Study Review of the Electronic Medical Record reveals an additional history of: Per oncology report: History significant for metastatic colonic adenocarcinoma. TECHNIQUE: MRI BRAIN WITH AND WITHOUT CONTRAST COMPARISON: Nuclear medicine FDG-PET/CT, 09/09/2022. FINDINGS: Brain Parenchyma: No evidence of acute infarct, mass lesion, or hemorrhage. No abnormal enhancement. Ventricular System and Extra-Axial Spaces: There is no midline shift or evidence of hydrocephalus. Extracranial Structures: Expected major arterial flow voids at the skull base are preserved. Small volume layering fluid within the left maxillary sinus. No middle ear or mastoid effusion. Procedure Note Olamide Loredo MD, PhD - 04/04/2025 MRI BRAIN WITH AND WITHOUT CONTRAST Referring clinician's provided indication for this examination in [facility]:Research Study Review of the Electronic Medical Record reveals an additional history of: Per oncology report: History significant for metastatic colonicadenocarcinoma. TECHNIQUE: MRI BRAIN WITH AND WITHOUT CONTRAST COMPARISON: Nuclear medicine FDG-PET/CT, 09/09/2022. FINDINGS: Brain Parenchyma: No evidence of acute infarct, mass lesion, orhemorrhage. No abnormal enhancement. Ventricular System and Extra-Axial Spaces: There is no midline shift orevidence of hydrocephalus. Extracranial Structures: Expected major arterial flow voids at the skullbase are preserved. Small volume layering fluid within the left maxillarysinus. No middle ear or mastoid effusion. IMPRESSION: * No evidence of intracranial metastatic disease. ATTESTATION: Olamide Olsen, as teaching physician have reviewed theimages, if any, for this patient's exam, and if necessary, have edited thereport originally created by Leighton Bar. us Joni Flores MD IMG MR HEAD/NECK Final Result * CT CHEST WITHOUT CONTRAST (04/04/2025 11:52 AM EDT) Anatomical Region Laterality Modality Chest Computed Tomogra phy Other 04/04/2025 12:3 9 PM EDT Impressions 04/04/2025 2:13 PM EDT 1. No definite evidence of metastatic disease in the chest. Narrative 04/04/2025 2:[address] CHEST WITHOUT CONTRAST Referring clinician's provided indication for this examination in [facility]: Research Study TECHNIQUE: Multidetector CT of the chest was performed without intravenous contrast using tailored dose modulation. COMPARISON: 12/13/2024 FINDINGS: The assessment of pulmonary vasculature and visceral organs is somewhat limited due to lack of intravenous contrast agent. Devices/Tubes/Lines: Central venous line terminating in the junction of SVC and right atrium. Lungs: No suspicious discrete pulmonary nodules or consolidation. Pleura: No pleural effusion. Mediastinum: No pericardial effusion. Lymph Nodes: No enlarged supraclavicular, axillary, mediastinal, or hilar lymph nodes. Upper Abdomen: No abnormality detected in the visualized upper abdomen. The assessment of the upper abdomen is limited on this chest CT. Chest Wall: Bilateral mild gynecomastia. Bones: No destructive osseous lesions. Procedure Note Ancelmo Mascorro MD, MPH - 04/04/2025 CT CHEST WITHOUT CONTRAST Referring clinician's provided indication for this examination in Epic:Research Study TECHNIQUE: Multidetector CT of the chest was performed without intravenouscontrast using tailored dose modulation. COMPARISON: 12/13/2024 FINDINGS: The assessment of pulmonary vasculature and visceral organs is somewhatlimited due to lack of intravenous contrast agent. Devices/Tubes/Lines: Central venous line terminating in the junction ofSVC and right atrium. Lungs: No suspicious discrete pulmonary nodules or consolidation. Pleura: No pleural effusion. Mediastinum: No pericardial effusion. Lymph Nodes: No enlarged supraclavicular, axillary, mediastinal, or hilarlymph nodes. Upper Abdomen: No abnormality detected in the visualized upper abdomen.The assessment of the upper abdomen is limited on this chest CT. Chest Wall: Bilateral mild gynecomastia. Bones: No destructive osseous lesions. IMPRESSION: 1. No definite evidence of metastatic disease in the chest. Joni Flores MD IM CT CHEST Final R esult * NM Oncology Gated Card Blood Pool Scan (MUGA) - [facility] ONLY (04/04/2025 11:11 AM EDT) Anatomical Region Laterality Modality Vascular, Heart, Thoracic Vasculature Nuclear Medicine Other 04/04/2025 10:1 8 AM EDT Impressions 04/04/2025 11:41 AM EDT 1. Normal biventricular wall motion and function. 2. Estimated LVEF = 66.3% Narrative 04/04/2025 11:41 AM EDT Reason for exam (per EHR order): Research Study Additional clinical information obtained from the EHR: 54-year-old man. Colon cancer, metastatic. Presents for evaluation of cardiac ejection fraction. TECHNIQUE: Radiopharmaceutical: Tc-99m RBCs. Dose: 27.5 mCi. Image acquisition and processing: Following IV tracer administration of tracer, gated planar cardiac images were obtained in three standard projections (anterior, modified WELSH, LPO) immediately following IV administration of tracer. The left ventricular ejection fraction (LVEF) was estimated from the 38-degree modified WELSH images. COMPARISON: No prior resting gating blood pool studies for comparison. FINDINGS: Cinematic images show normal diastolic filling and systolic emptying of the ventricles without evidence of focal wall motion abnormality. The left ventricular ejection fraction (LVEF) is estimated to be 66.3%. Procedure Note Amanda Caldera MD, PhD - 04/04/2025 Reason for exam (per EHR order): Research Study Additional clinical information obtained from the EHR: 54-year-old man.Colon cancer, metastatic. Presents for evaluation of cardiac ejectionfraction. TECHNIQUE: Radiopharmaceutical: Tc-99m RBCs. Dose: 27.5 mCi. Image acquisition and processing: Following IV tracer administration oftracer, gated planar cardiac images were obtained in three standardprojections (anterior, modified WELSH, LPO) immediately following IVadministration of tracer. The left ventricular ejection fraction (LVEF)was estimated from the 38-degree modified WELSH images. COMPARISON: No prior resting gating blood pool studies for comparison. FINDINGS: Cinematic images show normal diastolic filling and systolicemptying of the ventricles without evidence of focal wall motionabnormality. The left ventricular ejection fraction (LVEF) is estimated robert 66.3%. IMPRESSION: 1. Normal biventricular wall motion and function. 2. Estimated LVEF = 66.3% us Joni Flores MD [facility] NM LUNG SCAN Final Result * Hepatitis C antibody, qualitative (03/28/2025 12:36 PM EDT) HCV Nonreactive Nonreactive [facility] LIC# [id number] Comment:Antibodies to HCV no t detected. Does not exclude the possibility of exposure to HCV. Blood 03/28/2025 12:3 6 PM EDT 03/28/2025 1:03 PM EDT us Joni Flores MD LAB BLOOD ORDERABLES Fi nal Result [facility]# [id number] [address] [place] [address], [facility] from Last 3 Months or Most Recently Relevant to Health Maintenance Insurance [address] C3 ACO Care Teams Implementation Advisor Relationship Specialty Start Date End Date Ricci Barkley MD [address] [place] [address] PCP - General Internal Medicine 05/30/25 Self-Referred, Patient 10/30/22 Elli Nazario MD [address] [place] [address] [email or web address] 12/01/22 Moe Shaffer MD, PhD [address] [place] [address] [email or web address] Medical Oncology 12/01/22 Elli Nazario MD [address] [place] [address] [email or web address] Referring Physician Internal Medicine 02/08/25 Selena Antonio [address] [place] [address] [email or web address] Net Making Supervisor 03/24/25 Additional Source Comments The information contained in this document represents components of the legal health record. It is not the complete legal health record.[facility]
--- OUTSIDE RECORDS SUMMARY | 2025-07-04 18:06 | XMS_ITS | Encounter Summary ---
Author Organization [facility] Address [address] [facility] [address] [place] [phone] Phone Care Team Providers Care Retail Marketing Executive Name Role Phone Self-Referred, Patient Unavailable Unavailab le Elli Nazario MD Unavailable [phone] Moe Shaffer MD, PhD Unavailable [phone] Elli Nazario MD Unavailable [phone] Selena Antonio Unavailable [phone] Ricci Barkley MD Primary Care Pr ovider Encounter Details Date Type Department Care Team (Late st Contact Info) Description 03/27/2025 Procedure Pass [facility] Angio Interventional Radiology [address] [place] [address] Social History Tobacco Use Types Packs/Day Years [...] Upcoming Encounters Date Type Department Care Team ([facility] st Contact Info) Description 07/11/2025 11:15 AM EDT Telemedicine [facility] General & GI Surgery [address] [place], [place] [address]3 [place] [address] Yelitza Ward MD, MSc [address] [place] [address] [email or web address] documented as of this encounter Visit Diagnoses Not on filedocumented in this encounter Care Teams Retail Marketing Executive Relationship Specialty Start Date End Date Ricci Barkley MD [address] [place] [address] PCP - General Internal Medicine 05/30/25 Self-Referred, Patient 10/30/22 Elli Nazario MD [address] [place] [address] [email or web address] 12/01/22 Moe Shaffer MD, PhD [address] [place] [address] [email or web address] Medical Oncology 12/01/22 Elli Nazario MD [address] [place] [address] [email or web address] Referring Physician Internal Medicine 02/08/25 Selena Antonio [address] [place] [address] [email or web address] Bilingual Legal Assistant 03/24/25 documented as of this encounter Additional Source Comments The information contained in this document represents components of the legal health record. It is not the complete legal health record.[facility]
--- OUTSIDE RECORDS SUMMARY | 2025-07-04 18:06 | XMS_ITS | Clinical Summary ---
Author Organization [employer] Address [address] [place] [address] 7t [place] [address] Care Team Providers Care Dumper [employer] Name Role Phone Ricci Barkley MD Primary Care Provider [phone] Ashia Mena Unavailable Allergies No known active [...] Encounters Date Type Department Care Team Description 07/04/2025 Orders Only GENERIC EXTERNAL DATA DEPARTMENT Provider, Generic External Data 06/27/2025 Patient Outreach [facility] [address] [place] [address] Ricci Barkley MD Care Coordination (SDOH ) 06/06/2025 Orders Only GENERIC EXTERNAL DATA DEPARTMENT Provider, Generic External Data 05/29/[address] [place] [address] Ricci Barkley MD Call Back Request 05/29/2025 Patient Outreach [address] [place] [address] Ricci Barkley MD Care Coordination (SDOH f/u) 05/23/2025 Patient Outreach [address] [place] [address] Ricci Barkley MD 05/23/2025 Patient Outreach [address] [place] [address] Ricci Barkley MD 05/23/2025 Patient Outreach [address] [place] [address] Ricci Barkley MD 05/23/2025 Patient Outreach [address] [address] Ricci Barkley MD Care Coordination (SDNE) 05/22/2025 Patient Outreach [address] [address] Ricci Barkley MD Care Coordination (CHW Chart review) 05/22/2025 Patient Outreach [address] [address] Ricci Barkley MD 05/09/2025 Orders Only GENERIC [...] X-Ray: Full Mouth 03/15/2022 03/14/2019 COVID-19 Vaccine (3 - season) 2025 12/13/2021, 11/15/2021 Influenza Vaccine (#1) 2025 4, 08/21/2023, 11/15/2021, Additional history exists Tobacco Screening [...] Associated Diagnosis Comments COMPREHENSIVE METABOLIC PANEL Routine 07/04/2025 4:08 PM EDT CBC WITH AUTO DIFFERENTIAL Routine 07/04/2025 4:08 PM EDT MAGNESIUM Routine 06/06/2025 2:43 PM EDT COMPREHENSIVE METABOLIC PANEL Routine 06/06/2025 2:43 PM EDT CBC WITH AUTO DIFFERENTIAL Routine 06/06/2025 2:43 PM EDT MAGNESIUM Routine 05/09/2025 2:41 PM EDT COMPREHENSIVE METABOLIC PANEL Routine 05/09/2025 2:41 PM EDT CBC WITH AUTO DIFFERENTIAL Routine 05/09/2025 2:41 PM EDT COMPREHENSIVE METABOLIC PANEL Routine 04/03/2025 10:07 AM EDT CBC WITH AUTO DIFFERENTIAL Routine 04/03/2025 10:07 AM EDT URINALYSIS WITH REFLEX TO MICROSCOPIC Routine 04/03/2025 10:05 AM EDT LIPID PANEL, STANDARD Routine 08/13/2020 9:16 AM EDT PROPHYLAXIS - ADULT Routine 03/15/2019 1 2:00 AM EDT INTRAORAL - COMPLETE SERIES OF RADIOGRAPHIC IMAGES Routine 03/14/2019 12:00 AM EDT COMPREHENSIVE ORAL EVALUATION - NEW OR ESTABLISHED PATIENT Routine 03/14/2019 12:00 AM EDT from Last 3 Months or Most Recently Relevant to Health Maintenance Results * (ABNORMAL) CBC auto differential (07/04/2025 4:08 PM EDT) Only the most recent of4 resultswithin the time period is included. White Blood Count 7.3 4.8 - 10.8 X10*3/uL [facility] Red Blood Count 5.43 4.60 - 5.80 X10*6/uL [facility] Hemoglobin 14.8 14.0 - 18.0 g/dl [facility] Hematocrit 45.3 42.0 - 52.0 % [facility] Mean Corpuscular Volume 83.4 80.0 - 98.0 fL [facility] Mean Corpuscular Hemoglobin 27.3 27.0 - 33.0 pg [facility] Mean Corpuscular HGB Conc 32.7 31.0 - 36.0 g/dl [facility] Red Cell Distribution Width 17.4(H) 11.0 - 16.0 % [facility] Platelet Count 171 160 - 400 X10*3/uL [facility] Mean Platelet Volume 9.2(L) 9.4 - 12.4 fL [facility] Neutrophils Percent Auto 48.9 45 - 73 % [facility] Imm Gran Pct Auto 0.4 0.0 - 0.4 % [facility] Lymphocytes Percent Auto 35.8 20 - 40 % [facility] Monocytes Percent Auto 14.1(H) 2 - 11 % [facility] Eosinophils Percent Auto 0.7 0 - 4 % [facility] Basophils Percent Auto 0.1 0 - 2 % [facility] NRBC Pct Auto 0.0 0.0 - 0.2 /100WBC [facility] Neutrophils Absolute Auto 3.6 2.0 - 8.3 x10*3/uL [facility] Imm Gran Abs Auto 0.03 0.00 - 0.03 X10*3/uL [facility] Lymphocytes Absolute Auto 2.6 1.2 - 4.9 X10*3/uL [facility] Monocytes Absolute Auto 1.0 0.1 - 1.2 X10*3/uL [facility] Eosinophils Absolute Auto 0.1 0.0 - 0.4 X10*3/uL [facility] Basophils Absolute Auto 0.0 0.0 - 0.2 X10*3/uL [facility] NRBC Abs Auto 0.000 0.0 - 0.012 X10*3/uL [facility] 07/04/2025 4:08 PM EDT 07/04/2025 4:08 PM EDT us Generic External Data Provider LAB BLOOD ORDERAB LES Final Result Performing Organization Address City/[facility]/ZIP Co de Phone Number [facility] [address] [place] [address] [phone] * Comprehensive Metabolic Panel (07/04/2025 4:08 PM EDT) Only the most recent of4 resultswithin the time period is included. Sodium 140 135 - 145 mmol/L [facility] Potassium 4.4 3.3 - 5.1 mmol/L [facility] Chloride 106 96 - 108 mmol/L [facility] Carbon Dioxide 25 22 - 29 mmol/L [facility] Anion Gap 13 12 - 20 [facility] Urea Nitrogen (BUN) 11 9 - 16 mg/dL [facility] Creatinine, Serum 0.84 0.5 - 1.4 mg/dL [facility] Estimated Glomerular Filt Rate >60 [facility] Comment:Chronic Kidney Disea se: Estimated GFR < 60 mL/min/1.62w3Lokxqw Kidney Disease: Estimated GFR < 15 mL/min/1.73m2 Glucose 80 60 - 115 mg/dL [facility] Calcium 8.9 8.4 - 10.2 mg/dL [facility] Bilirubin, Total 0.4 0.0 - 1.0 mg/dL [facility] Aspartate Amino Transferase 37 5 - 37 U/L [facility] Alanine Aminotransferase 38 0 - 40 U/L [facility] Total Protein 7.3 6.5 - 8.0 g/dL [facility] Albumin Level 4.9 3.5 - 5.0 g/dL [facility] Alkaline Phosphatase 102 39 - 117 U/L [facility] 07/04/2025 4:08 PM EDT 07/04/2025 4:08 PM EDT us Generic External Data Provider LAB BLOOD ORDERAB LES Final Result [facility] [address] [place] [phone] * Magnesium (06/06/2025 2:43 PM EDT) Only the most recent of2 resultswithin the time period is included. Pathologist [facility] Magnesium 2.1 1.6 - 2.6 mg/dL [facility] 06/06/2025 2:43 PM EDT 06/06/2025 2:43 PM EDT Generic External Data Provider LAB BLOOD ORDERAB LES Final Result Performing Organization Address [facility] de Phone Number [facility] [address] [place] [phone] * Urinalysis with Reflex to Microscopic (04/03/2025 10:05 AM EDT) [facility] Color Urine Dark Yellow [facility] Appearance Urine Clear [facility] PH 5.5 5.0 - 9.0 [facility] Glucose Urine UA Negative Negative mg/dL [facility] Urine Blood Negative Negative [facility] Specific Raysal - Urine 1.015 1.005 - 1.025 [facility] Urine Protein Negative Neg-Trace mg/dL [facility] Urine Ketones Negative Negative mg/dL [facility] Nitrite Urine Negative Negative [facility] Leukocyte Esterase Urine Negative Negative [facility] 04/03/2025 10:0 5 AM EDT 04/03/2025 10:15 AM EDT Generic External Data Provider LAB URINE ORDERAB LES Final Result Performing Organization Address [facility] de Phone Number [facility] [address] [place] [phone] * (ABNORMAL) LIPID PANEL, STANDARD (08/13/2020 9:16 AM EDT) Pathologist [facility] Cholesterol, Total 207(H) <200 mg/dL [facility] [...] LDL-C. Que SS et al. AMELIA. 2013;310(19): 0990-7839 (http://education.[employer]/faq/RHS970) Cholesterol, Total 207(H) <200 mg/dL [facility] [...] LDL-C. Que SS et al. AMELIA. 2013;310(19): 1415-7672 (http://education.[employer]/faq/WOU721) Chol/HDLC Ratio 4.2 <5.0 (calc) [facility] [...] LDL-C. Que PARR et al. AMELIA. 2013;310(19): 4536-8734 (http://education.[employer]/faq/OUF300) Chol/HDLC Ratio 4.2 <5.0 (calc) [facility] Non-HDL Cholesterol 158(H) <130 mg/dL (calc) [facility] Comment: For patients with diabetes plus 1 major ASCVD risk factor, treating to a non-HDL-C goal of <100 mg/dL (LDL-C of <70 mg/dL) is considered a therapeutic option. 08/13/2020 9:16 AM EDT Ricci Barkley MD LAB BLOOD ORDERABLES Final Result [facility] [address] from Last 3 Months or Most Recently Relevant to Health Maintenance Insurance [facility] C3 [facility] STAND ADULT Care Teams Dumper [employer] Relationship Specialty Start Date End Date Ricci Barkley MD [address] [place] [address] PCP - General Internal Medicine 01/04/19 Ashia Mena 05/22/25
== END 2025-07-04 15:58 | disposition home or self-care (01) ==
LOC: HO.LAB 15:57
PROVIDERS: PCP Internal Medicine; Visit Provider Internal Medicine
DX: C18.0 Malignant neoplasm of cecum (principal)
CPT/HCPCS: 36415; 80053; 85025

== ENCOUNTER 2025-07-26 06:58 | Outpatient (REF) | payer MEDICAID, SELFPAY ==
--- OUTSIDE RECORDS SUMMARY | 2025-07-26 07:01 | XMS_ITS | Encounter Summary ---
Author Organization [facility] Address [address] [place] [address] Phone Care Team Providers Care Shoe Repairman Name Role Phone Self-Referred, Patient Unavailable Unavailab Elli Solomon MD Unavailable [phone] Moe Shaffer MD, PhD Unavailable [phone] Elli Nazario MD Unavailable [phone] Selena Antonio Unavailable [phone] Ricci Barkley MD Primary Care Pr ovider Rafia Kiser BENZENE OPERATOR Unavailable [phone] Encounter Details Date Type Department Care Team (Late st Contact Info) Description 05/30/2025 Procedure Pass [facility] CT Imaging, [place] [address] [place] [address] Social History Tobacco Use Types Packs/Day Years [...] Care Team (Late st Contact Info) Description 08/08/2025 12:00 PM EDT Telemedicine - audio only [facility] General & GI Surgery [address] [place], [place] [address] [place] [address] Yelitza Ward MD, MSc [address] [place] [address] [email or web address] 08/14/2025 Procedure Pass [facility] Periop [address] [place] [address] 08/14/2025 3:54 PM EDT Hospital Encounter [facility] Periop [address] [place] [address] Yelitza Ward MD, MSc [address] [place] [address] [email or web address] 08/14/2025 3:54 PM EDT - 08/14/2025 7:41 PM EDT Surgery [facility] Periop [address] [place] [address] Yelitza Ward MD, MSc [address] [place] [address] [email or web address]. [facility] EXPLORATORY LAPAROTOMY BOWEL RESECTION, CYTOREDUCTion 08/29/2025 2:30 PM EST Office Visit [facility] General & GI Surgery [address] [facility] ASB2-3 [place] [address] Nathaly Watson PA-C [address] [facility], [place] [address] [email or web address] Scheduled Procedures Name Priority Associated Diagnoses Date/Ti me EXPLORATORY LAPAROTOMY BOWEL RESECTION Malignant neoplasm of ascending colon 08/14/2025 3:54 PM EDT PLACEMENT STENT URETER Malignant neoplasm of ascending colon 08/14/2025 3:54 PM EDT documented as of this encounter Visit Diagnoses Not on filedocumented in this encounter Care Teams Shoe Repairman Relationship Specialty Start Date End Date Ricci Barkley MD [address] [place] [address] PCP - General Internal Medicine 05/30/25 Self-Referred, Patient 10/30/22 Elli Nazario MD [address] [place] [address] [email or web address] Internal Medicine 12/01/22 Moe Shaffer MD, PhD [address] [place] [address] [email or web address] Medical Oncology 12/01/22 Elli Nazario MD [address] [place] [address] [email or web address] Referring Physician Internal Medicine 02/08/25 Selena Antonio [address] [place] [address] [email or web address] Carding Machine Feeder 03/24/25 Rafia Kiser, BENZENE OPERATOR [address] [place] [address] [email or web address] Body Component Engineer Oncology 07/25/25 documented as of this encounter Additional Source Comments The information contained in this document represents components of the legal health record. It is not the complete legal health record.[facility]
--- OUTSIDE RECORDS SUMMARY | 2025-07-26 07:01 | XMS_ITS | Encounter Summary ---
Author Organization [facility] Address [address] [place] [address] Phone Care Team Providers Care Forest Fire Lookout Name Role Phone Self-Referred, Patient Unavailable Unavailab le Elli Nazario MD Unavailable [phone] Moe Shaffer MD, PhD Unavailable Elli Nazario MD Unavailable [phone] Selena Antonio Unavailable [phone] Ricci Barkley MD Primary Care Pr ovider Rafia Kiser SOFTWARE QUALITY SPECIALIST Unavailable [phone] Encounter Details Date Type Department Care Team (Late st Contact Info) Description 04/17/2025 Procedure Pass [facility] Periop [address] [place] [address] Social History Tobacco Use Types Packs/Day Years [...] 12:00 PM EDT Telemedicine - audio only [facility] General & GI Surgery [address] [place], [place] [address]3 [place] [address] Yelitza Ward MD, MSc [address] [place] [address] [email or web address] 08/14/2025 Procedure Pass [facility] Periop [address] [place] [address] 08/14/2025 3:54 PM EDT Hospital Encounter [facility] Periop [address] [place] [address] Yelitza Ward MD, MSc [address] [place] [address] [email or web address] 08/14/2025 3:54 PM EDT - 08/14/2025 7:41 PM EDT Surgery [facility] Periop [address] [place] [address] Yelitza Ward MD, MSc [address] [place] [address] [email or web address] [facility] EXPLORATORY LAPAROTOMY BOWEL RESECTION, CYTOREDUCTion 08/29/2025 2:30 PM EST Office Visit [facility] General & GI Surgery [address] [facility] ASB2-3 [place] [address] Nathaly Watson PA-C [address] [facility], [place] [address] [email or web address] Scheduled Procedures Name Priority Associated Diagnoses Date/Ti me EXPLORATORY LAPAROTOMY BOWEL RESECTION Malignant neoplasm of ascending colon 08/14/2025 3:54 PM EDT PLACEMENT STENT URETER Malignant neoplasm of ascending colon 08/14/2025 3:54 PM EDT documented as of this encounter Visit Diagnoses Not on filedocumented in this encounter Care Teams Forest [employer] Lookout Relationship Specialty Start Date End Date Ricci Barkley MD [address] [place] [address] PCP - General Internal Medicine 05/30/25 Self-Referred, Patient 10/30/22 Elli Nazario MD [address] [place] [address] [email or web address] Internal Medicine 12/01/22 Moe Shaffer MD, PhD [address] [place] [address] [email or web address] Medical Oncology 12/01/22 Elli Nazario MD [address] [place] [address] [email or web address] Referring Physician Internal Medicine 02/08/25 Selena Antonio [address] [place] [address] [email or web address] Novelty Chain Maker 03/24/25 Rafia Kiser LICSW [address] [place] [address] [email or web address] Assistant In Nursing Oncology 07/25/25 documented as of this encounter Additional Source Comments The information contained in this document represents components of the legal health record. It is not the complete legal health record.[facility]
--- OUTSIDE RECORDS SUMMARY | 2025-07-26 07:01 | XMS_ITS | Encounter Summary ---
Author Organization [facility] Address [address] [place] [address] Phone Care Team Providers Care Satellite Instruction Facilitator Name Role Phone Self-Referred, Patient Unavailable Unavailab le Elli Nazario MD Unavailable [phone] Moe Shaffer MD, PhD Unavailable Elli Nazario MD Unavailable [phone] Selena Antonio Unavailable [phone] Ricci Barkley MD Primary Care Pr ovider Rafia Kiser DEPARTMENT SPECIALIST Unavailable [phone] Encounter Details Date Type Department Care Team (Late st Contact Info) Description 03/27/2025 Procedure Pass [facility] L2 PRU [address] [place] [address] Social History Tobacco Use Types Packs/Day Years [...] 12:00 PM EDT Telemedicine - audio only [facility] General & GI Surgery [address] [place] [address] Yelitza Ward MD, MSc [address] [place] [address] JONA@[email or web address] 08/14/2025 Procedure Pass [facility] Periop [address] [place] [address] 08/14/2025 3:54 PM EDT Hospital Encounter [facility] [address] [address] Yelitza Ward MD, MSc [address] [place] [address] JONA@[email or web address] 08/14/2025 3:54 PM EDT - 08/14/2025 7:41 PM EDT Surgery [facility] [address] [address] Yelitza Ward MD, MSc [address] [place] [address] [email or web address] EXPLORATORY LAPAROTOMY BOWEL RESECTION, CYTOREDUCTion 08/29/2025 2:30 PM EST Office Visit [facility] General & GI Surgery [address] [place] [address] Nathaly Watson PA-C [address] [place], [place] [address]am and Women's [facility], [place] [address] [email or web address] Scheduled Procedures Name Priority Associated Diagnoses Date/Ti me EXPLORATORY LAPAROTOMY BOWEL RESECTION Malignant neoplasm of ascending colon 08/14/2025 3:54 PM EDT PLACEMENT STENT URETER Malignant neoplasm of ascending colon 08/14/2025 3:54 PM EDT documented as of this encounter Visit Diagnoses Not on filedocumented in this encounter Care Teams Satellite Instruction Facilitator Relationship Specialty Start Date End Date Ricci Barkley MD [address] [place] [address] PCP - General Internal Medicine 05/30/25 Self-Referred, Patient 10/30/22 Elli Nazario MD [address] [place] [address] [email or web address] Internal Medicine 12/01/22 Moe Shaffer MD, PhD [address] [place] [address] [email or web address] Medical Oncology 12/01/22 Elli Nazario MD [address] [place] [address] [email or web address] Referring Physician Internal Medicine 02/08/25 Selena Antonio [address] [place] [address] [email or web address] Sample Clerk 03/24/25 Rafia Kiser, SANDEEP [address] [place] [address] [email or web address] Acid Tester Oncology 07/25/25 documented as of this encounter Additional Source Comments The information contained in this document represents components of the legal health record. It is not the complete legal health record.[facility]
--- OUTSIDE RECORDS SUMMARY | 2025-07-26 07:01 | XMS_ITS | Clinical Summary ---
Author Organization [employer] Address [address] [place] [address] 7 [place] [address] Care Team Providers Care Dx Board Operator Name Role Phone Ricci Barkley MD Primary Care Provider [phone] Allergies No known active allergies Medications celecoxib [...] simplex 01/05/2023 Malignant neoplasm of ascending colon (CMS/HCC) 09/08/2020 Microcytic anemia 08/14/2020 Encounters Date Type Department Care Team Description 07/24/2025 Patient Outreach [facility] [address] [place] [address] Ricci Barkley MD Care Coordination (SDOH f/u) 07/04/2025 Orders Only GENERIC EXTERNAL DATA DEPARTMENT Provider, Generic External Data 06/27/2025 Patient Outreach [facility] [address] [place] [address] Ricci Barkley MD Care Coordination (SDDC ) 06/06/2025 Orders Only GENERIC EXTERNAL DATA DEPARTMENT Provider, Generic External Data 05/29/2025 Telephone [facility] [place] [address] Ricci Barkley MD Call Back Request 05/29/2025 Patient Outreach [address] [address] Ricci Barkley MD Care Coordination (SDOH f/u) 05/23/2025 Patient Outreach [address] [address] Ricci Barkley MD 05/23/2025 Patient Outreach [address] [address] Ricci Barkley MD 05/23/2025 Patient Outreach [address] [address] Ricci Barkley MD 05/23/2025 Patient Outreach [address] [address] Ricci Barkley MD Care Coordination (SDDC) 05/22/2025 Patient Outreach [address] [address] Ricci Barkley MD Care Coordination (CHW Chart review) 05/22/2025 Patient Outreach [address] [address] Ricci Barkley MD 05/09/2025 Orders Only GENERIC [...] Mouth 03/15/2022 03/14/2019 COVID-19 Vaccine ( season) 2025 12/13/2021, 11/15/2021 Influenza Vaccine (#1) 2025 , [...] AUTO DIFFERENTIAL Routine 05/09/2025 2:41 PM EDT LIPID PANEL, STANDARD Routine 08/13/2020 [...] 4:08 PM EDT) Only the most recent of3 resultswithin the time period is included. White Blood Count 7.3 4.8 - 10.8 X10*3/uL [facility] Red Blood Count 5.43 4.60 - 5.80 X10*6/uL [facility] Hemoglobin 14.8 14.0 - 18.0 g/dl [facility] Hematocrit 45.3 42.0 - 52.0 % [facility] Mean Corpuscular Volume 83.4 80.0 - 98.0 fL [facility] Mean Corpuscular Hemoglobin 27.3 27.0 - 33.0 pg [facility] Mean Corpuscular HGB Conc 32.7 31.0 - 36.0 g/dl [facility] Red Cell Distribution Width 17.4(H) 11.0 - 16.0 % [facility] Platelet Count 171 160 - 400 X10*3/uL [facility] Mean Platelet Volume 9.2(L) 9.4 - 12.4 fL [facility] Neutrophils Percent Auto 48.9 45 - 73 % [facility] Imm Gran Pct Auto 0.4 0.0 - 0.4 % [facility] Lymphocytes Percent Auto 35.8 20 - 40 % [facility] Monocytes Percent Auto 14.1(H) 2 - 11 % [facility] Eosinophils Percent Auto 0.7 0 - 4 % [facility] Basophils Percent Auto 0.1 0 - 2 % [facility] NRBC Pct Auto 0.0 0.0 - 0.2 /100WBC [facility] Neutrophils Absolute Auto 3.6 2.0 - 8.3 x10*3/uL [facility] Imm Gran Abs Auto 0.03 0.00 - 0.03 X10*3/uL [facility] Lymphocytes Absolute Auto 2.6 1.2 - 4.9 X10*3/uL [facility] Monocytes Absolute Auto 1.0 0.1 - 1.2 X10*3/uL [facility] Eosinophils Absolute Auto 0.1 0.0 - 0.4 X10*3/uL [facility] Basophils Absolute Auto 0.0 0.0 - 0.2 X10*3/uL [facility] NRBC Abs Auto 0.000 0.0 - 0.012 X10*3/uL [facility] 07/04/2025 4:08 PM EDT 07/04/2025 4:08 PM EDT us Generic External Data Provider LAB BLOOD ORDERAB LES Final Result [facility] [address] [place] [address] [phone] * Comprehensive Metabolic Panel (07/04/2025 4:08 PM EDT) Only the most recent of3 resultswithin the time period is included. Sodium 140 135 - 145 mmol/L [facility] Potassium 4.4 3.3 - 5.1 mmol/L [facility] Chloride 106 96 - 108 mmol/L [facility] Carbon Dioxide 25 22 - 29 mmol/L [facility] Anion Gap 13 12 - 20 [facility] Urea Nitrogen (BUN) 11 9 - 16 mg/dL [facility] Creatinine, Serum 0.84 0.5 - 1.4 mg/dL [facility] Estimated Glomerular Filt Rate >60 [facility] Comment:Chronic Kidney Disea se: Estimated GFR < 60 mL/min/1.83u4Ziovbf Kidney Disease: Estimated GFR < 15 mL/min/1.73m2 Glucose 80 60 - 115 mg/dL [facility] Calcium 8.9 8.4 - 10.2 mg/dL [facility] Bilirubin, Total 0.4 0.0 - 1.0 mg/dL [facility] Aspartate Amino Transferase 37 5 - 37 U/L [facility] Alanine Aminotransferase 38 0 - 40 U/L [facility] Total Protein 7.3 6.5 - 8.0 g/dL [facility] Albumin Level 4.9 3.5 - 5.0 g/dL [facility] Alkaline Phosphatase 102 39 - 117 U/L [facility] 07/04/2025 4:08 PM EDT 07/04/2025 4:08 PM EDT us Generic External Data Provider LAB BLOOD ORDERAB LES Final Result [facility] [address] [place] [address] [phone] * Magnesium (06/06/2025 2:43 PM EDT) Only the most recent of2 resultswithin the time period is included. Magnesium 2.1 1.6 - 2.6 mg/dL [facility] 06/06/2025 2:43 PM EDT 06/06/2025 2:43 PM EDT us Generic External Data Provider LAB BLOOD ORDERAB LES Final Result [facility] [address] [place] [phone] [phone] * (ABNORMAL) LIPID PANEL, STANDARD (08/13/2020 [...] factors. LDL-C is now calculated using the Que-Jennifer calculation, which is a validated novel method providing better accuracy than the Friedewald equation in the estimation of LDL-C. Que PARR et al. AMELIA. 2013;310(19): 4039-3658 (http://education.Metabolon.com/faq/BTR008) Cholesterol, Total 207(H) <200 mg/dL [facility] [...] LDL-C. Que SS et al. AMELIA. 2013;310(19): 0788-5087 (http://education.Metabolon.MarketRiders/faq/EZG459) Chol/HDLC Ratio 4.2 <5.0 (calc) [facility] [...] LDL-C. Que SS et al. AMELIA. 2013;310(19): 0210-1365 (http://education.Metabolon.MarketRiders/faq/WHD089) Chol/HDLC Ratio 4.2 <5.0 (calc) [facility] [...] Result [facility] [address] from Last 3 Months or Most Recently Relevant to Health Maintenance Insurance [facility] C3 DENTAL-[facility] MEDICAID STAND ADULT Care Teams Dx Board Operator Relationship Specialty Start Date End Date Ricci Barkley MD [address] [place] [address] PCP - General Internal Medicine 01/04/19
--- OUTSIDE RECORDS SUMMARY | 2025-07-26 07:01 | XMS_ITS | Encounter Summary ---
Author Organization [facility] Address [address] [facility] [address] [place] [address] Phone Care Team Providers Care Carpenter Labor Supervisor Name Role Phone Self-Referred, Patient Unavailable Unavailab le Elli Nazario MD Unavailable [phone] Moe Shaffer MD, PhD Unavailable Elli Nazario MD Unavailable [phone] Selena Antonio Unavailable [phone] Ricci Barkley MD Primary Care Pr ovider Rafia Kiser CHILD CARE DEVELOPMENT SPECIALIST Unavailable [phone] Encounter Details Date Type Department Care Team (Late st Contact Info) Description 03/27/2025 Procedure Pass [facility] Imaging Department, [facility], MRI [address] [address] Social History Tobacco Use Types Packs/Day Years [...] 12:00 PM EDT Telemedicine - audio only [facility] General & GI Surgery [address] [place] [address] [place] [address] Yelitza Ward MD, MSc [address] [place] [address] [email or web address] 08/14/2025 Procedure Pass [facility] Periop [address] [place] [address] 08/14/2025 3:54 PM EDT Hospital Encounter [facility] Periop [address] [place] [address] Yelitza Ward MD, MSc [address] [place] [address] [email or web address] 08/14/2025 3:54 PM EDT - 08/14/2025 7:41 PM EDT Surgery [facility] Periop [address] [place] [address] Yelitza Ward MD, MSc [address] [place] [address] [email or web address] [facility] EXPLORATORY LAPAROTOMY BOWEL RESECTION, CYTOREDUCTion 08/29/2025 2:30 PM EST Office Visit [facility] General & GI Surgery 75 [facility] ASB2-3 [place] [address] Nathaly Watson PA-C 75 [facility], [place] [address] [email or web address] Scheduled Procedures Name Priority Associated Diagnoses Date/Ti me EXPLORATORY LAPAROTOMY BOWEL RESECTION Malignant neoplasm of ascending colon 08/14/2025 3:54 PM EDT PLACEMENT STENT URETER Malignant neoplasm of ascending colon 08/14/2025 3:54 PM EDT documented as of this encounter Visit Diagnoses Not on filedocumented in this encounter Care Teams Carpenter Labor Supervisor Relationship Specialty Start Date End Date Ricci Barkley MD [address] [place] [address] PCP - General Internal Medicine 05/30/25 Self-Referred, Patient 10/30/22 Elli Nazario MD [address] [place] [address] [email or web address] Internal Medicine 12/01/22 Moe Shaffer MD, PhD [address] [place] [address] [email or web address] Medical Oncology 12/01/22 Elli Nazario MD [address] [place] [address] [email or web address] Referring Physician Internal Medicine 02/08/25 Selena Antonio [address] [place] [address] [email or web address] Glass Tube Bender 03/24/25 Rafia Kiser, [address] [address] [email or web address] Slide Forming Machine Operator Oncology 07/25/25 documented as of this encounter Additional Source Comments The information contained in this document represents components of the legal health record. It is not the complete legal health record.[facility]
--- OUTSIDE RECORDS SUMMARY | 2025-07-26 07:01 | XMS_ITS | Encounter Summary ---
Author Organization [facility] Address [address] [facility] [address] [place] [address] Phone Care Team Providers Care Bluing Oven Tender Name Role Phone Self-Referred, Patient Unavailable Unavailab le Elli Nazario MD Unavailable [phone] Moe Shaffer MD, PhD Unavailable Elli Nazario MD Unavailable [phone] Selena Antonio Unavailable [phone] Ricci Barkley MD Primary Care Pr ovider Rafia Kiser PACKAGING INSPECTOR Unavailable [phone] Encounter Details Date Type Department Care Team (Late st Contact Info) Description 03/30/2025 Procedure Pass [facility] Imaging Department, [facility], [place] 450 [facility], Floor L1 [place] [address] Social History Tobacco Use Types Packs/Day Years [...] 12:00 PM EDT Telemedicine - audio only [facility] General & GI Surgery [address] [place] [address] Yelitza Ward MD, MSc [address] [place] [address] JONA@[email or web address] 08/14/2025 Procedure Pass [facility] Periop [address] [place] [address] 08/14/2025 3:54 PM EDT Hospital Encounter [facility] Periop [address] [place] [address] Yelitza Ward MD, MSc [address] [place] [address] [email or web address] 08/14/2025 3:54 PM EDT - 08/14/2025 7:41 PM EDT Surgery [facility] Periop [address] [place] [address] Yelitza Ward MD, MSc [address] [place] [address] JONA@[email or web address] EXPLORATORY LAPAROTOMY BOWEL RESECTION, CYTOREDUCTion 08/29/2025 2:30 PM EST Office Visit [facility] General & GI Surgery [address] [place] [address] Nathaly Watson PA-C [address] [place] [address] and Women's [facility], [place] [address] [email or web address] Scheduled Procedures Name Priority Associated Diagnoses Date/Ti me EXPLORATORY LAPAROTOMY BOWEL RESECTION Malignant neoplasm of ascending colon 08/14/2025 3:54 PM EDT PLACEMENT STENT URETER Malignant neoplasm of ascending colon 08/14/2025 3:54 PM EDT documented as of this encounter Visit Diagnoses Not on filedocumented in this encounter Care Teams Bluing Oven Tender Relationship Specialty Start Date End Date Ricci Barkley MD [address] [place] [address] PCP - General Internal Medicine 05/30/25 Self-Referred, Patient 10/30/22 Elli Nazario MD [address] [place] [address] [email or web address] 12/01/22 Moe Shaffer MD, PhD [address] [place] [address] Lena@[email or web address] Medical Oncology 12/01/22 Elli Nazario MD [address] [place] [address] [email or web address] Referring Physician Internal Medicine 02/08/25 Selena Antonio 50 [place] [address] [email or web address] Student Accounts Manager 03/24/25 Rafia Kiser LICSW [address] [place] [address] [email or web address] u Dark Room Attendant Oncology 07/25/25 documented as of this encounter Additional Source Comments The information contained in this document represents components of the legal health record. It is not the complete legal health record.[facility]
--- OUTSIDE RECORDS SUMMARY | 2025-07-26 07:01 | XMS_ITS | Encounter Summary ---
Author Organization [facility] Address [address] [place] [address] Phone Care Team Providers Care Stone Sandblaster Name Role Phone Self-Referred, Patient Unavailable Unavailab le Elli Nazario MD Unavailable [phone] Moe Shaffer MD, PhD Unavailable Elli Nazario MD Unavailable [phone] Selena Antonio Unavailable [phone] Ricci Barkley MD Primary Care Pr ovider Rafia Kiser CHEMISTRY QUALITY CONTROL TECHNICIAN Unavailable [phone] Encounter Details Date Type Department Care Team (Late st Contact Info) Description 03/30/2025 Procedure Pass [facility]'s Radiology [address] [place] [address] Social History Tobacco Use Types Packs/Day Years [...] 12:00 PM EDT Telemedicine - audio only [facility] General & GI Surgery [address] [place] [address] Yelitza Ward MD, MSc [address] [place] [address] JONA@[facility] 08/14/2025 Procedure Pass [facility] Periop [address] [place] [address] 08/14/2025 3:54 PM EDT Hospital Encounter [facility] [address] [address] Yelitza Ward MD, MSc [address] [place] [address] JONA@[facility] 08/14/2025 3:54 PM EDT - 08/14/2025 7:41 PM EDT Surgery [facility] [address] [address] Yelitza Ward MD, MSc [address] [place] [address] JONA@[facility] EXPLORATORY LAPAROTOMY BOWEL RESECTION, CYTOREDUCTion 08/29/2025 2:30 PM EST Office Visit [facility] General & GI Surgery [address] [place] [address] Nathaly Watson PA-C [address] [place], [place] [address]am and Women's [facility], [place] [address] [email or web address] Scheduled Procedures Name Priority Associated Diagnoses Date/Ti me EXPLORATORY LAPAROTOMY BOWEL RESECTION Malignant neoplasm of ascending colon 08/14/2025 3:54 PM EDT PLACEMENT STENT URETER Malignant neoplasm of ascending colon 08/14/2025 3:54 PM EDT documented as of this encounter Visit Diagnoses Not on filedocumented in this encounter Care Teams Stone Sandblaster Relationship Specialty Start Date End Date Ricci Barkley MD [address] [place] [address] PCP - General Internal Medicine 05/30/25 Self-Referred, Patient 10/30/22 Elli Nazario MD [address] [place] [address] [email or web address] Internal Medicine 12/01/22 Moe Shaffer MD, PhD [address] [place] [address] Lena@[email or web address] Medical Oncology 12/01/22 Elli Nazario MD [address] [place] [address] [email or web address] Referring Physician Internal Medicine 02/08/25 Selena Antonio [address] [place] [address] [email or web address] Human Resources Manager Manufacturing 03/24/25 Rafia Kiser LICSW [address] [place] [address] [email or web address] Director Of Optimization Oncology 07/25/25 documented as of this encounter Additional Source Comments The information contained in this document represents components of the legal health record. It is not the complete legal health record.[facility]
--- OUTSIDE RECORDS SUMMARY | 2025-07-26 07:01 | XMS_ITS | Encounter Summary ---
Author Organization [facility] Address [address] [place] [address] Phone Care Team Providers Care Train Engineer Name Role Phone Self-Referred, Patient Unavailable Unavailab le Elli Nazario MD Unavailable [phone] Moe Shaffer MD, PhD Unavailable Elli Nazario MD Unavailable [phone] Selena Antonio Unavailable [phone] Ricci Barkley MD Primary Care Pr ovider Rafia Kiser HOOKER MACHINE TENDER Unavailable [phone] Encounter Details Date Type Department Care Team (Late st Contact Info) Description 03/27/2025 Procedure Pass [facility] Angio Interventional Radiology [address] [place] [address] Social History Tobacco Use Types Packs/Day Years [...] 12:00 PM EDT Telemedicine - audio only [facility] General & GI Surgery [address] [place] [address] Yelitza Ward MD, MSc [address] [place] [address] [email or web address] 08/14/2025 Procedure Pass [facility] Periop [address] [place] [address] 08/14/2025 3:54 PM EDT Hospital Encounter [facility] [address] [address] Yelitza Ward MD, MSc [address] [place] [address] [email or web address] 08/14/2025 3:54 PM EDT - 08/14/2025 7:41 PM EDT Surgery [facility] Periop [address] [place] [address] Yelitza Ward MD, MSc [address] [place] [address] [email or web address] EXPLORATORY LAPAROTOMY BOWEL RESECTION, CYTOREDUCTion 08/29/2025 2:30 PM EST Office Visit [facility] General & GI Surgery [address] [place] [address] Nathaly Watson PA-C [address] [place], [place] [address], [place] [address] [email or web address] Scheduled Procedures Name Priority Associated Diagnoses Date/Ti me EXPLORATORY LAPAROTOMY BOWEL RESECTION Malignant neoplasm of ascending colon 08/14/2025 3:54 PM EDT PLACEMENT STENT URETER Malignant neoplasm of ascending colon 08/14/2025 3:54 PM EDT documented as of this encounter Visit Diagnoses Not on filedocumented in this encounter Care Teams Train Engineer Relationship Specialty Start Date End Date Ricci Barkley MD [address] [place] [address] PCP - General Internal Medicine 05/30/25 Self-Referred, Patient 10/30/22 Elli Nazario MD [address] [place] [address] [email or web address] Internal Medicine 12/01/22 Moe Shaffer MD, PhD [address] [place] [address] [email or web address] Medical Oncology 12/01/22 Elli Nazario MD [address] [place] [address] [email or web address] Referring Physician Internal Medicine 02/08/25 Selena Antonio [address] [place] [address] [email or web address] Equipment Sales Engineer 03/24/25 Rafia Kiser, SANDEEP [address] [place] [address] [email or web address] u Ict Managers Oncology 07/25/25 documented as of this encounter Additional Source Comments The information contained in this document represents components of the legal health record. It is not the complete legal health record.[facility]
--- OUTSIDE RECORDS SUMMARY | 2025-07-26 07:01 | XMS_ITS | Encounter Summary ---
Author Organization [facility] Address [address] [place] [address] Phone Care Team Providers Care Railroad Car Repair Supervisor Name Role Phone Self-Referred, Patient Unavailable Unavailab Elli Solomon MD Unavailable [phone] Moe Shaffer MD, PhD Unavailable Elli Nazario MD Unavailable [phone] Selena Antonio Unavailable [phone] Ricci Barkley MD Primary Care Pr ovider Rafia Kiser POLICE RESERVES COMMANDER Unavailable [phone] Encounter Details Date Type Department Care Team (Late st Contact Info) Description 05/30/2025 Procedure Pass [facility] CT Imaging, [place] [address] [address] Social History Tobacco Use Types Packs/Day Years [...] 12:00 PM EDT Telemedicine - audio only [facility] General & GI Surgery [address] [place], [place] 507032-3 [place] [address] Yelitza Ward MD, MSc [address] [place] [address] [email or web address] 08/14/2025 Procedure Pass [facility] Periop [address] [place] [address] 08/14/2025 3:54 PM EDT Hospital Encounter [facility] Periop [address] [place] [address] Yelitza Ward MD, MSc [address] [place] [address] [email or web address] 08/14/2025 3:54 PM EDT - 08/14/2025 7:41 PM EDT Surgery [facility] Periop [address] [place] [address] Yelitza Ward MD, MSc [address] [place] [address] [email or web address]. [facility] EXPLORATORY LAPAROTOMY BOWEL RESECTION, CYTOREDUCTion 08/29/2025 2:30 PM EST Office Visit [facility] General & GI Surgery 75 [facility] ASB2-3 [place] [address] Nathaly Watson PA-C 75 [facility] and [facility], [place] [address] [email or web address] Scheduled Procedures Name Priority Associated Diagnoses Date/Ti me EXPLORATORY LAPAROTOMY BOWEL RESECTION Malignant neoplasm of ascending colon 08/14/2025 3:54 PM EDT PLACEMENT STENT URETER Malignant neoplasm of ascending colon 08/14/2025 3:54 PM EDT documented as of this encounter Visit Diagnoses Not on filedocumented in this encounter Care Teams Railroad Car Repair Supervisor Relationship Specialty Start Date End Date Ricci Barkley MD [address] [place] [address] PCP - General Internal Medicine 05/30/25 Self-Referred, Patient 10/30/22 Elli Nazario MD [address] [place] [address] [email or web address] 12/01/22 Moe Shaffer MD, PhD [address] [place] [address] [email or web address] Medical Oncology 12/01/22 Elli Nazario MD [address] [place] [address] [email or web address] Referring Physician Internal Medicine 02/08/25 Selena Antonio 50 [place] [address] [email or web address] Leadership Development Instructor 03/24/25 Rafia Kiser, POLICE RESERVES COMMANDER 35 [place] [address] [email or web address] Credit And Collections Analyst Oncology 07/25/25 documented as of this encounter Additional Source Comments The information contained in this document represents components of the legal health record. It is not the complete legal health record.[facility]
--- OUTSIDE RECORDS SUMMARY | 2025-07-26 07:01 | XMS_ITS | Encounter Summary ---
Author Organization [employer] Address 75 [facility] 7 [place] [address] Care Team Providers Care College Specialist Name Role Phone Ricci Barkley MD Primary Care Provider [phone] Ashia Mena Unavailable Reason for Visit * Reason Comments Care Coordination SDOH f/u Encounter Details Date Type Department Care Team (Latest Contact Info) Description 07/24/2025 Patient Outreach [facility] MEDICINE [address] [place] [address] Ricci Bakrley MD [address], [place] [id number] Care Coordination (SDOH f/u) Social History Tobacco Use Types Packs/Day Years [...] AM EDT documented as of this encounter Progress Notes * Ashia Mena - 07/24/2025 11:39 AM EDT CHW Ashia Mena placed outbound call to patient for follow up on SDOH needs. Patient's name, DOBand address confirmed. Patient states is doing well. Patient stated he has started to receive the healthy food vouchers and has been able to use for healthier food options and is very grateful, no other SDOH needed at this time. No further questions or concerns. CHW reinforced direct contact information for any additional questions or concerns and extended clinic hours on Mondays and Wednesdays, and Walk-In Urgent Care Located in [facility]. Patient provided with after-hours line for [facility], , which offer night time triage service and option to transfer to occupational therapist per diem provider if needed. CHW discussed with the patient progress made in the CHW Program. Patient notified is being graduated from the Care Management-CHW Program. Patient was educated on how to receive SDOH services in the future. Patient agrees with the plan and will contact us if any future needs arise. documented in this encounter Plan of Treatment Not on file documented as of this encounter Visit Diagnoses Not on filedocumented in this encounter Additional Health Concerns Assessment Noted Time PHQ-9 Depression Total Score: 0 11/11/19 25 4:16 PM EST documented as of this encounter Care Teams College Specialist Relationship Specialty Start Date End Date Ricci Barkley MD [address] [place] [address] [place] [address] PCP - General Internal Medicine 01/04/19 Ashia Mena 05/22/25 07/24/25 documented as of this encounter
--- OUTSIDE RECORDS SUMMARY | 2025-07-26 07:01 | XMS_ITS | Encounter Summary ---
Author Organization [facility] Address [address] [place] [address] Phone Care Team Providers Care Pets And Pet Supplies Salesperson Name Role Phone Self-Referred, Patient Unavailable Unavailab le Elli Nazario MD Unavailable [phone] Moe Shaffer MD, PhD Unavailable Elli Nazario MD Unavailable [phone] Selena Antonio Unavailable [phone] Ricci Barkley MD Primary Care Pr ovider Rafia Kiser PLODDING OPERATOR Unavailable [phone] Encounter Details Date Type Department Care Team (Late st Contact Info) Description 03/30/2025 Procedure Pass [facility] 75 [place] [address] Social History Tobacco Use Types Packs/Day Years [...] 12:00 PM EDT Telemedicine - audio only [facility] General & GI Surgery [address] [place] [address] Yelitza Ward MD, MSc [address] [place] [address] [email or web address] 08/14/2025 Procedure Pass [facility] Periop [address] [place] [address] 08/14/2025 3:54 PM EDT Hospital Encounter [facility] [address] [address] Yelitza Ward MD, MSc [address] [place] [address] [email or web address] 08/14/2025 3:54 PM EDT - 08/14/2025 7:41 PM EDT Surgery [facility] [address] [address] Yelitza Ward MD, MSc [address] [place] [address] [email or web address] EXPLORATORY LAPAROTOMY BOWEL RESECTION, CYTOREDUCTion 08/29/2025 2:30 PM EST Office Visit [facility] General & GI Surgery [address] [place] [address] Nathaly Watson PA-C [address] [place], [place] [address]am and [facility], Department [place] [address] [email or web address] Scheduled Procedures Name Priority Associated Diagnoses Date/Ti me EXPLORATORY LAPAROTOMY BOWEL RESECTION Malignant neoplasm of ascending colon 08/14/2025 3:54 PM EDT PLACEMENT STENT URETER Malignant neoplasm of ascending colon 08/14/2025 3:54 PM EDT documented as of this encounter Visit Diagnoses Not on filedocumented in this encounter Care Teams Pets And Pet Supplies Salesperson Relationship Specialty Start Date End Date Ricci Barkley MD [address] [place] [address] PCP - General Internal Medicine 05/30/25 Self-Referred, Patient 10/30/22 Elli Nazraio MD [address] [place] [address] [email or web address] Internal Medicine 12/01/22 Moe Shaffer MD, PhD [address] [place] [address] [email or web address] Medical Oncology 12/01/22 Elli Nazario MD [address] [place] [address] [email or web address] Referring Physician Internal Medicine 02/08/25 Selena Antonio 50 [place] [address] [email or web address] beds at the [facility] Federal Judge 03/24/25 Rafia Kiser LICSW 35 [place] [address] [email or web address] Transcription Coordinator Oncology 07/25/25 documented as of this encounter Additional Source Comments The information contained in this document represents components of the legal health record. It is not the complete legal health record.[facility]
--- OUTSIDE RECORDS SUMMARY | 2025-07-26 07:02 | XMS_ITS ---
Author Organization [facility] Address [address] [place] [address] Phone Care Team Providers Care Bundle Sorter Name Role Phone Self-Referred, Patient Unavailable Unavailab le Elli Nazario MD Unavailable [phone] Moe Shaffer MD, PhD Unavailable Elli Nazario MD Unavailable [phone] Selena Antonio Unavailable [phone] Ricci Barkley MD Primary Care Pr ovider Rafia Kiser SHRIMP PEELING MACHINE OPERATOR Unavailable [phone] Active Problems Problem Noted Date Diagnosed Date Genital herpes simplex 01/05/2023 Malignant neoplasm of ascending colon 09/08/2020 Cancer Staging:Pathologic stage from 09/14/2020:Stage IIIB(pT4a, pN1b, cM0) - Signed by Moe Shaffer MD, PhD on 12/01/2022 Microcytic anemia 08/14/2020 Current Treatment and Therapy Plans [facility] Cellular Therapy Collection* Plan Start Date:04/25/2025 Plan Provider:Marybel Paulino PA-C Linked Problems Malignant neoplasm of ascend ing colon Treatment Medications No medications scheduled. Past Treatment and Therapy Plans No past plan information found.
--- OUTSIDE RECORDS SUMMARY | 2025-07-26 07:02 | XMS_ITS | Encounter Summary ---
Author Organization [facility] Address 399 [facility] [address] [place] [address] Phone Care Team Providers Care Ash Collector Name Role Phone Pcp, Not Required Primary Care Provider Unavaila ble Self-Referred, Patient Unavailable Unavailab Elli Solomon MD Unavailable [phone] Moe Shaffer MD, PhD Unavailable [phone] lEli Nazario MD Unavailable [phone] Selena Antonio Unavailable [phone] Ricci Barkley MD Primary Care Pr ovider Rafia KiserSW Unavailable [phone] Encounter Details Date Type Department Care Team (Late st Contact Info) Description 12/01/2022 Ancillary Orders [facility] [address] [facility], 9th Floor, [address] [place] [address] Moe Shaffer MD, PhD [address] [place] [address] [email or web address] Social History Tobacco Use Types Packs/Day [...] 12:00 PM EDT Telemedicine - audio only [facility] General & GI Surgery [address] [place] [address] Yelitza Ward MD, MSc [address] [place] [address] [email or web address] 08/14/2025 Procedure Pass [facility] Periop [address] [place] [address] 08/14/2025 3:54 PM EDT Hospital Encounter [facility] Periop [address] [place] [address] Yelitza Ward MD, MSc [address] [place] [address] [email or web address] 08/14/2025 3:54 PM EDT - 08/14/2025 7:41 PM EDT Surgery [facility] [address] [address] Yelitza Ward MD, MSc [address] [place] [address] [email or web address] EXPLORATORY LAPAROTOMY BOWEL RESECTION, CYTOREDUCTion 08/29/2025 2:30 PM EST Office Visit [facility] General & GI Surgery [address] [place] [address] Nathaly Watson PA-C [address] [place] [address] and [facility], [place] [address] [email or web address] Scheduled Procedures Name Priority Associated Diagnoses Date/Ti la EXPLORATORY LAPAROTOMY BOWEL RESECTION Malignant neoplasm of ascending colon 08/14/2025 3:54 PM EDT PLACEMENT STENT URETER Malignant neoplasm of ascending colon 08/14/2025 3:54 PM EDT documented as of this encounter Visit Diagnoses Not on filedocumented in this encounter Care Teams Ash Collector Relationship Specialty Start Date End Date Pcp, Not Required 55 [place] [address] PCP - General 10/30/22 02/07/25 Ricci Barkley MD [address] [place] [address] PCP - General Internal Medicine 05/30/25 Self-Referred, Patient 10/30/22 Elli Nazario MD [address] [place] [address] [email or web address] Internal Medicine 12/01/22 Moe Shaffer MD, PhD [address] [place] [address] [email or web address] Medical Oncology 12/01/22 Elli Nazario MD [address] [place] [address] [email or web address] Referring Physician Internal Medicine 02/08/25 Selena Antonio 50 [place] [address] [email or web address] Financial Assistance Advisor 03/24/25 Rafia Kiser LICSW 35 [place] [address] [email or web address] u Milled Lumber Grader Oncology 07/25/25 documented as of this encounter Additional Source Comments The information contained in this document represents components of the legal health record. It is not the complete legal health record.[facility]
--- OUTSIDE RECORDS SUMMARY | 2025-07-26 07:02 | XMS_ITS | Encounter Summary ---
Author Organization [employer] Address [address] [place] [address] 7 [place] [address] Care Team Providers Care Lime Hide Inspector Name Role Phone Ricci Barkley MD Primary Care Provider [phone] Ashia Mena Unavailable Encounter Details Date Type [...] on filedocumented in this encounter Care Teams Lime Hide Inspector Relationship Specialty Start Date End Date Ricci Barkley MD [address] [place] [address] PCP - General Internal Medicine 01/04/19 Ashia Mena 05/22/25 07/24/25 documented as of this encounter
--- OUTSIDE RECORDS SUMMARY | 2025-07-26 07:02 | XMS_ITS | Encounter Summary ---
Author Organization [facility] Address [address] [facility] [address] [place] [address] Phone Care Team Providers Care Taxi Driver Supervisor Name Role Phone Self-Referred, Patient Unavailable Unavailab Elli Solomon MD Unavailable [phone] Moe Shaffer MD, PhD Unavailable Elli Nazario MD Unavailable [phone] Selena Antonio Unavailable [phone] Ricci Barkley MD Primary Care Pr ovider Rafia KiserSW Unavailable [phone] Encounter Details Date Type Department Care Team (Late st Contact Info) Description 04/20/2025 Documentation [facility] [address] [address] Yelitza Zapata PA-C 35 [place] [address] [email or web address] Social History Tobacco Use Types Packs/Day Years [...] Apheresis Collection Suitability Name: Jp Coburn MRN: ?[id number] Indication: ?[facility] research protocol [id number] (colon cancer) Tentative Collection [...] flutter, sick sinus syndrome, or ventricular arrhythmias, CAD/NH, CHF, HTN, heart valve disease, diastolic dysfunction, [...] above donor to be medically suitable for [facility] research collection. The information above was collected from a review of patient records. Yelitza Zapata PA-C Transfusion Medicine PA [facility] Transfusion Medicine Pager: [phone] documented in this encounter Plan of Treatment Upcoming Encounters Date Type Department Care Team (Late st Contact Info) Description 08/08/2025 12:00 PM EDT Telemedicine - audio only [facility] General & GI Surgery [address] [place] [address] Yelitza Ward MD, MSc [address] [place] [phone] [email or web address] 08/14/2025 Procedure Pass [facility] Periop [address] [place] [address] 08/14/2025 3:54 PM EDT Hospital Encounter [facility] Periop [address] [place] [address] Yelitza Ward MD, MSc [address] [place] [address] [email or web address] 08/14/2025 3:54 PM EDT - 08/14/2025 7:41 PM EDT Surgery [facility] Periop [address] [place] [address] Yelitza Ward MD, MSc [address] [place] [address] [email or web address]. [facility] EXPLORATORY LAPAROTOMY BOWEL RESECTION, CYTOREDUCTion 08/29/2025 2:30 PM EST Office Visit [facility] General & GI Surgery 75 [facility] ASB2-3 [place] [address] Nathaly Watson PA-C 75 [facility] [address] [facility], [place] [address] [email or web address] Scheduled Procedures Name Priority Associated Diagnoses Date/Ti me EXPLORATORY LAPAROTOMY BOWEL RESECTION Malignant neoplasm of ascending colon 08/14/2025 3:54 PM EDT PLACEMENT STENT URETER Malignant neoplasm of ascending colon 08/14/2025 3:54 PM EDT documented as of this encounter Visit Diagnoses Not on filedocumented in this encounter Care Teams Taxi Driver Supervisor Relationship Specialty Start Date End Date Ricci Barkley MD [address] [place] [address] PCP - General Internal Medicine 05/30/25 Self-Referred, Patient 10/30/22 Elli Nazario MD [address] [place] [address] [email or web address] Medicine 12/01/22 Moe Shaffer MD, PhD [address] [place] [address] [email or web address] Medical Oncology 12/01/22 Elli Nazario MD [address] [place] [address] [email or web address] Referring Physician Internal Medicine 02/08/25 Selena Antonio [address] [place] [address] [email or web address] Telecommunications Officer 03/24/25 Rafia Kiser, [address] [address] [email or web address] Tractor Crane Operator Oncology 07/25/25 documented as of this encounter Additional Source Comments The information contained in this document represents components of the legal health record. It is not the complete legal health record.[facility]
--- OUTSIDE RECORDS SUMMARY | 2025-07-26 07:02 | XMS_ITS | Encounter Summary ---
Author Organization [employer] Address 75 [facility] 7 [place] [address] Care Team Providers Care Commissioned Sales Associate Name Role Phone Ricci Barkley MD Primary Care Provider [phone] Ashia Mena Unavailable Reason for Visit * Reason Onset Date Comments Call Back Request 05/29/2025 Encounter Details Date Type Department Care Team (Late st Contact Info) Description 05/29/[address] [facility] MEDICINE [address] [place] [address] Ricci Barkley MD [address] [place] [address] Call Back Request Social History Tobacco Use [...] with Ashia (CHW). Please contact pt at [phone]. documented in this encounter Plan of Treatment Not on file documented as of this encounter Visit Diagnoses Not on filedocumented in this encounter Additional Health Concerns Assessment Noted Time PHQ-9 Depression Total Score: 0 11/11/19 25 4:16 PM EST documented as of this encounter Care Teams Commissioned Sales Associate Relationship Specialty Start Date End Date Ricci Barkley MD [address] [place] [address] PCP - General Internal Medicine 01/04/19 Ashia Mena 05/22/25 07/24/25 documented as of this encounter
--- OUTSIDE RECORDS SUMMARY | 2025-07-26 07:02 | XMS_ITS | Clinical Summary ---
Author Organization [facility] Address [address] [facility] [address] [place] [address] Phone Care Team Providers Care Boat Buffer Plastic Name Role Phone Self-Referred, Patient Unavailable Unavailab Elli Solomon MD Unavailable [phone] Moe Shaffer MD, PhD Unavailable [phone] Elli Nazario MD Unavailable [phone] Selena Antonio Unavailable [phone] Ricci Barkley MD Primary Care Pr ovider Rafia Kiser PILE TRIMMER Unavailable [phone] Allergies Active Allergy Reactions Criticality Noted Date [...] Active ferrous sulfate 325 mg (65 mg lower elwha iron) tablet Take 325 mg by mouth [...] Encounters Date Type Department Care Team Description 07/19/2025 Orders Only [facility] General & GI Surgery [address] [place] [address] Jessica Rosario Malignant neoplasm of ascending colon (Primary Dx) 07/18/2025 12:00 PM EDT Telemedicine - audio only [facility] General GI Surgery [address] [place] [address] 35[address] Yelitza Ward MD, MSc Malignant neoplasm of ascending colon (Primary Dx) 07/11/2025 11:15 AM EDT Telemedicine [facility] General & GI Surgery [address] [place] [address] 66[address] Yelitza Ward MD, MSc Malignant neoplasm of ascending colon (Primary Dx) 06/30/2025 1:15 PM EDT - 06/30/2025 11:59 PM EDT Hospital Encounter [facility] CT Imaging, [place] [address] [place] [address] Nathaly Watson PA-C Discharge Disposition: Home or Self Care 05/30/2025 1:15 PM EDT Office Visit [facility] General & GI Surgery [address] [place] [address]46[address] Yelitza Ward MD, MSc Malignant neoplasm of ascending colon (Primary Dx); Allergic reaction to contrast material, subsequent encounter 05/30/2025 Procedure Pass [facility] CT Imaging, [place] [address] [place] [address] 05/30/2025 Procedure Pass [facility] CT Imaging, [place] [place] [address] 05/18/2025 Orders Only [facility], Division of Hematologic Oncology, [facility] [address] [facility], [address] [place] [address] Fransisca Adams 04/25/2025 12:00 PM EDT - 04/25/2025 11:59 PM EDT Hospital Encounter [facility] Angio Interventional Radiology [address] [place] [address] Joni Flores MD Seguritan, Ayden T, TOMASC Discharge Disposition: Home or Self Care 04/25/2025 10:45 AM EDT Telemedicine [facility] General & GI Surgery [address] [place] [address] ASB2-[address] [place] [address] Yelitza Ward MD, MSc Malignant neoplasm of ascending colon (Primary Dx) 04/25/2025 9:30 AM EDT Nurse Only [facility] for [facility]oma, Division of Hematologic Oncology, [facility] [address] [facility] [place] [address] Joni Flores MD McHugh, Kristin Mary, SHANTELLE 04/25/2025 9:30 AM EDT Office Visit [facility], [address] [place] [address] Joni Flores MD Malignant neoplasm of ascending colon (Primary Dx) 04/25/2025 7:10 AM EDT - 04/25/2025 11:59 AM EDT Hospital Encounter [facility] Family Blood Donor Center [address] [facility] [address] [place] [address] Addi Romero MD Manis, MD Thomas Cuenca Marc E, business insurance agent Disposition: Home or Self Care 04/25/2025 5:50 AM EDT - 04/25/2025 9:19 AM EDT Hospital Encounter [facility] L[address] [place] [address] Joni Flores MD Flockton, Jeffrey, SHANTELLE Juarez, Madelin Pagna, Nena Keys Discharge Disposition: Home or Self Care 03/27/2025 Procedure Pass [facility] Angio Interventional Radiology [address] [place] [address] 03/27/2025 Procedure Pass [facility] L2 PRU [address] [place] [address] from Last 3 Months Family History Medical [...] 12:00 PM EDT Telemedicine - audio only [facility] General & GI Surgery [address] [place] [address] Yelitza Ward MD, MSc [address] [place] [address] [email or web address] 08/14/2025 Procedure Pass [facility] Periop [address] [place] [address] 08/14/2025 3:54 PM EDT Hospital Encounter [facility] Periop [address] [place] [address] Yelitza Ward MD, MSc [address] [place] [address] [email or web address] 08/14/2025 3:54 PM EDT - 08/14/2025 7:41 PM EDT Surgery [facility] Periop [address] [place] [address] Yelitza Ward MD, MSc [address] [place] [address] [email or web address] EXPLORATORY LAPAROTOMY BOWEL RESECTION, CYTOREDUCTion 08/29/2025 2:30 PM EST Office Visit [facility] General & GI Surgery [address] [facility] ASB2-3 [place] [address] Nathaly Watson PA-C [address] [facility] [place] [facility], [place] [address] [email or web address] Scheduled Procedures Name Priority Associated Diagnoses Date/Ti me EXPLORATORY LAPAROTOMY BOWEL RESECTION Malignant neoplasm of ascending colon 08/14/2025 3:54 PM EDT PLACEMENT STENT URETER Malignant neoplasm of ascending colon 08/14/2025 3:54 PM EDT Health Maintenance Due Date Last Done Comments [...] AND DIFFERENTIAL STAT 04/25/2025 6:35 AM EDT HEPATITIS C ANTIBODY, QUALITATIVE Routine 03/28/2025 12:36 [...] clinician's provided indication for this examination in [facility]: *Colon cancer, assess treatment response; colon [...] clinician's provided indication for this examination in [facility]: *Colon cancer, assess treatment response; colon [...] Minimal. Summary: 1. Left non-tunneled catheter removal. Joni Flores MD IMG IR VASCULAR Final R esult * (ABNORMAL) CBC and differential (04/25/2025 2:31 PM EDT) Only the most recent of3 resultswithin the time period is included. WBC 6.13 4.00 - 11.00 K/uL [facility] RBC 4.30(L) 4.50 - 5.90 M/uL [facility] HGB 11.9(L) 13.5 - 17.5 g/dL [facility] HCT 37.5(L) 41.0 - 53.0 % [facility] PLT 113(L) 150 - 450 K/uL [facility] MCV 87.2 80.0 - 100.0 fL [facility] MCH 27.7 27.0 - 31.0 pg [facility] MCHC 31.7(L) 32.0 - 36.0 g/dL [facility] RDW 15.5(H) 11.5 - 14.5 % [facility] MPV 8.9 8.4 - 12.0 fL [facility] NRBC 0.00 0.00 /100 WBCs [facility] ABSOLUTE NRBC 0.00 0.00 K/uL [facility] DIFF METHOD Auto [facility] NEUTS 65.5 48.0 - 76.0 % [facility] LYMPHS 25.0 18.0 - 41.0 % [facility] MONOS 7.7 4.0 - 11.0 % [facility] EOS 1.0 0.0 - 5.0 % [facility] BASOS 0.3 0.0 - 1.5 % [facility] % IMMATURE GRANS 0.5 0.0 - 0.9 % [facility] ABSOLUTE NEUTS 4.02 1.92 - 7.60 K/uL [facility] Comment:1.21-5.39 cells/KL i s the reference range for individuals with the Dunn null phenotype ABSOLUTE LYMPHS 1.53 0.72 - 4.10 K/uL [facility] ABSOLUTE MONOS 0.47 0.16 - 1.10 K/uL [facility] ABSOLUTE EOS 0.06 0.00 - 0.50 K/uL [facility] ABSOLUTE BASOS 0.02 0.00 - 0.15 K/uL [facility] ABS IMMATURE GRANS 0.03 0.00 - 0.09 K/uL [facility] ABSOLUTE NEUTROPHIL COUNT 4.02 1.92 - 7.60 K/uL [facility] Comment: Automated cell count. Manual ANC may differ if performed. 1.21-5.39 cells/KL is the reference range for individuals with the Dunn null phenotype Blood (Blood, Venous) 04/25/2025 2:31 PM EDT 04/25/2025 2:36 PM EDT us Marybel Paulino PA-C LAB BLOOD ORDERABLES F inal Result [facility] [address] [place] [address] * IR Pheresis Catheter Placement; Chest; Radiologist [...] independent provider spent 20 minutes of continuous ntrw-ep-aqyy sedation time with the patient. Patient Radiation Dose: Fluoroscopy Time: 0.8 minutes. Cumulative Dose: 4.58 mGy. Device(s): [employer]Sweatdrops, LLCurkar 12 Japanese/13 cm double lumen Technique and Findings: Written [...] radiology department nursing staff and supervised by [facility] independent provider. The following parameters were monitored:oxygen saturation, heart rate, blood pressure and response to care. [facility] independent provider spent 20 minutes of continuous utwq-tv-reitkqiysjtu time with the patient. Patient Radiation Dose: Fluoroscopy Time: 0.8 minutes. Cumulative Dose: 4.58 mGy. Device(s): Covidien rankururkar 12 Japanese/13 cm double lumen Technique and Findings: Written [...] LYMPH COUNT 2,630 950 - 2,967 /uL [facility] CD3+ (ABS) 2,004 319 - 2,784 /uL [facility] CD3+ (PCT) 76.2 52.0 - 84.0 %Lymphs [facility] CD3+ CD4+ (ABS) 1,506(H) 295 - 1,471 /uL [facility] CD3+ CD4+ (PCT) 57.3(H) 26.0 - 55.0 %Lymphs [facility] CD3+ CD8+ (ABS) 450 125 - 1,214 /uL [facility] CD3+ CD8+ (PCT) 17.1 11.0 - 37.0 %Lymphs [facility] CD3- CD19+ (ABS) 516 110 - 541 /uL [facility] CD3- CD19+ (PCT) 19.6 7.0 - 25.0 %Lymphs [facility] CD3-CD(16+56)+ (ABS) 101 36 - 652 /uL [facility] CD3-CD(16+56)+ (PCT) 3.8 2.0 - 27.0 %Lymphs [facility] CD4+:CD8+ RATIO 3.35 0.7 - 5.0 [facility] Blood 04/25/2025 7:18 AM EDT 04/25/2025 7:23 AM EDT Joni Flores MD LAB BLOOD ORDERABLES nal Result Performing Organization Address City/State/[facility] Co de Phone Number [facility] [address] [place] [address] * Comprehensive metabolic panel (04/25/2025 6:35 AM EDT) SODIUM 141 136 - 145 mmol/L [facility] POTASSIUM 4.1 3.4 - 5.1 mmol/L [facility] CHLORIDE 102 98 - 107 mmol/L [facility] CO2 29 22 - 31 mmol/L [facility] BUN 13 6 - 23 mg/dL [facility] CREATININE 1.07 0.50 - 1.20 mg/dL [facility] GLUCOSE 83 70 - 100 mg/dL [facility] ALBUMIN 4.6 3.5 - 5.2 g/dL [facility] TOTAL PROTEIN 7.6 6.4 - 8.3 g/dL [facility] CALCIUM 9.1 8.8 - 10.7 mg/dL [facility] ALKALINE PHOSPHATASE 117 35 - 130 U/L [facility] TOTAL BILIRUBIN 0.4 0.0 - 1.0 mg/dL [facility] AST 20 10 - 50 U/L [facility] ALT 15 10 - 50 U/L [facility] GLOBULIN 3.0 2.2 - 4.2 g/dL [facility] EGFR 82 >59 mL/min/1.7 3m2 [facility] Comment:Estimated glomerular filtration rate calculated using the CKD-EPI refit equation. ANION GAP 10 7 - 17 mmol/L [facility] Blood 04/25/2025 6:35 AM EDT 04/25/2025 7:23 AM EDT us Marybel Paulino PA-C LAB BLOOD ORDERABLES F inal Result [facility] [address] [place] [address] * Hepatitis C antibody, qualitative (03/28/2025 12:36 PM EDT) HCV Nonreactive Nonreactive [facility] LIC# [id number] Comment:Antibodies to HCV no t detected. Does not exclude the possibility of exposure to HCV. Blood 03/28/2025 12:3 6 PM EDT 03/28/2025 1:03 PM EDT us Joni Flores MD LAB BLOOD ORDERABLES Fi nal Result [facility] LIC# [id number] [address] [place] [address], [facility] from Last 3 Months or Most Recently Relevant to Health Maintenance Insurance C3 ACO Care Teams Boat Buffer Plastic Relationship Specialty Start Date End Date Ricci Barkley MD [address] [place] [address] [phone] PCP - General Internal Medicine 05/30/25 Self-Referred, Patient 10/30/22 Elli Nazario MD [address] [place] [address] [email or web address] Internal Medicine 12/01/22 Moe Shaffer MD, PhD [address] [place] [address], [place] [address] [email or web address] 12/01/22 Elli Nazario MD [address] [place] [address] [email or web address] Referring Physician Internal Medicine 02/08/25 Selena Antonio [address] [place] [address] [email or web address] 03/24/25 Rafia Kiser, [facility] [address] [place] [address] [email or web address] Food And Beverage Assistant Oncology 07/25/25 Additional Source Comments The information contained in this document represents components of the legal health record. It is not the complete legal health record.[facility]
--- OUTSIDE RECORDS SUMMARY | 2025-07-26 07:02 | XMS_ITS ---
Author Organization [employer] Address [address] [facility] 7t [place] [address] Care Team Providers Care Scrap Metal Processing Worker Name Role Phone Ricci Barkley MD Primary Care Provider [phone] CHW Complex Status:Closed (Closed) Start date:05/22/2025 Enrollment date:05/23/2025 Enrollment reason:C3 Manual Referral End date:07/24/2025 Close reason:Goals Met Overview SDOH Referral- Please see below msg from C3. Jayleen, We received a request for support with a C3 member. Please note: Non- CTC Epic sites can find the referral noted in [place] [facility] sites can find the referral noted in EPIC Member Name JP FITZPATRICK Member 1970 Member MMIS# [id number] Member Contact Information Language: Bilingual Member Health Center Referral Source Please contact Francia Lim at [phone] ex [phone] if the member is not reachable. Reason for referral Francia Lim, Patient Advocate at [facility], called seeking meal services for the member who has health conditions and is experiencing food insecurity. She stated that she had submitted a referral already, but the member was never contacted. Continued Care and Services Coordination
--- OUTSIDE RECORDS SUMMARY | 2025-07-26 07:02 | XMS_ITS | Encounter Summary ---
Author Organization [facility] Address [address] [facility] [address] [place] [address] Phone Care Team Providers Care Director Retirement Name Role Phone Pcp, Not Required Primary Care Provider Unavaila ble Self-Referred, Patient Unavailable Unavailab Elli Solomon MD Unavailable [phone] Moe Shaffer MD, PhD Unavailable [phone] Elli Nazario MD Unavailable [phone] Selena Antonio Unavailable [phone] Ricci Barkley MD Primary Care Pr ovider Rafia Kiser TIRE CORD WEAVER Unavailable [phone] Encounter Details Date Type Department Care Team (Late st Contact Info) Description 12/01/2022 Ancillary Orders Outside Imaging Moe Shaffer MD, PhD [address] [place] [address] [email or web address] Social History Tobacco Use Types [...] 12:00 PM EDT Telemedicine - audio only [facility] General & GI Surgery [address] [place] [address] Yelitza Ward MD, MSc [address] [place] [address] [email or web address] 08/14/2025 Procedure Pass [facility] Periop [address] [place] [address] 08/14/2025 3:54 PM EDT Hospital Encounter [facility] [address] [address] Yelitza Ward MD, MSc [address] [place] [address] [email or web address] 08/14/2025 3:54 PM EDT - 08/14/2025 7:41 PM EDT Surgery [facility] Periop [address] [place] [address] Yelitza Ward MD, MSc [address] [place] [address] [email or web address] EXPLORATORY LAPAROTOMY BOWEL RESECTION, CYTOREDUCTion 08/29/2025 2:30 PM EST Office Visit [facility] General & GI Surgery [address] [place] [address] Nathaly Watson PA-C [address] [place], [place] [address]am and [facility], [place] [address] [email or web address] Scheduled Procedures Name Priority Associated Diagnoses Date/Ti me EXPLORATORY LAPAROTOMY BOWEL RESECTION Malignant neoplasm of ascending colon 08/14/2025 3:54 PM EDT PLACEMENT STENT URETER Malignant neoplasm of ascending colon 08/14/2025 3:54 PM EDT documented as of this encounter Results * NM PET Whole Body Outside (No Interpretation) (06/10/2022 12:00 AM EDT) Other Narrative [facility] - 12/01/2022 7:48 AM EST This study is for PACS storage only and not for interpretation. us Moe Shaffer MD, PhD IMG OUTSIDE IMAGING W /OUT INTERPRETATION Final Result Performing Organization Address [facility] de Phone Number [facility] * CT Abdomen Outside (No Interpretation) (03/04/2022 12:00 AM EDT) Other Narrative [facility] - 12/01/2022 7:49 AM EST This study is for PACS storage only and not for interpretation. us Moe Shaffer MD, PhD IMG OUTSIDE IMAGING W /OUT INTERPRETATION Final Result Performing Organization Address [facility] de Phone Number [email or web address] documented in this encounter Visit Diagnoses Not on filedocumented in this encounter Care Teams Director Retirement Relationship Specialty Start Date End Date Pcp, Not Required [address] [place] [address] PCP - General 10/30/22 02/07/25 Ricci Barkley MD [address] [place] [address] PCP - General Internal Medicine 05/30/25 Self-Referred, Patient 10/30/22 Elli Nazario MD [address] [place] [address] [email or web address] Medicine 12/01/22 Moe Shaffer MD, PhD [address] [place] [address] [email or web address] Medical Oncology 12/01/22 Elli Nazario MD [address] [place] [address] [email or web address] Referring Physician Internal Medicine 02/08/25 Selena Antonio [address] [place] [address] [email or web address] Group [email or web address] 03/24/25 Rafia Kiser, [facility] [address] [place] [address] [email or web address] Bridge/Structure Inspection Team Leader Oncology 07/25/25 documented as of this encounter Additional Source Comments The information contained in this document represents components of the legal health record. It is not the complete legal health record.[facility]
--- OUTSIDE RECORDS SUMMARY | 2025-07-26 07:02 | XMS_ITS | Encounter Summary ---
Author Organization [employer] Address [address] [place] [address] 7 [place] [address] Care Team Providers Care Candy Waffle Assembler Name Role Phone Ricci Barkley MD Primary Care Provider [phone] Ashia Mena Unavailable Encounter Details Date Type [...] on filedocumented in this encounter Care Teams Candy Waffle Assembler Relationship Specialty Start Date End Date Ricci Barkley MD [address] [place] [address] PCP - General Internal Medicine 01/04/19 Ashia Mena 05/22/25 07/24/25 documented as of this encounter
[2025-07-26 07:18] LABS: MANUAL DIFF FLAG NO
[2025-07-26 07:20] LABS: Hematocrit 44.4 % (42.0-52.0); Hemoglobin 13.9 g/dl (14.0-18.0); Imm Gran Abs Auto 0.01 X10*3/uL (0.00-0.03); Imm Gran Pct Auto 0.2 % (0.0-0.4); Lymphocytes Absolute Auto 2.7 X10*3/uL (1.2-4.9); Mean Corpuscular HGB Conc 31.3 g/dl (31.0-36.0); Mean Corpuscular Hemoglobin 26.7 pg (27.0-33.0); Mean Corpuscular Volume 85.4 fL (80.0-98.0); NRBC Abs Auto 0.000 X10*3/uL (0.0-0.012); NRBC Pct Auto 0.0 /100WBC (0.0-0.2); Platelet Count 200 X10*3/uL (160-400); Red Blood Count 5.20 X10*6/uL (4.60-5.80); White Blood Count 5.1 X10*3/uL (4.8-10.8)
[2025-07-26 07:36] LABS: Alanine Aminotransferase 31 U/L (0-40); Albumin Level 4.6 g/dL (3.5-5.0); Alkaline Phosphatase 96 U/L (39-117); Anion Gap 11 (12-20); Aspartate Amino Transferase 37 U/L (5-37); Blood Urea Nitrogen 12 mg/dL (9-16); Calcium 9.0 mg/dL (8.4-10.2); Carbon Dioxide 26 mmol/L (22-29); Chloride 108 mmol/L (96-108); Estimated Glomerular Filt Rate > 60; Magnesium 2.1 mg/dL (1.6-2.6); Potassium 4.3 mmol/L (3.3-5.1); Sodium 141 mmol/L (135-145); Total Protein 7.3 g/dL (6.5-8.0)
[2025-07-26 16:25] LABS: Carcinoembryonic Antigen 7.00 ng/mL
== END 2025-07-26 06:59 | disposition home or self-care (01) ==
LOC: HO.LAB 06:58
PROVIDERS: PCP Internal Medicine; Visit Provider Internal Medicine
DX: C18.0 Malignant neoplasm of cecum (principal)
CPT/HCPCS: 36415; 80053; 82378; 83735; 85025